=== PATIENT | male | born 1995 | race Caucasian/White ===

== ENCOUNTER 2021-07-16 12:28 | Emergency (ER) | payer MEDICARE, BC, SELFPAY ==
[2021-07-16] VITALS (24 sets, daily range): BP systolic 151–173; BP diastolic 96–113; PULSE 90–101; RESP 8–27; TEMP 36.6; O2SAT 93–100
--- NOTE | ~2021-07-16 | XR_ITS ---
XR chest 1V portable DATE: 07/16/2021 17:21 INDICATION: Shortness of breath and fatigue since yesterday. History of dialysis. Hypertension. TECHNIQUE: Portable upright AP chest on July 16, 2021 at 1717 hours COMPARISON: None FINDINGS: Heart size is normal. There is mild pulmonary vascular congestion and redistribution sugges ting pulmonary venous hypertension. There are mild infiltrates and/atelectasis in the mid to lower augusto ng zones. Differential diagnoses include pulmonary edema, pneumonia, less likely aspiration. Minimal pleural effusions. No pneumothorax. IMPRESSION: Pulmonary vascular congestion and redistribution, small pleural effusions, suggesting con gestive changes There are mild central and lower lung zone infiltrates, more prominent centrally, which may be due to pulmonary edema. Differential diagnosis includes pneumonia, less likely aspiration Reviewed, dictated and finalized at location B. P [employer]URANCE SPECIAL AGENT IMPRESSION: Pulmonary vascular congestion and redistribution, small pleural eff usions, suggesting congestive changes There are mild central and lower lung zone infiltrates, more prominent centrall y, which may be due to pulmonary edema. Differential diagnosis includes pneumon ia, less likely aspiration
--- NOTE | 2021-07-16 16:06 | PC.NURSE ---
Pt has hx of kidney transplant s/p rejection and currently on dialysis, left forearm fistula, on M/W/F dialysis. No missed sessions. Pt reports one week of increased fatigue/lethargy. Pt states he has called off work all week due to symptoms, this normally happens when his hgb is low. States his hgb was 8 when drawn yesterday, states that he becomes symptomatic when it is less than 9.5. VS as documented. Pt A&Ox4 and appears generally weak/tired. Waiting provider assessment/POC. Mom at bedside.
[2021-07-16 17:03] LABS: Basophils Percent Auto 0.3 % (0.2-1.2); Eosinophils Absolute Auto 0.1 K/mm3 (0-0.3); Eosinophils Percent Auto 1.8 % (0-4.4); Hematocrit 25.4 % (42.0-52.0); Hemoglobin 8.4 g/dL (14.0-18.0); Immature Granulocyte Absolute 0.01 K/mm3 (0.00-0.031); Immature Granulocyte Percent A 0.3 % (0-0.5); Lymphocytes Absolute Auto 0.31 K/mm3 (0.9-3.2); Lymphocytes Percent Auto 9.1 % (18.3-44.2); Mean Corpuscular HGB Conc 33.1 g/dl (32-36); Mean Corpuscular Hemoglobin 32.2 pg (26-34); Mean Corpuscular Volume 97.3 fl (80-100); Monocytes Absolute Auto 0.3 K/mm3 (0.1-0.6); Monocytes Percent Auto 9.4 % (2.6-8.5); Neutrophils Absolute Auto 2.7 K/mm3 (1.3-6.7); Neutrophils Percent Auto 79.1 % (45.5-73.1); Platelet Count Result 166 k/mm3 (150-375); Red Blood Count 2.61 M/mm3 (4.6-6.20); Red Cell Distribution Width 14.5 % (11.5-14.5); White Blood Count 3.4 K/mm3 (4.5-10.0)
[2021-07-16 17:13] LABS: Alanine Aminotransferase 15 U/L (4-50); Albumin Level 3.9 g/dL (3.5-5.1); Alkaline Phosphatase 79 U/L (38-126); Anion Gap 8 mmol/L (8-16); Aspartate Amino Transferase 21 U/L (17-59); Bilirubin,Total 1.1 mg/dL (0.2-1.3); Blood Urea Nitrogen 31 mg/dL (9-20); Calcium 9.6 mg/dL (8.4-10.2); Carbon Dioxide 35 mmol/L (22-30); Chloride 96 mmol/L (98-107); Estimated CRCL calculation 13 ml/min; Estimated Glomerular Filt Rate 8; Glucose 124 mg/dL (65-110); Potassium 4.5 mmol/L (3.4-5.0); Sodium 139 mmol/L (137-145)
[2021-07-16 19:01] LABS: SARS-CoV-2 RNA PCR Negative
--- NOTE | 2021-07-16 19:15 | ED.SOB ---
HPI - SOB/Dyspnea General Chief Complaint: Shortness of Breath/Dyspnea Stated Complaint: SOB, Fatigue Time Seen by Provider: 07/16/21 15:58 Source: patient and RN notes reviewed Mode of arrival: ambulatory Limitations: no limitations History of Present Illness HPI Narrative: Patient is a 26-year-old male who presents with mother for concern of fatigue and shortness of breath for the last 2 days he is a dialysis patient followed by Cannot go he had had some slight congestion a couple of days ago that resolved on arrival he denies any chest pain fever chills nausea vomiting or other complaints he was able to complete his dialysis yesterday Related Data Home Medications Medication Instructions Recorded Confirmed acyclovir 200 mg capsule 200 mg PO BID cap 07/19/20 12/04/20 amlodipine 10 mg tablet 10 mg PO DAILY 07/19/20 12/04/20 aspirin 81 mg tablet,delayed 81 mg PO DAILY 07/19/20 12/04/20 release famotidine 20 mg tablet 20 mg PO DAILY 07/19/20 12/04/20 tacrolimus 1 mg capsule, 2 mg PO .COMPLEX cap 07/19/20 12/04/20 immediate-release labetalol 200 mg tablet 200 mg PO Q12H 12/04/20 12/04/20 lisinopril 40 mg tablet 40 mg PO DAILY 12/04/20 12/04/20 Allergies Allergy/AdvReac Type Severity Reaction Status Date / Time Sulfa (Sulfonamide AdvReac itchy-rash Verified 12/04/20 15:40 Antibiotics) Review of Systems Review of Systems: All systems reviewed & are unremarkable except as noted in HPI and below PMFSH Past Medical History Medical History Hearing loss Hypertension Kidney disease Status post peritoneal dialysis (~03/2019) Surgical History Surgical History Kidney transplant recipient (~12/2018) Status post insertion of hemodialysis catheter (~06/2020) Social History Social History Smoking status: Former smoker (vapes) Tobacco type: e-cigarettes/vaping Alcohol intake: never Exam Narrative: GENERAL: Well-appearing, well-nourished, and in no acute distress. HEAD: Normocephalic, atraumatic. EYES: PERRLA and EOMI. ENT: Nares clear, no rhinorrhea or epistaxis. Mucous membranes moist. NECK: Supple. No adenopathy or masses. No carotid bruits or JVD CHEST: Clear to auscultation. No respiratory distress. No wheezes rales or rhonchi HEART: Regular rate and rhythm. No murmur heard. Normal peripheral pulses. EXTREMITIES: Normal range of motion. 1+ edema bilateral ankles SKIN: Warm, dry, no rash. NEURO: No focal deficits. Alert and oriented x3. PSYCH: Normal mood and affect. Course Course Emergency Course: Patient presented with fatigue and shortness of breath for the last 2 days he was evaluated for this negative Covid testing no pneumonia suspected given the lack of URI symptoms could be slightly volume overloaded discussion was made with his barrel header to well reevaluate him tomorrow at dialysis and feels that the patient can be discharged home as long as his Covid is negative given the case findings and presentation ABCs and vital signs intact and stable patient and his mother are aware of case findings in agreement with the treatment plan Consultations Consultation #1: Discussed case with Dr. amezcua the patient's barrel header who recommends Covid testing is aware of the remainder of findings and notes that the patient can be discharged home if Covid negative for dialysis tomorrow Date: 07/16/21 Vital Signs Vital signs: Vital Signs Temperature 98 F 07/16/21 13:02 Pulse Rate 90 07/16/21 13:02 Respiratory Rate 18 07/16/21 13:02 Blood Pressure 153/96 H 07/16/21 13:02 Pulse Oximetry 100 07/16/21 13:02 Temperature 98 F 07/16/21 13:02 Pulse Rate 94 07/16/21 16:08 Respiratory Rate 18 07/16/21 16:08 Blood Pressure 154/103 H 07/16/21 16:08 Pulse Oximetry 99 07/16/21 16:08 MDM - SOB/Dyspnea
== END 2021-07-16 19:37 | disposition home or self-care (01) ==
PROVIDERS: Emergency Medicine Emergency Medical Services; Emergency Provider Emergency Medicine; PCP Family Medicine
DX: R06.00 Dyspnea, unspecified (principal); I10 Essential (primary) hypertension; Z20.822 Contact with and (suspected) exposure to COVID-19
CPT/HCPCS: 36415; 71045; 80053; 85025; 86850; 86900; 86901; 99283; C9803; U0003; U0005

== ENCOUNTER 2021-09-04 07:14 | Outpatient (RCR) | payer MEDICARE, BC, SELFPAY ==
[2021-09-03 09:29] LABS: Hematocrit 19.9 % (42.0-52.0); Hemoglobin 6.6 g/dL (14.0-18.0)
[2021-09-04] VITALS (10 sets, daily range): BP systolic 132–171; BP diastolic 81–115; PULSE 81–96; RESP 14–16; TEMP 36.4–37.3; O2SAT 88–98
[2021-09-04] MEDS: SODIUM CHLORIDE 0.9% IV 250 ML 30 ML IV CONT (07:50)
--- NOTE | 2021-09-04 10:00 | PC.NURSE ---
Pt sleeping in recliner, respirations even and unlabored. Pt awakens to name, pt denies pain, no sign of transfusion reaction. Mother in room with pt, reports this is the best he has slept all week . Blood infusing without difficutly.
[2021-09-04] MEDS: FUROSEMIDE INJ 40 MG/4 ML VIAL IV PUSH ×2 (10:53→14:20)
--- NOTE | 2021-09-04 11:20 | PC.NURSE ---
Pt placed on 2LNC due of O2 sat dropping to 88% on RA while sleeping. Pt awakens easily and O2 sat rebounds to high 90's. IV lasix given, 2nd unit of PRBC's infusing without difficulty. Pt reports understanding and answers appropriately then returns to sleep. Mother reports he has not slept well recently and states he has been very tired. This RN at bedside for initiation of 2nd unit of PRBC'S to monitor pt for signs of a transfusion reaction. Pt and mother reminded of signs of a reaction and instructed to call or help/ use call light if any symptom developed. Both report understand, call light within reach. Pt resting comfortably at this time.
--- NOTE | 2021-09-04 12:37 | PC.NURSE ---
Pt sleeping, awakens to name, pt alert and oriented, denies pain, itching, shortness of breath or other complaints. PRBC infusing without difficulty, continue to monitor.
--- NOTE | 2021-09-04 14:23 | PC.NURSE ---
2nd unit of PRBC infused, pt tolerated well, O2 sat 98% on RA.
== END 2021-12-02 23:59 | disposition home or self-care (01) ==
LOC: ANHCPCTRAN 07:14
PROVIDERS: PCP Family Medicine; Visit Provider Internal Medicine Nephrology
DX: D64.9 Anemia, unspecified (principal)
CPT/HCPCS: 36415; 36430; 85014; 85018; 86850; 86900; 86901; 86920; 96374; J1940; J7050; P9016

== ENCOUNTER 2021-10-13 11:29 | Inpatient (IN) | payer MEDICARE, BC, SELFPAY ==
[2021-10-13] VITALS (35 sets, daily range): BP systolic 126–192; BP diastolic 69–120; PULSE 88–111; RESP 9–38; TEMP 37–37.6; O2SAT 86–100; BMI 23.3
--- NOTE | ~2021-10-13 | XR_ITS ---
EXAMINATION: XR chest 2V DATE: 10/15/2021 10:43 INDICATION: Hypoxia. TECHNIQUE: Frontal and lateral views of the chest were obtained. COMPARISON: Chest 2 views 10/13/2021, chest CT 10/14/2021 FINDINGS: Eddi B lines are noted. There are mild airspace opacities in the lower lung zones. These findings are consistent with mild pulmonary edema. No pleural effusion or pneumothorax. The heart siz e is normal. IMPRESSION: 1. Mild pulmonary edema with interval improvement. Reviewed, dictated and finalized at location B.
--- NOTE | ~2021-10-13 | CT_ITS ---
EXAMINATION: CT abdomen pelvis wo con DATE: 10/13/2021 13:40 INDICATION: Abdominal pain, umbilical pain. Nausea and vomiting. Renal transplant 2019 TECHNIQUE: Computed tomography (CT) of the abdomen and pelvis was performed without intravenous contr ast. Automated exposure control and iterative reconstruction technique were employed. Exam dose: 397 .13 mGy-cm total exam DLP. COMPARISON: None. FINDINGS: There is extensive patchy consolidating infiltration of the middle lobe and both lower lobe s. Mild bilateral pleural effusions. Cardiomegaly. There is small pericardial effusion. There is mild ascites. There is subcutaneous edema of the abdominal and pelvic marion consistent with anasarca. No hepatic, splenic, pancreatic, adrenal or renal space occupying mass lesion is detected. There is m ild splenomegaly. Bilateral prominent renal atrophy. The gallbladder is present. No bile duct or pancreatic duct dilatation. Right renal transplant. No hydronephrosis. No abdominal aortic aneurysm. No intraperitoneal or retroperitoneal or pelvic mass lesion or lymphad enopathy. No bowel obstruction or free air. Included skeletal structures are unremarkable. IMPRESSION: Severe bilateral tejon kidney atrophy Right renal transplant Extensive patchy consolidating infiltrates of the middle and both lower lobes suggesting pneumonia or pulmonary edema Small pericardial effusion Mild bilateral pleural effusions Mild ascites Anasarca Splenomegaly Reviewed, dictated and finalized at Location [facility]. Reviewed, dictated and finalized at location A. IMPRESSION: Severe bilateral tejon kidney atrophy Right renal transplant Extensive patchy consolidating infiltrates of the middle and both lower lobes s uggesting pneumonia or pulmonary edema Small pericardial effusion Mild bilateral pleural effusions Mild ascites Anasarca Splenomegaly
--- NOTE | ~2021-10-13 | CT_ITS ---
EXAMINATION: CTA chest PE protocol DATE: 10/14/2021 08:23 INDICATION: Shortness of breath and chest pain TECHNIQUE: Computed tomography angiography (CTA) of the chest was performed with 100 mL Omnipaque-350 intravenous contrast timed to evaluate the pulmonary arteries. Coronal maximum intensity projection 3D-reconstructions were created by the technologist. The dose-length product (DLP) was 287.55 mGy-cm. Automated exposure control and iterative reconstruction technique were employed. COMPARISON: None. FINDINGS: The pulmonary arteries are well-opacified. No pulmonary embolism is identified. There are p atchy airspace opacities with a mid and lower lung zone predominance. There are small pleural effusio ns. No pneumothorax is identified. The heart size is normal. There appears to be mild interlobular s eptal thickening. There is mild mediastinal and bilateral hilar lymphadenopathy. Mild gynecomastia is noted. There is diffuse anasarca. IMPRESSION: 1. No pulmonary embolism. 2. Findings consistent with multifocal pneumonia. 3. Small pleural effusions with possible mild pulmonary edema. 4. mediastinal and bilateral hilar lymphadenopathy, likely reactive. Reviewed, dictated and finalized at location A.
--- NOTE | ~2021-10-13 | XR_ITS ---
XR chest 2V DATE: 10/13/2021 12:01 INDICATION: Medial chest pain for one month. Shortness of breath. Dialysis patient. TECHNIQUE: AP and lateral views COMPARISON: July 16, 2021 portable AP chest FINDINGS: There is borderline heart size.. There is pulmonary vascular congestion. There is prominenc e of the fissures. There are bilateral pulmonary infiltrates involving primarily the mid and lower augusto ng zones. These may be due to pulmonary edema and/or pneumonia or aspiration. No pneumothorax. Very small bilateral pleural effusion is evident. IMPRESSION: Pulmonary vascular congestion, pulmonary interstitial and pulmonary edema, very small ple ural effusions. Cannot exclude pneumonia or aspiration. Reviewed, dictated and finalized at location A. IMPRESSION: Pulmonary vascular congestion, pulmonary interstitial and pulmonary edema, very small pleural effusions. Cannot exclude pneumonia or aspiration.
--- NOTE | ~2021-10-13 | NM_ITS ---
EXAMINATION: NM makayla stress w perfusion DATE: 10/14/2021 13:29 INDICATION: Chest pain. TECHNIQUE: Rest images were obtained following intravenous administration of 9.7 mCi Tc99m tetrofosmi n (Myoview). The patient was infused intravenously with Lexiscan (regadenoson). Then, 29.3 mCi Tc99m tetrofosmin (Myoview) was administered intravenously, and supine and prone stress images were obtaine d. Data was reconstructed into short axis and horizontal and vertical long axis SPECT images. Gated S PECT images were also obtained. COMPARISON: Chest CT 10/14/2021 FINDINGS: There is a small, mild, fixed perfusion defect involving mid anterolateral segment of left ventricle, consistent with infarct. No reversible component to suggest ischemia. There is no segment al wall motion abnormality. Left ventricular ejection fraction measures 68%. IMPRESSION: 1. Small area of mild infarct involving mid anterolateral segment of left ventricle. 2. Normal left ventricular ejection fraction measuring 68%. Reviewed, dictated and finalized at location B. IMPRESSION: 1. Small area of mild infarct involving mid anterolateral segment of left ventr icle. 2. Normal left ventricular ejection fraction measuring 68%.
--- NOTE | ~2021-10-13 | US_ITS ---
US venous doppler [facility] DATE: 10/13/2021 14:31 INDICATION: Swelling of the lower extremities. Elevated d-dimer. TECHNIQUE: Real-time and color flow imaging and Doppler analysis of the lower extremity veins COMPARISON: None FINDINGS: The greater saphenous veins are patent. There is spontaneous and phasic flow and normal aug mentation and color flow signal and normal compression of the deep veins of both lower extremities. IMPRESSION: No evidence of deep venous thrombosis of the lower extremities Reviewed, dictated and finalized at Location [facility]. Reviewed, dictated and finalized at location A.
--- NOTE | 2021-10-13 11:36 | ECG_ITS ---
Measurements Intervals [place] Rate: 106 P: 23 ME: 127 QRS: 7 QRSD: 86 T: 96 QT: 319 QTc: 425 Interpretive Statements SINUS TACHYCARDIA POSSIBLE LEFT ATRIAL ENLARGEMENT DELAYED PRECORDIAL R/S TRANSITION BORDERLINE ST-T WAVE ABNORMALITY- HIGH LATERAL LEADS BORDERLINE ECG Electronically Signed On 10-13-2021 16:29:38 CDT by Demetri Mcqueen D.O.
[2021-10-13 11:53] LABS: Basophils Percent Auto 0.2 % (0.2-1.2); Eosinophils Absolute Auto 0.1 K/mm3 (0-0.3); Eosinophils Percent Auto 1.6 % (0-4.4); Hematocrit 24.3 % (42.0-52.0); Hemoglobin 8.1 g/dL (14.0-18.0); Immature Granulocyte Absolute 0.02 K/mm3 (0.00-0.031); Immature Granulocyte Percent A 0.2 % (0-0.5); Lymphocytes Absolute Auto 0.28 K/mm3 (0.9-3.2); Lymphocytes Percent Auto 3.4 % (18.3-44.2); Mean Corpuscular HGB Conc 33.3 g/dl (32-36); Mean Corpuscular Hemoglobin 32.9 pg (26-34); Mean Corpuscular Volume 98.8 fl (80-100); Mean Platelet Volume 9.1 fl (7.4-10.4); Monocytes Absolute Auto 0.3 K/mm3 (0.1-0.6); Monocytes Percent Auto 3.2 % (2.6-8.5); Neutrophils Absolute Auto 7.5 K/mm3 (1.3-6.7); Neutrophils Percent Auto 91.4 % (45.5-73.1); Platelet Count Result 152 k/mm3 (150-375); Red Blood Count 2.46 M/mm3 (4.6-6.20); Red Cell Distribution Width 14.8 % (11.5-14.5); White Blood Count 8.2 K/mm3 (4.5-10.0)
[2021-10-13 12:02] LABS: INR 1.2; Prothrombin Time 14.8 Seconds (11.1-14.7)
[2021-10-13 12:04] LABS: Alanine Aminotransferase 12 U/L (4-50); Albumin Level 3.9 g/dL (3.5-5.1); Alkaline Phosphatase 84 U/L (38-126); Anion Gap 9 mmol/L (8-16); Aspartate Amino Transferase 23 U/L (17-59); Bilirubin,Total 1.8 mg/dL (0.2-1.3); Blood Urea Nitrogen 33 mg/dL (9-20); Calcium 9.7 mg/dL (8.4-10.2); Carbon Dioxide 30 mmol/L (22-30); Chloride 96 mmol/L (98-107); Estimated CRCL calculation 14 ml/min; Estimated Glomerular Filt Rate 8; Glucose 85 mg/dL (65-110); Lipase 42 U/L (23-300); Potassium 4.4 mmol/L (3.4-5.0); Sodium 135 mmol/L (137-145)
[2021-10-13 12:24] LABS: Platelet Estimate Adequate (Adequate); Stomatocytes 1+ (NORMAL)
[2021-10-13 12:32] LABS: Troponin I 0.018 ng/mL (0.000-0.034)
--- NOTE | 2021-10-13 13:12 | ED.CHESTPAIN ---
HPI - Chest Pain General Chief Complaint: Chest Pain <DEVON Thompson Last Filed: 10/13/21 16:45> Stated Complaint: Chest Pain, Renal Failure <DEVON Thompson Last Filed: 10/13/21 16:45> Time Seen by Provider: 10/13/21 12:54 <DEVON Thompson Last Filed: 10/13/21 16:45> Source: patient and family <DEVON Thompson Last Filed: 10/13/21 16:45> Mode of arrival: wheelchair <DEVON Thompson Last Filed: 10/13/21 16:45> Limitations: no limitations <DEVON Thompson Last Filed: 10/13/21 16:45> History of Present Illness HPI narrative: This is a 26-year-old male that presents to the emergency department with multiple complaints. Ongoing for several months. Reports intermittent chest pains, shortness of breath, and fatigue. Also reports some intermittent abdominal discomfort. 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 Denies fever, or vomiting. <DEVON Thompson Last Filed: 10/13/21 16:45> Related Data Home Medications: Home Medications Medication Instructions Recorded Confirmed acyclovir 200 mg capsule 200 mg PO BID cap 07/19/20 10/13/21 aspirin 81 mg tablet,delayed 81 mg PO DAILY 07/19/20 10/13/21 release famotidine 20 mg tablet 20 mg PO DAILY 07/19/20 10/13/21 tacrolimus 1 mg capsule, 2 mg PO .COMPLEX cap 07/19/20 10/13/21 immediate-release labetalol 200 mg tablet 200 mg PO Q12H 12/04/20 10/13/21 losartan [Cozaar] 100 mg PO HS 09/04/21 10/13/21 clonidine HCl 0.1 mg PO BID PRN 10/13/21 10/13/21 nifedipine 60 mg PO BID 10/13/21 10/13/21 ondansetron 4 mg PO Q4-6H PRN 10/13/21 10/13/21 <DEVON Thompson Last Filed: 10/13/21 16:45> Allergies/Adverse Reactions: Allergies Allergy/AdvReac Type Severity Reaction Status Date / Time amoxicillin [From Augmentin] AdvReac Severe Nausea and Verified 10/13/21 18:08 Vomiting clavulanic acid AdvReac Severe Nausea and Verified 10/13/21 18:08 [From Augmentin] Vomiting Sulfa (Sulfonamide AdvReac itchy-rash Verified 10/13/21 18:08 Antibiotics) <Margot Aguirre PA-C - Last Filed: 10/13/21 16:45> Review of Systems Review of Systems: CONSTITUTIONAL: Denies fever CARDIOVASCULAR: Reports chest pain, and edema. RESPIRATORY: Reports dyspnea. Denies cough GASTROINTESTINAL: Reports abdominal pain, nausea. Denies vomiting NEUROLOGIC: Reports generalized weakness. <DEVON Thompson Last Filed: 10/13/21 16:45> All systems reviewed & are unremarkable except as noted in HPI and below <Margot Aguirre PA-C - Last Filed: 10/13/21 16:45> [facility] Past Medical History Medical History: Medical History Alport syndrome Anemia of chronic disease Anxiety End stage renal disease On PD prior to renal transplant. Back on hemodialysis due to failing transplant. Gastroesophageal reflux disease Hypertension Status post peritoneal dialysis (~03/2019) <DEVON Thompson Last Filed: 10/13/21 16:45> Surgical History Surgical History: Surgical History Kidney transplant recipient (12/2018) Status post creation of arteriovenous fistula Left wrist. Status post insertion of hemodialysis catheter (06/2020) <DEVON Thompson Last Filed: 10/13/21 16:45> Family History Family History: Family History Grandparent Alport syndrome Heart disease Father Type 2 diabetes mellitus <DEVON Thompson Last Filed: 10/13/21 16:45> Social History Social History: Social History Social History: Surrogate decision maker: Tierra and Dario Sheth, parents. Code status: Full code. Smoking status: Former smoker Tobacco type: cigarettes and e-cigare
[2021-10-13 13:33] LABS: NT Pro B Type Natriuretic Pept > 35000 pg/mL (5-100)
[2021-10-13 13:54] LABS: D Dimer 0.76 ug/mL (<0.48)
[2021-10-13] MEDS: FUROSEMIDE INJ 40 MG/4 ML VIAL IV PUSH (15:04)
[2021-10-13 15:24] LABS: Troponin I 0.019 ng/mL (0.000-0.034)
[2021-10-13] MEDS: ENOXAPARIN 80 MG/0.8 ML SYRINGE SUB-Q (15:32)
--- NOTE | 2021-10-13 15:45 | PM.IMHP ---
H&P: HPI History of Present Illness Date/Time: 10/13/21 15:45 Chief Complaint: Multiple complaints. Narrative: This is a 26-year-old male with Alport syndrome who presented to the emergency department via private vehicle from home with multiple complaints. He is status post renal transplant in 2019 however that has essentially failed and he is back on hemodialysis on Thursday, Thursday, and Thursday. He reports getting down to his dry weight with a majority of his dialysis sessions however he goes on to say that over the last several months he has noticed more swelling in his legs and his abdomen. He also reports increasing fatigue to the point that he had to take a leave of absence from work. He has orthopnea quite frequently though it does improve somewhat after dialysis sessions. He does not sleep well most nights and endorses paroxysmal nocturnal dyspnea and loud snoring that occasionally wakes him from sleep. His appetite has not been great and he has frequent nausea and occasional emesis which seems to happen more so in the morning. He has also become progressively more anemic and required blood transfusion a couple of months ago for the 1st time. At times he feels lightheaded and dizzy upon standing though he denies syncope and falls. Additionally he endorses intermittent episodes of racing heart and palpitations which are occasionally associated with chest tightness, nausea, and mild shortness of breath. He has an upcoming appointment with his primary care provider to discuss these complaints though he seems to be getting worse and he felt it was best to come in for evaluation. He was afebrile on arrival to the emergency department. Blood pressures were running quite high however he had not yet taken his home medications in after those were given they have improved. Hemoglobin and hematocrit are right around where they were several months ago however he does not know his typical baseline and he does not think that he receives epoetin with dialysis. He had no significant electrolyte abnormalities. D-dimer was mildly elevated and a chest CTA has been ordered for tomorrow morning to rule out pulmonary embolism prior to dialysis though this seems less likely. Chest x-ray showed evidence of volume overload. A CT of the abdomen and pelvis showed extensive patchy consolidating infiltrates in the middle and both lower lobe suggesting pneumonia or pulmonary edema, small pericardial effusion, mild bilateral pleural effusions, mild ascites, anasarca, and splenomegaly. He is now being admitted for further evaluation. He currently has no complaints and denies fever, cold and flu symptoms, current chest pain, cough, dysuria (he still urinates a small amount 1 to 2 times per day), and change in bowel patterns (reports passing 1 to 2 loose stools each day). Review of Systems Review of Systems: Twelve systems were reviewed. Occasional night sweats. No fever. Reports a slight headache at this time, worse when his blood pressures are running high. No congestion, sore throat, or cough. He denies pleuritic pain. Occasional GERD symptoms. No history of peptic ulcers. No hematemesis, melena, or hematochezia. Except as documented, all other systems were reviewed and are negative. [facility] Past Medical History Medical History (Updated 10/13/21 @ 23:14 by Samina Gant PA-C) Alport syndrome Anemia of chronic disease Anxiety End stage renal disease On PD prior to renal transplant. Back on hemodialysis due to failing transplant. Gastroesophageal reflux disease Hypertension Status post peritoneal dialysis (~03/2019) Surgical History Surgical History (Updated 10/13/21 @ 23:14 by Samina Gant PA-C) Kidney transplant recipient (12/2018) Status post creation of arteriovenous fistula Left wrist. Status post insertion of hemodialysis catheter (06/2020) Family History Family History Grandparent Alport syndrome
[2021-10-14] VITALS (31 sets, daily range): BP systolic 111–157; BP diastolic 71–97; PULSE 85–99; RESP 16–19; TEMP 36.8–37.4; O2SAT 92–97
--- NOTE | 2021-10-14 | ECHO_ITS ---
Patient Info Name: Dav Sheth Age: 26 years : 1995 Gender: Male Ht: 72 in Wt: 172 lbs BSA: 1.99 m2 HR: 87 bpm BP: 131 / 80 mmHg Technical Quality: Good Exam Date: 10/14/2021 2:39 PM Exam Location: [facility] Patient Status: Inpatient Admit Date: 10/13/2021 Staff Ordering Physician: Samina Gant PA-C [employer] Applications Analyst: Noelle Gomez RDCS Attending Provider: Jag Dee MD Referring Physician: Stalin ESTRELLA; Exam Type: CA echo doppler color flow Study Info Indications - EDEMA I10 - Essential (primary) hypertension R00.2 - Palpitations R53.83 - Other fatigue Complete two-dimensional, color flow and Doppler transthoracic echocardiogram is performed. Summary 1. Complete two-dimensional, color flow and Doppler transthoracic echocardiogram is performed. 2. Mild LV enlargement, severe LVH, normal LV systolic function, ejection fraction 65-70%; diastolic dysfunction is present. [id number] left atrial enlargement. Normal mitral valve structure, no significant MR. Normal aortic valve structure, no stenosis or regurgitation. Trivial TR, moderate pulmonary hypertension, RVSP 53 mmHg. Mild pulmonic regurgitation. Small pericardial effusion, no echo evidence of tamponade. Left pleural effusion. Sinus rhythm. Left Ventricle Left ventricular chamber dimension is mildly enlarged. Left ventricular systolic function is normal, estimated at 65-70%. There is severely increased left ventricular wall thickness. Left ventricular septal wall motion is normal. The left ventricular diastolic function is abnormal. Right Ventricle Right ventricular chamber dimension is normal. Right ventricular systolic function is normal. Left Atria Left atrial chamber dimension is mildly enlarged. Right Atria Right atrial chamber dimension is normal. Aortic Valve The aortic valve is normal. There is no aortic valve stenosis. There is no aortic valve regurgitation. Pulmonic Valve The pulmonic valve is normal. There is mild pulmonic regurgitation. Mitral Valve The mitral valve has normal leaflets. There is no mitral valve stenosis. There is trace mitral valve regurgitation. Tricuspid Valve The tricuspid valve leaflets are normal. There is no tricuspid valve regurgitation. Moderate pulmonary hypertension, estimated pulmonary arterial systolic pressure is 53 mmHg. Pericardium/Pleural The pericardium appears normal. There is small pericardial effusion. Inferior Vena Cava Normal inferior vena cava with >50% collapse upon inspiration consistent with normal right atrial pressure, 10 mmHg. Aorta The aortic root size at the sinus of Valsalva is normal. The prox ascending aorta size is normal. Left Ventricular Outflow Tract Name Value Normal LVOT 2D LVOT Diameter 2.0 cm LVOT Doppler LVOT Peak Gradient 8 mmHg LVOT Mean Gradient 5 mmHg LVOT VTI 26 cm LVOT VTI/AV VTI Ratio 1.0 LVOT Stroke Volume 83 ml LVOT CO
[2021-10-14] MEDS: ACYCLOVIR 200 MG CAPSULE PO ×2 (00:47→20:15)
[2021-10-14] MEDS: NIFEdipine 30 MG TAB.ER.24 60 MG PO ×2 (00:47→20:16)
[2021-10-14] MEDS: LABETALOL HCL 100 MG TABLET 200 MG PO ×2 (00:47→20:15)
[2021-10-14] MEDS: LOSARTAN POTASSIUM 100 MG TABLET PO ×2 (00:47→20:15)
[2021-10-14 06:20] LABS: Basophils Percent Auto 0.2 % (0.2-1.2); Eosinophils Absolute Auto 0.1 K/mm3 (0-0.3); Eosinophils Percent Auto 3.2 % (0-4.4); Hematocrit 22.2 % (42.0-52.0); Hemoglobin 7.2 g/dL (14.0-18.0); Immature Granulocyte Absolute 0.02 K/mm3 (0.00-0.031); Immature Granulocyte Percent A 0.5 % (0-0.5); Lymphocytes Absolute Auto 0.52 K/mm3 (0.9-3.2); Lymphocytes Percent Auto 12.7 % (18.3-44.2); Mean Corpuscular HGB Conc 32.4 g/dl (32-36); Mean Corpuscular Hemoglobin 32.3 pg (26-34); Mean Corpuscular Volume 99.6 fl (80-100); Mean Platelet Volume 9.9 fl (7.4-10.4); Monocytes Absolute Auto 0.2 K/mm3 (0.1-0.6); Monocytes Percent Auto 3.6 % (2.6-8.5); Neutrophils Absolute Auto 3.3 K/mm3 (1.3-6.7); Neutrophils Percent Auto 79.8 % (45.5-73.1); Platelet Count Result 136 k/mm3 (150-375); Red Blood Count 2.23 M/mm3 (4.6-6.20); Red Cell Distribution Width 14.6 % (11.5-14.5); White Blood Count 4.1 K/mm3 (4.5-10.0)
[2021-10-14 06:29] LABS: Anion Gap 9 mmol/L (8-16); Blood Urea Nitrogen 45 mg/dL (9-20); Calcium 9.4 mg/dL (8.4-10.2); Carbon Dioxide 30 mmol/L (22-30); Chloride 96 mmol/L (98-107); Estimated CRCL calculation 11 ml/min; Estimated Glomerular Filt Rate 6; Glucose 84 mg/dL (65-110); Magnesium 2.3 mg/dL (1.6-2.3); Phosphorus 5.4 mg/dL (2.5-4.5); Potassium 4.9 mmol/L (3.4-5.0); Sodium 135 mmol/L (137-145)
[2021-10-14 06:51] LABS: Iron 18 ug/dL (49-181)
[2021-10-14 07:00] LABS: Percent Iron Saturation 8 % (20-50)
--- NOTE | 2021-10-14 08:08 | PM.CNNEP ---
Assessment and Plan Additional Plan 1. 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 He is due for dialysis today. He does seem to have some fluid on. They usually get about 2L off but that does not seem to be enough. I will go for 3 or 4L today. I talked to the patient about taking extra fluid off and he is in agreement with that. His potassium is okay so will use a 3K bath. 2. The patient has chest pain. He does not remember being evaluated for his heart in the past. Has he has end-stage kidney disease we probably should do a stress test and an echo. The patient also had a positive D-dimer. We plan to do a V/Q scan after the fluid is off. 3. The patient has anemia. Hemoglobin is only 7. This could also contribute to his symptoms. He will get EPO today. I will check iron levels. 4. Patient has renal osteodystrophy. We will check a phosphorus level in the morning. 5. The patient has hypertension. He is on nifedipine losartan labetalol and clonidine. His fluid status may be contributing to the blood pressure. Hopefully we can wean the clonidine as we go. 6. He has a kidney transplant. This still has some function so he is still on tacro and prednisone. History of Present Illness Reason for Consult Consult date: 10/14/21 Chief Complaint Chief complaint: Anasara/Acute respriatory failure w hypoxia History of Present Illness Narrative: Dav is a very pleasant 26-year-old gentleman who has multiple medical problems including end-stage renal disease on dialysis Wednesdays and Fridays under Dr. Schroeder. 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 The patient also has anemia of chronic kidney disease, renal osteodystrophy, hypertension, GERD. The patient found out about his kidney disease back in June 2018. He ended up on peritoneal dialysis. Then he got a kidney transplant later that year. The transplant lasted until about a year ago and he went back on hemodialysis. He chose hemo over PD because it worked better with his work schedule. He says that he has been tolerating dialysis pretty well. His blood pressure does okay. He has noted this been more swollen in the last couple of months. This was noted at the dialysis unit and in fact they have been taking him below his dry weight but did not adjust his dry weight yet. He says that over the past few weeks he has had intermittent chest pain. This is pressure in the chest. He does not really know if it correlates with his fluid. He has some shortness of breath with exertion but not especially chest pain. The pain does not radiate down the arm does not go up into the jaw. It just stays in the center of the chest. Nothing makes it better but just rest. His pains were little worse over the weekend and he because he wish also somewhat short of breath he decided to come into the emergency room. He was evaluated and found to have crackles in his lungs and chest x-ray showed fluid. He was placed on some oxygen and his O2 sats were fine on only 2L and in fact now he has no oxygen on at all. He was given some diuretics to see if he would make more urine. He is due for dialysis today. Review of Systems Constitutional: Constitutional: Reports no additional constitutional complaints Eyes: Eyes: Reports no additional eye complaints ENT: Reports system reviewed and no additional complaints, except as documented Cardiovascular: Cardiovascular: Reports no additional cardiovascular complaints Respiratory: Respiratory: Reports no additional respiratory complaints Gastrointestinal: Gastrointestinal: Reports no additional gastrointestinal complaints Genitourinary: Genitourinary: Reports no additional male genitourinary complaints Musculoskeletal: Musculoskeletal: Reports no additional musculoskeletal complaints Integumentary/Breasts: Skin/Breast: Reports system reviewed and no additional complaints, except as docu Neurolo
--- NOTE | 2021-10-14 08:15 | EST_ITS ---
Patient Info Name: Dav Sheth Age: 26 years : 1995 Gender: Male Ht: 72 in Wt: 172 lbs BSA: 1.99 m2 Exam Date: 10/14/2021 11:51 AM Exam Location: [facility] Patient Status: Inpatient Admit Date: 10/13/2021 Staff Ordering Physician: Malik Helms MD Attending Provider: Jag Dee MD Exercise Technologist: Noelle Gomez RDCS Exam Type: CA stress makayla w NM Study Info Indications R07.9 - Chest pain, unspecified A regadenoson stress test was performed. Summary 1. Normal sinus rhythm. 2. Nonspecific T-wave abnormality. 3. No changes in comparison with the baseline ECG. 4. Clinically and electrocardiographically unremarkable Lexiscan stress test. 5. Myocardial perfusion imaging exam to be reported by Radiology. Protocol: Lexiscan Stress ECG Details Stage: REST Duration (min): 14 min : 24 sec HR (bpm): 86 SBP (mmHg): 151 DBP (mmHg): 92 Stage: REST Duration (min): 18 min : 31 sec HR (bpm): 85 SBP (mmHg): 151 DBP (mmHg): 92 Stage: STAGE 1 Duration (min): 0 min : 59 sec HR (bpm): 98 SBP (mmHg): 151 DBP (mmHg): 92 Stage: RECOVERY Duration (min): 1 min : 0 sec HR (bpm): 88 SBP (mmHg): 159 DBP (mmHg): 70 Stage: RECOVERY Duration (min): 2 min : 0 sec HR (bpm): 99 SBP (mmHg): 159 DBP (mmHg): 70 Stage: RECOVERY Duration (min): 3 min : 0 sec HR (bpm): 98 SBP (mmHg): 148 DBP (mmHg): 71 Stage: RECOVERY Duration (min): 3 min : 41 sec HR (bpm): 97 SBP (mmHg): 148 DBP (mmHg): 71 Rest HR: 85 bpm Peak HR: 100 bpm Rest Sys BP: 151 mmHg Peak Sys BP: 159 mmHg Max Pred HR: 194 bpm % Max Pred HR: 52 % Target HR: 165 bpm Max RPP: 15,900 bpm*mmHg Total Time: 1 min : 0 sec Rest Sparks BP: 92 mmHg Peak Sparks BP: 70 mmHg Total Dose: 0.4 mg Resting ECG Normal sinus rhythm. Nonspecific T-wave abnormality. Stress ECG No changes in comparison with the baseline ECG. Report Signatures
[2021-10-14 09:06] LABS: Iron 20 ug/dL (49-181)
[2021-10-14 09:16] LABS: Percent Iron Saturation 9 % (20-50)
--- NOTE | 2021-10-14 13:40 | PM.IMPN ---
Progress Note: A&P Assessment and Plan (1) Volume overload: Code(s): E87.70 - Fluid overload, unspecified Status: Acute Assessment and Plan: Patient presents with chest pain and SOB and noted to be hypoxic. CT Abd/Pelvis showing asasarca, ascites and pulmonary consolidations. CXR more consistent with pulmonary vascular congestion and pulmonary edema. Likely hypoxia secondary to volume overload. Pneumonia seems unlikely given no cough, fever or elevated WBC. Chest CTA showing patchy airspace opacities with mid and lower lung predominance. He was not started on IV abx but did receive one dose on Lasix IV. Not had HD yet. He has been weaned to room air. Will follow for now and repeat CXR in the morning to assess for improvement. Would consider atypical infections since he is immunosuppresed. Check BCx and Sputum Cx. (2) Chest pain: Code(s): R07.9 - Chest pain, unspecified Status: Acute Assessment and Plan: Patient presents with chest pain and this also occurred during the stress test. Trop negative x 3. He underwent Lexiscan stress test and the EKG portion showing nonspecific T wave changes and no EKG changes when compared to baseline EKGs. No mention of chest pain during the stress test. The Lexiscan shows a small, mild, fixed perfusion defect involving mid anterolateral segment of left ventricle, consistent with infarct. No reversible component. BP did not drop with stress test. Continue ASA. Will add Lipitor. Check Echo. (3) Hypoxia: Code(s): R09.02 - Hypoxemia Status: Acute Assessment and Plan: Patient presents with chest pain and SOB and noted to be hypoxic. As above. Weaned to room air. Follow. (4) End stage renal disease: Code(s): N18.6 - End stage renal disease Status: Acute Assessment and Plan: Patient with ESRD on HD related to Alport Syndrome. He has had a kidney transplant but back on HD due to rejection. Still makes urine and the Lasix may have helped his fluid status. Nephrology has been consulted and appreciate their input. Continue aggressive fluid management. (5) Kidney transplant recipient: [facility] Date: 12/2018 Code(s): Z94.0 - Kidney transplant status Status: Inactive Assessment and Plan: Patient s/p kidney transplant. Continue prednisone and tacrolimus. Continue acyclivir. Check tacrolimus level. (6) Anemia of chronic disease: Code(s): D63.8 - Anemia in other chronic diseases classified elsewhere Status: Acute Assessment and Plan: Patient was transfused a couple of months ago for dropping hemoglobin. He does not get epoetin injections to his knowledge. Hgb 8.2 but dropped to 7.2 today. Contineu Epo. Contineu Pepcid. Iron studies noted and may be iron deficient. Stool for occult blood ordered. Add B12. Follow HH. Try to minimize transfusion. Patient also with mildly decreased white count and platelet count but probably related to the tacrolimus. Will continue to follow. (7) Suspected sleep apnea: Code(s): R29.818 - Other symptoms and signs involving the nervous system Status: Acute Assessment and Plan: Patient with daytime somnolence. Apnea link ordered. Follow-up on results (8) Hypertension: Qualifiers: Hypertension type: unspecified Qualified Code(s): I10 - Essential (primary) hypertension Code(s): I10 - Essential (primary) hypertension Status: Acute Assessment and Plan: Patient's blood pressure was reviewed on 10/14 Blood pressure much better controlled. Will continue current medications with nifedipine, Cozaar, and labetalol. (9) Fatigue: Code(s): R53.83 - Other fatigue Status: Acute Assessment and Plan: Progressively worse over the last several months to the point where he had to take a leave of absence from work. May be related to anemia vs uncontrolled fluid status vs sleep apnea. TSH norm
[2021-10-14 14:00] LABS: Hepatitis B Surface Antigen Negative (Negative)
[2021-10-14 14:21] LABS: Hepatitis B Surface Anti Res Positive
[2021-10-14 15:02] LABS: Alveolar/Arterial O2 Gradient 37.7 mmHg; Base Excess ABG 6.9 mEq/l (+/-2.0); Fractional Inspired Oxygen 21 %; HCO3 ABG 30.5 mEq/l (22.0-26.0); Oxygen Content ABG 11.9 %vol (16.0-22.0); Oxygen Saturation ABG 94.4 % (95.0-100.0); Oxyhemoglobin 90.8 % THb (90.0-100.0); PCO2 ABG 39.5 mmHg (35.0-45.0); PO2 ABG 64.7 mmHg (80.0-100.0); PO2 FiO2 Ratio Arterial Blood 3.08 %; Total Hemoglobin 9.3 g/dL (12.0-18.0)
[2021-10-14 15:08] LABS: Device ROOM AIR; Modified Allen's Test Pass; Site Drawn RIGHT RADIAL; pH ABG 7.506 (7.350-7.450)
[2021-10-14 18:32] LABS: Vitamin B12 > 1000.0 pg/mL (239-931)
[2021-10-14 18:36] LABS: Folic Acid 10.9 ng/mL (2.76->20)
--- NOTE | 2021-10-14 22:43 | PCRCNOTE ---
RT talked to the patient about an overnight apnea sleep study test and explained the reasoning behind the test and possible benefit outcomes. The patient stated they were uninterested and did not want to participate in the over night sleep study [place].
[2021-10-15] VITALS (19 sets, daily range): BP systolic 152–250; BP diastolic 95–138; PULSE 70–100; RESP 16–19; TEMP 36.4–36.9; O2SAT 92–97
[2021-10-15] MEDS: cloNIDine HCL 0.1 MG TABLET PO ×3 (06:06→20:47)
[2021-10-15 06:35] LABS: Basophils Percent Auto 0.4 % (0.2-1.2); Eosinophils Absolute Auto 0.1 K/mm3 (0-0.3); Eosinophils Percent Auto 4.1 % (0-4.4); Hematocrit 21.3 % (42.0-52.0); Immature Granulocyte Absolute 0.01 K/mm3 (0.00-0.031); Immature Granulocyte Percent A 0.4 % (0-0.5); Lymphocytes Absolute Auto 0.42 K/mm3 (0.9-3.2); Lymphocytes Percent Auto 15.6 % (18.3-44.2); Mean Corpuscular HGB Conc 32.4 g/dl (32-36); Mean Corpuscular Hemoglobin 32.2 pg (26-34); Mean Corpuscular Volume 99.5 fl (80-100); Mean Platelet Volume 9.4 fl (7.4-10.4); Monocytes Absolute Auto 0.2 K/mm3 (0.1-0.6); Monocytes Percent Auto 8.6 % (2.6-8.5); Neutrophils Absolute Auto 1.9 K/mm3 (1.3-6.7); Neutrophils Percent Auto 70.9 % (45.5-73.1); Platelet Count Result 133 k/mm3 (150-375); Red Blood Count 2.14 M/mm3 (4.6-6.20); Red Cell Distribution Width 14.6 % (11.5-14.5); White Blood Count 2.7 K/mm3 (4.5-10.0)
[2021-10-15 06:40] LABS: Hemoglobin 6.9 g/dL (14.0-18.0)
[2021-10-15 06:41] LABS: Alanine Aminotransferase 8 U/L (4-50); Albumin Level 3.3 g/dL (3.5-5.1); Alkaline Phosphatase 76 U/L (38-126); Anion Gap 6 mmol/L (8-16); Aspartate Amino Transferase 16 U/L (17-59); Bilirubin Indirect 0.6 mg/dL (0-1.1); Bilirubin,Total 1.1 mg/dL (0.2-1.3); Blood Urea Nitrogen 23 mg/dL (9-20); Calcium 8.8 mg/dL (8.4-10.2); Carbon Dioxide 35 mmol/L (22-30); Chloride 97 mmol/L (98-107); Estimated CRCL calculation 17 ml/min; Estimated Glomerular Filt Rate 10; Glucose 79 mg/dL (65-110); Magnesium 2.2 mg/dL (1.6-2.3); Phosphorus 4.4 mg/dL (2.5-4.5); Potassium 4.1 mmol/L (3.4-5.0); Sodium 138 mmol/L (137-145)
--- NOTE | 2021-10-15 08:10 | PM.PNNEP ---
Progress Note: A&P Additional Plan 1. 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 He is due for dialysis tomorrow. Fluid status looks better. His potassium is okay so will use a 3K bath. 2. The patient has chest pain. He does not remember being evaluated for his heart in the past. Stress test shows small 9 reversible attenuation consistent with an old NE. LVEF was good. Reversible changes. Chest CTA was done. This was negative. We do not need a VQ anymore now. Echocardiogram is pending 3. The patient has anemia. Hemoglobin 6.9 today. Iron levels are low. Start Venofer. He is already on EPO. Try not to transfuse. He is waiting for a kidney transplant. 4. Patient has renal osteodystrophy. We will check a phosphorus level in the morning. 5. The patient has hypertension. He is on nifedipine losartan labetalol and clonidine. His fluid status may be contributing to the blood pressure. hold clonidine and take off more fluid tomorrow. 6. He has a kidney transplant. This still has some function so he is still on tacro and prednisone. Subjective Date/time seen: 10/15/21 08:10 Interval history: Patient had dialysis yesterday. 4L were removed. He feels a lot better today. Swelling is gone and he is breathing fine. Review of Systems Cardiovascular: Cardiovascular: Reports no additional cardiovascular complaints Respiratory: Respiratory: Reports no additional respiratory complaints Gastrointestinal: Gastrointestinal: Reports no additional gastrointestinal complaints Genitourinary: Genitourinary: Reports no additional male genitourinary complaints Exam Narrative: WDWN in NAD skin no rash head ncat lungs clear cor reg no rub abd BS+ nontender and soft ext no edema. Objective Data Vital Signs Vital Signs: Vital Signs - 24 hr 10/14/21 08:18 10/14/21 12:00 10/14/21 14:00 Temperature 37.1 C Pulse Rate 85 88 86 Respiratory Rate 16 Blood Pressure 111/71 Pulse Oximetry 97 10/14/21 15:10 10/14/21 15:45 10/14/21 15:54 Temperature 36.8 C Pulse Rate 90 90 Respiratory Rate 16 Blood Pressure 134/84 132/75 Pulse Oximetry 94 10/14/21 16:00 10/14/21 16:15 10/14/21 16:30 Temperature Pulse Rate 88 85 93 Respiratory Rate Blood Pressure 140/83 153/79 H 154/97 H Pulse Oximetry 10/14/21 16:45 10/14/21 17:00 10/14/21 17:15 Temperature Pulse Rate 87 90 91 Respiratory Rate Blood Pressure 150/81 H 152/88 H 155/92 H Pulse Oximetry 10/14/21 17:30 10/14/21 17:45 10/14/21 18:00 Temperature Pulse Rate 93 95 94 Respiratory Rate Blood Pressure 157/90 H 141/89 H 156/89 H Pulse Oximetry 10/14/21 18:15 10/14/21 18:30 10/14/21 18:45 Temperature Pulse Rate 99 95 95 Respiratory Rate Blood Pressure 154/88 H 154/92 H 153/94 H Pulse Oximetry 10/14/21 19:00 10/14/21 19:15 10/14/21 19:27 Temperature Pulse Rate 94 98 97 Respiratory Rate Blood Pressure 156/89 H 154/85 H 152/90 H Pulse Oximetry 10/14/21 19:45 10/14/21 20:00 10/14/21 20:15 Temperature 37.1 C Pulse Rate 97 99 93 Respiratory Rate 16 Blood Pressure 152/90 H Pulse Oximetry 10/14/21 21:13 10/14/21 21:49 10/15/21 00:00 Temperature 37.1 C Pulse Rate 98 100 Respiratory Rate 19 Blood Pressure 156/93 H Pulse Oximetry 97 92 10/15/21 04:00 10/15/21 06:00 10/15/21 06:52 Temperature 36.9 C Pulse Rate 98 95 93 Respiratory Rate 19 Blood Pressure 168/100 H 152/95 H Pulse Oximetry 92 10/15/21 07:29 Temperature Pulse Rate 93 Respiratory Rate 19 Blood Pressure Pulse Oximetry 92 Intake/Output Intake/Output: Intake & Output 10/12/21 10/13/21 10/14/21 10/15/21 23:59 23:59 23:59 23:59 Intake Total 750 Output Total 4000 Balance -3250 Meds/Results Medications: Active Medications Generic Name Dose Route Start Last Admin Trade Name Freq PRN Reason St
[2021-10-15] MEDS: NIFEdipine 30 MG TAB.ER.24 60 MG PO ×2 (08:13→19:33)
[2021-10-15] MEDS: ASPIRIN 81 MG ENTERIC TABLET PO (08:13)
[2021-10-15] MEDS: ACYCLOVIR 200 MG CAPSULE PO ×2 (08:13→19:33)
[2021-10-15] MEDS: LABETALOL HCL 100 MG TABLET 200 MG PO ×2 (08:13→19:33)
[2021-10-15] MEDS: ATORVASTATIN 20 MG TABLET PO (08:13)
[2021-10-15] MEDS: predniSONE 5 MG TABLET PO (08:14)
[2021-10-15] MEDS: FAMOTIDINE 20 MG TABLET PO (08:14)
--- NOTE | 2021-10-15 08:49 | PC.NURSE ---
confirmed with MD Moreno no transfusion needed this morning, h&H 6.9/21.3, pt will have dialysis and received Iron sucrose this shift.
--- NOTE | 2021-10-15 08:59 | PC.NURSE ---
confirmed with Md Clemente no dialysis today, will get dialysis tomorrow, daily iron sucrose infusions.
[2021-10-15] MEDS: IRON SUCROSE COMPLEX 200 MG in SODIUM CHLORIDE 0.9% IV 50 ML 120 MG IVPB (09:01)
--- NOTE | 2021-10-15 12:08 | PC.NURSE ---
stool sample send to lab for analysis.
[2021-10-15 12:32] LABS: IFOB Positive Control Positive; Immunochemical Fecal Occult Bl Negative (N)
--- NOTE | 2021-10-15 14:40 | PC.NURSE ---
occult stool negative
--- NOTE | 2021-10-15 15:33 | PM.IMPN ---
Progress Note: A&P Assessment and Plan (1) Volume overload: Code(s): E87.70 - Fluid overload, unspecified Status: Acute Assessment and Plan: Patient presents with chest pain and SOB and noted to be hypoxic. CT Abd/Pelvis showing anasarca, ascites and pulmonary consolidations. CXR more consistent with pulmonary vascular congestion and pulmonary edema. Likely hypoxia secondary to volume overload. Pneumonia seems unlikely given no cough, fever or elevated WBC. Chest CTA showing patchy airspace opacities with mid and lower lung predominance. He was not started on IV abx but did receive one dose on Lasix IV. He had HD which he toelrated this well. He is well above his dry weight per nephrology. After HD, CXR today showing improving findings to suggest this is all related to fluid overload. He has been weaned to room air. Will follow for now. HD to control fluid status. BCx NGTD. (2) Chest pain: Code(s): R07.9 - Chest pain, unspecified Status: Acute Assessment and Plan: Patient presents with chest pain and this also occurred during the stress test. Trop negative x 3. He underwent Lexiscan stress test and the EKG portion showing nonspecific T wave changes and no EKG changes when compared to baseline EKGs. No mention of chest pain during the stress test. The Lexiscan shows a small, mild, fixed perfusion defect involving mid anterolateral segment of left ventricle, consistent with infarct. No reversible component. BP did not drop with stress test. Echo showing EF 65-70%, severe LVH, diastolic dysfunction, moderate pulmonary HTN and trivial valve disease. Continue ASA, Labetolol and Lipitor. Cardiology consult (3) Hypoxia: Code(s): R09.02 - Hypoxemia Status: Acute Assessment and Plan: Patient presents with chest pain and SOB and noted to be hypoxic. As above. Weaned to room air. Follow. (4) End stage renal disease: Code(s): N18.6 - End stage renal disease Status: Acute Assessment and Plan: Patient with ESRD on HD related to Alport Syndrome. He has had a kidney transplant but back on HD due to rejection. Still makes urine and the Lasix may have helped his fluid status. Nephrology was consulted and appreciate their input. Continue aggressive HD to control fluid management. (5) Kidney transplant recipient: [facility] Date: 12/2018 Code(s): Z94.0 - Kidney transplant status Status: Inactive Assessment and Plan: Patient s/p kidney transplant. Mild pancytopenia possibly relate to his mediations. Continue prednisone and tacrolimus. Continue acyclovir. Tacrolimus level pending. Follow CBC (6) Anemia of chronic disease: Code(s): D63.8 - Anemia in other chronic diseases classified elsewhere Status: Acute Assessment and Plan: Patient was transfused a couple of months ago for dropping hemoglobin. He does not get epoetin injections to his knowledge. Hgb 8.2 but dropped to 6.9 today. Continue Epo. Continue Pepcid. Iron studies noted and started on IV iron. Stool for occult blood negative. B12/Folate levels normal. Follow HH. Try to minimize transfusion. Patient also with mildly decreased white count and platelet count but probably related to the tacrolimus/acyclovir. Will continue to follow. (7) Suspected sleep apnea: Code(s): R29.818 - Other symptoms and signs involving the nervous system Status: Acute Assessment and Plan: Patient with daytime somnolence. Apnea link ordered but patient refused. (8) Hypertension: Qualifiers: Hypertension type: unspecified Qualified Code(s): I10 - Essential (primary) hypertension Code(s): I10 - Essential (primary) hypertension Status: Acute Assessment and Plan: Patient's blood pressure was reviewed on 5/ Blood pressure has been elevated but reasonably well controlled except this afternoon blood pressure is much higher. Possibly related t
--- NOTE | 2021-10-15 15:43 | PC.NURSE ---
discontinued telemetry per Md Moreno
--- NOTE | 2021-10-15 15:50 | PC.NURSE ---
pt to start hydralazine 25 mg tid this shift
--- NOTE | 2021-10-15 16:23 | PM.CNCAR ---
Assessment and Plan Assessment and plan (1) Chest pain: Code(s): R07.9 - Chest pain, unspecified Status: Acute Assessment and Plan: Chest pain is described as pleuritic. Worsened by breathing. It is not anginal. I think that two obvious and significant issues with Mr. Sheth is volume overload likely from inadequate volume removal at dialysis as well as severe anemia. This is resulting in volume overload, anasarca, possible high-output heart failure and resultant extreme fatigue and tiredness. From a cardiac perspective, no further workup is needed. Continue current BP regimen. 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 This is likely secondary to a combination of hypertension and renal disease (6) Abnormal stress test: Code(s): R94.39 - Abnormal result of other cardiovascular function study Status: Acute Assessment and Plan: No ischemia. Likely artifactual (7) Severe anemia: Code(s): D64.9 - Anemia, unspecified Status: Acute History of Present Illness History of Present Illness Consult date/time: 10/15/21 16:23 Requesting physician: Shant Moreno MD Consult reason: chest pain Reason For Visit: Anasara/Acute respriatory failure w hypoxia Narrative: Date of service 10/15/2021: Reason consultation: Chest pain Requesting provider: Dr. Moreno History patient is a 26-year-old male who saw Dr. Stoddard on 1 occasion because of high blood pressure. Was started on nifedipine which seemed to help his blood pressure. The patient came to hospital because of extreme weakness, fatigue, of shortness of breath and chest pain. He has Alport syndrome and has had a kidney transplant which has failed and he is now on dialysis. He has severe anemia as well as volume overload. He feels better now he was dialyzed. They removed 4 L yesterday. He is less short of breath but upon admission he was short of breath with any activity and even at rest. He was also describing chest tightness with the fatigue and with shortness of breath. Upon further questioning he states that his chest pain be worsened with breathing. No syncope, presyncope, paroxysmal nocturnal dyspnea, orthopnea. Review of Systems Review of Systems: All systems reviewed & are unremarkable except as noted in HPI and below Constitutional: Constitutional: Reports fatigue and Reports weakness Eyes: Eyes: Denies blurry vision ENT: Denies Normal hearing present Cardiovascular: Cardiovascular: Reports chest pain Respiratory: Respiratory: Reports dyspnea Gastrointestinal: Gastrointestinal: Denies abdominal pain Genitourinary: Genitourinary: Denies dysuria Musculoskeletal: Musculoskeletal: Denies neck pain Integumentary/Breasts: Skin/Breast: Reports dry skin Neurologic: Denies headache(s) Psychiatric: Psychiatric: Denies anxiety Endocrine: Endocrine: Denies excessive sweating Hematologic/Lymphatic: Hematologic/Lymphatic: Denies easy bleeding Allergic/Immunologic: Allergic/Immunologic: Denies GI upset with certain foods PMFSH Past Medical History Medical History Alport syndrome Anemia of chronic disease Anxiety End stage renal disease On PD prior to renal transplant. Back on hemodialysis due to failing transplant. Gastroesophageal reflux disease Hypertension Status post p
--- NOTE | 2021-10-15 16:42 | PC.NURSE ---
bp 210/138 state state he is mad and upset and that is why bp high, mother states high bp related to anxiety from being at this hospital. Called MD Moreno for further orders.
--- NOTE | 2021-10-15 16:48 | PC.NURSE ---
ativan 0.5 mg po prn q6hrs for anxiety ordered per MD Moreno
[2021-10-15] MEDS: LORazepam (*CRX) 0.5 MG TABLET PO (16:57)
[2021-10-15] MEDS: hydrALAZINE HCL 25 MG TABLET PO (16:57)
--- NOTE | 2021-10-15 18:54 | PC.NURSE ---
ativan 0.5 mg po prn q6h and hydralazine 25 mg po given for elevated bp, pt states too upset to take bp at this time, bp is high because he is frustrated.
[2021-10-15] MEDS: LOSARTAN POTASSIUM 100 MG TABLET PO (19:33)
[2021-10-15] MEDS: ONDANSETRON INJ 4 MG/2 ML VIAL IV PUSH (20:47)
--- NOTE | 2021-10-15 22:21 | PC.NURSE ---
This patient, Dav Sheth, was received from [facility] on 10/15/21 at 2215. Patient/family oriented to unit policies and routines
[2021-10-15] MEDS: dilTIAZem 100 MG/100 ML 100 MG/100 ML BAG IV CONT (22:24)
--- NOTE | 2021-10-15 22:28 | PC.NURSE ---
2147 report called to IMU, RN. 2206 pt transferred to IMU with belongings. Mother notified at request of pt.
[2021-10-16] VITALS (27 sets, daily range): BP systolic 131–177; BP diastolic 60–103; PULSE 74–107; RESP 14–18; TEMP 36–37; O2SAT 91–98
[2021-10-16 05:20] LABS: Basophils Percent Auto 0.6 % (0.2-1.2); Eosinophils Absolute Auto 0.2 K/mm3 (0-0.3); Eosinophils Percent Auto 5.3 % (0-4.4); Hematocrit 22.9 % (42.0-52.0); Hemoglobin 7.3 g/dL (14.0-18.0); Immature Granulocyte Absolute 0.01 K/mm3 (0.00-0.031); Immature Granulocyte Percent A 0.3 % (0-0.5); Lymphocytes Absolute Auto 0.39 K/mm3 (0.9-3.2); Lymphocytes Percent Auto 12.1 % (18.3-44.2); Mean Corpuscular HGB Conc 31.9 g/dl (32-36); Mean Corpuscular Volume 100.4 fl (80-100); Mean Platelet Volume 9.4 fl (7.4-10.4); Monocytes Absolute Auto 0.2 K/mm3 (0.1-0.6); Monocytes Percent Auto 6.8 % (2.6-8.5); Neutrophils Absolute Auto 2.4 K/mm3 (1.3-6.7); Neutrophils Percent Auto 74.9 % (45.5-73.1); Platelet Count Result 125 k/mm3 (150-375); Red Blood Count 2.28 M/mm3 (4.6-6.20); Red Cell Distribution Width 14.5 % (11.5-14.5); White Blood Count 3.2 K/mm3 (4.5-10.0)
[2021-10-16 05:34] LABS: Albumin Level 3.6 g/dL (3.5-5.1); Anion Gap 5 mmol/L (8-16); Blood Urea Nitrogen 29 mg/dL (9-20); Calcium 9.5 mg/dL (8.4-10.2); Carbon Dioxide 35 mmol/L (22-30); Chloride 96 mmol/L (98-107); Estimated CRCL calculation 13 ml/min; Estimated Glomerular Filt Rate 7; Glucose 86 mg/dL (65-110); Phosphorus 4.6 mg/dL (2.5-4.5); Potassium 4.4 mmol/L (3.4-5.0); Sodium 136 mmol/L (137-145)
[2021-10-16] MEDS: ASPIRIN 81 MG ENTERIC TABLET PO (08:14)
[2021-10-16] MEDS: hydrALAZINE HCL 50 MG TABLET PO ×3 (08:14→18:47)
[2021-10-16] MEDS: LABETALOL HCL 100 MG TABLET 200 MG PO ×2 (08:15→20:13)
[2021-10-16] MEDS: FAMOTIDINE 20 MG TABLET PO (08:15)
[2021-10-16] MEDS: ATORVASTATIN 20 MG TABLET PO (08:15)
[2021-10-16] MEDS: predniSONE 5 MG TABLET PO (08:16)
[2021-10-16] MEDS: NIFEdipine 30 MG TAB.ER.24 60 MG PO ×2 (08:17→20:13)
[2021-10-16] MEDS: IRON SUCROSE COMPLEX 200 MG in SODIUM CHLORIDE 0.9% IV 50 ML 120 MG IVPB (08:17)
[2021-10-16] MEDS: ACYCLOVIR 200 MG CAPSULE PO ×2 (08:25→20:14)
--- NOTE | 2021-10-16 12:56 | PM.IMPN ---
Progress Note: A&P Assessment and Plan (1) Volume overload: Code(s): E87.70 - Fluid overload, unspecified Status: Acute Assessment and Plan: Patient presents with chest pain and SOB and noted to be hypoxic. CT Abd/Pelvis showing anasarca, ascites and pulmonary consolidations. CXR more consistent with pulmonary vascular congestion and pulmonary edema. Likely hypoxia secondary to volume overload. Chest CTA showing patchy airspace opacities with mid and lower lung predominance. Pneumonia seems unlikely given no cough, fever or elevated WBC. He was not started on IV abx but did receive one dose on Lasix IV. BCx NGTD. He had HD 10/14 which he tolerated this well. He is well above his dry weight per nephrology. After HD, CXR did show improvement. He has been weaned to room air. Will follow for now. HD to control fluid status. (2) Hypertension: Qualifiers: Hypertension type: unspecified Qualified Code(s): I10 - Essential (primary) hypertension Code(s): I10 - Essential (primary) hypertension Status: Acute Assessment and Plan: Patient's blood pressure was reviewed on 10/16 Blood pressure became markedly elevated yesterday to the point he needed Diltiazem drip. He was started onhydralazine and dose advanced today. Was able to come off of the Diltiazem. Appears he still has intermittent elevated blood pressure at home. Will continue the other medications with nifedipine, Cozaar, and labetalol. Continue current treatment plan. Will see how he does with HD. (3) Chest pain: Code(s): R07.9 - Chest pain, unspecified Status: Acute Assessment and Plan: Patient presents with chest pain and this also occurred during the stress test. Trop negative x 3. He underwent Lexiscan stress test and the EKG portion showing nonspecific T wave changes and no EKG changes when compared to baseline EKGs. No mention of chest pain during the stress test. The Lexiscan shows a small, mild, fixed perfusion defect involving mid anterolateral segment of left ventricle, consistent with infarct. No reversible component. BP did not drop with stress test. Echo showing EF 65-70%, severe LVH, diastolic dysfunction, moderate pulmonary HTN and trivial valve disease. Cardiology consulted and discussed; they did not feel that the fixed perfusion defect was real or felt related to severe HTN. Continue ASA and Labetolol but will stop the Lipitor. Appreciate Cardiology input (4) Hypoxia: Code(s): R09.02 - Hypoxemia Status: Acute Assessment and Plan: Patient presents with chest pain and SOB and noted to be hypoxic. As above. Weaned to room air. Follow. (5) End stage renal disease: Code(s): N18.6 - End stage renal disease Status: Acute Assessment and Plan: Patient with ESRD on HD related to Alport Syndrome. He has had a kidney transplant but back on HD due to rejection. Still makes urine and the Lasix may have helped his fluid status. Nephrology was consulted and appreciate their input. Continue aggressive HD to control fluid management. (6) Kidney transplant recipient: [facility] Date: 12/2018 Code(s): Z94.0 - Kidney transplant status Status: Inactive Assessment and Plan: Patient s/p kidney transplant. Mild pancytopenia possibly relate to his mediations. Continue prednisone and tacrolimus. Continue acyclovir. Tacrolimus level pending. Follow CBC (7) Anemia of chronic disease: Code(s): D63.8 - Anemia in other chronic diseases classified elsewhere Status: Acute Assessment and Plan: Patient was transfused a couple of months ago for dropping hemoglobin. He does not get epoetin injections to his knowledge. Hgb 8.2 but dropped to 6.9 yesterday. Currently on Epo and IV iron. Also on Pepcid for gastric prophylaxis. Stool for occult blood negative. B12/Folate levels normal. Hgb better at 7.3. Follow HH. Try to minimize transfusion. Patient
[2021-10-16 14:27] LABS: Tacrolimus Prograf 2.3 mcg/L
[2021-10-16] MEDS: SODIUM CHLORIDE 0.9% IV 2,000 ML 999 ML (17:07)
[2021-10-16] MEDS: EPOETIN ALFA-EPBX 10,000 UNITS/ML VIAL 10000 UNITS IV PUSH (17:07)
--- NOTE | 2021-10-16 18:44 | PCHDNOTE ---
Patient tolerated treatment without any acute changes. Net UF: 4 Liters Blood processed: 66.7
[2021-10-16] MEDS: ACETAMINOPHEN 325 MG TABLET 650 MG PO (19:10)
[2021-10-16] MEDS: LOSARTAN POTASSIUM 100 MG TABLET PO (20:13)
[2021-10-17] VITALS: BP 154/90; PULSE 99; RESP 18; TEMP 36.7; O2SAT 97
[2021-10-17 02:00] VITALS: PULSE 94
[2021-10-17 04:00] VITALS: BP 154/92; PULSE 93; PULSE 97; RESP 98; TEMP 36.5; O2SAT 20
[2021-10-17 05:37] LABS: Hematocrit 23.6 % (42.0-52.0); Hemoglobin 7.7 g/dL (14.0-18.0); Mean Corpuscular HGB Conc 32.6 g/dl (32-36); Mean Corpuscular Volume 97.9 fl (80-100); Mean Platelet Volume 9.3 fl (7.4-10.4); Platelet Count Result 153 k/mm3 (150-375); Red Blood Count 2.41 M/mm3 (4.6-6.20); White Blood Count 2.8 K/mm3 (4.5-10.0)
[2021-10-17 05:55] LABS: Albumin Level 3.7 g/dL (3.5-5.1); Anion Gap 9 mmol/L (8-16); Blood Urea Nitrogen 18 mg/dL (9-20); Calcium 9.3 mg/dL (8.4-10.2); Carbon Dioxide 35 mmol/L (22-30); Chloride 96 mmol/L (98-107); Estimated CRCL calculation 17 ml/min; Estimated Glomerular Filt Rate 11; Glucose 78 mg/dL (65-110); Phosphorus 4.4 mg/dL (2.5-4.5); Sodium 140 mmol/L (137-145)
[2021-10-17 06:00] VITALS: PULSE 101
[2021-10-17 08:00] VITALS: BP 143/84; PULSE 95; PULSE 96; RESP 16; TEMP 36.7; O2SAT 99
[2021-10-17] MEDS: IRON SUCROSE COMPLEX 200 MG in SODIUM CHLORIDE 0.9% IV 50 ML 120 MG IVPB (09:57)
[2021-10-17] MEDS: ACYCLOVIR 200 MG CAPSULE PO (09:58)
[2021-10-17] MEDS: NIFEdipine 30 MG TAB.ER.24 60 MG PO (09:58)
[2021-10-17] MEDS: FAMOTIDINE 20 MG TABLET PO (09:58)
[2021-10-17] MEDS: hydrALAZINE HCL 50 MG TABLET PO (09:58)
[2021-10-17] MEDS: LABETALOL HCL 100 MG TABLET 200 MG PO (09:58)
[2021-10-17] MEDS: predniSONE 5 MG TABLET PO (09:58)
[2021-10-17] MEDS: ASPIRIN 81 MG ENTERIC TABLET PO (09:58)
[2021-10-17 10:00] VITALS: PULSE 95
--- NOTE | 2021-10-17 10:19 | PM.DS ---
DS: Admitting Diagnosis Discharge Date 10/17/21 Admitting Diagnosis Chest pain DS: Discharge Diagnosis Discharge Diagnosis (1) Volume overload: Code(s): E87.70 - Fluid overload, unspecified Status: Acute Assessment and Plan: Patient presents with chest pain and SOB and noted to be hypoxic. CT Abd/Pelvis showing anasarca, ascites and pulmonary consolidations. CXR more consistent with pulmonary vascular congestion and pulmonary edema. Likely hypoxia secondary to volume overload. Chest CTA showing patchy airspace opacities with mid and lower lung predominance. Pneumonia seems unlikely given no cough, fever or elevated WBC. He was not started on IV abx but did receive one dose on Lasix IV. BCx NGTD. He had HD here which he tolerated well. He was well above his dry weight per nephrology. After HD, CXR did show improvement. He was weaned to room air. (2) Hypertension: Qualifiers: Hypertension type: unspecified Qualified Code(s): I10 - Essential (primary) hypertension Code(s): I10 - Essential (primary) hypertension Status: Acute Assessment and Plan: Patient's blood pressure became markedly elevated to the point he needed Diltiazem drip. He was started on hydralazine. Was able to come off of the Diltiazem. He has intermittent elevated blood pressure at home. We continued his other medications with nifedipine, Cozaar, and labetalol. BP became better controlled. (3) Chest pain: Code(s): R07.9 - Chest pain, unspecified Status: Acute Assessment and Plan: Patient presented with chest pain and this also occurred during the stress test. Trop eas negative x 3. He underwent Lexiscan stress test and the EKG portion showing nonspecific T wave changes and no EKG changes when compared to baseline EKGs. No mention of chest pain during the stress test. The Lexiscan showed a small, mild, fixed perfusion defect involving mid anterolateral segment of left ventricle, consistent with infarct. No reversible component. BP did not drop with stress test. Echo showing EF 65-70%, severe LVH, diastolic dysfunction, moderate pulmonary HTN and trivial valve disease. Cardiology consulted and discussed; they did not feel that the fixed perfusion defect was real or felt related to severe HTN. We continued ASA and Labetolol but Lipitor was stopped. Appreciated Cardiology input (4) Hypoxia: Code(s): R09.02 - Hypoxemia Status: Acute Assessment and Plan: Patient presents with chest pain and SOB and noted to be hypoxic. [place] related to fluid overload. Weaned to room air. (5) End stage renal disease: Code(s): N18.6 - End stage renal disease Status: Acute Assessment and Plan: Patient with ESRD on HD M-- related to Alport Syndrome. He has had a kidney transplant but back on HD due to rejection. Still makes urine and the Lasix may have helped his fluid status. Nephrology was consulted and appreciate their input. He did well with HD. He did feel whoozy with dialysis last night but better after eating. His blood pressure remained controlled with the addition of hydralazine and no hypotension. (6) Kidney transplant recipient: [facility] Date: 12/2018 Code(s): Z94.0 - Kidney transplant status Status: Inactive Assessment and Plan: Patient s/p kidney transplant. Mild pancytopenia possibly relate to his mediations. Plt count normalized. Continue prednisone and tacrolimus. Continue acyclovir. Tacrolimus level 2.3. (7) Anemia of chronic disease: Code(s): D63.8 - Anemia in other chronic diseases classified elsewhere Status: Acute Assessment and Plan: Patient was transfused a couple of months ago for dropping hemoglobin. He does not get epoetin injections to his knowledge. Hgb 8.2 but dropped to 6.9 treated with Epo and IV iron. Also on Pepcid for gastric prophylaxis. Stool for occult blood negative. B12/Folate levels normal
--- NOTE | 2021-10-22 10:39 | PC.NURSE ---
Blood cx are negative. Dr. Tiffanie galeano.
== END 2021-10-17 11:20 | disposition home or self-care (01) | DRG 640 ==
LOC: ANHED 15:34 → ANHIMU 15:54 → ANH3MEDSUR 17:29 → ANHIMU 10-15 22:32 → ANH3MEDSUR 10-18 11:47 → ANHIMU 10-18 11:47
PROVIDERS: Internal Medicine Nephrology; Physician Assistant; Admitting Provider Family Medicine; Emergency Provider Emergency Medicine; PCP Family Medicine; Visit Provider Internal Medicine
DX: E87.70 Fluid overload, unspecified (principal); N18.6 End stage renal disease; Z94.0 Kidney transplant status; Q87.81 Alport syndrome; I13.11 Hypertensive heart and chronic kidney disease without heart failure, with stage 5 chronic kidney disease, or end stage renal disease; D61.818 Other pancytopenia; Z99.2 Dependence on renal dialysis; R09.02 Hypoxemia; D63.1 Anemia in chronic kidney disease; F17.290 Nicotine dependence, other tobacco product, uncomplicated; F41.9 Anxiety disorder, unspecified; H91.90 Unspecified hearing loss, unspecified ear; K21.9 Gastro-esophageal reflux disease without esophagitis; R53.83 Other fatigue; R94.39 Abnormal result of other cardiovascular function study; R00.2 Palpitations; R07.89 Other chest pain; R29.818 Other symptoms and signs involving the nervous system; N25.0 Renal osteodystrophy; Z79.82 Long term (current) use of aspirin; Z88.1 Allergy status to other antibiotic agents; Z88.2 Allergy status to sulfonamides
CPT/HCPCS: 36415; 36600; 71046; 71275; 74176; 78452; 80048; 80053; 80069; 80076; 80197; 82274; 82607; 82728; 82746; 82805; 83540; 83550; 83690; 83735; 83880; 84100; 84443; 84484; 85025; 85027; 85380; 85610; 85730; 86706; 87040; 87340; 93005; 93017; 93306; 93970; 96372; 96374; 99285; A9270; A9502; G0257; G0378; J1100; J1650; J1756; J1940; J2405; J2704; J2785; J7030; J7512; Q5105; Q9967

== ENCOUNTER 2024-07-25 14:14 | Outpatient (CLI) | payer MEDICARE, OTHER, SELFPAY ==
--- OUTSIDE RECORDS SUMMARY | 2024-07-25 14:29 | XMS_ITS | Referral Summary ---
Author Organization [facility] Address [address] [place] [address] Care Team Providers Care Central Supply Aide Name Role Phone Roel Pantoja MD Primary Care Provider [phone] Source Comments [facility],non-owned Affiliates and Associated Physician Practices is amultiple site organization consisting of ambulatory clinics and hospital sitesin [place], [place], [place] and [place]. This disclosure is being madepursuant to the Care Everywhere program and may not contain all information available regarding this patient. Last updated 18.[facility] Allergies No known active allergies Medications * Be aware that medications may not be up to date on this document. Alwaysverify current medications with the patient. Medication Sig Dispensed Refills Start Date End Date Status ibuprofen (MOTRIN) 800 MG tablet Take 1 Tab by mouth every 8 hours as needed for Pain 20 Tab 0 12/01/2015 Active cyclobenzaprine (FLEXERIL) 10 MG tablet Take 1 Tab by mouth 3 times daily as needed for Muscle Spasms 20 Tab 0 12/01/2015 Active Social History Tobacco Use Types Packs/Day Years Used Date Smoking Tobacco: Never Smokeless Tobacco: Never Alcohol Use Standard Drinks/Week Comments No 0 (1 standard drink = 0.6 oz pur e alcohol) Sex and Gender Information Value Date Recorded Sex Assigned at Not on file Gender Identity Not on file Sexual Orientation Not on file Last Filed Vital Signs Vital Sign Reading Time Taken Comments Blood Pressure 165/88 12/01/2015 4:14 PM CDT Pulse 93 12/01/2015 4:14 PM CDT Temperature 37 C (98.6 F) 12/01/2015 4:14 PM CDT Respiratory Rate 14 12/01/2015 4:14 PM CDT Oxygen Saturation 100% 12/01/2015 4:14 PM CDT Inhaled Oxygen Concentration - - Weight 90.7 kg (200 lb) 12/01/2015 4:14 PM CDT Height 182.9 cm (6' 0.01 ) 12/01/2015 4:14 PM CD T Body Mass Index 27.12 12/01/2015 4:14 PM CDT Plan of Treatment Not on file Care Teams Central Supply Aide Relationship Specialty Start Date End Date Roel Pantoja MD [address] [place] [address] PCP - General Family Medicine 12/01/15
--- OUTSIDE RECORDS SUMMARY | 2024-07-25 14:29 | XMS_ITS | Continuity of Care Document ---
Author Organization [facility] Address [address] [place] [address] Phone Care Team Providers Care Air Motor Repairer Name Role Phone Chavo Ortiz MD Unavailable Unavailable Allergies, Adverse Reactions, Alerts Substance Reaction Status Criticality Sulfa (Sulfonamide Antibiotics) Active No Information Medications Medication Instructions Dosage Effective Dates (start - stop) Status Comments tacrolimus 1 mg capsule take (0.1MG/KG) by oral route every 12 hours 0.1 MG/KG - Active 2 pill in AM and 2 pill at night aspirin 81 mg chewable tablet chew 1 tablet by oral route every day 81 MG - Active acyclovir 200 mg capsule take 1 capsule by oral route BID - Active prednisone 5 mg tablet take 1 tablet by oral route every day 5 MG - Active mycophenolate sodium 360 mg tablet,delayed release take 1 tablet by oral route 2 times every day on an empty stomach 360 MG - Active Pepcid 20 mg tablet take 1 tablet by oral route 2 times every day 20 MG - Active Procedures Procedure Date PREV VISIT, NEW, AGE 18-39 Advance Directives Directive Yes / No Effective Date File Name No Information Encounters Encounter Description Practice Location Reason(s) For Visit Diagnoses Date Provider Providers Copied on Encounter PREV VISIT, NEW, AGE 18-39 [facility] [place], [address] [place], [place], [id number], [place] tel:[phone] [facility] [place] Physical (chief complaint) Encntr for general adult medical exam w/o abnormal findings Angel Tony. [address] [place], [place], [id number], [place]. tel:[phone] Family History Family Member Type Diagnosis Age At Onset Mother Problem Alive and well Father Problem Diabetes mellitus Sister Problem Alive and well Payers Payer name Insurance type Covered alliance party ID Butch florence(s) No Information Social History Type Description Quantity Date Captured Comments Alcohol Use Details Caffeine Use Details Unknown Tobacco Use Status Current non-smoker 20 Smoking Status Never smoker Non-Smoking Tobacco Use Details : No Details Available : No Details Available Sex Male Vital Signs Date / Time: Height Weight BMI Pulse Rate Blood Pressure Temperature Respiratory Rate Body Surface Area Head Circumference BMI percentile Pulse Ox Inhaled Ox 12:02 PM 72.00 in 170.00 lbs 23.0 6 kg/m eter (2) 130/85 mm[Hg] Chief Complaint And Reason For Visit From encounter dated '12/27/2019 11:51'. Physical (chief complaint). Description: Pt needs annual physical Pt has alport syndrome with renalfailure s/p renal transplant last year. Pt is on multiple medication prescribed by nephrology at [facility]. Pt is on pepcid daily for stomach protection from all his medication. Pt recovers very well post transplant. Pt denies any fever, chill, infection Pt has normal UO. Pt denies any weight gain despite on prednisone. Pt has lab work done every other week by nephrology. Pt overall doing well. Pt denies any other complaints Plan Of Treatment Date Type Action Status Referral Ordered: Nephrology (related to Encntr for general adult medical exam w/o abnormal findings) ordered Referral Ordered: Referrals: Nephrology. Evaluate and treat ordered History Of Present Illness Encounter Date Complaint History Of Prese nt Illness Physical Pt needs annual physical Pt has alport syndrome with renal failure s/p renal transplant last year. Pt is on multiple medication prescribed by nephrology at [facility]. Pt is on pepcid daily for stomach protection from all his medication. Pt recovers very well post transplant. Pt denies any fever, chill, infection Pt has normal UO. Pt denies any weight gain despite on prednisone. Pt has lab work done every other week by nephrology. Pt overall doing well. Pt denies any other complaints Instructions Date Instruction Additional Infor mation No Information Assessments Type Assessment Date assessment Encntr for general adult medical exam w/o abnormal findings Mental Status Date Cognitive Assessment Orientation - [place] ed to time, place, person, situation.
--- OUTSIDE RECORDS SUMMARY | 2024-07-25 14:30 | XMS_ITS | Clinical Summary ---
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 Family History Medical History Relation Name Comments Diabetes Father Healthy Mother Healthy Paternal Grandmother Healthy Sister Relation Name Status Comments Father Alive Maternal Grandfather Maternal Grandmother Mother Alive Paternal Grandfather Paternal Grandmother Alive Sister Alive Social History Tobacco Use Types Packs/Day Years Used Date Smoking Tobacco: Never Smokeless Tobacco: Never Alcohol Use Standard Drinks/Week Comments Yes 0 (1 standard drink = 0.6 oz pur e alcohol) socially Sex and Gender Information Value Date Recorded Sex Assigned at Not on file Legal Sex Male 1:05 PM CDT Gender Identity Not on file Sexual Orientation Not on file Last Filed Vital Signs Vital Sign Reading Time Taken Comments Blood Pressure 111/75 04/20/2018 12:00 PM VETERINARY PHYSIOLOGIST Pulse 76 04/20/2018 7:02 AM VETERINARY PHYSIOLOGIST Temperature 36.6 C (97.8 F) 04/20/2018 11:15 AM VETERINARY PHYSIOLOGIST Respiratory Rate 14 04/20/2018 12:00 PM VETERINARY PHYSIOLOGIST Oxygen Saturation 100% 04/20/2018 12:00 PM VETERINARY PHYSIOLOGIST Inhaled Oxygen Concentration - - Weight 74.8 kg (165 lb) 04/20/2018 7:02 AM VETERINARY PHYSIOLOGIST Height 182.9 cm (6') 04/20/2018 7:02 AM VETERINARY PHYSIOLOGIST Body Mass Index 22.38 04/20/2018 7:02 AM VETERINARY PHYSIOLOGIST Plan of Treatment Health Maintenance Due Date Last Done Comments DTAP/TDAP/TD VACCINES (1 - Tdap) 2014 HEPATITIS B VACCINES (1 of 3 - 19+ 3-dose series) 2014 INFLUENZA VACCINE (#1) 2024 , 04/08/2019 HPV VACCINES Aged Out No longer eligi ble based on patient's age to complete this topic Medical Devices Implanted Type Area Club Director Device Identifier Shelf Expiration Date Model / Serial / Lot Cath Pd Wayne Jorgensenl 2cuff [id number] - [id number] Implanted:Qty : 1 on 04/20/2018 by Kate Aj MD at [facility] Catheter N/A: Abdomen [employer] - COVIDIEN Peritoneal Dialysis Catheter 09/24/2021 [id number] / / [id number] Insurance MEDICARE PART A AND B [facility] BLUE ACCESS/TRUE BLUE PPO Advance Directives For more information, please contact: [phone] * Full Code (Latest Code Status on File) Date Activated Date Inactivated Comments 04/20/2018 10:20 AM 04/20/2018 3:04 PM * Full Code Date Activated Date Inactivated Comments 04/20/2018 6:19 AM 04/20/2018 10:20 AM Care Teams Chemical Reclamation Equipment Operator Relationship Specialty Start Date End Date Roel Pantoja MD [address] [place] [id number] PCP - General Family Practice 03/18/18
--- OUTSIDE RECORDS SUMMARY | 2024-07-25 14:30 | XMS_ITS | Patient Health Summary ---
Author Organization [facility] Address [address] [place] [address] Care Team Providers Care Tool Crib Manager Name Role Phone Roel Pantoja MD Primary Care Provider Note from [facility],non-owned Affiliates and Associated Physician Practices is amultiple site organization consisting of ambulatory clinics and hospital sitesin [place], [place], [place] and [place]. This disclosure is being madepursuant to the Care Everywhere program and may not contain all information available regarding this patient. Last updated 18.[facility] [employer] Allergies No known active allergies Medications * Be aware that medications may not be up to date on this document. Alwaysverify current medications with the patient. * ibuprofen (MOTRIN) 800 MG tablet(Started 12/01/2015) Take 1 Tab by mouth every 8 hours as needed for Pain * cyclobenzaprine (FLEXERIL) 10 MG tablet(Started 12/01/2015) Take 1 Tab by mouth 3 times daily as needed for Muscle Spasms Social History Tobacco Use Types Packs/Day Years [...] Mass Index 27.12 12/01/2015 4:14 PM CDT Procedures * DIFFERENTIAL MANUAL(Performed 01/20/2019) Performed for S/P kidney transplant (FORMERLY [facility]) * TACROLIMUS LEVEL(Performed 01/20/2019) Performed for S/P kidney transplant ([facility]ER[facility]) * MAGNESIUM BLOOD(Performed 01/20/2019) Performed for S/P kidney transplant ([facility]) * RENAL FUNCTION PANEL(Performed 01/20/2019) Performed for S/P kidney transplant ([facility]) * CBC W AUTO DIFFERENTIAL(Performed 01/20/2019) Performed for S/P kidney transplant ([facility]) * URINE MICROSCOPIC ONLY REFLEX TO CULTURE(Performed 01/17/2019) Performed for Urinary pain, Kidney replaced by transplant ([facility]LY [facility]) * TACROLIMUS LEVEL(Performed 01/17/2019) Performed for Kidney replaced by transplant ([facility]) * MAGNESIUM BLOOD(Performed 01/17/2019) Performed for Kidney replaced by transplant ([facility]) * RENAL FUNCTION PANEL(Performed 01/17/2019) Performed for Kidney replaced by transplant ([facility]) * CBC W/O DIFFERENTIAL(Performed 01/17/2019) Performed for Kidney replaced by transplant ([facility]) * URINALYSIS REFLEX MICROSCOPIC REFLEX CULTURE(Performed 01/17/2019) Performed for Urinary pain, Kidney replaced by transplant ([facility]) * CULTURE URINE(Performed 01/17/2019) Performed for Urinary pain, Kidney replaced by transplant ([facility]) * TACROLIMUS LEVEL(Performed 01/13/2019) Performed for S/P kidney transplant ([facility]) * MAGNESIUM BLOOD(Performed 01/13/2019) Performed for S/P kidney transplant ([facility]) * RENAL FUNCTION PANEL(Performed 01/13/2019) Performed for S/P kidney transplant ([facility]) * CBC W/O DIFFERENTIAL(Performed 01/13/2019) Performed for S/P kidney transplant ([facility]) * TACROLIMUS LEVEL(Performed 01/10/2019) Performed for Kidney transplanted ([facility]) * MAGNESIUM BLOOD(Performed 01/10/2019) Performed for Kidney transplanted ([facility]) * RENAL FUNCTION PANEL(Performed 01/10/2019) Performed for Kidney transplanted ([facility]) * CBC W/O DIFFERENTIAL(Performed 01/10/2019) Performed for Kidney transplanted ([facility]) * XR CERVICAL SPINE 2 OR 3VW(Performed 12/01/2015) Performed for Neck pain * XR SHOULDER LEFT 2VW OR MORE(Performed 12/01/2015) Performed for Acute pain of left shoulder Results * TACROLIMUS LEVEL (01/20/2019 8:45 AM CDT) Only the most recent of4 resultswithin the time period is included. Tacrolimus 12.9 ng/mL 01/22/2019 8:48 AM CDT [facility] ([facility]) Comment: Therapeutic Range: Kidney transplant: 0-3 months post-transplant: 7.0-20.0 ng/mL 3 months and older: 5.0-15.0 ng/mL Liver transplant: 1-12 months post-transplant: 5-20 ng/mL Heart transplant: 0-3 months post-transplant: 10.0-20.0 ng/mL 3 months and older: 5.0-15.0 ng/mL Toxic value: Greater than 25 ng/mL Therapeutic range is based on a whole blood specimen drawn 12 hours post-dose or prior to next dose (the trough). The optimal therapeutic range for a given patient may differ from this suggested range based on the indication for therapy, treatment phase (initiation or maintenance), use in combination with other drugs, time of specimen collection relative to prior dose, type of transplanted organ, and/or the therapeutic approach of the transplant center. Test developed and characteristics determined by [facility]. See Compliance Statement B: [employer] Performed by [facility], [address] [place] [address] [email or web address], Jose Antoine MD, Lab. Director Blood BLOOD SPECIMEN / Unknown 01/20/2019 8:45 AM CDT 01/20/2019 10:14 AM CDT Prieto Aguirre MD LAB - THERAPEUTIC DR LANG MONITORING ORDERABLES [employer] [facility] ([facility]) [address] * (ABNORMAL) DIFFERENTIAL MANUAL (01/20/2019 8:45 AM CDT) WBC Auto 6.2 4.0 - 10.0 x10E9/L 01/20/2019 10:50 AM CDT [facility] Neutrophils % Manual 85(H) 40 - 75 % 01/20/2019 10:50 AM CDT [facility] Lymphocytes % Manual 6(L) 19 - 53 % 01/20/2019 10:50 AM CDT [facility] Monocytes % Manual 5 5 - 13 % 01/20/2019 10:50 AM CDT [facility] Eosinophils % Manual 2 1 - 7 % 01/20/2019 10:50 AM CDT [facility] [place] Manual 2(H) <=0 % 01/20/2019 10:50 AM CDT [facility] Neutrophils Absolute Manual 5.3 1.6 - 6.1 x10E3/uL 01/20/2019 10:50 AM CDT [facility] Lymphocytes Absolute Manual 0.4(L) 1.2 - 3.7 x10E3/uL 01/20/2019 10:50 AM CDT [facility] Monocytes Absolute Manual 0.3 0.2 - 0.9 x10E3/uL 01/20/2019 10:50 AM CDT [facility] Eosinophils Absolute Manual 0.1 0.0 - 0.5 x10E3/uL 01/20/2019 10:50 AM CDT [facility] Cells Counted 100 # cells 01/20/2019 10:50 AM CDT [facility] Platelet Estimation Normal Normal, Adequate platelets 01/20/2019 10:50 AM CDT [facility] Anisocytosis 1+(A) None 01/20/2019 10:50 AM CDT [facility] Immature Grans Occasional (A) None 01/20/2019 10:50 AM CDT [facility] Blood BLOOD SPECIMEN / Unknown 01/20/2019 8:45 AM CDT 01/20/2019 10:14 AM CDT Prieto Aguirre MD LAB - HEMATOLOGY ORD ERABLES [facility] [address] [place], [place] [address] * (ABNORMAL) CBC WITH DIFFERENTIAL (01/20/2019 8:45 AM CDT) WBC 6.2 4.0 - 10.0 x10E9/L 01/20/2019 10:21 AM CDT [facility] RBC 3.41(L) 4.40 - 6.10 x10E12/L 01/20/2019 10:21 AM CDT [facility] Hemoglobin 10.5(L) 13.7 - 17.5 gm/dL 01/20/2019 10:21 AM CDT [facility] Hematocrit 31.6(L) 40.1 - 51.0 % 01/20/2019 10:21 AM CDT [facility] MCV 92.7 78.0 - 100.0 fl 01/20/2019 10:21 AM CDT [facility] MCH 30.8 25.6 - 34.0 pg 01/20/2019 10:21 AM CDT [facility] MCHC 33.2 32.3 - 36.5 gm/dL 01/20/2019 10:21 AM CDT [facility] RDW 14.6(H) 11.6 - 14.4 % 01/20/2019 10:21 AM CDT [facility] MPV 9.3(L) 9.4 - 12.4 fl 01/20/2019 10:21 AM CDT [facility] Platelet Count 200 163 - 369 x10E9/L 01/20/2019 10:21 AM CDT [facility] Blood BLOOD SPECIMEN / Unknown 01/20/2019 8:45 AM CDT 01/20/2019 10:14 AM CDT Prieto Aguirre MD LAB - HEMATOLOGY ORD ERABLES Performing Organization Address City/State/[facility] Co de Phone Number [facility] [address] * (ABNORMAL) RENAL FUNCTION PANEL (01/20/2019 8:45 AM CDT) Only the most recent of4 resultswithin the time period is included. Glucose 86 70 - 125 mg/dL 01/20/2019 10:51 AM CDT [facility] Sodium 139 136 - 145 mmol/L 01/20/2019 10:51 AM CDT [facility] Potassium 4.8(H) 3.4 - 4.5 mmol/L 01/20/2019 10:51 AM CDT [facility] Chloride 109(H) 98 - 107 mmol/L 01/20/2019 10:51 AM CDT [facility] CO2 24 22 - 29 mmol/L 01/20/2019 10:51 AM CDT [facility] Calcium 9.87 8.4 - 10.2 mg/dL 01/20/2019 10:51 AM CDT [facility] Anion Gap 11 10 - 20 mmol/L 01/20/2019 10:51 AM CDT [facility] BUN 22.7 8.4 - 25.7 mg/dL 01/20/2019 10:51 AM CDT [facility] Creatinine 2.17(H) 0.72 - 1.25 mg/dL 01/20/2019 10:51 AM CDT [facility] Albumin 4.0 3.5 - 5.0 gm/dL 01/20/2019 10:51 AM CDT [facility] Phosphorus 2.27(L) 2.3 - 4.7 mg/dL 01/20/2019 10:51 AM CDT [facility] eGFR by MDRD 38(L) >60 mL/min/1.7 3m2 01/20/2019 10:51 AM CDT [facility] eGFR by MDRD 46(L) >60 mL/min/1.7 3m2 01/20/2019 10:51 AM CDT [facility] Blood BLOOD SPECIMEN / Unknown 01/20/2019 8:45 AM CDT 01/20/2019 10:14 AM CDT Prieto Aguirre MD LAB - CHEMISTRY YAYA HAYES Performing Organization Address [facility]/ZIP Co de Phone Number [facility] [address] * (ABNORMAL) MAGNESIUM BLOOD (01/20/2019 8:45 AM CDT) Only the most recent of4 resultswithin the time period is included. Magnesium 1.5(L) 1.6 - 2.6 mg/dL 01/20/2019 10:51 AM CDT [facility] Blood BLOOD SPECIMEN / Unknown 01/20/2019 8:45 AM CDT 01/20/2019 10:14 AM CDT Prieto Aguirre MD LAB - CHEMISTRY YAYA HAYES [facility] [address] * (ABNORMAL) URINE MICROSCOPIC ONLY REFLEX TO CULTURE (01/17/2019 9:00 AM CDT) Reflex Status Culture to follow 01/17/2019 12:30 PM CDT [facility] RBC UA 21-50(A) None Seen, 0-2, 3-5 # /hpf 01/17/2019 12:30 PM CDT [facility] WBC UA 6-10(A) None Seen, 0-5 # /hpf 01/17/2019 12:30 PM CDT [facility] Bacteria UA 2+(A) None Seen 01/17/2019 12:30 PM CDT [facility] Squamous Epithelial Cells None Seen None Seen, 0-2, 3-5 /hpf 01/17/2019 12:30 PM CDT [facility] Mucus UA 1+ /LPF 01/17/2019 12:30 PM T [facility] Hyaline Casts 0-2 None Seen, 0-2 # /lpf 01/17/2019 12:30 PM T [facility] Urine URINE SPECIMEN OBTAINED BY CLEAN CATCH PROCEDURE / Unknown Collection / Unknown 01/17/2019 9:00 AM CDT 01/17/2019 10:14 AM CDT Prieto Aguirre MD LAB - URINALYSIS ORD ERABLES Performing Organization Address [facility]/State/[facility] Co de Phone Number [facility] [address] * (ABNORMAL) URINALYSIS REFLEX MICROSCOPIC REFLEX CULTURE (01/17/2019 9:00 AM CDT) Color UA Isa(A) Straw, Yellow 01/17/2019 10:39 AM CDT [facility] Comment:Reagent strip result s may be invalid due to urine color interference. Clarity UA Cloudy(A) Clear 01/17/2019 10:39 AM CDT [facility] Glucose UA Negative Negative 01/17/2019 10:39 AM CDT [facility] Bilirubin UA Negative Negative 01/17/2019 10:39 AM CDT [facility] Ketone UA Negative Negative 01/17/2019 10:39 AM CDT [facility] Specific [place] UA 1.019 1.005 - 1.030 01/17/2019 10:39 AM CDT [facility] Blood UA 3+(A) Negative 01/17/2019 10:39 AM CDT [facility] pH UA 5.0 5.0 - 8.0 pH 01/17/2019 10:39 AM CDT [facility] Protein UA 2+(A) Negative 01/17/2019 10:39 AM CDT [facility] Urobilinogen UA 4.0(A) Negative mg/dL 01/17/2019 10:39 AM CDT [facility] Nitrite UA Positive(A) Negative 01/17/2019 10:39 AM CDT [facility] Leukocyte UA Trace(A) Negative 01/17/2019 10:39 AM CDT [facility] Urine Microscopy Urine microscopy to follow 01/17/2019 10:39 AM CDT [facility] Reflex Status Culture to follow 01/17/2019 10:39 AM CDT [facility] Urine URINE SPECIMEN OBTAINED BY CLEAN CATCH PROCEDURE / Unknown Collection / Unknown 01/17/2019 9:00 AM CDT 01/17/2019 10:14 AM CDT Narrative [facility] - 01/17/2019 10:39 AM CDT Prieto Aguirre MD LAB - URINALYSIS ORD ERABLES Performing Organization Address City/State/[facility] Co de Phone Number [facility] [address] * (ABNORMAL) CULTURE URINE (01/17/2019 9:00 AM CDT) Pathologist [facility] Culture Urine >100,000 CFU/mL Staphylococcus epidermidis(A) ANAM 01/19/2019 7:23 AM CDT [facility] Urine URINE SPECIMEN OBTAINED BY CLEAN CATCH PROCEDURE / Unknown Collection / Unknown 01/17/2019 9:00 AM CDT 01/17/2019 10:14 AM CDT Narrative Organism Antibiotic Method Susceptibility Staphylococcus epidermidis Cefoxitin Screen ANAM POS ug/mL: + Staphylococcus epidermidis Erythromycin ANAM >=8 ug/mL: Resistant Staphylococcus epidermidis Gentamicin ANAM <=0.5 ug/mL: Susceptible Staphylococcus epidermidis Inducible Cli ndamycin Resistance ANAM NEG ug/mL: - Staphylococcus epidermidis Nitrofurantoin ANAM <=16 ug/mL: Susceptible Staphylococcus epidermidis Oxacillin AANM >=4 ug/mL: Resistant Staphylococcus epidermidis Rifampin ANAM <=0.5 ug/mL: Susceptible Staphylococcus epidermidis Vancomycin ANAM 2 ug/mL: Susceptible Prieto Aguirre MD LAB - MICROBIOLOGY O RDERABLES Performing Organization Address [facility]/ZIP Co de Phone Number [facility] [address] * (ABNORMAL) CBC W/O DIFFERENTIAL (01/17/2019 9:00 AM CDT) Only the most recent of3 resultswithin the time period is included. [facility] Signature WBC 10.6(H) 4.0 - 10.0 x10E9/L 01/17/2019 10:12 AM CDT [facility] RBC 4.02(L) 4.40 - 6.10 x10E12/L 01/17/2019 10:12 AM CDT [facility] Hemoglobin 12.3(L) 13.7 - 17.5 gm/dL 01/17/2019 10:12 AM T [facility] Hematocrit 37.0(L) 40.1 - 51.0 % 01/17/2019 10:12 AM CDT [facility] MCV 92.0 78.0 - 100.0 fl 01/17/2019 10:12 AM CDT [facility] MCH 30.6 25.6 - 34.0 pg 01/17/2019 10:12 AM CDT [facility] MCHC 33.2 32.3 - 36.5 gm/dL 01/17/2019 10:12 AM CDT [facility] RDW 15.4(H) 11.6 - 14.4 % 01/17/2019 10:12 AM CDT [facility] MPV 9.0(L) 9.4 - 12.4 fl 01/17/2019 10:12 AM CDT [facility] Platelet Count 248 163 - 369 x10E9/L 01/17/2019 10:12 AM CDT [facility] Blood BLOOD SPECIMEN / Unknown Venipuncture / Unknown 01/17/2019 9:00 AM CDT 01/17/2019 10:05 AM CDT Prieto Aguirre MD LAB - HEMATOLOGY ORD ERABLES Performing Organization Address [facility] Co de Phone Number [facility] [address] * XR CERVICAL SPINE 2 OR 3 [id number] [id number] (12/01/2015 5:29 PM CDT) Anatomical Region Laterality Modality Spine Radiographic Symone ging 12/01/2015 5:36 PM CDT Impressions 12/01/2015 8:27 PM CDT Normal cervical alignment, vertebral body heights, and prevertebral soft tissues. Odontoid process appears intact. Mild cervical curvature convex to the right which may be positional or represent torticollis. Narrative 12/01/2015 8:27 PM CDT CERVICAL SPINE, (THREE VIEWS): 12/01/2015 INDICATION: Table fell on patient. Procedure Note Collin Serrano MD - 12/01/2015 CERVICAL SPINE, (THREE VIEWS): 12/01/2015 INDICATION: Table fell on patient. IMPRESSION Normal cervical alignment, vertebral body heights, and prevertebral soft tissues. Odontoid process appears intact. Mild cervical curvature convex to the right which may be positional or represent torticollis. Shawna Mercedes APRN-[facility] ORDERABLES * XR SHOULDER 2+ VW LEFT [id number] (12/01/2015 5:29 PM CDT) Anatomical Region Laterality Modality Upper Extremity Radiographic Symone ging 12/01/2015 5:36 PM CDT Impressions 12/01/2015 8:27 PM CDT Acromioclavicular and glenohumeral joints are intact. No acute fracture, dislocation, or abnormal soft tissue calcification. Narrative 12/01/2015 8:27 PM CDT LEFT SHOULDER, (THREE VIEWS): 12/01/2015 INDICATION: Table fell on patient. Procedure Note Collin Serrano MD - 12/01/2015 LEFT SHOULDER, (THREE VIEWS): 12/01/2015 INDICATION: Table fell on patient. IMPRESSION Acromioclavicular and glenohumeral joints are intact. No acute fracture, dislocation, or abnormal soft tissue calcification. Shawna Mercedes ASSET MANAGEMENT LEAD-[facility] ORDERABLES Care Teams Tool Crib Manager Relationship Specialty Start Date End Date Roel Pantoja MD [address] [place] [phone] PCP - General Family Medicine 12/01/15
--- OUTSIDE RECORDS SUMMARY | 2024-07-25 14:30 | XMS_ITS | Clinical Summary ---
Author Organization [facility] Address [address] [facility] [facility] [address] Care Team Providers Care Slip Operator Name Role Phone Roel Pantoja MD Primary Care Provider Source Comments [facility],non-owned Affiliates and Associated Physician Practices is amultiple site organization consisting of ambulatory clinics and hospital sitesin [place], [place], [place] and [place]. This disclosure is being madepursuant to the Care Everywhere program and may not contain all information available regarding this patient. Last updated 18.[facility] Allergies No known active allergies Medications * [...] 12/01/2015 4:14 PM CDT Plan of Treatment Health Maintenance Due Date Last Done Comments HIV SCREENING 2010 HEPATITIS C SCREENING 01/04/2013 DTAP/TDAP/TD VACCINES (1 - Tdap) 2014 PNEUMOCOCCAL VACCINE (1 of 2 - PCV) 2014 HEPATITIS B VACCINE (1 of 3 - Risk Dialysis 4-dose series) 2015 COVID-19 VACCINE (1 - 2023-2 5 season) 2024 INFLUENZA VACCINE (#1) 2024 , 04/08/2019 DEPRESSION SCREENING 06/15/2024 ZOSTER VACCINE (1 of 2) 2045 HIB VACCINE Aged Out No longer eligi ble based on patient's age to complete this topic HPV VACCINE Aged Out No longer eligi ble based on patient's age to complete this topic MENINGOCOCCAL (Group B) VACCINE Aged Out No longer eligible b ased on patient's age to complete this topic MENINGOCOCCAL VACCINE Aged Out No [place] eligible based on patient's age to complete this topic Care Teams Slip Operator Relationship Specialty Start Date End Date Roel Pantoja MD [address] [place] [phone] PCP - General Family Medicine 12/01/15
[2024-07-25 15:41] LABS: Influenza A QL RT-PCR Negative (Negative); Influenza B QL RT-PCR Negative (Negative); RSV RNA, RT-PCR Negative (Negative); SARS-CoV-2 RNA PCR Negative (Negative)
== END 2024-07-25 14:15 | disposition home or self-care (01) ==
LOC: ANHLAB 14:15
PROVIDERS: PCP Family Medicine; Visit Provider Family Medicine
DX: R50.9 Fever, unspecified (principal)
CPT/HCPCS: 87637

== ENCOUNTER 2024-12-21 19:12 | Emergency (ER) | payer MEDICARE, OTHER, SELFPAY ==
--- NOTE | ~2024-12-21 | XR_ITS ---
XR chest 2V Ordering provider: Cookie Borja PA-C History: 29 years Male with . mold exposure . Comparison: October 15, 2021 FINDINGS: MEDIASTINUM: The cardiac silhouette is not enlarged. LUNGS: No infiltrates, effusions or pneumothorax. OTHER: No free air under the diaphragm. IMPRESSION: No acute cardiopulmonary pathology. Reviewed, dictated and finalized at location A.
--- OUTSIDE RECORDS SUMMARY | 2024-12-21 19:14 | XMS_ITS | Patient Health Record ---
Author Organization [facility] [employer] Address [address] [facility] [address] [place] [address] Care Team Providers Care Traffic Engineer Name Role Phone JessiestevensonVanita gunderson DO Primary Care Provider Unavailab Sondra Salazar Unavailable [phone] Jan Max Unavailable [phone] Allergies Allergen (clinical drug ingredient) Drug/Non Drug Allergy documented on EMR Reaction Allergy Type Onset Date Status valproate Depakote rash Drug Allergy Active atovaquone Atovaquone Unknown Drug Allergy Activ e nifedipine Nifedipine nausea and vomiting Drug Allergy Active Substance with sulfonamide structure and antibacterial mechanism of action (substance) Sulfa Antibiotics rash Drug Allergy Active Reason For Referral No Information Medications Medication SIG (Take, Route, Frequency, Duration) Notes Start Date End Date Status Mycophenolate Sodium 360 MG Oral; Duration: 30 Days Active Famotidine 20 MG Oral; Duration: 90 Days Active hydrOXYzine Pamoate 25 MG 1 capsule Orally three times a day; Duration: 30 days As needed 11/03/2024 Active Aspirin Low Dose 81 MG Oral; Duration: 90 Days Active Amoxicillin 500 MG Oral; Duration: 10 Days Active Carvedilol 12.5 MG 1 tablet with food O ral Twice a day; Duration: 30 days Active predniSONE 5 MG Oral; Duration: 30 Days Active Envarsus XR 1 MG Oral; Duration: 30 Days Active ARIPiprazole 10 MG 1 tablet Orally tushar y; Duration: 30 days 09/09/2024 Active Losartan Potassium 50 MG Oral; Duration: 30 Days Active Social History Tobacco Use: Social History Observation Description Date Details (start date - stop date) Former Smoker NA - NA Sex Assigned At : Social History Observation Description Sex Assigned At Male Tobacco Control (Standard) Question Answer Notes Tobacco use: Former smoker Problems Problem Type SNOMED Code ICD Code Onset Dates Problem Status W/U Status Risk Notes Problem Depression Screening (145759610) Encounter for screening for depression (Z13.31) Active confirmed Problem Bipolar 1 disorder (372007258) Bipolar 1 disorder (F31.9) Active confirmed Problem Essential hypertensi on (06222687) Benign essential HTN (I10) Active confirmed Problem History of migraine (491608552) History of migraine headaches (Z86.69) 02/08/20 21 Active confirmed Problem Hyperparathyroidism due to renal insufficiency (00448145) Hyperparathyr oidism, 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) 12/24/19 19 Active confirmed Problem History of renal transplant (277423787) Kidney replaced by transplant (Z94.0) 09/10/19 23 Active confirmed Vital Signs Heart Rate 90 /min 09/23/2024 Blood pressure diastolic 90 mm Hg 09/23/2024 Weight-kg 79.92 kg 09/23/2024 Blood pressure systolic 148 mm Hg 09/23/2024 Weight 176.2 lbs 09/23/2024 Encounters Encounter Location Date Provider Diagnosis [employer] [address] [place] [address] 09/09/2024 Jan Clubb Bipolar 1 disorder F31.9 ; Hyperparathyroidism, secondary renal N25.81 ; Kidney replaced by transplant Z94.0 ; Hypertension, essential I10 ; History of migraine headaches Z86.69 and Benign essential HTN I10 [employer] [address] [place] [address] 09/23/2024 Jan Clubb Encounter for screening for depression Z13.31 ; Bipolar 1 disorder F31.9 and Benign essential HTN I10 [facility] [employer] [facility] [address] 11/25/2024 Sondra Mendosa [facility] [employer] [facility] [address] [place] [address] 09/09/2024 Jan Clubb Bipolar 1 disorder F31.9 [facility] [employer] [address] [place] [address] 09/12/2024 Jan Clubb [facility] [employer] [facility] [place] [address] 11/03/2024 Jan Clubb [facility] [employer] [address] [place] [address] 11/03/2024 Jan Winter [facility] [employer] [address] [place] [address] 11/03/2024 Jan Saunderssujata [facility] [employer] [address] [place] [address] 12/01/2024 Sondra Deondre [facility] [employer] [address] [place] [address] 12/02/2024 Sondra Deondre [facility] [employer] [address] [place] [address] 12/02/2024 Sondra Deondre Assessments Encounter Date Diagnosis (ICD Code) Assessment Notes Treatment Notes Treatment Clinical Notes Section Notes 09/09/2024 Bipolar 1 disorder (ICD-10 - F31.9) Antipsychotic medications, while effective for treating mental health conditions, can cause a range of side effects, from common to serious, requiring careful monitoring and discussion with a healthcare provider. Common Side Effects: Metabolic: Weight gain, increased cholesterol and blood sugar levels, and changes in appetite. Movement Disorders: Drowsiness, sedation, and in some cases, movement disorders like tremors, stiffness, or restlessness. Other: Dry mouth, constipation, blurred vision, and sexual dysfunction. Serious Side Effects: Extrapyramidal Symptoms (EPS): These include acute dystonia (muscle spasms), Parkinsonism (tremors, rigidity), and tardive dyskinesia (involuntary movements). Neuroleptic Malignant Syndrome (NMS): A rare but potentially fatal condition characterized by high fever, muscle rigidity, and altered mental state. Cardiovascular Issues: Prolongation of the QT interval (a heart rhythm problem), and in rare cases, sudden cardiac . Other Serious Side Effects: Increased risk of stroke, blood clots, and diabetes. Important Considerations: Medication-Specif ic Side Effects: Different antipsychotics have different side effect profiles, so it's crucial to discuss the specific medication with your doctor. Monitoring: Regular monitoring for side effects is essential, especially during the initial stages of treatment. Communication: Open communication with your doctor or psychiatrist is vital to address any concerns or side effects promptly. Older Adults: Antipsychotic medications should be used with caution in older adults due to an increased risk of certain side effects, including stroke and . Dementia: Antipsychotics should be used with extreme caution in people with dementia, as they can increase the risk of due to pneumoni 09/09/2024 Hypertension, essential (ICD-10 - I10) 09/09/2024 History of migraine headaches (ICD-10 - Z86.69) 09/09/2024 Hyperparathyr oidism, secondary renal (ICD-10 - N25.81) 09/09/2024 Kidney replaced by transplant (ICD-10 - Z94.0) 09/09/2024 Bipolar 1 disorder (ICD-10 - F31.9) 09/23/2024 Encounter for screening for depression (ICD-10 - Z13.31) 09/23/2024 Bipolar 1 disorder (ICD-10 - F31.9) Antipsychotic medications, while effective for treating mental health conditions, can cause a range of side effects, from common to serious, requiring careful monitoring and discussion with a healthcare provider. Common Side Effects: Metabolic: Weight gain, increased cholesterol and blood sugar levels, and changes in appetite. Movement Disorders: Drowsiness, sedation, and in some cases, movement disorders like tremors, stiffness, or restlessness. Other: Dry mouth, constipation, blurred vision, and sexual dysfunction. Serious Side Effects: Extrapyramidal Symptoms (EPS): These include acute dystonia (muscle spasms), Parkinsonism (tremors, rigidity), and tardive dyskinesia (involuntary movements). Neuroleptic Malignant Syndrome (NMS): A rare but potentially fatal condition characterized by high fever, muscle rigidity, and altered mental state. Cardiovascular Issues: Prolongation of the QT interval (a heart rhythm problem), and in rare cases, sudden cardiac . Other Serious Side Effects: Increased risk of stroke, blood clots, and diabetes. Important Considerations: Medication-Specif ic Side Effects: Different antipsychotics have different side effect profiles, so it's crucial to discuss the specific medication with your doctor. Monitoring: Regular monitoring for side effects is essential, especially during the initial stages of treatment. Communication: Open communication with your doctor or psychiatrist is vital to address any concerns or side effects promptly. Older Adults: Antipsychotic medications should be used with caution in older adults due to an increased risk of certain side effects, including stroke and . Dementia: Antipsychotics should be used with extreme caution in people with dementia, as they can increase the risk of due to pneumoni 09/23/2024 Benign essential HTN (ICD-10 - I10) 09/09/2024 Benign essential HTN (ICD-10 - I10) 09/09/2024 Other Learning About Depression Screening material was printed history of bipolar disorder and two kidney transplants, presenting with concerns about a rash potentially related to recently prescribed valproic acid. Bipolar Disorder Assessment: Patient has a diagnosis of bipolar disorder, with a recent depressive episode lasting 2 weeks prior to starting valproic acid on August 16. He reports mood stabilization and improved functioning after starting the medication. Patient has a family history of bipolar disorder (sister). Previous treatments include BuSpar and lorazepam, which have been discontinued. No prior trials of other mood stabilizers or antipsychotics. Recent depressive symptoms included social isolation and difficulty leaving his room for 2 weeks. Plan: - Discontinue valproic acid due to potential adverse reaction (rash) - Start Abilify 5 mg PO qhs for 1 week, then increase to 10 mg PO qhs - Increase to 15 mg PO qhs if irritability or manic symptoms occur - Monitor for side effects: - Advised patient to report any side effects for dose adjustment - Informed consent: Discussed potential side effects including weight gain, metabolic changes (increased cholesterol, insulin resistance), and akathisia - Patient agreed to try antipsychotic medication Cutaneous Reaction Assessment: Patient reports development of a rash on his chest since starting valproic acid on August 16. The rash was initially bright red but has faded over time. Differential diagnosis includes drug reaction to valproic acid vs. infection-related rash (patient had a recent tooth infection and extraction). No signs of more severe reaction such as dark urine or abdominal pain. Patient has a history of sulfa drug allergy with similar but more severe and widespread rash presentation. Plan: - Discontinue valproic acid as a precautionary measure - Monitor rash for improvement after discontinuation of valproic acid - Advised patient to report any worsening of rash or new symptoms Chronic Kidney Disease, Post-transplant Assessment: Patient has a history of two kidney transplants, with the most recent in February 2022. Currently not on dialysis. Recent blood work shows baseline kidney function with slightly low tacrolimus levels, attributed to recent infection. Patient reports occasional dark urine when consuming beverages other than water. Plan: - Avoid medications metabolized by the kidneys - Continue current transplant-related medications, including tacrolimus (dose recently increased) - Encourage adequate hydration, especially given work environment ([employer]) - Obtain recent lab results for review, including kidney function and metabolic panel The note is transcribed using speech recognition software. It is a reflection of a visit with the patient. It might have some inaccuracy, including medication names and transcribing errors, though efforts have been made to correct them. 09/23/2024 Varun Irvin is a male patient with a history of organ transplant, presenting with bipolar disorder, anxiety, and recent medication adjustments, including the initiation of aripiprazole and discontinuation of valproic acid. Bipolar Disorder Assessment: Patient reports improvement in depressive symptoms, rating them as moderate to mild with more good days than bad. No current manic symptoms reported, but patient feels over-energized today. Sleep initiation difficulties persist, but sleep maintenance has improved. Appetite was low for the past couple of weeks but is improving. Irritability has decreased but still present at times. Patient experienced significant fatigue and blood pressure elevation after starting aripiprazole 10 mg daily, necessitating adjustment of antihypertensive medication. Fatigue has now resolved. No current suicidal or homicidal ideation reported. Plan: - Continue aripiprazole 10 mg PO daily - Monitor for signs of hypomania or wes given report of feeling over-energized - Encourage consistent sleep hygiene practices - Continue current therapy for coping mechanisms - Follow up on mood symptoms, particularly depressive symptoms and irritability Anxiety Disorder Assessment: Patient reports overall improvement in anxiety symptoms with more good days than bad. However, occasional overwhelming anxiety persists, with a recent panic attack a few days ago. Patient is utilizing coping mechanisms learned in therapy, which have been more effective since starting medication. Plan: - Continue current medication regimen - Reinforce use of learned coping mechanisms for anxiety management - Monitor frequency and severity of panic attacks - Encourage ongoing engagement in therapy Hypertension (Secondary to Medication) Assessment: Patient experienced significant blood pressure elevation after starting aripiprazole, with readings in the 170s-180s last week. Carvedilol dose was doubled to 12.5 mg twice daily. Current blood pressure readings are in the 150s-160s range. Plan: - Continue current antihypertensive regimen (carvedilol 12.5 mg PO BID) - Advise patient to monitor blood pressure regularly and report any further elevations - Coordinate care with transplant team regarding blood pressure management The note is transcribed using speech recognition software. It is a reflection of a visit with the patient. It might have some inaccuracy, including medication names and transcribing errors, though efforts have been made to correct them. Plan Of Treatment Pending Test Test Name Order Date UDT 09/09/2024 Next Appt Details Provider Name:Sondra Carter Rc jones, 01/06/2025 09:00:00 AM, [address], [address], [place], [address], Insurance Providers Payer Name Payer Address Payer Phone Subscriber Number Group Number Insured Name Patient Relationship to Insured Coverage Start Date Coverage End Date [address]a [address] [place] [address] [id number] Dav Sheth Self - patient is the insured Medical (General) History Medical History History ICD Code kidney transplant x 2 Surgical History Surgery Date(Month/Year) kidney transplant Hospitalization History Reason Date(Month/Year) surgery
--- OUTSIDE RECORDS SUMMARY | 2024-12-21 19:14 | XMS_ITS | Clinical Summary ---
Author Organization [facility] Address [address] [place] [address] Care Team Providers Care Due Diligence Coordinator Name Role Phone Roel Pantoja MD Primary Care Provider [phone] Source Comments [facility],non-owned Affiliates and Associated Physician Practices is amultiple site organization consisting of ambulatory clinics and hospital sitesin [place], [place], [place] and [place]. This disclosure is being madepursuant to the Care Everywhere program and may not contain all information available regarding this patient. Last updated 18.[facility] Allergies No known active allergies Medications * Be aware that medications may not be up to date on this document. Alwaysverify current medications with the patient. ibuprofen (MOTRIN) 800 MG tablet Take 1 [...] at Not on file Legal Sex Male 5:16 PM [employer]ANDY [employer] Gender Identity Not on file Sexual Orientation [...] 4:14 PM CDT Height 182.9 cm (6' 0.01) 12/01/2015 4:14 PM CD T Body Mass Index 27.12 12/01/2015 4:14 PM CDT Plan of Treatment Health Maintenance Due Date Last Done Comments HIV SCREENING 2010 DTAP/TDAP/TD VACCINES (1 - Tdap) 2014 PNEUMOCOCCAL VACCINE (1 of 2 - PCV) 2014 HEPATITIS B VACCINE (1 of 3 - Risk Dialysis 4-dose series) 2015 COVID-19 VACCINE (1 - season) 2024 DEPRESSION SCREENING 06/15/2024 INFLUENZA VACCINE (Season Ended) 2025 06/26/2020, 04/08/2019 ZOSTER VACCINE (1 of 2) 2045 HEPATITIS C SCREENING Completed 02/20/2022 , 02/20/2022, 02/20/2022, Additional history exists HIB VACCINE Aged Out No longer eligi ble based on patient's age to complete this topic HPV VACCINE Aged Out No longer eligi ble based on patient's age to complete this topic MENINGOCOCCAL (Group B) VACCINE SHARED DECISION-MAKING Aged Out No longer eligible based on patient's age to complete this topic MENINGOCOCCAL GROUPS A/C/Y/W VACCINE Aged Out No longer eligible based on patient's age to complete this topic [place] [address] [facility] GENERIC * Guarantor: E-SCREEN,SOIL Account Type Relation to Patient Date of Phone Billing Address Company Employer [employer] [address] [facility] Care Teams Due Diligence Coordinator Relationship Specialty Start Date End Date Roel Pantoja MD [address] [place] [address] PCP - General Family Medicine 12/01/15
--- OUTSIDE RECORDS SUMMARY | 2024-12-21 19:14 | XMS_ITS | Encounter Summary ---
Author Organization [facility] Address [address] [place] [address] Care Team Providers Care Commercial Real Estate Appraiser Name Role Phone Dixie Schroeder MD Unavailable [phone] Vanita Amaro DO Primary Care Provider [phone] Tg Ervin RN Unavailable Unava ilable Encounter Details Date Type Department Care Team (Late st Contact Info) Description 12/20/2024 Telephone [facility] Transplant Kidney [address] [address] [phone] [place] [address] Komal Almeida Social History Tobacco Use Types Packs/Day Years Used Date Smoking Tobacco: Former Cigarettes Smokeless Tobacco: Never Alcohol Use Standard Drinks/Week Comments Not Currently 0 (1 standard drink = 0.6 oz pur e alcohol) AUDIT-C Answer Date Recorded Q1: How often do you have a drink containing alcohol? Never 02/06/2022 Q2: How many drinks containi ng alcohol do you have on a typical day when you are drinking? Patient does not drink Q3: How often do you have si x or more drinks on one occasion? Never 02/06/2022 Overall Financial Resource Strain (CARDIA) Answe r Date Recorded How hard is it for you to pa y for the very basics like food, housing, medical care, and heating? Not very hard 02/21/2022 Hunger Vital Sign Answer Date Recorded Within the past 12 months, y ou worried that your food would run out before you got the money to buy more. Never true 02/22/20 22 Within the past 12 months, t he food you bought just didn't last and you didn't have money to get more. Never true 02/21/2022 PRAPARE - Transportation Answer Date Re corded In the past 12 months, has l ack of transportation kept you from medical appointments or from getting medications? No 02/2022 In the past 12 months, has l ack of transportation kept you from meetings, work, or from getting things needed for daily living? No 02/21/2022 Personal Safety Answer Date Recorded Have you ever been in or are you currently in a harmful physical or emotional relationship or is someone making you feel afraid or unsafe? 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 12/20/24, 2:54 PM, Shannan Calderón, carrier blowerData Center Engineer: Call placed and discussed with pt, see note on previous encounter. documented in this encounter Plan of Treatment Scheduled Procedures Name Priority Associated Diagnoses Date/Ti me TRANSPLANT KIDNEY ESRD (end stage renal disease) (HCC) documented as of this encounter Visit Diagnoses Not on filedocumented in this encounter Care Teams Commercial Real Estate Appraiser Relationship Specialty Start Date End Date Vanita Amaro DO [address] [facility] [address] [place] [address] PCP - General 10/02/20 Dixie Schroeder MD [address] [facility] [address] [place] [address] Referring Physician Nephrology 08/03/20 Tg Ervin, carrier blowerData Center Engineer 02/20/22 documented as of this encounter
--- OUTSIDE RECORDS SUMMARY | 2024-12-21 19:14 | XMS_ITS | Encounter Summary ---
Author Organization [facility] Healthcare Address [address] [place] [address] Care Team Providers Care Rabbler Name Role Phone Dixie Schroeder MD Unavailable [phone] Vanita Amaro DO Primary Care Provider [phone] Tg Dominguez RN Unavailable Unava ilable Reason for Referral * Diagnostic Lab (Routine) - Pending Review Specialty Diagnoses / Procedures Referred By Contac t Referred To Contact Lab Diagnoses Kidney replaced by transplant Procedures beta-D glucan - Miscellaneous Test Earnest Crandall MD [address] [place] [address] Phone: tel: fax: Referral ID Status Reason Start Date Expiration Date V isits Requested Visits Authorized [id number] Pending Review 12/20/2024 01/19/2026 1 1 Encounter Details Date Type Department Care Team (Late st Contact Info) Description 12/20/2024 Telephone [facility] Transplant Kidney [address] [facility] [id number] [place] [address] Betty Rhodes Social History Tobacco Use Types Packs/Day Years [...] you are drinking? 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 Morin on [employer] medication? Patient needs a return call from the nurse coordinator. 12/20/24, 9:41 AM, Shannan Calderón water[employer] employee[employer]hetician And Manager [employer]: Message sent to the transplant pharmacy to verify, will follow up with the patient's mother once response is received. Reviewed with PharmD; Would avoid paraguard as wormwood can cause kidney issues and increases seizure risk. Would avoid zeolite as it can stimulate the immune system and interact with immunosuppression. Lemon balm okay totake but might make him drowsy. Call placed to pt, reviewed the above recommendations, pt verbalized understanding. Discussed his c/o fatigue, occasional sob for the last 2 weeks after mold was discovered in his home.Pt states the house has been treated for mold, but he is concerned about his symptoms Will discuss with the team for recommendations. 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 Rupal (cousin) ABOi 02/20/22, Dr. Howell<Dr. Resendiz> 2/06/16 Mm, PRA 84%. CMV-/-, EBV+. TMG 6mg/kg. IMS: EnXR, MPA, Pred taper. Dc on POD 4, SCr 1.1 Patient is c/o feeling extremely fatigue and occasionally short of breath for the last 2 weeks. Denies fever or chills.He recently discovered mold in his bathroom that has since been treated. Pt will be getting labs drawn Thursday. Question: Pt wants to know if he she have any additional testing done due to recent mold exposure.Please advise. D/W Dr. Isbell and received orders to check beta-D glucan, galactomannan, and LDH. LDH can be elevated in PJP Additional orders placed, message sent to patient. documented in this encounter Plan of Treatment Scheduled Orders Name Type Priority Associated Diagnoses Orde r Schedule beta-D glucan - Miscellaneous Test Lab Routine Kidney replaced by transplant Expected: 12/23/2024, Expires: 12/20/2025 Aspergillus galactomannan antigen Blood Microbiology Routine Kidney replaced by transplant Expected: 12/23/2024, Expires: 12/20/2025 Lactate dehydrogenase (LD) Lab Routine Kidney replaced by transplant Expected: 12/23/2024, Expires: 12/20/2025 Scheduled Procedures Name Priority Associated Diagnoses Date/Ti me TRANSPLANT KIDNEY ESRD (end stage renal disease) (HCC) documented as of this encounter Visit Diagnoses Diagnosis Kidney replaced by transplant- Primary documented in this encounter Care Teams Rabbler Relationship Specialty Start Date End Date Vanita Amaro DO [address] [employer] [facility] [address] [place] [address] PCP - General 10/02/20 Dixie Schroeder MD [address] [employer] [facility] [place] [address] Referring Physician Nephrology 08/03/20 Tg Dominguez, waterworks employee[employer]hetician And Manager [employer] 02/20/22 documented as of this encounter
--- OUTSIDE RECORDS SUMMARY | 2024-12-21 19:15 | XMS_ITS | Clinical Summary ---
Author Organization [facility] Address [address] [place] [address] Care Team Providers Care Glue Sprayer Name Role Phone Dixie Schroeder MD Unavailable [phone] Vanita Amaro DO Primary Care Provider [phone] Tg Ervin RN Unavailable Unava ilable Allergies Active Allergy Reactions Criticality Noted Date Comments Atovaquone Itching Low 04/08/2019 Delayed reaction. Negative skin testing. Sulfamethoxazole-Trime thoprim Itching Low 04/08/2019 Delayed reaction. Negative skin testing. Nifedipine Other (See comments),Nausea only Low 03/05/2022 Abdominal pain Sulfa (Sulfonamide Antibiotics) Rash Medium 12/27/2019 Medications ondansetron ODT (ZOFRAN-ODT) 4 mg disintegrating tablet Take 1 tablet (4 mg total) by mouth every 8 (eight) hours as needed for nausea 1 Active acetaminophen 500 mg capsule Take 2 capsules (1,000 mg total) by mouth every 8 (eight) hours 30 tablet 2 Active polyethylene glycol (MIRALAX) 17 gram/dose powderIndications:c onstipation Take 17 g by mouth daily as needed 2 Active aspirin 81 mg enteric coated tablet Take 1 tablet (81 mg total) by mouth daily 30 tablet 11 4 Active predniSONE (DELTASONE) 5 mg tablet Take 1 tablet (5 mg) by mouth daily 30 tablet 4 Active losartan (COZAAR) 50 mg tablet TAKE 1 TABLET(50 MG) BY MOUTH DAILY 30 tablet 5 Active valproate (DEPAKENE) 250 mg capsule Take 1 capsule (250 mg total) by mouth 3 (three) times a day 5 Active carvediloL (COREG) 12.5 mg tablet Take 1 tablet (12.5 mg total) by mouth 2 (two) times a day with meals 180 tablet 3 5 09/29/19 26 Active tacrolimus XR (ENVARSUS XR) 0.75 mg tablet extended release 24 hrIndications:Preve ntion of Kidney Transplant Rejection Take 2 tablets (1.5 mg total) by mouth daily 60 tablet 5 10/06/19 26 Active tacrolimus XR (Envarsus XR) 1 mg tablet extended release 24 hr Take 1 tablet (1 mg total) by mouth daily 30 tablet 5 10/06/[address] (MYFORTIC) 360 mg EC tablet Take 1 tablet (360 mg total) by mouth daily 30 tablet 5 10/11/19 26 Active famotidine (PEPCID) 20 mg tablet TAKE ONE TABLET BY MOUTH TWICE A DAY 60 tablet 5 Active cholecalciferol (VITAMIN D-3) 2000 unit tablet TAKE ONE TABLET BY MOUTH EVERY DAY 30 tablet 5 Active Active Problems Patient Care Coordination No te Formatting of this note migh t be different from the original. Verbal consent - Dario (father), Tierra (mother), Devon (sister), and Pj (other). Pharmacy: [facility] Specialty: [facility] Specialty Program [facility] OUTPATIENT CTR LAB-[facility] [place] P: [phone] F: [phone] Q-MONTHLY, FK, BK; Q-3 ROUTINE B-ISOTITERS (WALTER ) Exp 03/21/2025 HH: [facility] Home Care Problem Noted Date Diagnosed Date ESRD (end stage renal disease) 12/12/2022 Acute kidney failure 09/09/2022 Status post biopsy of kidney 09/09/2022 Assessment & Plan (09/10/2022 2:06 PM CDT): Admitted for observation following kidney biopsy, which was done in response to allosure being 0.94%, per nephro this confers high immunologic risk of rejection - cont to hold home aspirin, resume tomorrow at home. Hgb has remained stable - discussed with transplant nephro, no evidence rejection on biopsy Erythrocytosis 08/12/2022 Hypertension 06/17/2022 Assessment & Plan (09/09/2022 2:55 PM CDT): Cont home coreg, losartan Encounter for long-term (cur rent) use of high-risk medication 06/17/2022 REUBEN (renal osteodystrophy) 06/17/2022 Change or removal of drains 03/18/2022 Hypertension, goal to be determined 03/04/2022 Abdominal pain 03/04/2022 Acute respiratory failure with hypoxia Assessment & Plan (01/11/2022 11:05 AM CDT): DDx: pulmonary edema, COVID 19, vs bacterial pneumonia. Sx has resolved s/p abx and dialysis -pending walking O2 assessment -Doxycycline for bacterial pneumonia. Plan for 6 day course. Acute heart failure 01/11/2022 Assessment & Plan (01/11/2022 11:05 AM CDT): Pulmonary edema and leg swelling I/s/o ESRD and COVID infection +/- bacterial infection. Improved with diuresis. COVID-19 01/10/2022 Assessment & Plan (01/11/2022 11:03 AM CDT): Was initially on oxygen on presentation but may be secondary to pulmonary edema. Received one dose of remdesivir. -Will require 10 days of isolation Assessment & Plan (01/10/2022 9:27 PM CDT): - Pt presented with SOB since 9 am this morning as he was feeling extremely winded - Pt's O2 sat was less than 94% in the ED for which he was started on O2 via NC for relief of Hypoxemia - Pt also c/o productive cough associated with hemoptysis which was note noted post admission during initial assessment. - CXR was suggestive of new b/l air space opacities concerning for Covid-10 since the pt tested positive for rapid testing in the ED - Currently on Prednisone & Tacrolimus given the hx of renal transplant in 2019 which renders the pt immunocompromised - s/p Vancomycin and Cefepime x 1 in the ED - s/p Decadron 6 mg in the ED - c/w Decadron 6 mg x 3 more days given risk for decompensation, can switch back to prednisone upon DC - Plan to give 1 dose of Remdesivir 100 mg post HD tonight given the immunocompromised status and hypoxemia, can consider repeat dosing based on clinical status in am , may benefit from 3 day regimen for Covid - 19 - Monitor respiratory status closely an follow ESR, CRP and Ferritin ( Covid labs ) in am MOSELEY (dyspnea on exertion) 01/10/2022 Assessment & Plan (01/10/2022 8:18 PM CDT): # 2/2 Covid-19 vs PCP Pneumonia vs Legionella - Pt c/o feeling fatigued and winded since morning - Was mildly hypoxemic since admission but was not in distress on PE - Pt states that he has not missed any HD sessions and PE was unremarkable for signs of volume overload - No new EKG changes noted from 01/09/22, TTE done in 09/2020 was also unremarkable for LV dysfunction or wasll motion abnormalities, plan to monitor at least 1 set of trops and BNP overnight , very low threshold for Cardiogenic etiology - c/w O2 supplementation via NC - Pt received Pentamidine (inhaled) on 01/09) , pt is allergic to Atovaquone and Sulfa, f/u LDH and O2 sats and send PCP serology (not ordered), consider Dapsone + Clinda if clinical suspicion is high - f/u Legionella urinary antigen and Start Doxy 100 BID for now - On Dacadron and Remdesivir for Covid-19, inflammatory markers pending. Hypercalcemia 01/10/2022 Assessment & Plan (01/10/2022 8:33 PM CDT): - Corrected Ca was 10.4, likely due to secondary hyperparathyroidism , intact PTH was 221 in 11/03 - f/u repeat PTH and Ca level in am Transplant 12/26/2021 Medication side effects 02/07/2021 Chronic fatigue 02/07/2021 History of migraine headaches 02/07/2021 Encounter for surgical after care following surgery of circulatory system 09/18/2020 ESRD on hemodialysis ([facility]) 08/08/2020 Overview (08/08/2020): Added automatically from request for surgery [id number] Hypertension, essential 06/19/2020 Assessment & Plan (01/11/2022 11:03 AM CDT): Continue with labetalol and nifedipine. Holding home clonidine and hydralazine Assessment & Plan (01/10/2022 8:31 PM CDT): - Was on Labetolol and Nifedipine as home meds - Clonidine and Hydralazine held for now - can be restarted in case the BP remains uncontrolled . Assessment & Plan (06/19/2020 9:38 AM DROPHAMMER OPERATOR): Pt's SBP consistently between 150s-170s since admission. Likely due to medication effect and from his ARF. -Started amlodipine 10mg daily -Will consider spot labetalol IV 10mg if SBP persistently > 180 Acute renal failure 06/18/2020 Assessment & Plan (06/25/2020 12:22 PM DROPHAMMER OPERATOR): Hx of Alport syndrome with ESRD, s/p bilateral renal transplant in 12/2019. Cr 17.69 at admission (1.7 in 11/2019). TODAY: 5.44 (s/p HD 06/20, 06/21, 06/23) - Renal transplant consulted in ED for c.s for transplant rejection. - Renal US doppler: No Doppler evidence of transplant renal artery stenosis. Normal transplant kidney morphology without hydronephrosis. - Continue tacrolimus 4 mg p.o. b.i.d., prednisone 5 mg p.o. q.day (stopped Myfortic) - Daily tacro trough - BK virus negative, CMV blood PCR negative - Donor specific ab, spot urine protein creatinine ratio (UA was suggestive 3+ proteinuria on dipstick) 970 - Hold acyclovir - s/p tunneled line 06/20, starting dialysis. Renal transplant case management working on arranging outpatient HD. - S/p vein mapping for AV fistula creation (06/21) - working on getting outpatient dialysis arranged Anemia 06/18/2020 Assessment & Plan (06/23/2020 9:54 AM DROPHAMMER OPERATOR): Hgb 6.8 at admission, 16.5 in 11/2019. Likely due to ARF. - Iron (168), ferritin (588), folate (7.5), B12 (1,143), haptoglobin (61.0), LDH (221). - consent for blood in paper chart, transfuse hb >7 (2 units this admission) - s/p retacrit 96309 units (06/21, 06/23) Increased anion gap metabolic acidosis Assessment & Plan (06/25/2020 12:22 PM DROPHAMMER OPERATOR): AG 19 at admission. Likely due to uremia (BUN 96). - LR at 50/Hr for 12 hours. - Lactate 0.5 - resolved Increased infection risk sta tus post immunosuppressive therapy 04/08/2019 Kidney replaced by transplant 04/05/2019 Assessment & Plan (09/09/2022 2:55 PM CDT): Pt with ESRD 2/2 Alport syndrome, s/p DDKT in 03/06. Here for bipsy as above - Cr is roughly stable, 1.4 yesterday and commonly 1.4-1.6 following transplant - will continue current regimen with MMF 720 BID, pred 5 daily, tacro 3 daily Immunosuppression ([facility]) 12/23/2018 Hyperparathyroidism, secondary renal 12/23/2018 Iron deficiency anemia 12/23/2018 Assessment & Plan (01/10/2022 8:28 PM CDT): - H/H stable, continue to monitor CBC - f/u Ferritin and iron profile in am - not currently on supplementation End stage renal disease (CMS/HCC) 11/18/2018 Overview (11/18/2018): Added automatically from request for surgery [id number] Assessment & Plan (01/11/2022 11:07 AM CDT): S/p transplant. Holding home MMF, tacro, and pred given COVID infection -Renal Consulted. Appreciate recommendations on (1) how long to hold immunosuppresive medications and (2) will surgery be affected due to COVID19 Assessment & Plan (01/10/2022 9:21 PM CDT): - s/p failed renal transplant in 2019, live donor - Plan for 2nd transplant in 01/2022 - Pt is a known pt at [facility] HD center in [place], [place] - As per the pt he has not missed any HD sessions lately and reiterates that he received full 3 hour HD session on 01/08/22 - Currently undergoing HD in acute HD unit - f/u PO4 , Mg and CMP in am - was taking Prograf and Prednisone as home meds prior to admission along with Mycophenolate post transplant. - Nephrology following closely - f/u Tacrolimus level in am Alport's syndrome 05/25/2018 Assessment & Plan (01/11/2022 11:02 AM CDT): On hemodilaysis. Renal transplant scheduled for 01/2022 Assessment & Plan (01/10/2022 8:23 PM CDT): - Pt was diagnosed with Alport's Sx in 2017 - s/p failed renal transplant in 2019 - currently on HD (MWF) - Plan for 2nd renal transplant in 01/2022 Resolved Problems Problem Noted Date Diagnosed Date Resolved Date ESRD (end stage renal disease) 02/20/2022 02/24/2022 Encounters Date Type Department Care Team Description 12/20/2024 Telephone [facility] Transplant Kidney [address] [facility] 7838 Mailstop [id number] [place] [address] Komal Almeida 12/20/2024 Telephone [facility] Transplant Kidney [address] [facility] [address] 57[address]77[address] [place] [address] Jacky Rhodesia 11/18/2024 8:15 AM CDT Lab [facility] Outpatient Lab at [address] [phone] 11/18/2024 8:13 AM CDT - 11/18/2024 11:59 PM CDT Hospital Encounter [address] [address] Transplanted kidney; Encounter for long-term (current) use of high-risk medication Discharge Disposition: Discharge to home or self care 10/17/2024 Telephone [facility] Transplant Kidney [address] [place] [address] [place] [address] Komal Almeida 10/14/2024 Telephone [facility] Transplant Kidney [address] [place] [place] [address] Dario Phelps, ASHLEY 10/11/2024 Telephone [facility] Transplant Kidney [address] [place] [place] [address] Komal Almeida 10/10/2024 Results Follow-Up [facility] Transplant Kidney [address] [place] [place] [address] Dario Phelps, RN HLA Donor Specific Antibody Report 10/10/2024 Telephone [facility] Transplant Kidney [address] [facility] [address] [place] [address] Dario Phelps, RN 10/10/2024 Orders Only [facility] Transplant Kidney [address] [place] [address] [place] [address] Joanna Santana Kidney replaced by transplant (Primary Dx) 10/07/2024 8:15 AM CDT Lab [facility] [address] [place] [address] Kidney replaced by transplant 10/07/2024 6:51 AM CDT - 10/07/2024 11:59 PM CDT Hospital Encounter [facility] [place] [facility] ([facility]) [address] [place] [address] Kidney replaced by transplant; Hypertension, unspecified type Discharge Disposition: Discharge to home or self care 10/07/2024 Results Follow-Up [facility] Transplant Kidney [address] [facility] 3401 Mailstop [phone] [place] [address] Dario Phelps, RN Renal Transplant W Dopplers 10/05/2024 Telephone [facility] Transplant Kidney [address] [facility] 3401 Mailstop 10-03-925 [place] [address] Dario Phelps, RN 10/05/2024 Telephone [facility] Transplant Kidney [address] [facility] 3401 Mailstop [phone] [place] [address] Dario Phelps, RN 10/03/2024 8:30 AM CDT - 10/03/2024 11:59 PM CDT Hospital Encounter [address] [address] Kidney replaced by transplant Discharge Disposition: Discharge to home or self care 10/03/2024 8:15 AM CDT Lab [facility] Outpatient Lab at [address] [address] End stage renal disease (HCC) (Primary Dx) 10/02/2024 Telephone [facility] Transplant Kidney [address] [facility] [address] Mailstop [phone] [place] [address] Sarah Draper, RN After Hours 09/28/2024 Telephone [facility] Transplant Kidney [address] [facility] 34[address] Mailstop [id number] [place] [address] Dario Phelps, RN 09/27/2024 Telephone [facility] Transplant Kidney [address] [facility] [address] Mailstop [phone] [place] [address] Dario Phelps, RN 09/26/2024 7:20 PM CDT Lab [facility] ([facility]) [address] [place] [phone] Kidney replaced by transplant 09/26/2024 Telephone [facility] Transplant Kidney [address] [facility] [address] Mailstop 81-84-386 [place] [address] Amie Merrill RN 09/22/2024 Telephone [facility] Transplant Kidney [address] [facility] 3409 Mailstop 07-29-214 [place] [address] Komal Almeida from Last 3 Months Immunizations Immunization Administration Dates Next Due Influenza, Quadrivalent, Mariama l Culture-based MDCK, Preservative Free, Antibiotic Free, Intramuscular 04/08/2019 Influenza, Quadrivalent, Spl it, Preservative Free, Intramuscular 06/26/2020 Surgical History Surgery Date Site/Laterality Comments PERITONEAL CATHETER INSERTION TUNNELED KIDNEY TRANSPLANT 06/15/2018 - 06/14/2019 TUNNELED LINE PLACEMENT > 5 YEARS 06/20/2020 N/A REMOVE TUNNELED LINE 11/27/2020 Left US GUIDED BIOPSY RENAL 09/09/2022 N/A Medical History Medical History Date Comments Alport syndrome HTN (hypertension) Hemodialysis patient M-W-F Renal failure Dizziness Family History Medical History Relation Name Comments Diabetes Father Heart disease Maternal Grandfather Kidney disease Maternal Grandmother alports Kidney disease Mother alports Heart disease Paternal Grandfather Anesthesia problems Neg Hx Relation Name Status Comments Father Alive Maternal Grandfather Maternal Grandmother alports also no allan to multiple cousin (male and female) as well as aunts on his mothers side Mother alports Alive Paternal Grandfather Social History Tobacco Use Types Packs/Day Years Used Date Smoking Tobacco: Former Cigarettes Smokeless Tobacco: Never Tobacco Cessation:Counseling Given: Not Answered Alcohol Use Standard Drinks/Week Comments Not Currently [...] on file Legal Sex Male 2:12 AM DROPHAMMER OPERATOR Gender Identity Not on file Sexual Orientation Not on file Obstetrics History Last Filed Vital Signs Vital Sign Reading Time Taken Comments Blood Pressure 136/74 12/20/2023 9:45 AM CDT Pulse 73 12/20/2023 9:45 AM CDT Temperature 36.7 C (98.1 F) 12/20/2023 7:57 AM CDT Respiratory Rate 16 12/20/2023 9:45 AM CDT Oxygen Saturation 100% 12/20/2023 9:45 AM CDT Inhaled Oxygen Concentration - - Weight 83.9 kg (185 lb) 12/20/2023 7:57 AM CDT Height 182.9 cm (6') 12/20/2023 7:57 AM CDT Body Mass Index 25.09 12/20/2023 7:57 AM CDT Plan of Treatment Scheduled Procedures Name Priority Associated Diagnoses Date/Ti me TRANSPLANT KIDNEY ESRD (end stage renal disease) (HCC) Health Maintenance Due Date Last Done Comments Depression Screening 1995 Varicella Vaccines (1 of 2 - 13+ 2-dose series) 01/10/2008 Regular Well Visit/Exam 18-64 2013 Pneumococcal vaccine <65 (1 of 2 - PCV) 2014 Zoster Vaccine (1 of 2) 2014 DTaP/Tdap/Td Vaccine (7 - Td or Tdap) 09/22/2019 09/21/2009, 11/20/2000, 04/18/1996, Additional history exists Covid-19 Vaccine (2 - Ivana risk series) 10/03/2020 09/05/2020 Influenza Vaccine (#1) 2025 06/26/2020, 2018 Hepatitis B Screening Completed 02/20/2022 , 1995, 1995, Additional history exists Hepatitis C Screening Completed 03/27/2022 , 02/20/2022, 02/20/2022, Additional history exists HPV Vaccines Aged Out No longer eligi ble based on patient's age to complete this topic Medical Devices Explanted Type Area Power Sewing Machine Operator Device Identifier Shelf Expiration Date Model / Serial / Lot Circon-Surgi leti [id number] Double-J 6fr 20cm 100cm 1 Step Insert Push Catheter [place] Suture - [id number] Implanted:Qt y: 1 on 01/04/2019 by Yue Howell MD PhD at [facility] Explanted:Qt y: 1 on 01/25/2019 by Inés Comer, TONIA Stent Right: Ureter Circon-Surgitek 01/01/2023 [id number] / / [id number] Description:Transplanted ure ter [employer] Double-J 6fr 20cm 100cm 1 Step Insert Push Catheter [place] Suture [id number] - [id number] Implanted:Qt y: 1 on 02/20/2022 by Yue Howell MD PhD at [facility] Explanted:Qt y: 1 on 03/25/2022 by Philip Coleman NP Stent Left: Transplanted Ureter [employer] [id number] 02/27/2026 [id number] / / [id number] Procedures Procedure Name Priority Date/Time Associated Diagnosis Comments EGFR Routine 11/18/2024 8:13 AM CDT Transplanted kidney DIFFERENTIAL AUTO Routine 11/18/2024 8:1 3 AM CDT Transplanted kidney TACROLIMUS LEVEL, TROUGH Routine 11/18/2024 8:13 AM CDT Transplanted kidney Encounter for long-term (current) use of high-risk medication CBC WITH AUTO DIFFERENTIAL Routine 11/18/2024 8:13 AM CDT Transplanted kidney RENAL FUNCTION PANEL Routine 11/18/2024 8:13 AM CDT Transplanted kidney RENAL TRANSPLANT W DOPPLERS Schedule Routine, Read Routine (OP Routine) 10/07/2024 8:25 AM CDT Kidney replaced by transplant Hypertension, unspecified type HLA DONOR SPECIFIC ANTIBODY REPORT 10/07/2024 7:10 AM CDT HLA ANTIBODY SCREEN - DSA (CLASS I AND CLASS II) Routine 10/07/2024 7:10 AM CDT Kidney replaced by transplant COLLECTION TASK FOR HLA PLATELET ANTIBODY SCREEN Routine 10/07/2024 7:10 AM CDT Kidney replaced by transplant TACROLIMUS LEVEL, TROUGH Routine 10/07/2024 7:10 AM CDT Kidney replaced by transplant BK VIRUS PCR QUANTITATIVE Routine 10/07/2024 7:10 AM CDT Kidney replaced by transplant EGFR Routine 10/03/2024 8:30 AM CDT Kidney replaced by transplant DIFFERENTIAL AUTO Routine 10/03/2024 8:3 0 AM CDT Kidney replaced by transplant RENAL FUNCTION PANEL Routine 10/03/2024 8:30 AM CDT Kidney replaced by transplant CBC WITH AUTO DIFFERENTIAL Routine 10/03/2024 8:30 AM CDT Kidney replaced by transplant TACROLIMUS LEVEL, TROUGH Routine 10/03/2024 8:30 AM CDT Kidney replaced by transplant PROTEIN / CREATININE RATIO, URINE, RANDOM Routine 10/03/2024 8:30 AM CDT Kidney replaced by transplant URINALYSIS AND REFLEX TO MICROSCOPIC AND CULTURE Routine 10/03/2024 8:30 AM CDT Kidney replaced by transplant BK VIRUS PCR QUANTITATIVE Routine 10/03/2024 8:30 AM CDT Kidney replaced by transplant ALLOSURE KIDNEY DONOR-DERIVED CELL-FREE DNA (CFDNA) Routine 09/26/2024 9:30 PM CDT Kidney replaced by transplant BK VIRUS PCR QUANTITATIVE Routine 09/26/2024 3:32 PM CDT Kidney replaced by transplant CYTOMEGALOVIRUS (CMV) DNA, QUANT GEN LAB Routine 09/26/2024 3:32 PM CDT Kidney replaced by transplant EGFR Routine 09/26/2024 3:23 PM CDT Kidney replaced by transplant DIFFERENTIAL AUTO Routine 09/26/2024 3:2 3 PM CDT Kidney replaced by transplant FOLATE Routine 09/26/2024 3:23 PM CDT Kidney replaced by transplant VITAMIN B12 Routine 09/26/2024 3:23 PM CDT Kidney replaced by transplant FERRITIN Routine 09/26/2024 3:23 PM CDT Kidney replaced by transplant IRON PROFILE W/ IBC Routine 09/26/2024 3 :23 PM CDT Kidney replaced by transplant RENAL FUNCTION PANEL Routine 09/26/2024 3:23 PM CDT Kidney replaced by transplant CBC WITH AUTO DIFFERENTIAL Routine 09/26/2024 3:23 PM CDT Kidney replaced by transplant HEPATITIS C RNA, QUANTITATIVE, PCR Routine 03/27/2022 8:30 AM CDT from Last 3 Months or Most Recently Relevant to Health Maintenance Results * eGFR (11/18/2024 8:13 AM CDT) eGFR 60 >=60 mL/min/1. 73 m2 Comment: Interpretive Data Reference Interval Normal >/= 90 mL/min/1.73m2 Mildly decreased* 60 - 89 mL/min/1.73m2 Mildly to moderately decreased 45 - 59 mL/min/1.73m2 Moderately to severely decreased 30 - 44 mL/min/1.73m2 Severely decreased 15 - 29 mL/min/1.73m2 Kidney Failure < 15 mL/min/1.73m2 *Relative to young adult level Estimated glomerular filtration rate is determined by the 2020 CKD-EPI equation recommended by the National Kidney Foundation (A Unifying Approach to GFR Estimation: Recommendations of the NKF-ASK Task Force on Reassessing the Inclusion of Race in Diagnosing Kidney Disease, JASN 2020). The CKD-EPI equation should not be used for patients with unstable renal function and has not been validated in children and those over 70. Current interpretive data was last reviewed 2021. Blood 11/18/2024 8:13 AM CDT 11/18/2024 3:18 PM CDT us Earnest Crandall MD LAB BLOOD ORDERABLES Final R esult [facility] [address] [address] [place] [address] * (ABNORMAL) Differential, auto (11/18/2024 8:13 AM CDT) Neutrophil abs 3.73 1.50 - 6.50 K/cumm Imm gran abs 0.01 0.00 - 0.10 K/cumm [facility] Lymphocyte abs 0.79(L) 0.80 - 3.30 K/cumm [facility] Monocyte abs 0.47 0.20 - 0.80 K/cumm [facility] Eosinophil abs 0.16 0.00 - 0.50 K/cumm [facility] Basophil abs 0.04 0.00 - 0.10 K/cumm [facility] Neutrophil pct 71.7 % [facility] Comment: Interpretive Data Percent cell count reference ranges are not reported, since discordance with absolute values may lead to misinterpretation of CBC data. Current Interpretive Data was last revised on 2017. Imm gran pct 0.2 % [facility] Comment: Interpretive Data Percent cell count reference ranges are not reported, since discordance with absolute values may lead to misinterpretation of CBC data. Current Interpretive Data was last revised on 2017. Lymphocyte pct 15.2 % [facility] Comment: Interpretive Data Percent cell count reference ranges are not reported, since discordance with absolute values may lead to misinterpretation of CBC data. Current Interpretive Data was last revised on 2017. Monocyte pct 9.0 % [facility] Comment: Interpretive Data Percent cell count reference ranges are not reported, since discordance with absolute values may lead to misinterpretation of CBC data. Current Interpretive Data was last revised on 2017. Eosinophil pct 3.1 % [facility] Comment: Interpretive Data Percent cell count reference ranges are not reported, since discordance with absolute values may lead to misinterpretation of CBC data. Current Interpretive Data was last revised on 2017. Basophil pct 0.8 % [facility] Comment: Interpretive Data Percent cell count reference ranges are not reported, since discordance with absolute values may lead to misinterpretation of CBC data. Current Interpretive Data was last revised on 2017. Blood 11/18/2024 8:13 AM CDT 11/18/2024 3:16 PM CDT us Earnest Crandall MD LAB BLOOD ORDERABLES Final R esult [facility] [address] Department [place] [place] [address] * Tacrolimus level trough (11/18/2024 8:13 AM CDT) Pathologist [facility] Tacrolimus trough 8.5 ng/mL Comment: Interpretive Data Testing performed by liquid chromatography-tandem mass spectrometry. Therapeutic concentrations vary depending on type of transplanted organ and time elapsed since transplant. Typical trough concentrations range from 5-15 ng/mL. This test was developed and its performance characteristics determined by the [facility] consistent with CLIA requirements. This test has not been cleared or approved by the US Food and Drug administration. Current interpretive data last reviewed 2019. Testing performed by: [facility], [address] [place] [address] Blood 11/18/2024 8:13 AM CDT 11/18/2024 10:03 PM CDT [facility] - 11/19/2024 2:14 AM CDT MONTHLY (EVERY 4 WEEKS) Earnest Crandall MD LAB BLOOD ORDERABLES Final R esult [facility] [address] Department [place] [address] * (ABNORMAL) CBC with auto differential (11/18/2024 8:13 AM CDT) Pathologist [facility] WBC 5.20 3.80 - 9.90 K/cumm Hgb 14.5 13.0 - 17.5 g/dL [facility] Hct 45.9 38.9 - 50.3 % [facility] Plt 205 150 - 400 K/cumm [facility] MPV 9.7 9.1 - 12.3 fL [facility] RBC 5.01 4.30 - 5.80 M/cumm [facility] MCV 91.6 81.3 - 96.4 fL [facility] CH MCH 28.9 27.1 - 33.3 pg [facility] MCHC 31.6(L) 32.3 - 35.7 g/dL [facility] CH RDW CV 13.3 11.1 - 14.9 % [facility] CH RDW SD 44.6 35.7 - 48.1 fL [facility] NRBC abs 0.00 0.00 - 0.01 K/cumm [facility] Blood 11/18/2024 8:13 AM CDT 11/18/2024 3:16 PM CDT Narrative [facility] - 11/18/2024 3:25 PM CDT MONTHLY (EVERY 4 WEEKS) us Earnest Crandall MD LAB BLOOD ORDERABLES Final R esult [facility] [address] Department [place] [address] * (ABNORMAL) Renal function panel (11/18/2024 8:13 AM CDT) Sodium 143 135 - 145 mmol/L Potassium, pl 4.9 3.3 - 4.9 mmol/L [facility] Chloride 108 97 - 110 mmol/L [facility] CO2 23 22 - 32 mmol/L [facility] Anion gap 12 2 - 15 mmol/L [facility] BUN 22 6 - 25 mg/dL [facility] Creatinine 1.59(H) 0.80 - 1.30 mg/dL [facility] Glucose 110 70 - 199 mg/dL [facility] Comment: Interpretive Data Fasting glucose >/= 126 mg/dl is diagnostic for diabetes. Fasting is defined as no caloric intake for at least 8 hours. Fasting glucose between 100 mg/dl to 125 mg/dl is diagnostic of prediabetes. In a patient with classic symptoms of hyperglycemia or hyperglycemic crisis, a random glucose >/= 200 mg/dl is diagnostic for diabetes. In the absence of unequivocal hyperglycemia, results should be confirmed by repeat testing. The classification and Diagnosis of Diabetes Diabetes Care 202; 46: S19-S40. Current interpretive data was last revised 2022. Calcium 9.8 8.5 - 10.3 mg/dL [facility] Phosphorus, pl 3.0 2.3 - 4.5 mg/dL [facility] Albumin 4.5 3.5 - 5.0 g/dL [facility] Blood 11/18/2024 8:13 AM CDT 11/18/2024 3:16 PM CDT Narrative [facility] - 11/18/2024 3:42 PM CDT MONTHLY (EVERY 4 WEEKS) us Earnest Crandall MD LAB BLOOD ORDERABLES Final R esult [facility] [address] Department [place] [address] * US Renal Transplant W Dopplers (10/07/2024 8:25 AM CDT) Anatomical Region Laterality Modality Kidney N/A Ultrasound 10/07/2024 8:35 AM CDT Impressions 10/07/2024 8:39 AM CDT 1. No Doppler evidence of transplant renal artery stenosis. 2. Normal transplant kidney morphology without hydronephrosis. Dictated by: Savita Javier MD The radiology attending physician has personally reviewed this study, and had reviewed and/or edited this written report and agrees with it. Electronically signed by: Callum Fung MD, PHD Narrative 10/07/2024 8:39 AM CDT EXAMINATION: RENAL TRANSPLANT ULTRASOUND WITH DOPPLER HISTORY: 29-year-old male with renal transplant x2 with history of transplant failure, with acute onset hypertension COMPARISON: CT abdomen pelvis 03/04/2022 FINDINGS: The left iliac fossa transplant kidney measures 13.1 cm in length. Echogenicity is normal. There is no hydronephrosis. There are no renal calculi visualized. No perinephric fluid collection is seen. Several simple renal cysts with largest measuring 1.9 cm in longest axis. Bladder: The urinary bladder is normal Color Doppler and spectral analysis were used to evaluate the renal vasculature. Resistive indices in the transplant segmental arteries range from 0.66 to 0.77, and are normal. No focal flow abnormalities were seen in the transplant renal artery on color Doppler. The peak systolic velocities at the origin, mid aspect, and hilum of the transplant renal artery are 77 cm/sec, 141 cm/sec, and 131 cm/sec, respectively. The proximal external iliac artery peak systolic velocity is 125 cm/sec. The visualized portions of the transplant renal vein are patent. There is no thrombosis. Procedure Note Callum Fung MD PhD - 10/07/2024 EXAMINATION: RENAL TRANSPLANT ULTRASOUND WITH DOPPLER HISTORY: 29-year-old male with renal transplant x2 with history of transplant failure, with acute onset hypertension COMPARISON: CT abdomen pelvis 03/04/2022 FINDINGS: The left iliac fossa transplant kidney measures 13.1 cm in length. Echogenicity is normal. There is no hydronephrosis. There are no renal calculi visualized. No perinephric fluid collection is seen. Several simple renal cysts with largest measuring 1.9 cm in longest axis. Bladder: The urinary bladder is normal Color Doppler and spectral analysis were used to evaluate the renal vasculature. Resistive indices in the transplant segmental arteries range from 0.66 to 0.77, and are normal. No focal flow abnormalities were seen in the transplant renal artery on color Doppler. The peak systolic velocities at the origin, mid aspect, and hilum of the transplant renal artery are 77 cm/sec, 141 cm/sec, and 131 cm/sec, respectively. The proximal external iliac artery peak systolic velocity is 125 cm/sec. The visualized portions of the transplant renal vein are patent. There is no thrombosis. IMPRESSION: 1. No Doppler evidence of transplant renal artery stenosis. 2. Normal transplant kidney morphology without hydronephrosis. Dictated by: Savita Javier MD The radiology attending physician has personally reviewed this study, and had reviewed and/or edited this written report and agrees with it. Electronically signed by: Callum Fung MD, PHD Emily Foreman MD [facility] [place] Final Result * (ABNORMAL) BK virus PCR quantitative Blood (10/07/2024 7:10 AM CDT) [facility] BKV DNA result, pl Detected( A) [facility] Comment: The quantifiable range of this assay is 21.5 IU/mL to 100,000,000 IU/mL (1.33 log IU/mL to 8.00 log IU/mL). Testing was performed by the NIKI 6800 BKV Quantatitive Test version 2.0 ([employer] Testing performed at [facility] Current Interpretive Data was last revised on 2021. BKV DNA IU/mL, pl 3,130.0 IUnits/mL [facility] BKV DNA Log IU/mL, pl 3.50 log IUnits/mL [facility] Blood 10/07/2024 7:10 AM CDT 10/07/2024 7:57 AM CDT Earnest Crandall MD LAB MICROBIOLOGY - GENERAL O RDERABLES Final Result Performing Organization Address [facility] Co de Phone Number [facility] [place] [address] BJ * Collection Task for HLA Platelet Antibody Screen (10/07/2024 7:10 AM CDT) Pathologist [facility] HLA PLATELET SC Received Blood 10/07/2024 7:10 AM CDT 10/07/2024 8:21 AM CDT Earnest Crandall MD LAB BLOOD ORDERABLES Final R esult Performing Organization Address [facility] de Phone Number [facility] [place] [address] * HLA Donor Specific Antibody Report (10/07/2024 7:10 AM CDT) Earnest Crandall MD LAB BLOOD ORDERABLES Final R esult * HLA Antibody Screen - DSA (Class I and Class II) (10/07/2024 7:10 AM CDT) Blood 10/07/2024 7:10 AM CDT 10/10/2024 6:31 AM CDT Narrative [facility] - 10/10/2024 6:31 AM CDT Earnest Crandall MD LAB BLOOD ORDERABLES Final R esult Performing Organization Address [facility] Co de Phone Number [facility] * Tacrolimus level trough (10/07/2024 7:10 AM CDT) Tacrolimus trough 8.0 ng/mL Comment: Interpretive Data Testing performed by liquid chromatography-tandem mass spectrometry. Therapeutic concentrations vary depending on type of transplanted organ and time elapsed since transplant. Typical trough concentrations range from 5-15 ng/mL. This test was developed and its performance characteristics determined by the [facility] consistent with CLIA requirements. This test has not been cleared or approved by the US Food and Drug administration. Current interpretive data last reviewed 2019. Blood 10/07/2024 7:10 AM CDT 10/07/2024 7:34 AM CDT us Earnest Crandall MD LAB BLOOD ORDERABLES Final R esult [facility] [place] [address] * (ABNORMAL) BK virus PCR quantitative Urine (10/03/2024 8:30 AM CDT) [facility] BKV DNA result, ur Detected( A) [facility] Comment: The quantifiable range of this assay is 200 IU/mL to 100,000,000 IU/mL (2.30 log IU/mL to 8.00 log IU/mL). Testing was performed by the NIKI 6800 BKV Quantatitive Test version 2.0 ([email or web address] Testing performed at [facility] Current Interpretive Data was last revised on 2021. Testing performed by: [facility], [address] [place]., [address] BKV DNA IU/mL, ur 89,900,00 0(C) IUnits/mL [facility] Comment:Testing performed by : [facility], [address] [place]., [address] BKV DNA Log IU/mL, ur 7.95 log IUnits/mL [facility] Comment:Testing performed by : [facility], [address] [place] [address] Urine 10/03/2024 8:30 AM CDT 10/04/2024 10:30 AM CDT Mikki Resendiz MD LAB MICROBIOLOGY - GENERAL ORDERABLES Final Result Performing Organization Address City/[facility] Co de Phone Number [facility] [address] Department [place] [address] [facility] * eGFR (10/03/2024 8:30 AM CDT) eGFR 64 >=60 mL/min/1. 73 m2 Comment: Interpretive Data Reference Interval Normal >/= 90 mL/min/1.73m2 Mildly decreased* 60 - 89 mL/min/1.73m2 Mildly to moderately decreased 45 - 59 mL/min/1.73m2 Moderately to severely decreased 30 - 44 mL/min/1.73m2 Severely decreased 15 - 29 mL/min/1.73m2 Kidney Failure < 15 mL/min/1.73m2 *Relative to young adult level Estimated glomerular filtration rate is determined by the 2020 CKD-EPI equation recommended by the National Kidney Foundation (A Unifying Approach to GFR Estimation: Recommendations of the NKF-ASK Task Force on Reassessing the Inclusion of Race in Diagnosing Kidney Disease, JASN 2020). The CKD-EPI equation should not be used for patients with unstable renal function and has not been validated in children and those over 70. Current interpretive data was last reviewed 2021. Blood 10/03/2024 8:30 AM CDT 10/03/2024 10:16 PM CDT Mikki Resendiz MD LAB BLOOD ORDERABL ES Final Result Performing Organization Address City/[facility]/ZIP Co de Phone Number [facility] [address] Department of Laboratories [place], [place] [id number] * (ABNORMAL) Differential, auto (10/03/2024 8:30 AM CDT) Neutrophil abs 3.76 1.50 - 6.50 K/cumm Imm gran abs 0.03 0.00 - 0.10 K/cumm [facility] Lymphocyte abs 0.61(L) 0.80 - 3.30 K/cumm [facility] Monocyte abs 0.50 0.20 - 0.80 K/cumm [facility] Eosinophil abs 0.15 0.00 - 0.50 K/cumm [facility] Basophil abs 0.03 0.00 - 0.10 K/cumm [facility] Neutrophil pct 74.0 % [facility] Comment: Interpretive Data Percent cell count reference ranges are not reported, since discordance with absolute values may lead to misinterpretation of CBC data. Current Interpretive Data was last revised on 2017. Imm gran pct 0.6 % [facility] Comment: Interpretive Data Percent cell count reference ranges are not reported, since discordance with absolute values may lead to misinterpretation of CBC data. Current Interpretive Data was last revised on 2017. Lymphocyte pct 12.0 % [facility] Comment: Interpretive Data Percent cell count reference ranges are not reported, since discordance with absolute values may lead to misinterpretation of CBC data. Current Interpretive Data was last revised on 2017. Monocyte pct 9.8 % [facility] Comment: Interpretive Data Percent cell count reference ranges are not reported, since discordance with absolute values may lead to misinterpretation of CBC data. Current Interpretive Data was last revised on 2017. Eosinophil pct 3.0 % [facility] Comment: Interpretive Data Percent cell count reference ranges are not reported, since discordance with absolute values may lead to misinterpretation of CBC data. Current Interpretive Data was last revised on 2017. Basophil pct 0.6 % [facility] Comment: Interpretive Data Percent cell count reference ranges are not reported, since discordance with absolute values may lead to misinterpretation of CBC data. Current Interpretive Data was last revised on 2017. Blood 10/03/2024 8:30 AM CDT 10/03/2024 10:10 PM CDT Mikki Resendiz MD LAB BLOOD ORDERABL ES Final Result [facility] [address] Department [place] [address] * Tacrolimus level trough (10/03/2024 8:30 AM CDT) Tacrolimus trough 4.6 ng/mL Comment: Interpretive Data Testing performed by liquid chromatography-tandem mass spectrometry. Therapeutic concentrations vary depending on type of transplanted organ and time elapsed since transplant. Typical trough concentrations range from 5-15 ng/mL. This test was developed and its performance characteristics determined by the [facility] consistent with CLIA requirements. This test has not been cleared or approved by the US Food and Drug administration. Current interpretive data last reviewed 2019. Testing performed by: [facility], [address] [place]., [address] Blood 10/03/2024 8:30 AM CDT 10/04/2024 3:58 AM CDT us Mikki Resendiz MD LAB BLOOD ORDERABL ES Final Result [facility] [address] Department [place] [address] * Urinalysis reflex to microscopic and culture Urine (10/03/2024 8:30 AM CDT) Color, ur Yellow Yellow Clarity, ur Clear Clear [facility] Specific gravity, ur 1.015 1.003 - 1.030 [facility] pH, urine 6.0 [facility] Comment: Interpretive Data U rine pH is affected by diet, medications, systemic acid-base disturbances, and renal tubular function. pH may affect urinary stone formation. For example, urine pH below 6.0 may help reduce the tendency for calcium phosphate stones and pH greater than 6.0 may reduce the tendency for uric acid stone formation. Source: [facility] [employer] Current Interpretive Data was last revised on 2017 Protein, ur ql Negative Negative [facility] Glucose, ur ql Negative Negative [facility] Ketones, ur Negative Negative [facility] Bilirubin, ur Negative Negative [facility] Blood, ur Negative Negative [facility] Urobilinogen, ur <2.0 <2.0 mg/dL [facility] Nitrite, ur Negative Negative [facility] Leukocyte esterase, ur Negative Negative [facility] UA reflex comment Reflex conditions for microscopic UA and culture not met. [facility] Urine 10/03/2024 8:30 AM CDT 10/03/2024 10:10 PM CDT Mikki Resendiz MD LAB MICROBIOLOGY - GENERAL ORDERABLES Final Result Performing Organization Address [facility] Co de Phone Number [facility] [address] Department [place] [employer] [place] [address] * (ABNORMAL) CBC with auto differential (10/03/2024 8:30 AM CDT) Pathologist [facility] WBC 5.08 3.80 - 9.90 K/cumm Hgb 13.9 13.0 - 17.5 g/dL [facility] Hct 46.0 38.9 - 50.3 % [facility] Plt 185 150 - 400 K/cumm [facility] MPV 9.7 9.1 - 12.3 fL [facility] RBC 4.93 4.30 - 5.80 M/cumm [facility] MCV 93.3 81.3 - 96.4 fL [facility] MCH 28.2 27.1 - 33.3 pg [facility] MCHC 30.2(L) 32.3 - 35.7 g/dL [facility] RDW CV 14.0 11.1 - 14.9 % [facility] RDW SD 47.8 35.7 - 48.1 fL [facility] NRBC abs 0.00 0.00 - 0.01 K/cumm [facility] Blood 10/03/2024 8:30 AM CDT 10/03/2024 10:10 PM CDT Mikki Resendiz MD LAB BLOOD ORDERABL ES Final Result Performing Organization Address City/[facility]/ZIP Co de Phone Number [facility] [address] Department [place] [employer] [place] [address] * Protein / creatinine ratio, urine, random (10/03/2024 8:30 AM CDT) Protein, ur, quant 7.6 mg/dL Comment: Interpretive Data No reference range established. Current interpretive data was last revised 2018. Creatinine Ur 126.2 mg/dL [facility] Comment: Interpretive Data No reference range established. Current interpretive data was last revised 2018. Protein/creatinin e ratio 60.2 0.0 - 180.0 mg/g CR [facility] Urine 10/03/2024 8:30 AM CDT 10/03/2024 10:10 PM CDT us Mikki Resendiz MD LAB URINE ORDERABL ES Final Result [facility] [address] Department [place] [address] * (ABNORMAL) Renal function panel (10/03/2024 8:30 AM CDT) Sodium 141 135 - 145 mmol/L Potassium, pl 4.5 3.3 - 4.9 mmol/L [facility] Chloride 106 97 - 110 mmol/L [facility] CO2 26 22 - 32 mmol/L [facility] Anion gap 9 2 - 15 mmol/L [facility] BUN 11 6 - 25 mg/dL [facility] Creatinine 1.50(H) 0.80 - 1.30 mg/dL [facility] Glucose 102 70 - 199 mg/dL [facility] Comment: Interpretive Data Fasting glucose >/= 126 mg/dl is diagnostic for diabetes. Fasting is defined as no caloric intake for at least 8 hours. Fasting glucose between 100 mg/dl to 125 mg/dl is diagnostic of prediabetes. In a patient with classic symptoms of hyperglycemia or hyperglycemic crisis, a random glucose >/= 200 mg/dl is diagnostic for diabetes. In the absence of unequivocal hyperglycemia, results should be confirmed by repeat testing. The classification and Diagnosis of Diabetes Diabetes Care 202; 46: S19-S40. Current interpretive data was last revised 2022. Calcium 9.9 8.5 - 10.3 mg/dL [facility] Phosphorus, pl 2.4 2.3 - 4.5 mg/dL [facility] Albumin 4.5 3.5 - 5.0 g/dL [facility] Blood 10/03/2024 8:30 AM CDT 10/03/2024 10:10 PM CDT us Mikki Resendiz MD LAB BLOOD ORDERABL ES Final Result [facility] [address] [place] [address] * Allosure kidney donor-derived cell-free DNA (cFDNA) (09/26/2024 9:30 PM CDT) Allosure CFDNA 0.12% [facility] Comment: INTERPRETATION OF ALLOSURE KIDNEY RESULTS AlloSure measures the percent of donor-derived cell-free DNA (dd-cfDNA) in the total cell-free DNA present in kidney transplant recipients.(1),(2) AlloSure Relative Change Value (RCV) represents the percentage change from previous AlloSure Result.(4),(5) When interpreting AlloSure Result: >=1.0% dd-cfDNA is associated with a higher probability of active rejection compared to scores less than 1.0%.(2),(3) 0.21% dd-cfDNA is the median observed in a reference population of stable recipients.(4) When interpreting AlloSure RCV:* >61% increase in AlloSure Result from prior result exceeds the biological variability observed in the reference population.(4) >=149% increase in AlloSure Result from prior result may indicate a high likelihood of allograft injury.(5) NR - No Result, US - Unacceptable Sample, N/A - RCV is not calculated due to AlloSure Result below 0.20%. *The RCV threshold for Simultaneous Pancreas-Kidney (SPK) has not been established. Clinical validity of the AlloSure test was established in kidney transplant recipients who were at least 14 days post-transplant. AlloSure should be interpreted in the context of clinical findings and relevant patient history. For more information about AlloSure, please visit [email or web address]. Specimens from kidney retransplant recipients in whom the prior kidney allograft(s) remain in situ and from SPK recipients(6),(7) are acceptable for testing. AlloSure is not intended for use in kidney transplant recipients who are , recipients of a transplant from a monozygotic twin, recipients of allogenic bone marrow transplant, or the recipients of multiple transplanted organs other than simultaneous pancreas-kidney transplant. Transfusion of blood components containing white blood cells in the 30 days prior to blood draw may lead to aberrant result. Renal biopsies performed in the 24 hours prior to AlloSure specimen collection may elevate dd-cfDNA. (1)Arnulfo et al., J Mol Diagn 2016; (2)Clint et al., J Am Soc Nephrol 2017; (3)John et al., Pediatric Transplantation 2019; (4)Tee et al., J Appl Lab Med 2017; (5)Walter et al., Kidney International 2020;(6) Daren et al.,Transplantation Direct 2021; (7)Lenard et al., Transplantation Direct 2022 The AlloSure donor-derived cell-free DNA test was developed and its performance characteristics were determined by the [facility] laboratory. The test has not been cleared or approved by the U.S. Food and Drug Administration, nor is it currently required to be. The laboratory is certified under the Clinical Laboratory Improvement Amendments of 1988 (CLIA '88) and accredited by the [employer] (CAP) as qualified to perform high complexity clinical laboratory testing. The contents of this report are confidential and intended solely for the use of authorized personnel. AlloSure testing performed at [employer]. [address] [place] [id number] (CLIA No: [id number], CAP No: [id number]) It Applications Analyst: Jon Brink M.D. Plasma 09/26/2024 9:30 PM CDT us Earnest Crandall MD LAB BLOOD ORDERABLES Final R esult [facility] * (ABNORMAL) BK virus PCR quantitative Blood (09/26/2024 3:32 PM CDT) Pathologist [facility] BKV DNA result, pl Detected( A) [facility] Comment: The quantifiable range of this assay is 21.5 IU/mL to 100,000,000 IU/mL (1.33 log IU/mL to 8.00 log IU/mL). Testing was performed by the NIKI DocsInk0 BKV Quantatitive Test version 2.0 ([employer] Testing performed at [facility] Current Interpretive Data was last revised on 2021. BKV DNA IU/mL, pl 2,800.0 IUnits/mL [facility] BKV DNA Log IU/mL, pl 3.45 log IUnits/mL [facility] Blood 09/26/2024 3:32 PM CDT 09/26/2024 4:18 PM CDT Mikki Resendiz MD LAB MICROBIOLOGY - GENERAL ORDERABLES Final Result Performing Organization Address [facility] Co de Phone Number [facility] [place] [employer] [place] [address] [facility] * Cytomegalovirus (CMV) DNA PCR, quantitative Blood (09/26/2024 3:32 PM CDT) [facility] CMV DNA Not Detected [facility] Comment: Interpretive Data: The quantifiable range of this assay is 34 IUnits/mL to 10,000,000 IUnits/mL (1.53 log IUnits/mL to 7.0 log IUnits/mL). Testing was performed by the NIKI 6800 CMV Test ([email or web address] Testing performed at [facility]. Current interpretive data was last revised on 2020. Blood 09/26/2024 3:32 PM CDT 09/26/2024 4:18 PM CDT Mikki Resendiz MD LAB MICROBIOLOGY - GENERAL ORDERABLES Final Result Performing Organization Address [facility]/ZIP Co de Phone Number [facility] [place] [employer] [place] [address] [facility] * (ABNORMAL) eGFR (09/26/2024 3:23 PM CDT) [facility] eGFR 52(L) >=60 mL/min/1. 73 m2 Comment: Interpretive Data Reference Interval Normal >/= 90 mL/min/1.73m2 Mildly decreased* 60 - 89 mL/min/1.73m2 Mildly to moderately decreased 45 - 59 mL/min/1.73m2 Moderately to severely decreased 30 - 44 mL/min/1.73m2 Severely decreased 15 - 29 mL/min/1.73m2 Kidney Failure < 15 mL/min/1.73m2 *Relative to young adult level Estimated glomerular filtration rate is determined by the 2020 CKD-EPI equation recommended by the National Kidney Foundation (A Unifying Approach to GFR Estimation: Recommendations of the NKF-ASK Task Force on Reassessing the Inclusion of Race in Diagnosing Kidney Disease, JASN 2020). The CKD-EPI equation should not be used for patients with unstable renal function and has not been validated in children and those over 70. Current interpretive data was last reviewed 2021. Blood 09/26/2024 3:23 PM CDT 09/26/2024 3:57 PM CDT Mikki Resendiz MD LAB BLOOD ORDERABL ES Final Result [facility] [place] [address] * (ABNORMAL) Differential, auto (09/26/2024 3:23 PM CDT) Neutrophil abs 5.05 1.50 - 6.50 K/cumm Imm gran abs 0.02 0.00 - 0.10 K/cumm [facility] Lymphocyte abs 0.56(L) 0.80 - 3.30 K/cumm [facility] Monocyte abs 0.47 0.20 - 0.80 K/cumm [facility] Eosinophil abs 0.09 0.00 - 0.50 K/cumm [facility] Basophil abs 0.05 0.00 - 0.10 K/cumm [facility] Neutrophil pct 81.0 % [facility] Comment: Interpretive Data Percent cell count reference ranges are not reported, since discordance with absolute values may lead to misinterpretation of CBC data. Current Interpretive Data was last revised on 2017. Imm gran pct 0.3 % [facility] Comment: Interpretive Data Percent cell count reference ranges are not reported, since discordance with absolute values may lead to misinterpretation of CBC data. Current Interpretive Data was last revised on 2017. Lymphocyte pct 9.0 % [facility] Comment: Interpretive Data Percent cell count reference ranges are not reported, since discordance with absolute values may lead to misinterpretation of CBC data. Current Interpretive Data was last revised on 2017. Monocyte pct 7.5 % [facility] Comment: Interpretive Data Percent cell count reference ranges are not reported, since discordance with absolute values may lead to misinterpretation of CBC data. Current Interpretive Data was last revised on 2017. Eosinophil pct 1.4 % [facility] Comment: Interpretive Data Percent cell count reference ranges are not reported, since discordance with absolute values may lead to misinterpretation of CBC data. Current Interpretive Data was last revised on 2017. Basophil pct 0.8 % [facility] Comment: Interpretive Data Percent cell count reference ranges are not reported, since discordance with absolute values may lead to misinterpretation of CBC data. Current Interpretive Data was last revised on 2017. Blood 09/26/2024 3:23 PM CDT 09/26/2024 3:49 PM CDT Mikki Resendiz MD LAB BLOOD ORDERABL ES Final Result Performing Organization Address City/[facility]/ZIP Co de Phone Number [facility] [place] [address] * Iron profile w/ IBC (09/26/2024 3:23 PM CDT) Iron 109 50 - 150 mcg/dL TIBC 269 250 - 400 mcg/dL [facility] Transferrin saturation 41 20 - 50 % [facility] Blood 09/26/2024 3:23 PM CDT 09/26/2024 3:49 PM CDT Mikki Resendiz MD LAB BLOOD ORDERABL ES Final Result [facility] [place] [address] * CBC with auto differential (09/26/2024 3:23 PM CDT) [facility] WBC 6.24 3.80 - 9.90 K/cumm Hgb 14.3 13.0 - 17.5 g/dL [facility] Hct 42.9 38.9 - 50.3 % [facility] Plt 184 150 - 400 K/cumm [facility] MPV 9.3 9.1 - 12.3 fL [facility] RBC 5.01 4.30 - 5.80 M/cumm [facility] MCV 85.6 81.3 - 96.4 fL [facility] MCH 28.5 27.1 - 33.3 pg [facility] MCHC 33.3 32.3 - 35.7 g/dL [facility] RDW CV 13.6 11.1 - 14.9 % [facility] RDW SD 42.3 35.7 - 48.1 fL [facility] NRBC abs 0.00 0.00 - 0.01 K/cumm [facility] Blood 09/26/2024 3:23 PM CDT 09/26/2024 3:49 PM CDT Mikki Resendiz MD LAB BLOOD ORDERABL ES Final Result Performing Organization Address City/[facility]/ZIP Co de Phone Number [facility] [place] [address] * Folate (09/26/2024 3:23 PM CDT) [facility] Folic acid 13.5 >=5.0 ng/mL Blood 09/26/2024 3:23 PM CDT 09/26/2024 3:49 PM CDT Mikki Resendiz MD LAB BLOOD ORDERABL ES Final Result [facility] [address] * (ABNORMAL) Ferritin (09/26/2024 3:23 PM CDT) [facility] Ferritin 670(H) 30 - 400 ng/mL Blood 09/26/2024 3:23 PM CDT 09/26/2024 3:49 PM CDT Mikki Resendiz MD LAB BLOOD ORDERABL ES Final Result Performing Organization Address [facility]/[place] [address] * Vitamin B12 (09/26/2024 3:23 PM CDT) [facility] Vitamin B12 431 230 - 1,250 pg/mL Blood 09/26/2024 3:23 PM CDT 09/26/2024 3:49 PM CDT Mikki Resendiz MD LAB BLOOD ORDERABL ES Final Result Performing Organization Address [facility] [place] [address] * (ABNORMAL) Renal function panel (09/26/2024 3:23 PM CDT) [facility] Sodium 140 135 - 145 mmol/L Potassium, pl 4.5 3.3 - 4.9 mmol/L [facility] Chloride 103 97 - 110 mmol/L [facility] CO2 26 22 - 32 mmol/L [facility] Anion gap 11 2 - 15 mmol/L [facility] BUN 19 6 - 25 mg/dL [facility] Creatinine 1.79(H) 0.80 - 1.30 mg/dL [facility] Glucose 112 70 - 199 mg/dL [facility] Comment: Interpretive Data Fasting glucose >/= 126 mg/dl is diagnostic for diabetes. Fasting is defined as no caloric intake for at least 8 hours. Fasting glucose between 100 mg/dl to 125 mg/dl is diagnostic of prediabetes. In a patient with classic symptoms of hyperglycemia or hyperglycemic crisis, a random glucose >/= 200 mg/dl is diagnostic for diabetes. In the absence of unequivocal hyperglycemia, results should be confirmed by repeat testing. The classification and Diagnosis of Diabetes Diabetes Care 2021; 46: S19-S40. Current interpretive data was last revised 2022. Calcium 10.3 8.5 - 10.3 mg/dL [facility] Phosphorus, pl 2.5 2.3 - 4.5 mg/dL [facility] Albumin 4.9 3.5 - 5.0 g/dL [facility] Blood 09/26/2024 3:23 PM CDT 09/26/2024 3:49 PM CDT us Mikki Resendiz MD LAB BLOOD ORDERABL ES Final Result Performing Organization Address [facility] Co de Phone Number [facility] Department [place] [employer] [place] [address] * Hepatitis C (HCV) RNA PCR, quantitative (03/27/2022 8:30 AM CDT) [facility] HCV RNA result Not Detected [facility] Comment: The quantifiable range of this assay is 15 IU/mL to 100,000,000 IU/mL (1.18 log IU/mL to 8.00 log IU/mL). Testing was performed by the NIKI 6800 HCV Test ([email or web address] Testing performed at [facility] Current Interpretive Data was last revised on 2021 Blood 03/27/2022 8:30 AM CDT 03/27/2022 1:53 PM CDT us Frandy Dewey MD LAB MICROBIOLOGY - GENERAL ORDERABLES Final Result [facility] [place] [employer] [place] [address] from Last 3 Months or Most Recently Relevant to Health Maintenance Insurance MEDICARE CIGNA MEDICARE CIGNA MEDICARE C[employer] MEDICARE MEDICARE Advance Directives For more information, please contact: [phone] Documents on File Type Date Recorded Patient Stacker And Sorter Operator Expl anation ADVANCE DIRECTIVE 01/16/2022 6:49 AM Power of Bariatric Nurse-Medical Power of Bariatric Nurse 02/21/2021 8:31 AM DPOA * Full Code (Latest Code Status on File) Date Activated Date Inactivated Comments 09/09/2022 11:57 AM 09/10/2022 6:38 PM * Full Code Date Activated Date Inactivated Comments 03/04/2022 6:52 PM 03/06/2022 4:54 PM * Full Code Date Activated Date Inactivated Comments 02/20/2022 4:54 PM 02/24/2022 11:31 PM * Full Code Date Activated Date Inactivated Comments 01/10/2022 6:54 PM 01/11/2022 11:21 PM * Full Code Date Activated Date Inactivated Comments 12/26/2021 8:51 AM 12/26/2021 8:41 PM Care Teams Glue Sprayer Relationship Specialty Start Date End Date Vanita Amaro DO [id number] [place] [address] PCP - General 10/02/20 Dixie Schroeder MD [address] [address] [place] [address] Referring Physician Nephrology 08/03/20 Tg Ervin, packing machine pilot can routerMetal Wire Coating Operator 02/20/22
--- OUTSIDE RECORDS SUMMARY | 2024-12-21 19:15 | XMS_ITS | Clinical Summary ---
Author Organization [facility] Address [address] [place] [address] Phone Care Team Providers Care Search Engine Marketing Strategist Name Role Phone Roel Pantoja MD Primary Care Provider [phone] Allergies No known active allergies Medications No [...] Comments Blood Pressure 111/75 04/20/2018 12:00 PM BARREL INSPECTOR TIGHT Pulse 76 04/20/2018 7:02 AM BARREL INSPECTOR TIGHT Temperature 36.6 C (97.8 F) 04/20/2018 11:15 AM BARREL INSPECTOR TIGHT Respiratory Rate 14 04/20/2018 12:00 PM BARREL INSPECTOR TIGHT Oxygen Saturation 100% 04/20/2018 12:00 PM BARREL INSPECTOR TIGHT Inhaled Oxygen Concentration - - Weight 74.8 kg (165 lb) 04/20/2018 7:02 AM BARREL INSPECTOR TIGHT Height 182.9 cm (6') 04/20/2018 7:02 AM BARREL INSPECTOR TIGHT Body Mass Index 22.38 04/20/2018 7:02 AM BARREL INSPECTOR TIGHT Plan of Treatment Health Maintenance Due Date Last Done Comments DTAP/TDAP/TD VACCINES (1 - Tdap) 2014 HEPATITIS B VACCINES (1 of 3 - 19+ 3-dose series) 2014 INFLUENZA VACCINE (#1) 2025 , 04/08/2019 HPV VACCINES Aged Out No longer eligi ble based on patient's age to complete this topic Medical Devices Implanted Type Area Bilingual Recruiter Device Identifier Shelf Expiration Date Model / Serial / Lot Cath Pd Wayne Jorgensenl 2cuff [id number] - [id number] Implanted:Qty : 1 on 04/20/2018 by Kate Aj MD at [facility] Catheter N/A: Abdomen [employer] - COVIDIEN Peritoneal Dialysis Catheter 09/24/2021 [id number] / / [id number] Insurance MEDICARE PART A AND B [facility] BLUE ACCESS/TRUE BLUE PPO Advance Directives For more information, please contact: [phone] * Full Code (Latest Code Status on File) Date Activated Date Inactivated Comments 04/20/2018 10:20 AM 04/20/2018 3:04 PM * Full Code Date Activated Date Inactivated Comments 04/20/2018 6:19 AM 04/20/2018 10:20 AM Care Teams Search Engine Marketing Strategist Relationship Specialty Start Date End Date Roel Pantoja MD [address] [place] [phone] PCP - General Family Practice 03/18/18
--- OUTSIDE RECORDS SUMMARY | 2024-12-21 19:15 | XMS_ITS ---
Author Organization [facility] Address [address] [place] [address] Care Team Providers Care Traffic Enumerator Name Role Phone Dixie Schroeder MD Unavailable [phone] Vanita Amaro DO Primary Care Provider [phone] Tg Ervin RN Unavailable Unava ilable Dialysis Access Sites Type Status Location Placement Date Removal Da te Hemodialysis AV Access 08/28/20 Forearm Active Left Forearm - Anterior 08/28/2020 Hemodialysis Cath Double Inactive Right Breast 1 11/27/2020 Peritoneal Dialysis Catheter Left lower abdomen Inactive Left Abdomen (side) - Lower 01/04/2019 01/04/2019 Procedures Procedure Name Priority Date/Time Associated Diagnosis [...] Routine 11/18/2024 8:13 AM CDT Transplanted kidney US RENAL TRANSPLANT W DOPPLERS Schedule Routine, Read [...] or Most Recently Relevant to Health Maintenance Allergies Active Allergy Reactions Criticality Noted Date [...] mg total) by mouth daily 30 tablet 4 Active predniSONE (DELTASONE) 5 mg tablet [...] (sister), and Pj (other). Pharmacy: [facility] Specialty: [facility] Special[facility] Program [facility], [place] P: [phone] F: [phone] Q-MONTHLY, FK, BK; Q-3 ROUTINE B-ISOTITERS (CERNER ) Exp 03/21/2025 HH: [facility] Home Care Problem Noted Date Diagnosed Date [...] of circulatory system 09/18/2020 ESRD on hemodialysis ([facility]) 08/08/2020 Overview (08/08/2020): Added automatically from request for surgery [id number] Hypertension, essential 06/19/2020 Assessment & Plan (01/11/2022 11:03 AM CDT): Continue with labetalol and nifedipine. Holding home clonidine and hydralazine Assessment & Plan (01/10/2022 8:31 PM CDT): - Was on Labetolol and Nifedipine as home meds - Clonidine and Hydralazine held for now - can be restarted in case the BP remains uncontrolled . Assessment & Plan (06/19/2020 9:38 AM RETORT FORKER): Pt's SBP consistently between 150s-170s since admission. Likely due to medication effect and from his ARF. -Started amlodipine 10mg daily -Will consider spot labetalol IV 10mg if SBP persistently > 180 Acute renal failure 06/18/2020 Assessment & Plan (06/25/2020 12:22 PM RETORT FORKER): Hx of Alport syndrome with ESRD, s/p [...] 06/18/2020 Assessment & Plan (06/23/2020 9:54 AM RETORT FORKER): Hgb 6.8 at admission, 16.5 in 11/2019. Likely due to ARF. - Iron (168), ferritin (588), folate (7.5), B12 (1,143), haptoglobin (61.0), LDH (221). - consent for blood in paper chart, transfuse hb >7 (2 units this admission) - s/p retacrit 33957 units (06/21, 06/23) Increased anion gap metabolic acidosis Assessment & Plan (06/25/2020 12:22 PM RETORT FORKER): AG 19 at admission. 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 Holding home MMF, tacro, and pred given COVID infection -Renal Consulted. Appreciate recommendations on (1) how long to hold immunosuppresive medications and (2) will surgery be affected due to COVID19 Assessment & Plan (01/10/2022 9:21 PM CDT): - s/p failed renal transplant in 2018, live donor - Plan for 2nd transplant in 01/2022 - Pt is a [facility] [place], [place] - As per the pt he [...] Pt was diagnosed with Alport's Sx in 2018 - s/p failed renal transplant in 2019 - currently on HD (MWF) - Plan for 2nd renal transplant in 01/2022 Immunizations Immunization Administration Dates Next Due Influenza, Quadrivalent, Mariama l Culture-based MDCK, Preservative Free, Antibiotic Free, Intramuscular 04/08/2019 Influenza, Quadrivalent, Spl it, Preservative Free, Intramuscular 06/26/2020 Social History Tobacco Use Types Packs/Day Years [...] on file Legal Sex Male 2:12 AM RETORT FORKER Gender Identity Not on file Sexual Orientation [...] Mass Index 25.09 12/20/2023 7:57 AM CDT Results * eGFR (11/18/2024 8:13 AM CDT) [...] LAB BLOOD ORDERABLES Final R esult [facility] [address] Department [place] [address] * (ABNORMAL) Differential, auto (11/18/2024 8:13 AM CDT) Neutrophil abs 3.73 1.50 - 6.50 K/cumm Imm gran abs 0.01 0.00 - 0.10 K/cumm [facility] Lymphocyte abs 0.79(L) 0.80 - 3.30 K/cumm [facility] CH Monocyte abs 0.47 0.20 - 0.80 K/cumm [facility] Eosinophil abs 0.16 0.00 - 0.50 K/cumm [facility] Basophil abs 0.04 0.00 - 0.10 K/cumm [facility] Neutrophil pct 71.7 % [facility] Comment: Interpretive Data Percent cell count reference ranges are not reported, since discordance with absolute values may lead to misinterpretation of CBC data. Current Interpretive Data was last revised on 2017. Imm gran pct 0.2 % [facility] Comment: Interpretive Data Percent cell count reference ranges are not reported, since discordance with absolute values may lead to misinterpretation of CBC data. Current Interpretive Data was last revised on 2017. Lymphocyte pct 15.2 % [facility] Comment: Interpretive Data Percent cell count reference ranges are not reported, since discordance with absolute values may lead to misinterpretation of CBC data. Current Interpretive Data was last revised on 2017. Monocyte pct 9.0 % [facility] Comment: Interpretive Data Percent cell count reference ranges are not reported, since discordance with absolute values may lead to misinterpretation of CBC data. Current Interpretive Data was last revised on 2017. Eosinophil pct 3.1 % [facility] Comment: Interpretive Data Percent cell count reference ranges are not reported, since discordance with absolute values may lead to misinterpretation of CBC data. Current Interpretive Data was last revised on 2017. Basophil pct 0.8 % [facility] Comment: Interpretive Data Percent cell count reference ranges are not reported, since discordance with absolute values may lead to misinterpretation of CBC data. Current Interpretive Data was last revised on 2017. Blood 11/18/2024 8:13 AM CDT 11/18/2024 3:16 PM CDT Earnest Crandall MD LAB BLOOD ORDERABLES Final R [facility] Performing Organization Address [facility] Co de Phone Number WALTER GUTIERREZ [address] [place] [address] * Tacrolimus level trough (11/18/2024 8:13 AM CDT) Tacrolimus trough 8.5 ng/mL Comment: Interpretive Data Testing performed by liquid chromatography-tandem mass spectrometry. Therapeutic concentrations vary depending on type of transplanted organ and time elapsed since transplant. Typical trough concentrations range from 5-15 ng/mL. This test was developed and its performance characteristics determined by the [facility] consistent with CLIA requirements. This test has not been cleared or approved by the US Food and Drug administration. Current interpretive data last reviewed 2019. Testing performed by: [facility], [address] [place]., [address] Blood 11/18/2024 8:13 AM CDT 11/18/2024 10:03 PM CDT Narrative WALTER - 11/19/2024 2:14 AM CDT MONTHLY (EVERY 4 WEEKS) Earnest Crandall MD LAB BLOOD ORDERABLES Final R darion Performing Organization Address [facility] Co de Phone Number WALTER GUTIERREZ [address] [place] [address] * (ABNORMAL) CBC with auto differential (11/18/2024 8:13 AM CDT) WBC 5.20 3.80 - 9.90 K/cumm Hgb 14.5 13.0 - 17.5 g/dL [facility] Hct 45.9 38.9 - 50.3 % [facility] Plt 205 150 - 400 K/cumm [facility] MPV 9.7 9.1 - 12.3 fL [facility] RBC 5.01 4.30 - 5.80 M/cumm [facility] MCV 91.6 81.3 - 96.4 fL [facility] MCH 28.9 27.1 - 33.3 pg [facility] CH MCHC 31.6(L) 32.3 - 35.7 g/dL [facility] CH RDW CV 13.3 11.1 - 14.9 % [facility] CH RDW SD 44.6 35.7 - 48.1 fL [facility] CH NRBC abs 0.00 0.00 - 0.01 K/cumm [facility] Blood 11/18/2024 8:13 AM CDT 11/18/2024 3:16 PM CDT Narrative [facility] CH - 11/18/2024 3:25 PM CDT MONTHLY (EVERY 4 WEEKS) Earnest Crandall MD LAB BLOOD ORDERABLES Final R esult [facility] [address] Department [place] [address] * (ABNORMAL) Renal function panel (11/18/2024 8:13 AM CDT) Pathologist [facility] Sodium 143 135 - 145 mmol/L Potassium, pl 4.9 3.3 - 4.9 mmol/L [facility] Chloride 108 97 - 110 mmol/L [facility] CO2 23 22 - 32 mmol/L [facility] Anion gap 12 2 - 15 mmol/[facility] BUN 22 6 - 25 mg/dL [facility] Creatinine 1.59(H) 0.80 - 1.30 mg/dL [facility] Glucose 110 70 - 199 mg/dL [facility] Comment: Interpretive Data Fasting glucose >/= 126 [...] 2022. Calcium 9.8 8.5 - 10.3 mg/dL [facility] Phosphorus, pl 3.0 2.3 - 4.5 mg/dL [facility] Albumin 4.5 3.5 - 5.0 g/dL [facility] Blood 11/18/2024 8:13 AM CDT 11/18/2024 3:16 PM CDT Narrative WALTER GUTIERREZ - 11/18/2024 3:42 PM CDT MONTHLY (EVERY 4 WEEKS) Earnest Crandall MD LAB BLOOD ORDERABLES Final R esult WALTER GUTIERREZ [address] Department [place] [address] * US Renal Transplant W Dopplers (10/07/2024 [...] Callum Fung MD, PHD Emily Foreman MD [facility] PROCEDURES Final Result * (ABNORMAL) BK virus PCR quantitative Blood (10/07/2024 7:10 AM CDT) Pathologist [facility] BKV DNA result, pl Detected( A) [facility] Comment: The quantifiable range of this assay is 21.5 IU/mL to 100,000,000 IU/mL (1.33 log IU/mL to 8.00 log IU/mL). Testing was performed by the [employer] BKV Quantatitive Test version 2.0 ([employer] Testing performed at [facility] Current Interpretive Data was last revised on 2021. BKV DNA IU/mL, pl 3,130.0 IUnits/mL [facility] BKV DNA Log IU/mL, pl 3.50 log IUnits/mL [facility] Blood 10/07/2024 7:10 AM CDT 10/07/2024 7:57 AM CDT Earnest Crandall MD LAB MICROBIOLOGY - GENERAL O RDERABLES Final Result Performing Organization Address City/[facility]/ZIP Co de Phone Number [facility] Department [place] [address] BJ * Collection Task for HLA Platelet Antibody Screen (10/07/2024 7:10 AM CDT) Pathologist [facility] HLA PLATELET SC Received Blood 10/07/2024 7:10 AM CDT 10/07/2024 8:21 AM CDT Earnest Crandall MD LAB BLOOD ORDERABLES Final R esult Performing Organization Address City/[facility] Co de Phone Number [facility] Department [place] [address] * HLA Donor Specific Antibody Report (10/07/2024 7:10 AM CDT) us Earnest Crandall MD LAB BLOOD ORDERABLES Final R esult * HLA Antibody Screen - DSA (Class I and Class II) (10/07/2024 7:10 AM CDT) Blood 10/07/2024 7:10 AM CDT 10/10/2024 6:31 AM CDT Narrative [facility] - 10/10/2024 6:31 AM CDT us Earnest Crandall MD LAB BLOOD ORDERABLES Final R esult Performing Organization Address City/[facility]/ZIP Co de Phone Number [facility] * Tacrolimus level trough (10/07/2024 7:10 AM CDT) Pathologist [facility] Tacrolimus trough 8.0 ng/mL Comment: Interpretive Data Testing performed by liquid chromatography-tandem mass spectrometry. Therapeutic concentrations vary depending on type of transplanted organ and time elapsed since transplant. Typical trough concentrations range from 5-15 ng/mL. This test was developed and its performance characteristics determined by the [facility] consistent with CLIA requirements. This test has not been cleared or approved by the US Food and Drug administration. Current interpretive data last reviewed 2019. Blood 10/07/2024 7:10 AM CDT 10/07/2024 7:34 AM CDT Earnest Crandall MD LAB BLOOD ORDERABLES Final R esult Performing Organization Address [facility] de Phone Number [facility] Department [place] [address] * (ABNORMAL) BK virus PCR quantitative Urine (10/03/2024 8:30 AM CDT) Pathologist [facility] BKV DNA result, ur Detected( A) [facility] Comment: The quantifiable range of this assay is 200 IU/mL to 100,000,000 IU/mL (2.30 log IU/mL to 8.00 log IU/mL). Testing was performed by the NIKI 6800 BKV Quantatitive Test version 2.0 ([employer] Testing performed at [facility] Current Interpretive Data was last revised on 2021. Testing performed by: [facility], [address] [place]., [address] BKV DNA IU/mL, ur 89,900,00 0(C) IUnits/mL [facility] Comment:Testing performed by : [facility], [address] [place]., [address] BKV DNA Log IU/mL, ur 7.95 log IUnits/mL WALTER GUTIERREZ Comment:Testing performed by : [facility], [address] [place] [address] Urine 10/03/2024 8:30 AM CDT 10/04/2024 10:30 AM CDT Mikki Resendiz MD LAB MICROBIOLOGY - GENERAL ORDERABLES Final Result [facility]TER GUTIERREZ [address] [employer] [place] [address] [facility] * eGFR (10/03/2024 8:30 AM CDT) [...] MD LAB BLOOD ORDERABL ES Final Result TAVARESCLAY GUTIERREZ [address] [place] [address] * (ABNORMAL) Differential, auto (10/03/2024 8:30 AM CDT) Neutrophil abs 3.76 1.50 - 6.50 K/cumm Imm gran abs 0.03 0.00 - 0.10 K/cumm [facility] Lymphocyte abs 0.61(L) 0.80 - 3.30 K/cumm [facility] Monocyte abs 0.50 0.20 - 0.80 K/cumm [facility] Eosinophil abs 0.15 0.00 - 0.50 K/cumm [facility] Basophil abs 0.03 0.00 - 0.10 K/cumm [facility] Neutrophil pct 74.0 % [facility] Comment: Interpretive Data Percent cell count reference ranges are not reported, since discordance with absolute values may lead to misinterpretation of CBC data. Current Interpretive Data was last revised on 2017. Imm gran pct 0.6 % [facility] Comment: Interpretive Data Percent cell count reference ranges are not reported, since discordance with absolute values may lead to misinterpretation of CBC data. Current Interpretive Data was last revised on 2017. Lymphocyte pct 12.0 % [facility] Comment: Interpretive Data Percent cell count reference ranges are not reported, since discordance with absolute values may lead to misinterpretation of CBC data. Current Interpretive Data was last revised on 2017. Monocyte pct 9.8 % [facility] Comment: Interpretive Data Percent cell count reference ranges are not reported, since discordance with absolute values may lead to misinterpretation of CBC data. Current Interpretive Data was last revised on 2017. Eosinophil pct 3.0 % [facility] Comment: Interpretive Data Percent cell count reference ranges are not reported, since discordance with absolute values may lead to misinterpretation of CBC data. Current Interpretive Data was last revised on 2017. Basophil pct 0.6 % [facility] Comment: Interpretive Data Percent cell count reference ranges are not reported, since discordance with absolute values may lead to misinterpretation of CBC data. Current Interpretive Data was last revised on 2017. Blood 10/03/2024 8:30 AM CDT 10/03/2024 10:10 PM CDT Mikki Resendiz MD LAB BLOOD ORDERABL ES Final Result Performing Organization Address [facility] [place] [address] [address] [facility] [place] [address] * Tacrolimus level trough (10/03/2024 8:30 AM CDT) Tacrolimus trough 4.6 ng/mL Comment: Interpretive Data Testing performed by liquid chromatography-tandem mass spectrometry. Therapeutic concentrations vary depending on type of transplanted organ and time elapsed since transplant. Typical trough concentrations range from 5-15 ng/mL. This test was developed and its performance characteristics determined by the [facility] consistent with CLIA requirements. This test has not been cleared or approved by the US Food and Drug administration. Current interpretive data last reviewed 2019. Testing performed by: [facility], [address] [place]., [address] Blood 10/03/2024 8:30 AM CDT 10/04/2024 3:58 AM CDT [facility] LAB BLOOD ORDERABL ES Final Result Performing Organization Address [facility] de Phone Number WALTER GUTIERREZ [address] [place] [address] * Urinalysis reflex to microscopic and culture [...] tendency for uric acid stone formation. Source: [facility] [address] Current Interpretive Data was last revised on [...] microscopic UA and culture not met. [facility] Urine 10/03/2024 8:30 AM CDT 10/03/2024 10:10 PM CDT Mikki Resendiz MD LAB MICROBIOLOGY - GENERAL ORDERABLES Final Result Performing Organization Address [facility]/ZIP Co de Phone Number WALTER GUTIERREZ [address] [place] [place] [address] * (ABNORMAL) CBC with auto differential (10/03/2024 8:30 AM CDT) Pathologist [facility] WBC 5.08 3.80 - 9.90 K/cumm Hgb 13.9 13.0 - 17.5 g/dL [facility] Hct 46.0 38.9 - 50.3 % [facility] Plt 185 150 - 400 K/cumm [facility] MPV 9.7 9.1 - 12.3 fL [facility] RBC 4.93 4.30 - 5.80 M/cumm [facility] CH MCV 93.3 81.3 - 96.4 fL [facility] MCH 28.2 27.1 - 33.3 pg [facility] MCHC 30.2(L) 32.3 - 35.7 g/dL [facility] CH RDW CV 14.0 11.1 - 14.9 % [facility] CH RDW SD 47.8 35.7 - 48.1 fL [facility] NRBC abs 0.00 0.00 - 0.01 K/cumm [facility] Blood 10/03/2024 8:30 AM CDT 10/03/2024 10:10 PM CDT Mikki Resendiz MD LAB BLOOD ORDERABL ES Final Result Performing Organization Address [facility]/ZIP Co de Phone Number WALTER GUTIERREZ [address] [employer] [address] [place] [address] * Protein / creatinine ratio, urine, random (10/03/2024 8:30 AM CDT) Protein, ur, quant 7.6 mg/dL Comment: Interpretive Data No reference range established. Current interpretive data was last revised 2018. Creatinine Ur 126.2 mg/dL [facility] Comment: Interpretive Data No reference range established. Current interpretive data was last revised 2018. Protein/creatinin e ratio 60.2 0.0 - 180.0 mg/g CR [facility] Urine 10/03/2024 8:30 AM CDT 10/03/2024 10:10 PM CDT [facility] LAB URINE ORDERABL ES Final Result [facility] [address] Department [place] [address] * (ABNORMAL) Renal function panel (10/03/2024 8:30 AM CDT) Pathologist [facility] Sodium 141 135 - 145 mmol/L Potassium, pl 4.5 3.3 - 4.9 mmol/L [facility] Chloride 106 97 - 110 mmol/L [facility] CO2 26 22 - 32 mmol/L [facility] Anion gap 9 2 - 15 mmol/L [facility] BUN 11 6 - 25 mg/dL [facility] Creatinine 1.50(H) 0.80 - 1.30 mg/dL [facility] Glucose 102 70 - 199 mg/dL [facility] Comment: Interpretive Data Fasting glucose >/= 126 [...] 2022. Calcium 9.9 8.5 - 10.3 mg/dL [facility] Phosphorus, pl 2.4 2.3 - 4.5 mg/dL [facility] Albumin 4.5 3.5 - 5.0 g/dL [facility] Blood 10/03/2024 8:30 AM CDT 10/03/2024 10:10 PM CDT us Mikki Resendiz MD LAB BLOOD ORDERABL ES Final Result [facility]TER [address] Department [place] [address] * Allosure kidney donor-derived cell-free DNA (cFDNA) [...] For more information about AlloSure, please visit [email or web address]com. Specimens from kidney retransplant recipients in whom [...] its performance characteristics were determined by the [facility] laboratory. The test has not been cleared or approved by the U.S. Food and Drug Administration, nor is it currently required to be. The laboratory is certified under the Clinical Laboratory Improvement Amendments of 1988 (CLIA '88) and accredited by the [employer] (CAP) as qualified to perform high complexity clinical laboratory testing. The contents of this report are confidential and intended solely for the use of authorized personnel. AlloSure testing performed at [facility]. [address] [place] [id number] (CLIA No: [id number], CAP No: [id number]) Geotechnical Intern: Jon Brink M.D. Plasma 09/26/2024 9:30 PM CDT us Earnest Crandall MD LAB BLOOD ORDERABLES Final R esult [facility] * (ABNORMAL) BK virus PCR quantitative Blood (09/26/2024 3:32 PM CDT) BKV DNA result, pl Detected( A) [facility] Comment: The quantifiable range of this assay is 21.5 IU/mL to 100,000,000 IU/mL (1.33 log IU/mL to 8.00 log IU/mL). Testing was performed by the [employer] 6800 BKV Quantatitive Test version 2.0 ([employer] Testing performed at [facility] Current Interpretive Data was last revised on 2021. BKV DNA IU/mL, pl 2,800.0 IUnits/mL [facility] BKV DNA Log IU/mL, pl 3.45 log IUnits/mL [facility] Blood 09/26/2024 3:32 PM CDT 09/26/2024 4:18 PM CDT Mikki Resendiz MD LAB MICROBIOLOGY - GENERAL ORDERABLES Final Result Performing Organization Address [facility] de Phone Number [facility] [place] [address] [facility] * Cytomegalovirus (CMV) DNA PCR, quantitative Blood (09/26/2024 3:32 PM CDT) [facility] CMV DNA Not Detected [facility] Comment: Interpretive Data: The quantifiable range of this assay is 34 IUnits/mL to 10,000,000 IUnits/mL (1.53 log IUnits/mL to 7.0 log IUnits/mL). Testing was performed by the [employer] 6800 CMV Test ([employer] Testing performed at [facility]. Current interpretive data was last revised on 2020. Blood 09/26/2024 3:32 PM CDT 09/26/2024 4:18 PM CDT Mikki Resendiz MD LAB MICROBIOLOGY - GENERAL ORDERABLES Final Result Performing Organization Address [facility] Co de Phone Number [facility] [place] [address] [facility] * (ABNORMAL) eGFR (09/26/2024 3:23 PM CDT) Pathologist [facility] eGFR 52(L) >=60 mL/min/1. 73 m2 Comment: [...] MD LAB BLOOD ORDERABL ES Final Result [facility] Department [place] [address] * (ABNORMAL) Differential, auto (09/26/2024 3:23 PM CDT) Pathologist [facility] Neutrophil abs 5.05 1.50 - 6.50 K/cumm Imm gran abs 0.02 0.00 - 0.10 K/cumm [facility] Lymphocyte abs 0.56(L) 0.80 - 3.30 K/cumm [facility] Monocyte abs 0.47 0.20 - 0.80 K/cumm [facility] Eosinophil abs 0.09 0.00 - 0.50 K/cumm [facility] Basophil abs 0.05 0.00 - 0.10 K/cumm [facility] Neutrophil pct 81.0 % [facility] Comment: Interpretive Data Percent cell count reference ranges are not reported, since discordance with absolute values may lead to misinterpretation of CBC data. Current Interpretive Data was last revised on 2017. Imm gran pct 0.3 % [facility] Comment: Interpretive Data Percent cell count reference ranges are not reported, since discordance with absolute values may lead to misinterpretation of CBC data. Current Interpretive Data was last revised on 2017. Lymphocyte pct 9.0 % [facility] Comment: Interpretive Data Percent cell count reference ranges are not reported, since discordance with absolute values may lead to misinterpretation of CBC data. Current Interpretive Data was last revised on 2017. Monocyte pct 7.5 % [facility] Comment: Interpretive Data Percent cell count reference ranges are not reported, since discordance with absolute values may lead to misinterpretation of CBC data. Current Interpretive Data was last revised on 2017. Eosinophil pct 1.4 % [facility] Comment: Interpretive Data Percent cell count reference ranges are not reported, since discordance with absolute values may lead to misinterpretation of CBC data. Current Interpretive Data was last revised on 2017. Basophil pct 0.8 % [facility] Comment: Interpretive Data Percent cell count reference ranges are not reported, since discordance with absolute values may lead to misinterpretation of CBC data. Current Interpretive Data was last revised on 2017. Blood 09/26/2024 3:23 PM CDT 09/26/2024 3:49 PM CDT Mikki Resendiz MD LAB BLOOD ORDERABL ES Final Result [facility] Department [place] [address] * Iron profile w/ IBC (09/26/2024 3:23 PM CDT) Iron 109 50 - 150 mcg/dL TIBC 269 250 - 400 mcg/dL [facility] Transferrin saturation 41 20 - 50 % [facility] Blood 09/26/2024 3:23 PM CDT 09/26/2024 3:49 PM CDT Mikki Resendiz MD LAB BLOOD ORDERABL ES Final Result Performing Organization Address [facility] Co de Phone Number [facility] Department [place] [address] * CBC with auto differential (09/26/2024 3:23 PM CDT) WBC 6.24 3.80 - 9.90 K/cumm Hgb 14.3 13.0 - 17.5 g/dL [facility] Hct 42.9 38.9 - 50.3 % [facility] Plt 184 150 - 400 K/cumm [facility] MPV 9.3 9.1 - 12.3 fL [facility] RBC 5.01 4.30 - 5.80 M/cumm [facility] MCV 85.6 81.3 - 96.4 fL [facility] MCH 28.5 27.1 - 33.3 pg [facility] MCHC 33.3 32.3 - 35.7 g/dL [facility] RDW CV 13.6 11.1 - 14.9 % [facility] RDW SD 42.3 35.7 - 48.1 fL [facility] NRBC abs 0.00 0.00 - 0.01 K/cumm [facility] Blood 09/26/2024 3:23 PM CDT 09/26/2024 3:49 PM CDT Mikki Resendiz MD LAB BLOOD ORDERABL ES Final Result Performing Organization Address City/[facility]/ZIP Co de Phone Number [facility] [place] [address] * Folate (09/26/2024 3:23 PM CDT) Folic acid 13.5 >=5.0 ng/mL Blood 09/26/2024 3:23 PM CDT 09/26/2024 3:49 PM CDT Mikki Resendiz MD LAB BLOOD ORDERABL ES Final Result Performing Organization Address [facility] Co de Phone Number [facility] [place] [address] * (ABNORMAL) Ferritin (09/26/2024 3:23 PM CDT) [facility] Ferritin 670(H) 30 - 400 ng/mL Blood 09/26/2024 3:23 PM CDT 09/26/2024 3:49 PM CDT Mikki Resendiz MD LAB BLOOD ORDERABL ES Final Result Performing Organization Address [facility] de Phone Number [facility] [place] [address] * Vitamin B12 (09/26/2024 3:23 PM CDT) [facility] Vitamin B12 431 230 - 1,250 pg/mL Blood 09/26/2024 3:23 PM CDT 09/26/2024 3:49 PM CDT Mikki Resendiz MD LAB BLOOD ORDERABL ES Final Result Performing Organization Address [facility] de Phone Number [facility] [place] [address] * (ABNORMAL) Renal function panel (09/26/2024 3:23 PM CDT) [facility] Sodium 140 135 - 145 mmol/L Potassium, pl 4.5 3.3 - 4.9 mmol/L [facility] Chloride 103 97 - 110 mmol/L [facility] CO2 26 22 - 32 mmol/L [facility] Anion gap 11 2 - 15 mmol/L [facility] BUN 19 6 - 25 mg/dL [facility] Creatinine 1.79(H) 0.80 - 1.30 mg/dL [facility] Glucose 112 70 - 199 mg/dL [facility] Comment: Interpretive Data Fasting glucose >/= [...] 2022. Calcium 10.3 8.5 - 10.3 mg/dL [facility] Phosphorus, pl 2.5 2.3 - 4.5 mg/dL [facility] Albumin 4.9 3.5 - 5.0 g/dL [facility] Blood 09/26/2024 3:23 PM CDT 09/26/2024 3:49 PM CDT us Mikki Resendiz MD LAB BLOOD ORDERABL ES Final Result [facility] Department [place] [address] * Hepatitis C (HCV) RNA PCR, quantitative (03/27/2022 8:30 AM CDT) [facility] HCV RNA result Not Detected [facility] Comment: The quantifiable range of this assay is 15 IU/mL to 100,000,000 IU/mL (1.18 log IU/mL to 8.00 log IU/mL). Testing was performed by the [employer]IK[employer] [id number] HCV Test ([employer] Testing performed at [facility] Current Interpretive Data was last revised on 2021 Blood 03/27/2022 8:30 AM CDT 03/27/2022 1:53 PM CDT us Frandy Dewey MD LAB MICROBIOLOGY - GENERAL ORDERABLES Final Result [facility] Department of Laboratories [place] [id number] from Last 3 Months or Most Recently Relevant to Health Maintenance
--- OUTSIDE RECORDS SUMMARY | 2024-12-21 19:15 | XMS_ITS | Referral Summary ---
Author Organization [facility] Address [address] [place] [address] Care Team Providers Care Reeler Operator Name Role Phone Dixie Schroeder MD Unavailable [phone] Vanita Amaro DO Primary Care Provider [phone] Tg Ervin RN Unavailable Unava ilable Encounters Date Type Department Care Team Description 12/20/2024 Telephone [facility] Transplant Kidney [address] [phone] [place] [address] Komal Almeida 12/20/2024 Telephone [facility] Transplant Kidney [address] [phone] [place] [address] Betty Rhodes 11/18/2024 8:13 AM CDT - 11/18/2024 11:59 PM CDT Hospital Encounter [place] [id number] [place] [address] Transplanted kidney; Encounter for long-term (current) use of high-risk medication Discharge Disposition: Discharge to home or self care 11/18/2024 8:15 AM CDT Lab [facility] Outpatient Lab at [address] [address] 10/17/2024 Telephone [facility] Transplant Kidney 4590 [facility] [address] Mail[address] [phone] [place] [address] Komal Almeida 10/14/2024 Telephone [facility] Transplant Kidney 4590 [facility] [address] Mailstop [phone] [place] [address] Dario Phelps, RN 10/11/2024 Telephone [facility] Transplant Kidney 4590 [facility] 340 Mailstop [phone] [place] [address] Komal Almeida 10/10/2024 Results Follow-Up [facility] Transplant Kidney 4590 [facility] 340 Mailop [phone] [place] [address] Dario Phelps, ASHLEY HLA Donor Specific Antibody Report 10/10/2024 Telephone [facility] Transplant Kidney 4590 [facility] 340 Mailop 79-67-5 [place] [address] Dario Phelps, ASHLEY 10/10/2024 Orders Only [facility] Transplant Kidney 45[address] [facility] [address] [phone] [place] [address] Joanna Santana Kidney replaced by transplant (Primary Dx) 10/07/2024 Results Follow-Up [facility] Transplant Kidney 4590 [facility] [address] [place], [place] [address]op [address] [place] [address] Dario Phelps, RN US Renal Transplant W Dopplers 10/07/2024 8:15 AM CDT Lab [facility] [address] [place] [phone] Kidney replaced by transplant 10/07/2024 6:51 AM CDT - 10/07/2024 11:59 PM CDT [facility] [address] [place] [address] Kidney replaced by transplant; Hypertension, unspecified type Discharge Disposition: Discharge to home or self care 10/05/2024 Telephone [facility] Transplant Kidney 4590 [facility] [address] Mailstop [phone] [place] [address] Dario Phelps, RN 10/05/2024 Telephone [facility] Transplant Kidney 4590 [facility] 3401 Mailstop [phone] [place] [address] Dario Phelps, RN 10/03/2024 8:30 AM CDT - 10/03/2024 11:59 PM CDT Hospital [facility] [address] [place] [address] Kidney replaced by transplant Discharge Disposition: Discharge to home or self care 10/03/2024 8:15 AM CDT Lab [facility] Outpatient Lab at [address] [address] End stage renal disease (HCC) (Primary Dx) 10/02/2024 Telephone [facility] Transplant Kidney 4590 [facility] [address] [facility] 82-79-690 [place] [address] Sarah Draper, RN After Hours 09/28/2024 Telephone [facility] Transplant Kidney 45[address] [facility] [address] Mailstop [phone] [place] [address] Dario Phelps, RN 09/27/2024 Telephone [facility] Transplant Kidney 4590 [facility] [address] Mailstop [phone] [place] [address] Dario Phelps, RN 09/26/2024 7:20 PM CDT Lab [facility] ([facility]) [address] [place] [phone] Kidney replaced by transplant 09/26/2024 Telephone [facility] Transplant Kidney 45[address] [facility] [address] Mailstop 80-17-165 [place] [address] Amie Merrill RN 09/22/2024 Telephone [facility] Transplant Kidney 4589 [facility] [address] Mailstop 07-75-498 [place] [address] Komal Almeida from Last 3 Months Allergies Active Allergy Reactions Criticality Noted Date [...] (5 mg) by mouth daily 30 tablet 11 4 Active losartan (COZAAR) 50 mg tablet TAKE 1 TABLET(50 MG) BY MOUTH DAILY 30 tablet 5 Active valproate (DEPAKENE) 250 mg capsule Take 1 capsule (250 mg total) by mouth 3 (three) times a day 5 Active carvediloL (COREG) 12.5 mg tablet Take 1 tablet (12.5 mg total) by mouth 2 (two) times a day with meals 180 tablet 3 5 09/29/19 Active tacrolimus XR (ENVARSUS XR) 0.75 mg tablet extended release 24 hrIndications:Preve ntion of Kidney Transplant Rejection Take 2 tablets (1.5 mg total) by mouth daily 60 tablet 11 5 10/06/19 26 Active tacrolimus XR (Envarsus [...] BY MOUTH TWICE A DAY 60 tablet Active cholecalciferol (VITAMIN D-3) 2000 unit tablet TAKE ONE TABLET BY MOUTH EVERY DAY 30 tablet 5 Active Active Problems Patient Care Coordination No te Formatting of this note migh t be different from the original. Verbal consent - Dario (father), Tierra (mother), Devon (sister), and Pj (other). Pharmacy: [facility] Specialty: [facility] Specialty Program [facility], [place] P: [phone] F: [phone] Q-MONTHLY, FK, BK; Q-3 ROUTINE B-ISOTITERS ([facility] ) Exp 03/21/2025 HH: [facility] Home Care Problem Noted Date Diagnosed [...] of circulatory system 09/18/2020 ESRD on hemodialysis ([facility]) 08/08/2020 Overview (08/08/2020): Added automatically from request for surgery [id number] Hypertension, essential 06/19/2020 Assessment & Plan (01/11/2022 11:03 AM CDT): Continue with labetalol and nifedipine. Holding home clonidine and hydralazine Assessment & Plan (01/10/2022 8:31 PM CDT): - Was on Labetolol and Nifedipine as home meds - Clonidine and Hydralazine held for now - can be restarted in case the BP remains uncontrolled . Assessment & Plan (06/19/2020 9:38 AM MEMBER OF THE [employer]GISL[employer]): Pt's SBP consistently between 150s-170s since admission. Likely due to medication effect and from his ARF. -Started amlodipine 10mg daily -Will consider spot labetalol IV 10mg if SBP persistently > 180 Acute renal failure 06/18/2020 Assessment & Plan (06/25/2020 12:22 PM MEMBER OF THE [employer]): Hx of Alport syndrome with ESRD, s/p [...] 06/18/2020 Assessment & Plan (06/23/2020 9:54 AM MEMBER [employer] THE [employer]GIS[employer]): Hgb 6.8 at admission, 16.5 in 11/2019. Likely due to ARF. - Iron (168), ferritin (588), folate (7.5), B12 (1,143), haptoglobin (61.0), LDH (221). - consent for blood in paper chart, transfuse hb >7 (2 units this admission) - s/p retacrit 00930 units (06/21, 06/23) Increased anion gap metabolic acidosis 1 Assessment & Plan (06/25/2020 12:22 PM MEMBER OF THE [employer]): AG 19 at admission. Likely due to [...] pred 5 daily, tacro 3 daily Immunosuppression ([facility]) 12/23/2018 Hyperparathyroidism, secondary renal 12/23/2018 Iron deficiency anemia 12/23/2018 Assessment & Plan (01/10/2022 8:28 PM CDT): - H/H stable, continue to monitor CBC - f/u Ferritin and iron profile in am - not currently on supplementation End stage renal disease ([facility]) 11/18/2018 Overview (11/18/2018): Added automatically from request for surgery [id number] Assessment & Plan (01/11/2022 11:07 AM CDT): [...] - Pt is a known pt at [facility] in [place], [place] - As per the pt he [...] 2017 - s/p failed renal transplant in 2018 - currently on HD (MW) - Plan for 2nd renal transplant in 01/2022 Resolved Problems Problem Noted Date Diagnosed Date Resolved Date ESRD (end stage renal disease) 02/20/2022 02/24/2022 Immunizations Immunization Administration Dates Next Due Influenza, [...] on file Legal Sex Male 2:12 AM [employer] Gender Identity Not on file Sexual Orientation [...] Scheduled Procedures Name Priority Associated Diagnoses Date/Ti in TRANSPLANT KIDNEY ESRD (end stage renal disease) (HCC) Medical Devices Explanted Type Area Solar Sales Rep Device Identifier Shelf Expiration Date Model / Serial / Lot Circon-Surgi leti [id number] Double-J 6fr 20cm 100cm 1 Step Insert Push Catheter [place] Suture - [id number] Implanted:Qt y: 1 on 01/04/2019 by Yue Howell MD PhD at [facility] Explanted:Qt y: 1 on 01/25/2019 by Inés Comer NP Stent Right: Ureter Circon-Surgitek 01/01/2023 [id number] / / [id number] Description:Transplanted ure ter Patronpath Double-J 6fr 20cm 100cm 1 Step Insert Push Catheter [place] Suture [id number] - [id number] Implanted:Qt y: 1 on 02/20/2022 by Yue Howell MD PhD at [facility] Explanted:Qt y: 1 on 03/25/2022 by Philip Coleman NP Stent Left: Transplanted Ureter Patronpath [id number] 02/27/2026 [id number] / / [id number] Procedures Procedure Name Priority Date/Time Associated Diagnosis [...] of Race in Diagnosing Kidney Disease, JASN 202). The CKD-EPI equation should not be used for patients with unstable renal function and has not been validated in children and those over 70. Current interpretive data was last reviewed 2021. Blood 11/18/2024 8:13 AM CDT 11/18/2024 3:18 PM CDT Earnest Crandall MD LAB BLOOD ORDERABLES Final R esult [facility] [address] [place] [address] * (ABNORMAL) Differential, auto (11/18/2024 8:13 AM CDT) Neutrophil abs 3.73 1.50 - 6.50 K/cumm Imm gran abs 0.01 0.00 - 0.10 K/cumm [facility] Lymphocyte abs 0.79(L) 0.80 - 3.30 K/cumm [facility] Monocyte abs 0.47 0.20 - 0.80 K/cumm [facility] Eosinophil abs 0.16 0.00 - 0.50 K/cumm [facility] Basophil abs 0.04 0.00 - 0.10 K/cumm [facility] Neutrophil pct 71.7 % [facility] Comment: Interpretive Data Percent cell count reference ranges are not reported, since discordance with absolute values may lead to misinterpretation of CBC data. Current Interpretive Data was last revised on 2017. Imm gran pct 0.2 % [facility] Comment: Interpretive Data Percent cell count reference ranges are not reported, since discordance with absolute values may lead to misinterpretation of CBC data. Current Interpretive Data was last revised on 2017. Lymphocyte pct 15.2 % [facility] Comment: Interpretive Data Percent cell count reference ranges are not reported, since discordance with absolute values may lead to misinterpretation of CBC data. Current Interpretive Data was last revised on 2017. Monocyte pct 9.0 % [facility] Comment: Interpretive Data Percent cell count reference ranges are not reported, since discordance with absolute values may lead to misinterpretation of CBC data. Current Interpretive Data was last revised on 2017. Eosinophil pct 3.1 % [facility] Comment: Interpretive Data Percent cell count reference ranges are not reported, since discordance with absolute values may lead to misinterpretation of CBC data. Current Interpretive Data was last revised on 2017. Basophil pct 0.8 % [facility] Comment: Interpretive Data Percent cell count reference ranges are not reported, since discordance with absolute values may lead to misinterpretation of CBC data. Current Interpretive Data was last revised on 2017. Blood 11/18/2024 8:13 AM CDT 11/18/2024 3:16 PM CDT Earnest Crandall MD LAB BLOOD ORDERABLES Final R [facility] Performing Organization Address [facility] Co de Phone Number [facility]TER GUTIERREZ [address] [place] [address] * Tacrolimus level trough (11/18/2024 8:13 AM CDT) Pathologist [facility] Tacrolimus trough 8.5 ng/mL Comment: Interpretive Data Testing performed by liquid chromatography-tandem mass spectrometry. Therapeutic concentrations vary depending on type of transplanted organ and time elapsed since transplant. Typical trough concentrations range from 5-15 ng/mL. This test was developed and its performance characteristics determined by the [facility] consistent with CLIA requirements. This test has not been cleared or approved by the [place] Food and Drug administration. Current interpretive data last reviewed 2019. Testing performed by: [facility], [address] [place]., [address] Blood 11/18/2024 8:13 AM CDT 11/18/2024 10:03 PM CDT Narrative [facility] - 11/19/2024 2:14 AM CDT MONTHLY (EVERY 4 WEEKS) Earnest Crandall MD LAB BLOOD ORDERABLES Final R [facility] Performing Organization Address [facility] Co de Phone Number [facility]TER GUTIERREZ [address] [place] [address] * (ABNORMAL) CBC with auto differential (11/18/2024 8:13 AM CDT) WBC 5.20 3.80 - 9.90 K/cumm Hgb 14.5 13.0 - 17.5 g/dL [facility] Hct 45.9 38.9 - 50.3 % [facility] Plt 205 150 - 400 K/cumm [facility] MPV 9.7 9.1 - 12.3 fL [facility] RBC 5.01 4.30 - 5.80 M/cumm [facility] MCV 91.6 81.3 - 96.4 fL [facility] MCH 28.9 27.1 - 33.3 pg [facility] MCHC 31.6(L) 32.3 - 35.7 g/dL [facility] RDW CV 13.3 11.1 - 14.9 % [facility] RDW SD 44.6 35.7 - 48.1 fL [facility] NRBC abs 0.00 0.00 - 0.01 K/cumm [facility] Blood 11/18/2024 8:13 AM CDT 11/18/2024 3:16 PM CDT Narrative [facility] - 11/18/2024 3:25 PM CDT MONTHLY (EVERY 4 WEEKS) Earnest Crandall MD LAB BLOOD ORDERABLES Final R esult [facility] [address] Department [place] [address] * (ABNORMAL) Renal function panel (11/18/2024 8:13 AM CDT) Sodium 143 135 - 145 mmol/L Potassium, pl 4.9 3.3 - 4.9 mmol/L [facility] Chloride 108 97 - 110 mmol/L [facility] CO2 23 22 - 32 mmol/L [facility] Anion gap 12 2 - 15 mmol/L [facility] BUN 22 6 - 25 mg/dL [facility] Creatinine 1.59(H) 0.80 - 1.30 mg/dL [facility] Glucose 110 70 - 199 mg/dL [facility] Comment: Interpretive Data Fasting glucose >/= [...] PM CDT Narrative [facility] - 11/18/2024 3:42 PM CDT MONTHLY (EVERY 4 WEEKS) Earnest Crandall MD LAB BLOOD ORDERABLES Final R esult [facility] [address] [place] [address] * US Renal Transplant W Dopplers (10/07/2024 [...] Callum Fung MD, PHD Emily Foreman MD [facility] US PROCEDURES Final Result * (ABNORMAL) BK virus PCR quantitative Blood (10/07/2024 7:10 AM CDT) Pathologist [facility] BKV DNA result, pl Detected( A) [facility] Comment: The quantifiable range of this assay is 21.5 IU/mL to 100,000,000 IU/mL (1.33 log IU/mL to 8.00 log IU/mL). Testing was performed by the NIKI 6800 BKV Quantatitive Test version 2.0 ([employer] Testing performed at [facility] Current Interpretive Data was last revised on 2021. BKV DNA IU/mL, pl 3,130.0 IUnits/mL [facility] BKV DNA Log IU/mL, pl 3.50 log IUnits/mL [facility] Blood 10/07/2024 7:10 AM CDT 10/07/2024 7:57 AM CDT Earnest Crandall MD LAB MICROBIOLOGY - GENERAL O RDERABLES Final Result Performing Organization Address City/[facility] Co de Phone Number [facility] [place] [address] [facility] * Collection Task for HLA Platelet Antibody Screen (10/07/2024 7:10 AM CDT) Pathologist [facility] HLA PLATELET SC Received Blood 10/07/2024 7:10 AM CDT 10/07/2024 8:21 AM CDT Earnest Crandall MD LAB BLOOD ORDERABLES Final R esult Performing Organization Address City/[facility] Co de Phone Number [facility] Department [place] [address] * HLA Donor Specific Antibody Report (10/07/2024 7:10 AM CDT) us Earnest Crandall MD LAB BLOOD ORDERABLES Final R esult * HLA Antibody Screen - DSA (Class I and Class II) (10/07/2024 7:10 AM CDT) Blood 10/07/2024 7:10 AM CDT 10/10/2024 6:31 AM CDT Narrative [facility] - 10/10/2024 6:31 AM CDT Earnest Crandall MD LAB BLOOD ORDERABLES Final R esult [facility] * Tacrolimus level trough (10/07/2024 7:10 AM CDT) Pathologist [facility] Tacrolimus trough 8.0 ng/mL Comment: Interpretive Data Testing performed by liquid chromatography-tandem mass spectrometry. Therapeutic concentrations vary depending on type of transplanted organ and time elapsed since transplant. Typical trough concentrations range from 5-15 ng/mL. This test was developed and its performance characteristics determined by the [facility] consistent with CLIA requirements. This test has not been cleared or approved by the [place] Food and Drug administration. Current interpretive data last reviewed 2019. Blood 10/07/2024 7:10 AM CDT 10/07/2024 7:34 AM CDT Earnest Crandall MD LAB BLOOD ORDERABLES Final R esult Performing Organization Address City/[facility] Co de Phone Number [facility] [facility] [place] [address] * (ABNORMAL) BK virus PCR quantitative Urine (10/03/2024 8:30 AM CDT) Pathologist [facility] BKV DNA result, ur Detected( A) [facility] Comment: The quantifiable range of this assay is 200 IU/mL to 100,000,000 IU/mL (2.30 log IU/mL to 8.00 log IU/mL). Testing was performed by the NIKI 6800 BKV Quantatitive Test version 2.0 ([employer] Testing performed at [facility] Current Interpretive Data was last revised on 2021. Testing performed by: [facility], [address] [place] [address] BKV DNA IU/mL, ur 89,900,00 0(C) IUnits/mL [facility] Comment:Testing performed by : [facility], [address] [place]., [address] BKV DNA Log IU/mL, ur 7.95 log IUnits/mL [facility] GUTIERREZ Comment:Testing performed by : [facility], [address] [place]., [address] Urine 10/03/2024 8:30 AM CDT 10/04/2024 10:30 AM CDT Mikki Resendiz MD LAB MICROBIOLOGY - GENERAL ORDERABLES Final Result [facility] [address] [place] [address] [facility] * eGFR (10/03/2024 8:30 AM CDT) eGFR [...] ORDERABL ES Final Result Performing Organization Address City/[facility]/ZIP Co de Phone Number [place] [address] [place] [address] * (ABNORMAL) Differential, auto (10/03/2024 8:30 AM CDT) Neutrophil abs 3.76 1.50 - 6.50 K/cumm Imm gran abs 0.03 0.00 - 0.10 K/cumm [facility] Lymphocyte abs 0.61(L) 0.80 - 3.30 K[facility]cumm [facility] Monocyte abs 0.50 0.20 - 0.80 K/cumm [facility] Eosinophil abs 0.15 0.00 - 0.50 K/cumm [facility] Basophil abs 0.03 0.00 - 0.10 K/cumm [facility] Neutrophil pct 74.0 % [facility] Comment: Interpretive Data Percent cell count reference ranges are not reported, since discordance with absolute values may lead to misinterpretation of CBC data. Current Interpretive Data was last revised on 2017. Imm gran pct 0.6 % [facility] Comment: Interpretive Data Percent cell count reference ranges are not reported, since discordance with absolute values may lead to misinterpretation of CBC data. Current Interpretive Data was last revised on 2017. Lymphocyte pct 12.0 % [facility] Comment: Interpretive Data Percent cell count reference ranges are not reported, since discordance with absolute values may lead to misinterpretation of CBC data. Current Interpretive Data was last revised on 2017. Monocyte pct 9.8 % [facility] Comment: Interpretive Data Percent cell count reference ranges are not reported, since discordance with absolute values may lead to misinterpretation of CBC data. Current Interpretive Data was last revised on 2017. Eosinophil pct 3.0 % [facility] Comment: Interpretive Data Percent cell count reference ranges are not reported, since discordance with absolute values may lead to misinterpretation of CBC data. Current Interpretive Data was last revised on 2017. Basophil pct 0.6 % [facility] Comment: Interpretive Data Percent cell count reference ranges are not reported, since discordance with absolute values may lead to misinterpretation of CBC data. Current Interpretive Data was last revised on 2017. Blood 10/03/2024 8:30 AM CDT 10/03/2024 10:10 PM CDT Mikki Resendiz MD LAB BLOOD ORDERABL ES Final Result Performing Organization Address [facility] Co de Phone Number WALTER GUTIERREZ [address] [facility] [place] [address] * Tacrolimus level trough (10/03/2024 8:30 AM CDT) Tacrolimus trough 4.6 ng/mL Comment: Interpretive Data Testing performed by liquid chromatography-tandem mass spectrometry. Therapeutic concentrations vary depending on type of transplanted organ and time elapsed since transplant. Typical trough concentrations range from 5-15 ng/mL. This test was developed and its performance characteristics determined by the [facility] consistent with CLIA requirements. This test has not been cleared or approved by the [place] Food and Drug administration. Current interpretive data last reviewed 2019. Testing performed by: [facility], [address] [place]., [address] Blood 10/03/2024 8:30 AM CDT 10/04/2024 3:58 AM CDT Mikki Resendiz MD LAB BLOOD ORDERABL ES Final Result Performing Organization Address [facility] de Phone Number WALTER GUTIERREZ [address] [employer] [place] [address] * Urinalysis reflex to microscopic and culture Urine (10/03/2024 8:30 AM CDT) Color, ur Yellow Yellow Clarity, ur Clear Clear [facility] Specific gravity, ur 1.015 1.003 - 1.030 [facility] pH, urine 6.0 [facility] Comment: Interpretive Data U rine pH is affected by diet, medications, systemic acid-base disturbances, and renal tubular function. pH may affect urinary stone formation. For example, urine pH below 6.0 may help reduce the tendency for calcium phosphate stones and pH greater than 6.0 may reduce the tendency for uric acid stone formation. Source: [facility] Current Interpretive Data was last revised on [...] - GENERAL ORDERABLES Final Result [facility] GUTIERREZ [address] [employer] [place] [address] * (ABNORMAL) CBC with auto differential (10/03/2024 8:30 AM CDT) WBC 5.08 3.80 - 9.90 K/cumm Hgb 13.9 13.0 - 17.5 g/dL [facility] Hct 46.0 38.9 - 50.3 % [facility] Plt 185 150 - 400 K/cumm [facility] MPV 9.7 9.1 - 12.3 fL [facility] RBC 4.93 4.30 - 5.80 M/cumm [facility] MCV 93.3 81.3 - 96.4 fL [facility] MCH 28.2 27.1 - 33.3 pg [facility] MCHC 30.2(L) 32.3 - 35.7 g/dL [facility] RDW CV 14.0 11.1 - 14.9 % [facility] RDW SD 47.8 35.7 - 48.1 fL [facility] NRBC abs 0.00 0.00 - 0.01 K/cumm [facility] Blood 10/03/2024 8:30 AM CDT 10/03/2024 10:10 PM CDT Mikki Resendiz MD LAB BLOOD ORDERABL ES Final Result Performing Organization Address City/[facility]/ZIP Co de Phone Number [facility] GUTIERREZ [address] Department [place] [address] * Protein / creatinine ratio, urine, random (10/03/2024 8:30 AM CDT) Protein, ur, quant 7.6 mg/dL Comment: Interpretive Data No reference range established. Current interpretive data was last revised 2018. Creatinine Ur 126.2 mg/dL [facility] Comment: Interpretive Data No reference range established. Current interpretive data was last revised 2018. Protein/creatinin e ratio 60.2 0.0 - 180.0 mg/g CR [facility] Urine 10/03/2024 8:30 AM CDT 10/03/2024 10:10 PM CDT us Mikki Resendiz MD LAB URINE ORDERABL ES Final Result [facility] [address] Department [place] [address] * (ABNORMAL) Renal function panel (10/03/2024 8:30 AM CDT) Pathologist [facility] Sodium 141 135 - 145 mmol/L Potassium, pl 4.5 3.3 - 4.9 mmol/L [facility] Chloride 106 97 - 110 mmol/L [facility] CO2 26 22 - 32 mmol/L [facility] Anion gap 9 2 - 15 mmol/L [facility] BUN 11 6 - 25 mg/dL [facility] Creatinine 1.50(H) 0.80 - 1.30 mg/dL [facility] Glucose 102 70 - 199 mg/dL [facility] Comment: Interpretive Data Fasting glucose >/= [...] classification and Diagnosis of Diabetes Diabetes Care 2022; 46: S19-S40. Current interpretive data was last revised 2022. Calcium 9.9 8.5 - 10.3 mg/dL [facility] Phosphorus, pl 2.4 2.3 - 4.5 mg/dL [facility] Albumin 4.5 3.5 - 5.0 g/dL [facility] Blood 10/03/2024 8:30 AM CDT 10/03/2024 10:10 PM CDT Mikki Resendiz MD LAB BLOOD ORDERABL ES Final Result [facility] [address] [address] Department [place] [address] * Allosure kidney donor-derived cell-free DNA (cFDNA) [...] For more information about AlloSure, please visit [email or web address]. Specimens from kidney retransplant recipients in whom [...] et al., J Appl Lab Med 2017; (5)Bu et al., Kidney International 2020;(6) Daren et al.,Transplantation Direct 2021; (7)Lenard et al., Transplantation Direct 2022 The AlloSure donor-derived cell-free DNA test was developed and its performance characteristics were determined by the [facility] laboratory. The test has not been cleared or approved by the U.S. Food and Drug Administration, nor is it currently required to be. The laboratory is certified under the Clinical Laboratory Improvement Amendments of 1988 (CLIA '88) and accredited by the College of [place] [employer] (CAP) as qualified to perform high complexity clinical laboratory testing. The contents of this report are confidential and intended solely for the use of authorized personnel. AlloSure testing performed at [facility], [facility]. [address] [place] [address] (CLIA No: [id number], CAP No: [id number]) [facility] Machine Feeder: Jon Brink M.D. Plasma 09/26/2024 9:30 PM CDT us Earnest Crandall MD LAB BLOOD ORDERABLES Final R esult [facility] * (ABNORMAL) BK virus PCR quantitative Blood (09/26/2024 3:32 PM CDT) [facility] BKV DNA result, pl Detected( A) [facility] Comment: The quantifiable range of this assay is 21.5 IU/mL to 100,000,000 IU/mL (1.33 log IU/mL to 8.00 log IU/mL). Testing was performed by the NIKI 6800 BKV Quantatitive Test version 2.0 ([employer] Testing performed at [facility] Current Interpretive Data was last revised on 2021. BKV DNA IU/mL, pl 2,800.0 IUnits/mL [facility] BKV DNA Log IU/mL, pl 3.45 log IUnits/mL [facility] Blood 09/26/2024 3:32 PM CDT 09/26/2024 4:18 PM CDT Mikki Resendiz MD LAB MICROBIOLOGY - GENERAL ORDERABLES Final Result Performing Organization Address [facility] de Phone Number [facility] Department [place] [address] [facility] * Cytomegalovirus (CMV) DNA PCR, quantitative Blood (09/26/2024 3:32 PM CDT) [facility] CMV DNA Not Detected [facility] Comment: Interpretive Data: The quantifiable range of this assay is 34 IUnits/mL to 10,000,000 IUnits/mL (1.53 log IUnits/mL to 7.0 log IUnits/mL). Testing was performed by the NIKI 6800 CMV Test ([employer] Testing performed at [facility]. Current interpretive data was last revised on 2020. Blood 09/26/2024 3:32 PM CDT 09/26/2024 4:18 PM CDT Mikki Resendiz MD LAB MICROBIOLOGY - GENERAL ORDERABLES Final Result Performing Organization Address [facility] Co de Phone Number [facility] Department [place] [address] [facility] * (ABNORMAL) eGFR (09/26/2024 3:23 PM CDT) Pathologist [facility] eGFR 52(L) >=60 mL/min/1. 73 m2 Comment: [...] 3:23 PM CDT 09/26/2024 3:57 PM CDT us Mikki Resendiz MD LAB BLOOD ORDERABL ES Final Result [facility] Department [place] [address] * (ABNORMAL) Differential, auto (09/26/2024 3:23 PM CDT) Pathologist [facility] Neutrophil abs 5.05 1.50 - 6.50 K/cumm Imm gran abs 0.02 0.00 - 0.10 K/cumm [facility] Lymphocyte abs 0.56(L) 0.80 - 3.30 K/cumm [facility] Monocyte abs 0.47 0.20 - 0.80 K/cumm [facility] Eosinophil abs 0.09 0.00 - 0.50 K/cumm [facility] Basophil abs 0.05 0.00 - 0.10 K/cumm [facility] Neutrophil pct 81.0 % [facility] Comment: Interpretive Data Percent cell count reference ranges are not reported, since discordance with absolute values may lead to misinterpretation of CBC data. Current Interpretive Data was last revised on 2017. Imm gran pct 0.3 % [facility] Comment: Interpretive Data Percent cell count reference ranges are not reported, since discordance with absolute values may lead to misinterpretation of CBC data. Current Interpretive Data was last revised on 2017. Lymphocyte pct 9.0 % [facility] Comment: Interpretive Data Percent cell count reference ranges are not reported, since discordance with absolute values may lead to misinterpretation of CBC data. Current Interpretive Data was last revised on 2017. Monocyte pct 7.5 % [facility] Comment: Interpretive Data Percent cell count reference ranges are not reported, since discordance with absolute values may lead to misinterpretation of CBC data. Current Interpretive Data was last revised on 2017. Eosinophil pct 1.4 % [facility] Comment: Interpretive Data Percent cell count reference ranges are not reported, since discordance with absolute values may lead to misinterpretation of CBC data. Current Interpretive Data was last revised on 2017. Basophil pct 0.8 % [facility] Comment: Interpretive Data Percent cell count reference ranges are not reported, since discordance with absolute values may lead to misinterpretation of CBC data. Current Interpretive Data was last revised on 2017. Blood 09/26/2024 3:23 PM CDT 09/26/2024 3:49 PM CDT us Mikki Resendiz MD LAB BLOOD ORDERABL ES Final Result [facility] Department [place] [address] * Iron profile w/ IBC (09/26/2024 3:23 PM CDT) Iron 109 50 - 150 mcg/dL TIBC 269 250 - 400 mcg/dL [facility] Transferrin saturation 41 20 - 50 % [facility] Blood 09/26/2024 3:23 PM CDT 09/26/2024 3:49 PM CDT Mikki Resendiz MD LAB BLOOD ORDERABL ES Final Result Performing Organization Address [facility] Co de Phone Number [facility] [place] [address] * CBC with auto differential (09/26/2024 3:23 PM CDT) WBC 6.24 3.80 - 9.90 K/cumm Hgb 14.3 13.0 - 17.5 g/dL [facility] Hct 42.9 38.9 - 50.3 % [facility] Plt 184 150 - 400 K/cumm [facility] MPV 9.3 9.1 - 12.3 fL [facility] RBC 5.01 4.30 - 5.80 M/cumm [facility] MCV 85.6 81.3 - 96.4 fL [facility] MCH 28.5 27.1 - 33.3 pg [facility] MCHC 33.3 32.3 - 35.7 g/dL [facility] RDW CV 13.6 11.1 - 14.9 % [facility] RDW SD 42.3 35.7 - 48.1 fL [facility] NRBC abs 0.00 0.00 - 0.01 K/cumm [facility] Blood 09/26/2024 3:2 3 PM CDT 09/26/2024 3:49 PM CDT Mikki Resendiz MD LAB BLOOD ORDERABL ES Final Result Performing Organization Address City/[facility]/ZIP Co de Phone Number [facility] [place] [address] * Folate (09/26/2024 3:23 PM CDT) Folic acid 13.5 >=5.0 ng/mL Blood 09/26/2024 3:23 PM CDT 09/26/2024 3:49 PM CDT Mikki Resendiz MD LAB BLOOD ORDERABL ES Final Result Performing Organization Address [facility] Co de Phone Number [facility] [place] [address] * (ABNORMAL) Ferritin (09/26/2024 3:23 PM CDT) [facility] Ferritin 670(H) 30 - 400 ng/mL Blood 09/26/2024 3:23 PM CDT 09/26/2024 3:49 PM CDT Mikki Resendiz MD LAB BLOOD ORDERABL ES Final Result Performing Organization Address [facility] de Phone Number [facility] Department [place] [address] * Vitamin B12 (09/26/2024 3:23 PM CDT) [facility] Vitamin B12 431 230 - 1,250 pg/mL Blood 09/26/2024 3:23 PM CDT 09/26/2024 3:49 PM CDT Mikki Resendiz MD LAB BLOOD ORDERABL ES Final Result Performing Organization Address [facility] [place] [address] * (ABNORMAL) Renal function panel (09/26/2024 3:23 PM CDT) [facility] Sodium 140 135 - 145 mmol/L Potassium, pl 4.5 3.3 - 4.9 mmol/L [facility] Chloride 103 97 - 110 mmol/L [facility] CO2 26 22 - 32 mmol/L [facility] Anion gap 11 2 - 15 mmol/L [facility] BUN 19 6 - 25 mg/dL [facility] Creatinine 1.79(H) 0.80 - 1.30 mg/dL [facility] Glucose 112 70 - 199 mg/dL [facility] Comment: Interpretive Data Fasting glucose >/= [...] 2022. Calcium 10.3 8.5 - 10.3 mg/dL [facility] Phosphorus, pl 2.5 2.3 - 4.5 mg/dL [facility] Albumin 4.9 3.5 - 5.0 g/dL [facility] Blood 09/26/2024 3:23 PM CDT 09/26/2024 3:49 PM CDT us Mikki Resendiz MD LAB BLOOD ORDERABL ES Final Result [facility] [place] [address] * Hepatitis C (HCV) RNA PCR, quantitative (03/27/2022 8:30 AM CDT) [facility] HCV RNA result Not Detected [facility] Comment: The quantifiable range of this assay is 15 IU/mL to 100,000,000 IU/mL (1.18 log IU/mL to 8.00 log IU/mL). Testing was performed by the NIKI 6800 HCV Test ([employer] Testing performed at [facility] Current Interpretive Data was last revised on 2021 Blood 03/27/2022 8:30 AM CDT 03/27/2022 1:53 PM CDT us Frandy Dewey MD LAB MICROBIOLOGY - GENERAL ORDERABLES Final Result [facility] [place] [address] from Last 3 Months or Most Recently Relevant to Health Maintenance Insurance MEDICARE [facility] MEDICARE CIGNA MEDICARE [employer] [place] ACCESS [employer]OS MEDICARE MEDICARE Advance Directives For more information, please contact: [phone] Documents on File Type Date Recorded Patient Decorator Inspector Expl anation ADVANCE DIRECTIVE 01/16/2022 6:49 AM Power of Glaciologist-Medical Power of Glaciologist 02/21/2021 8:31 AM DPOA * Full Code [...] 8:51 AM 12/26/2021 8:41 PM Care Teams Reeler Operator Relationship Specialty Start Date End Date JessiestevensonneptaliVanita DO [address] [facility] [address] [place] [address] PCP - General 10/02/20 Dixie Schroeder MD [address] [facility] [address] [place] [address] Referring Physician Nephrology 08/03/20 Tg Ervin, lead solutions architectChange Booth Attendant 02/20/22
--- OUTSIDE RECORDS SUMMARY | 2024-12-21 19:15 | XMS_ITS ---
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 Follow-up on 02/20/2022 Reason: Transplanted at [facility] Kidney CoordinatorTg Ervin RN Phone: N/A Fax: N/A Email: N/A [place] Organ Diagnosis Organ Primary Contributory Kidney Alport's Syndrome Donor Information Organ ABO Source Meets Risk Criteria HLA Match Mismatches Cross Match Left Kidney Transplanted A Positive Live A: B: DR: Left Kidney Donor Serology Results Anti-CMV CMV IgG: Negative EBV IgG EBV VCA IgG: Positive Anti-HBcAb HBC Total: NON-REACTIVE HBsAg HBsAg: Nonreactive HBV DNA HBV DNA: Not Detected Anti-HCV HCV Ab: Nonreactive HCV RNA: Not Detected Anti-HIV I/II HIV Ag/Ab Combo Assay: Nonreactive Anti-HTLV I/II No results on file RPR/VDRL No results on file EBV IgM EBV VCA IgM: <36.00 HBsAb HBsAb: Reactive EBNA No results on file SARS CoV-2 No results on file Care Team Name Role Phone Fax Email Tg Ervin, RN Kidney Coordinator N/A N /A N/A Azul Portillo RN Secondary Coordinator Secondary Post Kidney Coordinator [phone] N/A N/A Tg Ervin, vacuum repairerScrap Worker N/A N/A N/A Dixie Schroeder MD Referring Physician [phone] N/A Ellen Sushil Solar Pv Installer [phone] N/A N/A Events Post-Transplant Pre-Transplant Admitted: 02/20/2022 Referred: 07/03/2020 Transplanted: 02/20/2022 Evaluation began: 1 Discharged: 02/24/2022 Committee: 11/05/2020 UNOS qualified: 06/27/2020 Center waitlisted: 1 Dialysis History Dialysis History Start End Type Comments Center 06/27/2020 02/20/2022 In-center Hemodialysis MWF PM [facility] 04/22/2018 01/04/2019 Peritoneal PD [facility] Dialysis Center Information Center Phone Fax Address [facility] [phone] [place] [address] [facility] [phone] [facility] [place] [address]
--- OUTSIDE RECORDS SUMMARY | 2024-12-21 19:15 | XMS_ITS | Encounter Summary ---
Author Organization [facility] Address [address] [place] [address] Phone Care Team Providers Care Rat Farmer Name Role Phone Margaux Chavez RN Unavailable [phone] Jordan Lundberg RN Unavailable [phone] Dixie Schroeder MD Unavailable [phone] Vanita Amaro DO Primary Care Provider [phone] Tg Ervin RN Unavailable Unava ilable Encounter Details Date Type Department Care Team (Late st Contact Info) Description 12/13/2020 Telephone [facility] Endocrinology Metabolism and Lipid [address] [facility] Advanced Medicine 5th [place] [address] [place] [address] Raúl Paz Social History Tobacco Use Types Packs/Day Years Used Date Smoking Tobacco: Never Smokeless Tobacco: Never Alcohol Use Standard Drinks/Week Comments Not Currently 0 (1 standard drink = 0.6 oz pur e alcohol) Sex and Gender Information Value Date Recorded Sex Assigned at Not on file 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 01/21/2022 01/22/2022 05/21/2022 3:[address] documented as of this encounter Care Teams Rat Farmer Relationship Specialty Start Date End Date Vanita Amaro DO [address] [place] [address] PCP - General 10/02/20 Margaux Chavez, RN Imager 01/05/19 Jordan Pinto, ASHLEY [address] [facility] [address] [place] [address] Registered Nurse Imager 08/03/2002/23 Dixie Schroeder MD [address] [place] [address] Referring Physician Nephrology 08/03/20 Tg Ervin, ground handImager 02/20/22 documented as of this encounter
[2024-12-21 19:24] VITALS: BP 156/97; PULSE 78; RESP 14; TEMP 36.4; O2SAT 100
--- NOTE | 2024-12-21 19:34 | PC.NURSE ---
Medication list updated and verified by this RN per list of medications from patient. Copy made and placed on chart w patient.
[2024-12-21 20:20] VITALS: BP 133/93; PULSE 89; RESP 20; O2SAT 100
[2024-12-21 20:31] LABS: Hematocrit 41.3 % (42.0-52.0); Hemoglobin 13.8 g/dL (14.0-18.0); Immature Granulocyte Percent A 0.3 % (0-0.5); Lymphocytes Absolute Auto 0.77 K/mm3 (0.9-3.2); Mean Corpuscular HGB Conc 33.4 g/dl (32-36); Mean Corpuscular Hemoglobin 29.4 pg (26-34); Mean Corpuscular Volume 87.9 fl (80-100); Nucleated Red Blood Cells Absolute Auto 0.000 K/mm3 (0.0-0.012); Nucleated Red Blood Cells Perc 0.0 % (0.0-0.2); Platelet Count Result 180 k/mm3 (150-375); Red Blood Count 4.70 M/mm3 (4.6-6.20); White Blood Count 7.1 K/mm3 (4.5-10.0)
--- OUTSIDE RECORDS SUMMARY | 2024-12-21 20:33 | XMS_ITS | Clinical Summary ---
Author Organization [facility] Address [address] [place] [address] Care Team Providers Care Customer Experience Specialist Name Role Phone Roel Pantoja MD Primary Care Provider Source Comments [facility],non-owned Affiliates and Associated Physician Practices is amultiple site organization consisting of ambulatory clinics and hospital sitesin [place], [place], [place] and [place]. This disclosure is being madepursuant to the Care Everywhere program and may not contain all information available regarding this patient. 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
--- OUTSIDE RECORDS SUMMARY | 2024-12-21 20:34 | XMS_ITS | Clinical Summary ---
Author Organization [facility] Address [address] [place] [address] Phone Care Team Providers Care Brick Paving Checker Name Role Phone Roel Pantoja MD Primary Care Provider [phone] Allergies No known active allergies Medications No [...] Comments Blood Pressure 111/75 04/20/2018 12:00 PM SMALL PACKAGE AND BUNDLE SORTER CLERK Pulse 76 04/20/2018 7:02 AM SMALL PACKAGE AND BUNDLE SORTER CLERK Temperature 36.6 C (97.8 F) 04/20/2018 11:15 AM SMALL PACKAGE AND BUNDLE SORTER CLERK Respiratory Rate 14 04/20/2018 12:00 PM SMALL PACKAGE AND BUNDLE SORTER CLERK Oxygen Saturation 100% 04/20/2018 12:00 PM SMALL PACKAGE AND BUNDLE SORTER CLERK Inhaled Oxygen Concentration - - Weight 74.8 kg (165 lb) 04/20/2018 7:02 AM SMALL PACKAGE AND BUNDLE SORTER CLERK Height 182.9 cm (6') 04/20/2018 7:02 AM SMALL PACKAGE AND BUNDLE SORTER CLERK Body Mass Index 22.38 04/20/2018 7:02 AM SMALL PACKAGE AND BUNDLE SORTER CLERK Plan of Treatment Health Maintenance Due Date Last Done Comments DTAP/TDAP/TD VACCINES (1 - Tdap) 2014 HEPATITIS B VACCINES (1 of 3 - 19+ 3-dose series) 2014 INFLUENZA VACCINE (#1) 2025 , 04/08/2019 HPV VACCINES Aged Out No longer eligi ble based on patient's age to complete this topic Medical Devices Implanted Type Area Physician Office Nurse Device Identifier Shelf Expiration Date Model / Serial / Lot Cath Pd Wayne Jorgensenl 2cuff [id number] - [id number] Implanted:Qty : 1 on 04/20/2018 by Kate Aj MD at [facility] Catheter N/A: Abdomen [employer] - COVIDIEN Peritoneal Dialysis Catheter 09/24/2021 [id number] / / [id number] Insurance MEDICARE PART A AND B [facility] BLUE ACCESS/TRUE BLUE PPO Advance Directives For more information, please contact: [phone] * Full Code (Latest Code Status on File) Date Activated Date Inactivated Comments 04/20/2018 10:20 AM 04/20/2018 3:04 PM * Full Code Date Activated Date Inactivated Comments 04/20/2018 6:19 AM 04/20/2018 10:20 AM Care Teams Brick Paving Checker Relationship Specialty Start Date End Date Roel Pantoja MD [address] [place] [phone] PCP - General Family Practice 03/18/18
--- OUTSIDE RECORDS SUMMARY | 2024-12-21 20:34 | XMS_ITS | Clinical Summary ---
Author Organization [facility] Address [address] [place] [address] Care Team Providers Care Airport Location Manager Name Role Phone Dixie Schroeder MD Unavailable [phone] Vanita Amaro DO Primary Care Provider [phone] Tg Ervin RN Unavailable Unava ilable Allergies [...] (sister), and Pj (other). Pharmacy: [facility] Specialty: [facility] Specialty Program [facility] OUTPATIENT CTR LAB-[place] P: [phone] F: [phone] Q-MONTHLY, FK, BK; Q-3 ROUTINE B-ISOTITERS (WALTER ) Exp 03/21/2025 HH: [facility] Home Care Problem Noted Date Diagnosed [...] of circulatory system 09/18/2020 ESRD on hemodialysis ([facility]) 08/08/2020 Overview (08/08/2020): Added automatically from request for surgery [id number] Hypertension, essential 06/19/2020 Assessment & Plan (01/11/2022 11:03 AM CDT): Continue with labetalol and nifedipine. Holding home clonidine and hydralazine Assessment & Plan (01/10/2022 8:31 PM CDT): - Was on Labetolol and Nifedipine as home meds - Clonidine and Hydralazine held for now - can be restarted in case the BP remains uncontrolled . Assessment & Plan (06/19/2020 9:38 AM HARP ACTION ASSEMBLER): Pt's SBP consistently between 150s-170s since admission. Likely due to medication effect and from his ARF. -Started amlodipine 10mg daily -Will consider spot labetalol IV 10mg if SBP persistently > 180 Acute renal failure 06/18/2020 Assessment & Plan (06/25/2020 12:22 PM HARP ACTION ASSEMBLER): Hx of Alport syndrome with ESRD, s/p [...] 06/18/2020 Assessment & Plan (06/23/2020 9:54 AM HARP ACTION ASSEMBLER): Hgb 6.8 at admission, 16.5 in 11/2019. Likely due to ARF. - Iron (168), ferritin (588), folate (7.5), B12 (1,143), haptoglobin (61.0), LDH (221). - consent for blood in paper chart, transfuse hb >7 (2 units this admission) - s/p retacrit [id number] units (06/21, 06/23) Increased anion gap metabolic acidosis Assessment & Plan (06/25/2020 12:22 PM HARP ACTION ASSEMBLER): AG 19 at admission. Likely due to [...] pred 5 daily, tacro 3 daily Immunosuppression ([facility]) 12/23/2018 Hyperparathyroidism, secondary renal 12/23/2018 Iron deficiency anemia 12/23/2018 Assessment & Plan (01/10/2022 8:28 PM CDT): - H/H stable, continue to monitor CBC - f/u Ferritin and iron profile in am - not currently on supplementation End stage renal disease (CMS/HCC) 11/18/2018 Overview (11/18/2018): Added automatically from request for surgery [id number] Assessment & Plan (01/11/2022 11:07 AM CDT): [...] - Pt is a known pt at [facility] HD center in [place], [place] - As per the pt he [...] Type Department Care Team Description 12/20/2024 Telephone [facility] Transplant Kidney [address] [facility] 9698 Mailstop [phone] [place] [address] Komal Almeida 12/20/2024 Telephone [facility] Transplant Kidney [address] [facility] 340 Mailstop 95-05-[address] [place] [address] Jacky Rhodesia 11/18/2024 8:[address] [facility] Outpatient Lab at [address] [phone] 11/18/2024 8:13 AM CDT - 11/18/2024 11:59 PM CDT Hospital Encounter [address] [address] Transplanted kidney; Encounter for long-term (current) use of high-risk medication Discharge Disposition: Discharge to home or self care 10/17/2024 Telephone [facility] Transplant Kidney [address] [place] [address] Komal Almeida 10/14/2024 Telephone [facility] Transplant Kidney [address] [place] [address] Dario Phelps, ASHLEY 10/11/2024 Telephone [facility] Transplant Kidney [address] [place] [address] Komal Almeida 10/10/2024 Results Follow-Up [facility] Transplant Kidney [address] [place] [address] Dario Phelps, RN HLA Donor Specific Antibody Report 10/10/2024 Telephone [facility] Transplant Kidney [address] [facility] [address] [place] [address] Dario Phelps, RN 10/10/2024 Orders Only [facility] Transplant Kidney [address] [place] [address] Joanna Santana Kidney replaced by transplant (Primary Dx) 10/07/2024 8:15 AM CDT Lab [facility] [address] [place] [address] Kidney replaced by transplant 10/07/2024 6:51 AM CDT - 10/07/2024 11:59 PM CDT Hospital Encounter [facility] Rad[facility] ([facility]) [address] [place] [address] Kidney replaced by transplant; Hypertension, unspecified type Discharge Disposition: Discharge to home or self care 10/07/2024 Results Follow-Up [facility] Transplant Kidney [address] [facility] 3401 Mailstop [phone] [place] [address] Dario Phelps, RN Renal Transplant W Dopplers 10/05/2024 Telephone [facility] Transplant Kidney [address] [facility] 3401 Mailstop [phone] [place] [address] Dario Phelps, RN 10/05/2024 Telephone [facility] Transplant Kidney [address] [facility] 3401 Mailstop [phone] [place] [address] Dario Phelps, RN 10/03/2024 8:30 AM CDT - 10/03/2024 11:59 PM CDT Hospital Encounter [address] [address] Kidney replaced by transplant Discharge Disposition: Discharge to home or self care 10/03/2024 8:[address] [facility] Outpatient Lab at [address] [address] End stage renal disease (HCC) (Primary Dx) 10/02/2024 Telephone [facility] Transplant Kidney [address] [facility] [address] Mailstop [phone] [place] [address] Sarah Draper, RN After Hours 09/28/2024 Telephone [facility] Transplant Kidney [address] [facility] 3401 Mailstop [phone] [place] [address] Dario Phelps, RN 09/27/2024 Telephone [facility] Transplant Kidney [address] [facility] [address] Mailstop [phone] [place] [address] Dario Phelps, RN 09/26/2024 7:20 PM CDT Lab [facility] ([facility]) [address] [place] [phone] Kidney replaced by transplant 09/26/2024 Telephone [facility] Transplant Kidney [address] [facility] [address] Mailstop [phone] [place] [address] Amie Merrill RN 09/22/2024 Telephone [facility] Transplant Kidney [address] [facility] 3405 Mailstop [phone] [place] [address] Komal Almeida from Last 3 Months Immunizations [...] on file Legal Sex Male 2:12 AM HARP ACTION ASSEMBLER Gender Identity Not on file Sexual Orientation [...] this topic Medical Devices Explanted Type Area Professor Of Languages Device Identifier Shelf Expiration Date Model / Serial / Lot Circon-Surgi leti [id number] Double-J 6fr 20cm 100cm 1 Step Insert Push Catheter Sumrall Suture - [id number] Implanted:Qt y: 1 on 01/04/2019 by Yue Howell MD PhD at [facility] Explanted:Qt y: 1 on 01/25/2019 by Inés Comer, TONIA Stent Right: Ureter Circon-Surgitek 01/01/2023 [id number] / / [id number] Description:Transplanted ure ter [employer] Double-J 6fr 20cm 100cm 1 Step Insert Push Catheter Sumrall Suture [id number] - [id number] Implanted:Qt y: 1 on 02/20/2022 by Yue Howell MD PhD at [facility] Explanted:Qt y: 1 on 03/25/2022 by Philip Coleman NP Stent Left: Transplanted Ureter [employer] [id number] 02/27/2026 [id number] / / [id number] Procedures Procedure Name Priority Date/Time Associated Diagnosis [...] BLOOD ORDERABLES Final R esult [facility] [address] Department [place] [address] * (ABNORMAL) Differential, auto (11/18/2024 8:13 AM CDT) Neutrophil abs 3.73 1.50 - 6.50 K/cumm Imm gran abs 0.01 0.00 - 0.10 K/cumm [facility] Lymphocyte abs 0.79(L) 0.80 - 3.30 K/cumm [facility] Monocyte abs 0.47 0.20 - 0.80 K/cumm [facility] Eosinophil abs 0.16 0.00 - 0.50 K/cumm [facility] Basophil abs 0.04 0.00 - 0.10 K/cumm [facility] Neutrophil pct 71.7 % [facility] Comment: Interpretive Data Percent cell count reference ranges are not reported, since discordance with absolute values may lead to misinterpretation of CBC data. Current Interpretive Data was last revised on 2017. Imm gran pct 0.2 % [facility] Comment: Interpretive Data Percent cell count reference ranges are not reported, since discordance with absolute values may lead to misinterpretation of CBC data. Current Interpretive Data was last revised on 2017. Lymphocyte pct 15.2 % [facility] Comment: Interpretive Data Percent cell count reference ranges are not reported, since discordance with absolute values may lead to misinterpretation of CBC data. Current Interpretive Data was last revised on 2017. Monocyte pct 9.0 % [facility] Comment: Interpretive Data Percent cell count reference ranges are not reported, since discordance with absolute values may lead to misinterpretation of CBC data. Current Interpretive Data was last revised on 2017. Eosinophil pct 3.1 % [facility] Comment: Interpretive Data Percent cell count reference ranges are not reported, since discordance with absolute values may lead to misinterpretation of CBC data. Current Interpretive Data was last revised on 2017. Basophil pct 0.8 % [facility] Comment: Interpretive Data Percent cell count reference ranges are not reported, since discordance with absolute values may lead to misinterpretation of CBC data. Current Interpretive Data was last revised on 2017. Blood 11/18/2024 8:13 AM CDT 11/18/2024 3:16 PM CDT us Earnest Crandall MD LAB BLOOD ORDERABLES Final R esult [place] [address] [place] [address] * Tacrolimus level trough (11/18/2024 8:13 AM CDT) Pathologist [facility] Tacrolimus trough 8.5 ng/mL Comment: Interpretive Data Testing performed by liquid chromatography-tandem mass spectrometry. Therapeutic concentrations vary depending on type of transplanted organ and time elapsed since transplant. Typical trough concentrations range from 5-15 ng/mL. This test was developed and its performance characteristics determined by the [facility] consistent with CLIA requirements. This test has not been cleared or approved by the US Food and Drug administration. Current interpretive data last reviewed 2019. Testing performed by: [facility], [address] [place]., [address] Blood 11/18/2024 8:13 AM CDT 11/18/2024 10:[address] [facility] - 11/19/2024 2:14 AM CDT MONTHLY (EVERY 4 WEEKS) Earnest Crandall MD LAB BLOOD ORDERABLES Final R esult [facility] [address] Department [place] [address] * (ABNORMAL) CBC with auto differential (11/18/2024 8:13 AM CDT) Pathologist [facility] WBC 5.20 3.80 - 9.90 K/cumm Hgb 14.5 13.0 - 17.5 g/dL [facility] Hct 45.9 38.9 - 50.3 % [facility] Plt 205 150 - 400 K/cumm [facility] MPV 9.7 9.1 - 12.3 fL [facility] RBC 5.01 4.30 - 5.80 M/cumm [facility] [...] MD LAB BLOOD ORDERABLES Final R esult [facility] [address] Department [place] [address] * (ABNORMAL) Renal function panel (11/18/2024 8:13 AM CDT) Sodium 143 135 - 145 mmol/L Potassium, pl 4.9 3.3 - 4.9 mmol/L [facility] Chloride 108 97 - 110 mmol/L [facility] CH CO2 23 22 - 32 mmol/L [facility] CH Anion gap 12 2 - 15 mmol/L [facility] BUN 22 6 - 25 mg/dL [facility] Creatinine 1.59(H) 0.80 - 1.30 mg/dL [facility] Glucose 110 70 - 199 mg/dL [facility] Comment: Interpretive Data Fasting glucose >/= 126 [...] BLOOD ORDERABLES Final R esult [facility] GUTIERREZ [address] Department [place] [address] * US Renal Transplant W Dopplers (10/07/2024 [...] Callum Fung MD, PHD Emily Foreman MD [facility] US PROCEDURES Final Result * (ABNORMAL) BK virus PCR quantitative Blood (10/07/2024 7:10 AM CDT) [facility] BKV DNA result, pl Detected( A) [facility] Comment: The quantifiable range of this assay is 21.5 IU/mL to 100,000,000 IU/mL (1.33 log IU/mL to 8.00 log IU/mL). Testing was performed by the NIKI 6800 BKV Quantatitive Test version 2.0 ([employer] Testing performed at [facility] Current Interpretive Data was last revised on 2021. BKV DNA IU/mL, pl 3,130.0 IUnits/mL [facility] BKV DNA Log IU/mL, pl 3.50 log IUnits/mL [facility] Blood 10/07/2024 7:10 AM CDT 10/07/2024 7:57 AM CDT Earnest Crandall MD LAB MICROBIOLOGY - GENERAL O RDERABLES Final Result Performing Organization Address [facility] Co de Phone Number [facility] Department [place] [address] BJ * Collection Task for HLA Platelet Antibody Screen (10/07/2024 7:10 AM CDT) Pathologist [facility] HLA PLATELET SC Received Blood 10/07/2024 7:10 AM CDT 10/07/2024 8:21 AM CDT Earnest Crandall MD LAB BLOOD ORDERABLES Final R esult Performing Organization Address [facility] de Phone Number [facility] Department [place] [address] * HLA Donor Specific Antibody Report (10/07/2024 7:10 AM CDT) Earnest Crandall MD LAB BLOOD ORDERABLES Final R esult * HLA Antibody Screen - DSA (Class I and Class II) (10/07/2024 7:10 AM CDT) Blood 10/07/2024 7:10 AM CDT 10/10/2024 6:31 AM CDT Narrative [facility] - 10/10/2024 6:31 AM CDT Earnest Crandall MD LAB BLOOD ORDERABLES Final R esult Performing Organization Address [facility] Co de Phone Number [facility] * Tacrolimus level trough (10/07/2024 7:10 AM CDT) Tacrolimus trough 8.0 ng/mL Comment: Interpretive Data Testing performed by liquid chromatography-tandem mass spectrometry. Therapeutic concentrations vary depending on type of transplanted organ and time elapsed since transplant. Typical trough concentrations range from 5-15 ng/mL. This test was developed and its performance characteristics determined by the [facility] consistent with CLIA requirements. This test has not been cleared or approved by the US Food and Drug administration. Current interpretive data last reviewed 2019. Blood 10/07/2024 7:10 AM CDT 10/07/2024 7:34 AM CDT us Earnest Crandall MD LAB BLOOD ORDERABLES Final R esult [facility] Department [place] [address] * (ABNORMAL) BK virus PCR quantitative Urine (10/03/2024 8:30 AM CDT) [facility] BKV DNA result, ur Detected( A) [facility] Comment: The quantifiable range of this assay is 200 IU/mL to 100,000,000 IU/mL (2.30 log IU/mL to 8.00 log IU/mL). Testing was performed by the NIKI 6800 BKV Quantatitive Test version 2.0 ([employer] Testing performed at [facility] Current Interpretive Data was last revised on 2021. Testing performed by: [facility], [address] [place]., [address] BKV DNA IU/mL, ur 89,900,00 0(C) IUnits/mL [facility] Comment:Testing performed by : [facility], [address] [place] [address] BKV DNA Log IU/mL, ur 7.95 log IUnits/mL [facility] Comment:Testing performed by : [facility], [address] [place] [address] Urine 10/03/2024 8:30 AM CDT 10/04/2024 10:30 AM CDT Mikki Resendiz MD LAB MICROBIOLOGY - GENERAL ORDERABLES Final Result Performing Organization Address City/[facility] Co de Phone Number [facility] GUT[facility] [address] Department [place] [address] [facility] * eGFR (10/03/2024 8:30 AM CDT) [...] ORDERABL ES Final Result Performing Organization Address City/[facility]/ZIP Co de Phone Number WALTER GUTIERREZ [address] Department of Laboratories [place], [place] [id number] * (ABNORMAL) Differential, auto (10/03/2024 8:30 AM CDT) Neutrophil abs 3.76 1.50 - 6.50 K/cumm Imm gran abs 0.03 0.00 - 0.10 K/cumm [facility] Lymphocyte abs 0.61(L) 0.80 - 3.30 K/cumm [facility] Monocyte abs 0.50 0.20 - 0.80 K/cumm [facility] Eosinophil abs 0.15 0.00 - 0.50 K/cumm [facility] Basophil abs 0.03 0.00 - 0.10 K/cumm [facility] Neutrophil pct 74.0 % [facility] Comment: Interpretive Data Percent cell count reference ranges are not reported, since discordance with absolute values may lead to misinterpretation of CBC data. Current Interpretive Data was last revised on 2017. Imm gran pct 0.6 % [facility] Comment: Interpretive Data Percent cell count reference ranges are not reported, since discordance with absolute values may lead to misinterpretation of CBC data. Current Interpretive Data was last revised on 2017. Lymphocyte pct 12.0 % [facility] Comment: Interpretive Data Percent cell count reference ranges are not reported, since discordance with absolute values may lead to misinterpretation of CBC data. Current Interpretive Data was last revised on 2017. Monocyte pct 9.8 % [facility] Comment: Interpretive Data Percent cell count reference ranges are not reported, since discordance with absolute values may lead to misinterpretation of CBC data. Current Interpretive Data was last revised on 2017. Eosinophil pct 3.0 % [facility] Comment: Interpretive Data Percent cell count reference ranges are not reported, since discordance with absolute values may lead to misinterpretation of CBC data. Current Interpretive Data was last revised on 2017. Basophil pct 0.6 % [facility] Comment: Interpretive Data Percent cell count reference ranges are not reported, since discordance with absolute values may lead to misinterpretation of CBC data. Current Interpretive Data was last revised on 2017. Blood 10/03/2024 8:30 AM CDT 10/03/2024 10:10 PM CDT Mikki Resnediz MD LAB BLOOD ORDERABL ES Final Result [facility] [address] Department [place] [address] * Tacrolimus level trough (10/03/2024 8:30 AM CDT) Tacrolimus trough 4.6 ng/mL Comment: Interpretive Data Testing performed by liquid chromatography-tandem mass spectrometry. Therapeutic concentrations vary depending on type of transplanted organ and time elapsed since transplant. Typical trough concentrations range from 5-15 ng/mL. This test was developed and its performance characteristics determined by the [facility] consistent with CLIA requirements. This test has not been cleared or approved by the US Food and Drug administration. Current interpretive data last reviewed 2019. Testing performed by: [facility], [address] [place]., [address] Blood 10/03/2024 8:30 AM CDT 10/04/2024 3:58 AM CDT us Mikki Resendiz MD LAB BLOOD ORDERABL ES Final Result [facility] [address] Department [place] [address] * Urinalysis reflex to microscopic and culture [...] tendency for uric acid stone formation. Source: [facility] [employer] Current Interpretive Data was last revised on [...] GENERAL ORDERABLES Final Result Performing Organization Address [facility] Co de Phone Number WALTER GUTIERREZ [address] Department [place] [address] * (ABNORMAL) CBC with auto differential (10/03/2024 8:30 AM CDT) Pathologist [facility] WBC 5.08 3.80 - 9.90 K/cumm Hgb 13.9 13.0 - 17.5 g/dL [facility] Hct 46.0 38.9 - 50.3 % [facility] Plt 185 150 - 400 K/cumm [facility] MPV 9.7 9.1 - 12.3 fL [facility] RBC 4.93 4.30 - 5.80 M/cumm [facility] MCV 93.3 81.3 - 96.4 fL [facility] MCH 28.2 27.1 - 33.3 pg [facility] MCHC 30.2(L) 32.3 - 35.7 g/dL [facility] RDW CV 14.0 11.1 - 14.9 % [facility] RDW SD 47.8 35.7 - 48.1 fL [facility] NRBC abs 0.00 0.00 - 0.01 K/cumm [facility] Blood 10/03/2024 8:30 AM CDT 10/03/2024 10:10 PM CDT Mikki Resendiz MD LAB BLOOD ORDERABL ES Final Result Performing Organization Address City/[facility]/ZIP Co de Phone Number WALTER GUTIERREZ [address] [place] [address] * Protein / creatinine ratio, urine, random (10/03/2024 8:30 AM CDT) Protein, ur, quant 7.6 mg/dL Comment: Interpretive Data No reference range established. Current interpretive data was last revised 2018. Creatinine Ur 126.2 mg/dL [facility] Comment: Interpretive Data No reference range established. Current interpretive data was last revised 2018. Protein/creatinin e ratio 60.2 0.0 - 180.0 mg/g CR [facility] Urine 10/03/2024 8:30 AM CDT 10/03/2024 10:10 PM CDT us Mikki Resendiz MD LAB URINE ORDERABL ES Final Result [facility] [address] Department [place] [address] * (ABNORMAL) Renal function panel (10/03/2024 8:30 AM CDT) Sodium 141 135 - 145 mmol/L Potassium, pl 4.5 3.3 - 4.9 mmol/L [facility] Chloride 106 97 - 110 mmol/L [facility] CO2 26 22 - 32 mmol/L [facility] Anion gap 9 2 - 15 mmol/L [facility] BUN 11 6 - 25 mg/dL [facility] Creatinine 1.50(H) 0.80 - 1.30 mg/dL [facility] Glucose 102 70 - 199 mg/dL [facility] Comment: Interpretive Data Fasting glucose >/= [...] 2022. Calcium 9.9 8.5 - 10.3 mg/dL [facility] Phosphorus, pl 2.4 2.3 - 4.5 mg/dL [facility] Albumin 4.5 3.5 - 5.0 g/dL [facility] Blood 10/03/2024 8:30 AM CDT 10/03/2024 10:10 PM CDT us Mikki Resendiz MD LAB BLOOD ORDERABL ES Final Result [facility] [address] Department [place] [address] * Allosure kidney donor-derived cell-free DNA (cFDNA) [...] For more information about [employer], please visit [email or web address]. Specimens from kidney retransplant recipients in whom [...] its performance characteristics were determined by the [facility] laboratory. The test has not been cleared or approved by the U.S. Food and Drug Administration, nor is it currently required to be. The laboratory is certified under the Clinical Laboratory Improvement Amendments of 1988 (CLIA '88) and accredited by the [employer] (CAP) as qualified to perform high complexity clinical laboratory testing. The contents of this report are confidential and intended solely for the use of authorized personnel. AlloSure testing performed at [facility]. [address] [place] [id number] (CLIA No: [id number], CAP No: [id number]) Manager House: Jon Brink M.D. Plasma 09/26/2024 9:30 PM CDT us Earnest Crandall MD LAB BLOOD ORDERABLES Final R esult [facility] * (ABNORMAL) BK virus PCR quantitative Blood (09/26/2024 3:32 PM CDT) Pathologist [facility] BKV DNA result, pl Detected( A) [facility] Comment: The quantifiable range of this assay is 21.5 IU/mL to 100,000,000 IU/mL (1.33 log IU/mL to 8.00 log IU/mL). Testing was performed by the NIKI GOPOP.TV0 BKV Quantatitive Test version 2.0 ([employer] Testing performed at [facility] Current Interpretive Data was last revised on 2021. BKV DNA IU/mL, pl 2,800.0 IUnits/mL [facility] BKV DNA Log IU/mL, pl 3.45 log IUnits/mL [facility] Blood 09/26/2024 3:32 PM CDT 09/26/2024 4:18 PM CDT Mikki Resendiz MD LAB MICROBIOLOGY - GENERAL ORDERABLES Final Result Performing Organization Address [facility] Co de Phone Number [facility] [place] [address] [facility] * Cytomegalovirus (CMV) DNA PCR, quantitative Blood (09/26/2024 3:32 PM CDT) [facility] CMV DNA Not Detected [facility] Comment: Interpretive Data: The quantifiable range of this assay is 34 IUnits/mL to 10,000,000 IUnits/mL (1.53 log IUnits/mL to 7.0 log IUnits/mL). Testing was performed by the NIKI 6800 CMV Test ([employer] Testing performed at [facility]. Current interpretive data was last revised on 2020. Blood 09/26/2024 3:32 PM CDT 09/26/2024 4:18 PM CDT Mikki Resendiz MD LAB MICROBIOLOGY - GENERAL ORDERABLES Final Result Performing Organization Address [facility]/ZIP Co de Phone Number [facility] [place] [address] [facility] * (ABNORMAL) eGFR (09/26/2024 3:23 PM CDT) [facility] eGFR 52(L) >=60 mL/min/1. 73 m2 Comment: [...] MD LAB BLOOD ORDERABL ES Final Result [facility] Department [place] [address] * (ABNORMAL) Differential, auto (09/26/2024 3:23 PM CDT) Neutrophil abs 5.05 1.50 - 6.50 K/cumm Imm gran abs 0.02 0.00 - 0.10 K/cumm [facility] Lymphocyte abs 0.56(L) 0.80 - 3.30 K/cumm [facility] Monocyte abs 0.47 0.20 - 0.80 K/cumm [facility] Eosinophil abs 0.09 0.00 - 0.50 K/cumm [facility] Basophil abs 0.05 0.00 - 0.10 K/cumm [facility] Neutrophil pct 81.0 % [facility] Comment: Interpretive Data Percent cell count reference ranges are not reported, since discordance with absolute values may lead to misinterpretation of CBC data. Current Interpretive Data was last revised on 2017. Imm gran pct 0.3 % [facility] Comment: Interpretive Data Percent cell count reference ranges are not reported, since discordance with absolute values may lead to misinterpretation of CBC data. Current Interpretive Data was last revised on 2017. Lymphocyte pct 9.0 % [facility] Comment: Interpretive Data Percent cell count reference ranges are not reported, since discordance with absolute values may lead to misinterpretation of CBC data. Current Interpretive Data was last revised on 2017. Monocyte pct 7.5 % [facility] Comment: Interpretive Data Percent cell count reference ranges are not reported, since discordance with absolute values may lead to misinterpretation of CBC data. Current Interpretive Data was last revised on 2017. Eosinophil pct 1.4 % [facility] Comment: Interpretive Data Percent cell count reference ranges are not reported, since discordance with absolute values may lead to misinterpretation of CBC data. Current Interpretive Data was last revised on 2017. Basophil pct 0.8 % [facility] Comment: Interpretive Data Percent cell count reference ranges are not reported, since discordance with absolute values may lead to misinterpretation of CBC data. Current Interpretive Data was last revised on 2017. Blood 09/26/2024 3:23 PM CDT 09/26/2024 3:49 PM CDT Mkiki Resendiz MD LAB BLOOD ORDERABL ES Final Result Performing Organization Address City/[facility]/ZIP Co de Phone Number [facility] Department [place] [address] * Iron profile w/ IBC (09/26/2024 3:23 PM CDT) Iron 109 50 - 150 mcg/dL TIBC 269 250 - 400 mcg/dL [facility] Transferrin saturation 41 20 - 50 % [facility] Blood 09/26/2024 3:23 PM CDT 09/26/2024 3:49 PM CDT Mikki Resendiz MD LAB BLOOD ORDERABL ES Final Result [facility] Department [place] [address] * CBC with auto differential (09/26/2024 3:23 PM CDT) [facility] WBC 6.24 3.80 - 9.90 K/cumm Hgb 14.3 13.0 - 17.5 g/dL [facility] Hct 42.9 38.9 - 50.3 % [facility] Plt 184 150 - 400 K/cumm [facility] MPV 9.3 9.1 - 12.3 fL [facility] RBC 5.01 4.30 - 5.80 M/cumm [facility] MCV 85.6 81.3 - 96.4 fL [facility] MCH 28.5 27.1 - 33.3 pg [facility] MCHC 33.3 32.3 - 35.7 g/dL [facility] RDW CV 13.6 11.1 - 14.9 % [facility] RDW SD 42.3 35.7 - 48.1 fL [facility] NRBC abs 0.00 0.00 - 0.01 K/cumm [facility] Blood 09/26/2024 3:23 PM CDT 09/26/2024 3:49 PM CDT Mikki Resendiz MD LAB BLOOD ORDERABL ES Final Result Performing Organization Address City/[facility]/ZIP Co de Phone Number [facility] Department [place] [address] * Folate (09/26/2024 3:23 PM CDT) [facility] Folic acid 13.5 >=5.0 ng/mL Blood 09/26/2024 3:23 PM CDT 09/26/2024 3:49 PM CDT Mikki Resendiz MD LAB BLOOD ORDERABL ES Final Result [facility] [place] [address] * (ABNORMAL) Ferritin (09/26/2024 3:23 PM CDT) [facility] Ferritin 670(H) 30 - 400 ng/mL Blood 09/26/2024 3:23 PM CDT 09/26/2024 3:49 PM CDT Mikki Resendiz MD LAB BLOOD ORDERABL ES Final Result Performing Organization Address [facility]/[place] [address] * Vitamin B12 (09/26/2024 3:23 PM CDT) [facility] Vitamin B12 431 230 - 1,250 pg/mL Blood 09/26/2024 3:23 PM CDT 09/26/2024 3:49 PM CDT Mikki Resendiz MD LAB BLOOD ORDERABL ES Final Result Performing Organization Address [facility] [place] [address] * (ABNORMAL) Renal function panel (09/26/2024 3:23 PM CDT) [facility] Sodium 140 135 - 145 mmol/L Potassium, pl 4.5 3.3 - 4.9 mmol/L [facility] Chloride 103 97 - 110 mmol/L [facility] CO2 26 22 - 32 mmol/L [facility] Anion gap 11 2 - 15 mmol/L [facility] BUN 19 6 - 25 mg/dL [facility] Creatinine 1.79(H) 0.80 - 1.30 mg/dL [facility] Glucose 112 70 - 199 mg/dL [facility] Comment: Interpretive Data Fasting glucose >/= 126 [...] 2022. Calcium 10.3 8.5 - 10.3 mg/dL [facility] Phosphorus, pl 2.5 2.3 - 4.5 mg/dL [facility] Albumin 4.9 3.5 - 5.0 g/dL [facility] Blood 09/26/2024 3:23 PM CDT 09/26/2024 3:49 PM CDT us Mikki Resendiz MD LAB BLOOD ORDERABL ES Final Result Performing Organization Address [facility] Co de Phone Number [facility] [place] [address] * Hepatitis C (HCV) RNA PCR, quantitative (03/27/2022 8:30 AM CDT) [facility] HCV RNA result Not Detected [facility] Comment: The quantifiable range of this assay is 15 IU/mL to 100,000,000 IU/mL (1.18 log IU/mL to 8.00 log IU/mL). Testing was performed by the NIKI 6800 HCV Test ([employer] Testing performed at [facility] Current Interpretive Data was last revised on 2021 Blood 03/27/2022 8:30 AM CDT 03/27/2022 1:53 PM CDT us Frandy Dewey MD LAB MICROBIOLOGY - GENERAL ORDERABLES Final Result [facility] [place] [address] from Last 3 Months or Most Recently Relevant to Health Maintenance Insurance MEDICARE [employer] MEDICARE [employer] MEDICARE [employer] O MEDICARE MEDICARE Advance Directives For more information, please contact: [phone] Documents on File Type Date Recorded Patient Manager Media Relations Expl anation ADVANCE DIRECTIVE 01/16/2022 6:49 AM Power of Battalion Fire Chief-Medical Power of Battalion Fire Chief 02/21/2021 8:31 AM DPOA * Full Code [...] 8:51 AM 12/26/2021 8:41 PM Care Teams Airport Location Manager Relationship Specialty Start Date End Date Vanita Amaro DO [id number] [place] [address] PCP - General 10/02/20 Dixie Schroeder MD [address] [facility] [address] [place] [address] Referring Physician Nephrology 08/03/20 Tg Ervin, ad operations coordinatorAssistant Professor Of Drama 02/20/22
--- OUTSIDE RECORDS SUMMARY | 2024-12-21 20:34 | XMS_ITS ---
Author Organization [facility] Address [address] [place] [address] Care Team Providers Care Supervisor [employer] Name Role Phone Dixie Schroeder MD Unavailable [phone] Vanita Amaro DO Primary Care Provider [phone] Tg Ervin RN Unavailable Unava ilable Dialysis [...] (sister), and Pj (other). Pharmacy: [facility] Specialty: [facility] Specialty Program [facility] OUT[facility]IENT [facility], [place] P: [phone] F: [phone] Q-MONTHLY, FK, BK; Q-3 ROUTINE B-ISOTITERS (CERNER ) Exp 03/21/2025 HH: [facility] Home Care Problem Noted Date Diagnosed Date [...] of circulatory system 09/18/2020 ESRD on hemodialysis ([facility]) 08/08/2020 Overview (08/08/2020): Added automatically from request for surgery [id number] Hypertension, essential 06/19/2020 Assessment & Plan (01/11/2022 11:03 AM CDT): Continue with labetalol and nifedipine. Holding home clonidine and hydralazine Assessment & Plan (01/10/2022 8:31 PM CDT): - Was on Labetolol and Nifedipine as home meds - Clonidine and Hydralazine held for now - can be restarted in case the BP remains uncontrolled . Assessment & Plan (06/19/2020 9:38 AM SALES AND DISTRIBUTION CLERK): Pt's SBP consistently between 150s-170s since admission. Likely due to medication effect and from his ARF. -Started amlodipine 10mg daily -Will consider spot labetalol IV 10mg if SBP persistently > 180 Acute renal failure 06/18/2020 Assessment & Plan (06/25/2020 12:22 PM SALES AND DISTRIBUTION CLERK): Hx of Alport syndrome with ESRD, s/p [...] 06/18/2020 Assessment & Plan (06/23/2020 9:54 AM SALES AND DISTRIBUTION CLERK): Hgb 6.8 at admission, 16.5 in 11/2019. Likely due to ARF. - Iron (168), ferritin (588), folate (7.5), B12 (1,143), haptoglobin (61.0), LDH (221). - consent for blood in paper chart, transfuse hb >7 (2 units this admission) - s/p retacrit [id number] units (06/21, 06/23) Increased anion gap metabolic acidosis Assessment & Plan (06/25/2020 12:22 PM SALES AND DISTRIBUTION CLERK): AG 19 at admission. Likely due to [...] pred 5 daily, tacro 3 daily Immunosuppression ([facility]) 12/23/2018 Hyperparathyroidism, secondary renal 12/23/2018 Iron deficiency anemia 12/23/2018 Assessment & Plan (01/10/2022 8:28 PM CDT): - H/H stable, continue to monitor CBC - f/u Ferritin and iron profile in am - not currently on supplementation End stage renal disease ([facility]) 11/18/2018 Overview (11/18/2018): Added automatically from request for surgery [id number] Assessment & Plan (01/11/2022 11:07 AM CDT): [...] - Pt is a known pt at [facility] center in [place], [place] - As per the pt he [...] on file Legal Sex Male 2:12 AM SALES AND DISTRIBUTION CLERK Gender Identity Not on file Sexual Orientation [...] LAB BLOOD ORDERABLES Final R esult WALTER [address] Department [place] [address] * (ABNORMAL) Differential, auto (11/18/2024 8:13 AM [...] Crandall MD LAB BLOOD ORDERABLES Final R [facility] Performing Organization Address [facility] Co de Phone Number WALTER GUTIERREZ [address] [address] [place] [address] * Tacrolimus level trough (11/18/2024 8:13 AM CDT) Tacrolimus trough 8.5 ng/mL Comment: Interpretive Data Testing performed by liquid chromatography-tandem mass spectrometry. Therapeutic concentrations vary depending on type of transplanted organ and time elapsed since transplant. Typical trough concentrations range from 5-15 ng/mL. This test was developed and its performance characteristics determined by the [facility] consistent with CLIA requirements. This test has not been cleared or approved by the US Food and Drug administration. Current interpretive data last reviewed 2019. Testing performed by: [facility], [address] [place]., [address] Blood 11/18/2024 8:13 AM CDT 11/18/2024 10:03 PM CDT Narrative WALTER - 11/19/2024 2:14 AM CDT MONTHLY (EVERY 4 WEEKS) Earnest Crandall MD LAB BLOOD ORDERABLES Final R darion Performing Organization Address [facility] Co de Phone Number WALTER GUTIERREZ [address] [address] [place] [address] * (ABNORMAL) CBC with auto differential (11/18/2024 8:13 AM CDT) WBC 5.20 3.80 - 9.90 K/cumm Hgb 14.5 13.0 - 17.5 g/dL [facility] Hct 45.9 38.9 - 50.3 % [facility] Plt 205 150 - 400 K/cumm [facility] MPV 9.7 9.1 - 12.3 fL [facility] RBC 5.01 4.30 - 5.80 M/cumm [facility] MCV 91.6 81.3 - 96.4 fL CERNER [...] LAB BLOOD ORDERABLES Final R esult WALTER [address] Department [place] [address] * (ABNORMAL) Renal function panel (11/18/2024 8:13 AM CDT) Pathologist [facility] Sodium 143 135 - 145 mmol/L Potassium, pl 4.9 3.3 - 4.9 mmol/L C[facility] Chloride 108 97 - 110 mmol/L [facility] CO2 23 22 - 32 mmol/L [facility] Anion gap 12 2 - 15 mmol/L [facility] BUN 22 6 - 25 mg/dL [facility] Creatinine 1.59(H) 0.80 - 1.30 mg/dL [facility] Glucose 110 70 - 199 mg/dL [facility] Comment: Interpretive Data Fasting glucose >/= [...] 2022. Calcium 9.8 8.5 - 10.3 mg/dL [facility] Phosphorus, pl 3.0 2.3 - 4.5 mg/dL [facility] Albumin 4.5 3.5 - 5.0 g/dL [facility] Blood 11/18/2024 8:13 AM CDT 11/18/2024 3:16 PM CDT Narrative WALTER GUTIERREZ - 11/18/2024 3:42 PM CDT MONTHLY (EVERY 4 WEEKS) Earnest Crandall MD LAB BLOOD ORDERABLES Final R esult WALTER GUTIERREZ [address] [place] [address] * US Renal Transplant W Dopplers (10/07/2024 [...] Callum Fung MD, PHD Emily Foreman MD [facility] PROCEDURES Final Result * (ABNORMAL) BK virus PCR quantitative Blood (10/07/2024 7:10 AM CDT) Pathologist [facility] BKV DNA result, pl Detected( A) [facility] Comment: The quantifiable range of this assay is 21.5 IU/mL to 100,000,000 IU/mL (1.33 log IU/mL to 8.00 log IU/mL). Testing was performed by the NIKI KeyMe0 BKV Quantatitive Test version 2.0 ([email or web address] Testing performed at [facility] Current Interpretive Data was last revised on 2021. BKV DNA IU/mL, pl 3,130.0 IUnits/mL [facility] BKV DNA Log IU/mL, pl 3.50 log IUnits/mL [facility] Blood 10/07/2024 7:10 AM CDT 10/07/2024 7:57 AM CDT Earnest Crandall MD LAB MICROBIOLOGY - GENERAL O RDERABLES Final Result Performing Organization Address City/[facility]/ZIP Co de Phone Number [facility] [place] [address] BJ * Collection Task for HLA Platelet Antibody Screen (10/07/2024 7:10 AM CDT) Pathologist [facility] HLA PLATELET SC Received Blood 10/07/2024 7:10 AM CDT 10/07/2024 8:21 AM CDT Earnest Crandall MD LAB BLOOD ORDERABLES Final R esult Performing Organization Address City/[facility] Co de Phone Number [facility] [place] [address] * HLA Donor Specific Antibody Report (10/07/2024 [...] ORDERABLES Final R esult Performing Organization Address City/[facility]/ZIP Co de Phone Number [facility] * Tacrolimus level trough (10/07/2024 7:10 AM CDT) Pathologist [facility] Tacrolimus trough 8.0 ng/mL Comment: Interpretive Data Testing performed by liquid chromatography-tandem mass spectrometry. Therapeutic concentrations vary depending on type of transplanted organ and time elapsed since transplant. Typical trough concentrations range from 5-15 ng/mL. This test was developed and its performance characteristics determined by the [facility] consistent with CLIA requirements. This test has not been cleared or approved by the US Food and Drug administration. Current interpretive data last reviewed 2019. Blood 10/07/2024 7:10 AM CDT 10/07/2024 7:34 AM CDT Earnest Crandall MD LAB BLOOD ORDERABLES Final R esult Performing Organization Address [facility] de Phone Number [facility] [place] [address] * (ABNORMAL) BK virus PCR quantitative Urine (10/03/2024 8:30 AM CDT) Pathologist [facility] BKV DNA result, ur Detected( A) [facility] Comment: The quantifiable range of this assay is 200 IU/mL to 100,000,000 IU/mL (2.30 log IU/mL to 8.00 log IU/mL). Testing was performed by the NIKI 6800 BKV Quantatitive Test version 2.0 ([email or web address] Testing performed at [facility] Current Interpretive Data was last revised on 2021. Testing performed by: [facility], [address] [place]., [address] BKV DNA IU/mL, ur 89,900,00 0(C) IUnits/mL WALTER Comment:Testing performed by : [facility], [address] [place]., [address] BKV DNA Log IU/mL, ur 7.95 log IUnits/mL WALTER GUTIERREZ Comment:Testing performed by : [facility], [address] [facility] [place] [address] Urine 10/03/2024 8:30 AM CDT 10/04/2024 10:30 AM CDT Mikki Resendiz MD LAB MICROBIOLOGY - GENERAL ORDERABLES Final Result WALTER GUTIERREZ [address] [place] [address] [facility] * eGFR (10/03/2024 8:30 AM CDT) [...] BLOOD ORDERABL ES Final Result [place] GUTIERREZ [address] Department [place] [employer] [place] [address] * (ABNORMAL) Differential, auto (10/03/2024 8:30 AM CDT) Neutrophil abs 3.76 1.50 - 6.50 K/cumm Imm gran abs 0.03 0.00 - 0.10 K/cumm [facility] Lymphocyte abs 0.61(L) 0.80 - 3.30 K/cumm [facility] Monocyte abs 0.50 0.20 - 0.80 K/cumm [facility] Eosinophil abs 0.15 0.00 - 0.50 K/cumm [facility] Basophil abs 0.03 0.00 - 0.10 K/cumm [facility] Neutrophil pct 74.0 % [facility] Comment: Interpretive Data Percent cell count reference ranges are not reported, since discordance with absolute values may lead to misinterpretation of CBC data. Current Interpretive Data was last revised on 2017. Imm gran pct 0.6 % [facility] Comment: Interpretive Data Percent cell count reference ranges are not reported, since discordance with absolute values may lead to misinterpretation of CBC data. Current Interpretive Data was last revised on 2017. Lymphocyte pct 12.0 % [facility] Comment: Interpretive Data Percent cell count reference ranges are not reported, since discordance with absolute values may lead to misinterpretation of CBC data. Current Interpretive Data was last revised on 2017. Monocyte pct 9.8 % [facility] Comment: Interpretive Data Percent cell count reference ranges are not reported, since discordance with absolute values may lead to misinterpretation of CBC data. Current Interpretive Data was last revised on 2017. Eosinophil pct 3.0 % [facility] Comment: Interpretive Data Percent cell count reference ranges are not reported, since discordance with absolute values may lead to misinterpretation of CBC data. Current Interpretive Data was last revised on 2017. Basophil pct 0.6 % [facility] Comment: Interpretive Data Percent cell count reference ranges are not reported, since discordance with absolute values may lead to misinterpretation of CBC data. Current Interpretive Data was last revised on 2017. Blood 10/03/2024 8:30 AM CDT 10/03/2024 10:10 PM CDT Mikki Resendiz MD LAB BLOOD ORDERABL ES Final Result Performing Organization Address [facility] [place] [address] [address] [facility] [place] [address] * Tacrolimus level trough (10/03/2024 8:30 AM CDT) Tacrolimus trough 4.6 ng/mL Comment: Interpretive Data Testing performed by liquid chromatography-tandem mass spectrometry. Therapeutic concentrations vary depending on type of transplanted organ and time elapsed since transplant. Typical trough concentrations range from 5-15 ng/mL. This test was developed and its performance characteristics determined by the [facility] consistent with CLIA requirements. This test has not been cleared or approved by the [place] Food and Drug administration. Current interpretive data last reviewed 2019. Testing performed by: [facility], [address] [place]., [address] Blood 10/03/2024 8:30 AM CDT 10/04/2024 3:58 AM CDT [facility] LAB BLOOD ORDERABL ES Final Result Performing Organization Address [facility] de Phone Number WALTER GUTIERREZ [address] [place] [address] * Urinalysis reflex to microscopic and culture [...] for uric acid stone formation. Source: [facility] [employer] Current Interpretive Data was last revised on [...] GENERAL ORDERABLES Final Result Performing Organization Address [facility]/ZIP Co de Phone Number WALTER GUTIERREZ [address] [place] [address] * (ABNORMAL) CBC with auto [...] NRBC abs 0.00 0.00 - 0.01 K/cumm [facility] Blood 10/03/2024 8:30 AM CDT 10/03/2024 10:10 PM CDT Mikki Resendiz MD LAB BLOOD ORDERABL ES Final Result Performing Organization Address [facility]/ZIP Co de Phone Number WALTER GUTIERREZ [address] [address] [place] [place] [address] * Protein / creatinine ratio, urine, random (10/03/2024 8:30 AM CDT) Protein, ur, quant 7.6 mg/dL Comment: Interpretive Data No reference range established. Current interpretive data was last revised 2018. Creatinine Ur 126.2 mg/dL [facility] Comment: Interpretive Data No reference range established. Current interpretive data was last revised 2018. Protein/creatinin e ratio 60.2 0.0 - 180.0 mg/g CR [facility] Urine 10/03/2024 8:30 AM CDT 10/03/2024 10:10 PM CDT [facility] LAB URINE ORDERABL ES Final Result [facility] [address] Department [place] [address] * (ABNORMAL) Renal function panel (10/03/2024 8:30 AM CDT) Pathologist [facility] Sodium 141 135 - 145 mmol/L Potassium, pl 4.5 3.3 - 4.9 mmol/L [facility] Chloride 106 97 - 110 mmol/L [facility] CO2 26 22 - 32 mmol/L [facility] Anion gap 9 2 - 15 mmol/L [facility] BUN 11 6 - 25 mg/dL [facility] Creatinine 1.50(H) 0.80 - 1.30 mg/dL [facility] Glucose 102 70 - 199 mg/dL [facility] Comment: Interpretive Data Fasting glucose >/= [...] 2022. Calcium 9.9 8.5 - 10.3 mg/dL [facility] Phosphorus, pl 2.4 2.3 - 4.5 mg/dL [facility] Albumin 4.5 3.5 - 5.0 g/dL [facility] Blood 10/03/2024 8:30 AM CDT 10/03/2024 10:10 PM CDT us Mikki Resendiz MD LAB BLOOD ORDERABL ES Final Result WALTER [address] [place] [address] * Allosure kidney donor-derived cell-free DNA (cFDNA) [...] For more information about AlloSure, please visit [email or web address]. Specimens from kidney retransplant recipients in whom [...] its performance characteristics were determined by the [facility] laboratory. The test has not been cleared or approved by the U.S. Food and Drug Administration, nor is it currently required to be. The laboratory is certified under the Clinical Laboratory Improvement Amendments of 1988 (CLIA '88) and accredited by the [employer] (CAP) as qualified to perform high complexity clinical laboratory testing. The contents of this report are confidential and intended solely for the use of authorized personnel. AlloSure testing performed at [facility]. [address] [place] [address] (CLIA No: [id number], CAP No: [id number]) Label Stamper: Jon Brink M.D. Plasma 09/26/2024 9:30 PM [...] 6800 BKV Quantatitive Test version 2.0 ([email or web address] Testing performed at [facility] Current Interpretive Data was last revised on 2021. BKV DNA IU/mL, pl 2,800.0 IUnits/mL [facility] BKV DNA Log IU/mL, pl 3.45 log IUnits/mL [facility] Blood 09/26/2024 3:32 PM CDT 09/26/2024 4:18 PM CDT Mikki Resendiz MD LAB MICROBIOLOGY - GENERAL ORDERABLES Final Result Performing Organization Address [facility] de Phone Number [facility] [place] [employer] [place] [address] [facility] * Cytomegalovirus (CMV) DNA PCR, quantitative Blood (09/26/2024 3:32 PM CDT) [facility] CMV DNA Not Detected [facility] Comment: Interpretive Data: The quantifiable range of this assay is 34 IUnits/mL to 10,000,000 IUnits/mL (1.53 log IUnits/mL to 7.0 log IUnits/mL). Testing was performed by the [employer]IKI 6800 CMV Test ([employer] Testing performed at [facility]. Current interpretive data was last revised on 2020. Blood 09/26/2024 3:32 PM CDT 09/26/2024 4:18 PM CDT Mikki Resendiz MD LAB MICROBIOLOGY - GENERAL ORDERABLES Final Result Performing Organization Address [facility] Co de Phone Number [facility] [place] [address] [facility] * (ABNORMAL) eGFR (09/26/2024 3:23 PM CDT) Pathologist [facility] eGFR 52(L) >=60 mL/min/1. 73 m2 Comment: [...] MD LAB BLOOD ORDERABL ES Final Result [facility] [place] [address] * (ABNORMAL) Differential, auto (09/26/2024 3:23 PM CDT) Pathologist [facility] Neutrophil abs 5.05 1.50 - 6.50 K/cumm Imm gran abs 0.02 0.00 - 0.10 K/cumm [facility] Lymphocyte abs 0.56(L) 0.80 - 3.30 K/cumm [facility] Monocyte abs 0.47 0.20 - 0.80 K/cumm [facility] Eosinophil abs 0.09 0.00 - 0.50 K/cumm [facility] Basophil abs 0.05 0.00 - 0.10 K/cumm [facility] Neutrophil pct 81.0 % [facility] Comment: Interpretive Data Percent cell count reference ranges are not reported, since discordance with absolute values may lead to misinterpretation of CBC data. Current Interpretive Data was last revised on 2017. Imm gran pct 0.3 % [facility] Comment: Interpretive Data Percent cell count reference ranges are not reported, since discordance with absolute values may lead to misinterpretation of CBC data. Current Interpretive Data was last revised on 2017. Lymphocyte pct 9.0 % [facility] Comment: Interpretive Data Percent cell count reference ranges are not reported, since discordance with absolute values may lead to misinterpretation of CBC data. Current Interpretive Data was last revised on 2017. Monocyte pct 7.5 % [facility] Comment: Interpretive Data Percent cell count reference ranges are not reported, since discordance with absolute values may lead to misinterpretation of CBC data. Current Interpretive Data was last revised on 2017. Eosinophil pct 1.4 % [facility] Comment: Interpretive Data Percent cell count reference ranges are not reported, since discordance with absolute values may lead to misinterpretation of CBC data. Current Interpretive Data was last revised on 2017. Basophil pct 0.8 % [facility] Comment: Interpretive Data Percent cell count reference ranges are not reported, since discordance with absolute values may lead to misinterpretation of CBC data. Current Interpretive Data was last revised on 2017. Blood 09/26/2024 3:23 PM CDT 09/26/2024 3:49 PM CDT Mikki Resendiz MD LAB BLOOD ORDERABL ES Final Result [facility] [place] [address] * Iron profile w/ IBC (09/26/2024 3:23 PM CDT) Iron 109 50 - 150 mcg/dL TIBC 269 250 - 400 mcg/dL [facility] Transferrin saturation 41 20 - 50 % [facility] Blood 09/26/2024 3:23 PM CDT 09/26/2024 3:49 PM CDT Mikki Resendiz MD LAB BLOOD ORDERABL ES Final Result Performing Organization Address [facility] Co de Phone Number [facility] Department [place] [address] * CBC with auto differential (09/26/2024 3:23 PM CDT) WBC 6.24 3.80 - 9.90 K/cumm Hgb 14.3 13.0 - 17.5 g/dL [facility] Hct 42.9 38.9 - 50.3 % [facility] Plt 184 150 - 400 K/cumm [facility] MPV 9.3 9.1 - 12.3 fL [facility] RBC 5.01 4.30 - 5.80 M/cumm [facility] MCV 85.6 81.3 - 96.4 fL [facility] MCH 28.5 27.1 - 33.3 pg [facility] MCHC 33.3 32.3 - 35.7 g/dL [facility] RDW CV 13.6 11.1 - 14.9 % [facility] RDW SD 42.3 35.7 - 48.1 fL [facility] NRBC abs 0.00 0.00 - 0.01 K/cumm [facility] Blood 09/26/2024 3:23 PM CDT 09/26/2024 3:49 PM CDT Mikki Resendiz MD LAB BLOOD ORDERABL ES Final Result Performing Organization Address City/[facility]/ZIP Co de Phone Number [facility] [place] [employer] [place] [address] * Folate (09/26/2024 3:23 PM CDT) Folic acid 13.5 >=5.0 ng/mL Blood 09/26/2024 3:23 PM CDT 09/26/2024 3:49 PM CDT Mikki Resendiz MD LAB BLOOD ORDERABL ES Final Result Performing Organization Address [facility] Co de Phone Number [facility] [place] [address] * (ABNORMAL) Ferritin (09/26/2024 3:23 PM CDT) [facility] Ferritin 670(H) 30 - 400 ng/mL Blood 09/26/2024 3:23 PM CDT 09/26/2024 3:49 PM CDT Mikki Resendiz MD LAB BLOOD ORDERABL ES Final Result Performing Organization Address [facility] de Phone Number [facility] [place] [address] * Vitamin B12 (09/26/2024 3:23 PM CDT) [facility] Vitamin B12 431 230 - 1,250 pg/mL Blood 09/26/2024 3:23 PM CDT 09/26/2024 3:49 PM CDT Mikki Resendiz MD LAB BLOOD ORDERABL ES Final Result Performing Organization Address [facility] de Phone Number [facility] [place] [address] * (ABNORMAL) Renal function panel (09/26/2024 3:23 PM CDT) [facility] Sodium 140 135 - 145 mmol/L Potassium, pl 4.5 3.3 - 4.9 mmol/L [facility] Chloride 103 97 - 110 mmol/L [facility] CO2 26 22 - 32 mmol/L [facility] Anion gap 11 2 - 15 mmol/L [facility] BUN 19 6 - 25 mg/dL [facility] Creatinine 1.79(H) 0.80 - 1.30 mg/dL [facility] Glucose 112 70 - 199 mg/dL [facility] Comment: Interpretive Data Fasting glucose >/= 126 [...] 2022. Calcium 10.3 8.5 - 10.3 mg/dL [facility] Phosphorus, pl 2.5 2.3 - 4.5 mg/dL [facility] Albumin 4.9 3.5 - 5.0 g/dL [facility] Blood 09/26/2024 3:23 PM CDT 09/26/2024 3:49 PM CDT us Mikki Resendiz MD LAB BLOOD ORDERABL ES Final Result [facility] [place] [address] * Hepatitis C (HCV) RNA PCR, quantitative (03/27/2022 8:30 AM CDT) [facility] HCV RNA result Not Detected [facility] Comment: The quantifiable range of this assay is 15 IU/mL to 100,000,000 IU/mL (1.18 log IU/mL to 8.00 log IU/mL). Testing was performed by the [employer]IKI 6800 HCV Test ([email or web address] Testing performed at [facility] Current Interpretive Data was last revised on 2021 Blood 03/27/2022 8:30 AM CDT 03/27/2022 1:53 PM CDT us Frandy Dewey MD LAB MICROBIOLOGY - GENERAL ORDERABLES Final Result [facility] Department of Laboratories [place], [place] [id number] from Last 3 Months or Most Recently Relevant to Health Maintenance
--- OUTSIDE RECORDS SUMMARY | 2024-12-21 20:34 | XMS_ITS | Encounter Summary ---
Author Organization [facility] Healthcare Address [address] [place] [address] Care Team Providers Care Precision Machining Instructor Name Role Phone Dixie Schroeder MD Unavailable [phone] Vanita Amaro DO Primary Care Provider [phone] Tg Dominguez RN Unavailable Unava ilable Reason for Referral * Diagnostic Lab (Routine) - Pending Review Specialty Diagnoses / Procedures Referred By Contac t Referred To Contact Lab Diagnoses Kidney replaced by transplant Procedures beta-D glucan - Miscellaneous Test Earnest Crandall MD [address] [place] [address] Phone: tel: fax: Referral ID Status Reason Start Date Expiration Date V isits Requested Visits Authorized [id number] Pending Review 12/20/2024 01/19/2026 1 1 Encounter Details Date Type Department Care Team (Late st Contact Info) Description 12/20/2024 Telephone [facility] Transplant Kidney [phone] [place] [address] Betty Rhodes Social History Tobacco [...] on file Legal Sex Male 2:12 AM GEOPHYSICAL SUPPORT SPECIALIST Gender Identity Not on file Sexual Orientation [...] Can patient take Paraguard, Zeolite detox, [place] these are all by Dr. Morin on [employer] medication? Patient needs a return call from the nurse coordinator. 12/20/24, 9:41 AM, Shannan Calderón commodity industry analystProfessor Criminal Justice: Message sent to the transplant pharmacy to [...] Primary documented in this encounter Care Teams Precision Machining Instructor Relationship Specialty Start Date End Date Vanita Amaro DO [address] [facility] [address] [place] [address] PCP - General 10/02/20 Dixie Schroeder MD [address] [facility] [facility] [place] [address] Referring Physician Nephrology 08/03/20 Tg Dominguez, commodity industry analystProfessor Criminal Justice 02/20/22 documented as of this encounter
--- OUTSIDE RECORDS SUMMARY | 2024-12-21 20:34 | XMS_ITS | Referral Summary ---
Author Organization [facility] Address [address] [place] [address] Care Team Providers Care Demonstrator Sales Name Role Phone Dixie Schroeder MD Unavailable [phone] Vanita Amaro DO Primary Care Provider [phone] Tg Ervin RN Unavailable Unava ilable Encounters Date Type Department Care Team Description 12/20/2024 Telephone [facility] Transplant Kidney [address] [phone] [place] [address] Komal Almeida 12/20/2024 Telephone [facility] Transplant Kidney [address] [phone] [place] [address] Betty Rhodes 11/18/2024 8:13 AM CDT - 11/18/2024 11:59 PM CDT Hospital Encounter [place] [id number] [place] [address] Transplanted kidney; Encounter for long-term (current) use of high-risk medication Discharge Disposition: Discharge to home or self care 11/18/2024 8:15 AM CDT Lab [facility] Outpatient Lab at [address] [address] 10/17/2024 Telephone [facility] Transplant Kidney [address] [facility] [address] [phone] [place] [address] Komal Almeida 10/14/2024 Telephone [facility] Transplant Kidney [address] [facility] [address] [phone] [place] [address] Dario Phelps, RN 10/11/2024 Telephone [facility] Transplant Kidney [address] [facility] 340 [address] [phone] [place] [address] Komal Almeida 10/10/2024 Results Follow-Up [facility] Transplant Kidney [address] [facility] [address] [phone] [place] [address] Dario Phelps, ASHLEY HLA Donor Specific Antibody Report 10/10/2024 Telephone [facility] Transplant Kidney [address] [facility] [address] 88-48-2 [place] [address] Dario Phelps, ASHLEY 10/10/2024 Orders Only [facility] Transplant Kidney [address] [facility] [address] [phone] [place] [address] Joanna Santana Kidney replaced by transplant (Primary Dx) 10/07/2024 Results Follow-Up [facility] Transplant Kidney [address] [facility] [address] [place], [place] [address]op -[address] [place] [address] Dario Phelps, RN US Renal Transplant W Dopplers 10/07/2024 8:[address] [facility] [address] [place] [phone] Kidney replaced by transplant 10/07/2024 6:51 AM CDT - 10/07/2024 11:59 PM CDT Hospital [facility] [address] [place] [address] Kidney replaced by transplant; Hypertension, unspecified type Discharge Disposition: Discharge to home or self care 10/05/2024 Telephone [facility] Transplant Kidney [address] [facility] [address] Mail[address] [phone] [place] [address] Dario Phelps, RN 10/05/2024 Telephone [facility] Transplant Kidney [address] [facility] [address] Mailstop [phone] [place] [address] Dario Phelps, RN 10/03/2024 8:30 AM CDT - 10/03/2024 11:59 PM CDT Hospital [facility] [address] [place] [address] Kidney replaced by transplant Discharge Disposition: Discharge to home or self care 10/03/2024 8:15 AM CDT Lab [facility] Outpatient Lab at [address] [address] End stage renal disease (HCC) (Primary Dx) 10/02/2024 Telephone [facility] Transplant Kidney 45[address] [facility] [address] [facility] [phone] [place] [address] Sarah Draper, RN After Hours 09/28/2024 Telephone [facility] Transplant Kidney [address] [facility] [address] Mail[address] [phone] [place] [address] Dario Phelps, RN 09/27/2024 Telephone [facility] Transplant Kidney [address] [facility] [address] Mail[address] [phone] [place] [address] Dario Phelps, RN 09/26/2024 7:20 PM CDT Lab [facility] ([facility]) [address] [place] [phone] Kidney replaced by transplant 09/26/2024 Telephone [facility] Transplant Kidney [address] [facility] [address] Mail[address] [phone] [place] [address] Amie Merrill RN 09/22/2024 Telephone [facility] Transplant Kidney [address] [facility] [address] Mail[address] [phone] [place] [address] Komal Almeida from Last 3 Months Allergies [...] (sister), and Pj (other). Pharmacy: [facility] Specialty: [facility] Specialty Program [facility], [place] P: [phone] F: [phone] Q-MONTHLY, FK, BK; Q-3 ROUTINE B-ISOTITERS (CERNER ) Exp 03/21/2025 HH: [facility] Home Care Problem Noted Date Diagnosed [...] of circulatory system 09/18/2020 ESRD on hemodialysis ([facility]) 08/08/2020 Overview (08/08/2020): Added automatically from request for surgery [id number] Hypertension, essential 06/19/2020 Assessment & Plan (01/11/2022 11:03 AM CDT): Continue with labetalol and nifedipine. Holding home clonidine and hydralazine Assessment & Plan (01/10/2022 8:31 PM CDT): - Was on Labetolol and Nifedipine as home meds - Clonidine and Hydralazine held for now - can be restarted in case the BP remains uncontrolled . Assessment & Plan (06/19/2020 9:38 AM STAFF DEVELOPMENT COORDINATOR RN): Pt's SBP consistently between 150s-170s since admission. Likely due to medication effect and from his ARF. -Started amlodipine 10mg daily -Will consider spot labetalol IV 10mg if SBP persistently > 180 Acute renal failure 06/18/2020 Assessment & Plan (06/25/2020 12:22 PM STAFF DEVELOPMENT COORDINATOR RN): Hx of Alport syndrome with ESRD, s/p [...] 06/18/2020 Assessment & Plan (06/23/2020 9:54 AM STAFF DEVELOPMENT COORDINATOR RN): Hgb 6.8 at admission, 16.5 in 11/2019. Likely due to ARF. - Iron (168), ferritin (588), folate (7.5), B12 (1,143), haptoglobin (61.0), LDH (221). - consent for blood in paper chart, transfuse hb >7 (2 units this admission) - s/p retacrit 24048 units (06/21, 06/23) Increased anion gap metabolic acidosis 1 Assessment & Plan (06/25/2020 12:22 PM STAFF DEVELOPMENT COORDINATOR RN): AG 19 at admission. 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/2018 Iron deficiency anemia 12/23/2018 Assessment & Plan (01/10/2022 8:28 PM CDT): - H/H stable, continue to monitor CBC - f/u Ferritin and iron profile in am - not currently on supplementation End stage renal disease ([facility]) 11/18/2018 Overview (11/18/2018): Added automatically from request for surgery [id number] Assessment & Plan (01/11/2022 11:07 AM CDT): [...] - Pt is a known pt at [facility] in [place], [place] - As per the pt he [...] on file Legal Sex Male 2:12 AM STAFF DEVELOPMENT COORDINATOR RN Gender Identity Not on file Sexual Orientation [...] Scheduled Procedures Name Priority Associated Diagnoses Date/Ti pa TRANSPLANT KIDNEY ESRD (end stage renal disease) (HCC) Medical Devices Explanted Type Area Compliance Quality Performance Analyst Device Identifier Shelf Expiration Date Model / Serial / Lot Circon-Surgi leti [id number] Double-J 6fr 20cm 100cm 1 Step Insert Push Catheter [place] Suture - [id number] Implanted:Qt y: 1 on 01/04/2019 by Yue Howell MD PhD at [facility] Explanted:Qt y: 1 on 01/25/2019 by Inés Comer NP Stent Right: Ureter [employer]con-Surgitek 01/01/2023 [id number] / / [id number] Description:Transplanted ure ter [email or web address] Double-J 6fr 20cm 100cm 1 Step Insert Push Catheter [place] Suture [id number] - [id number] Implanted:Qt y: 1 on 02/20/2022 by Yue Howell MD PhD at [facility] Explanted:Qt y: 1 on 03/25/2022 by Philip Coleman NP Stent Left: Transplanted Ureter [email or web address] [id number] 02/27/2026 [id number] / / [id number] Procedures Procedure Name Priority Date/Time Associated Diagnosis [...] MD LAB BLOOD ORDERABLES Final R esult [facility] [address] Department [place] [address] * (ABNORMAL) Differential, auto (11/18/2024 8:13 AM CDT) Neutrophil abs 3.73 1.50 - 6.50 K/cumm Imm gran abs 0.01 0.00 - 0.10 K/cumm [facility] Lymphocyte abs 0.79(L) 0.80 - 3.30 K/cumm [facility] Monocyte abs 0.47 0.20 - 0.80 K/cumm [facility] Eosinophil abs 0.16 0.00 - 0.50 K/cumm [facility] Basophil abs 0.04 0.00 - 0.10 K/cumm [facility] Neutrophil pct 71.7 % [facility] Comment: Interpretive Data Percent cell count reference ranges are not reported, since discordance with absolute values may lead to misinterpretation of CBC data. Current Interpretive Data was last revised on 2017. Imm gran pct 0.2 % [facility] Comment: Interpretive Data Percent cell count reference ranges are not reported, since discordance with absolute values may lead to misinterpretation of CBC data. Current Interpretive Data was last revised on 2017. Lymphocyte pct 15.2 % [facility] Comment: Interpretive Data Percent cell count reference ranges are not reported, since discordance with absolute values may lead to misinterpretation of CBC data. Current Interpretive Data was last revised on 2017. Monocyte pct 9.0 % [facility] Comment: Interpretive Data Percent cell count reference ranges are not reported, since discordance with absolute values may lead to misinterpretation of CBC data. Current Interpretive Data was last revised on 2017. Eosinophil pct 3.1 % [facility] Comment: Interpretive Data Percent cell count reference ranges are not reported, since discordance with absolute values may lead to misinterpretation of CBC data. Current Interpretive Data was last revised on 2017. Basophil pct 0.8 % [facility] Comment: Interpretive Data Percent cell count reference ranges are not reported, since discordance with absolute values may lead to misinterpretation of CBC data. Current Interpretive Data was last revised on 2017. Blood 11/18/2024 8:13 AM CDT 11/18/2024 3:16 PM CDT Earnest Crandall MD LAB BLOOD ORDERABLES Final R [facility] Performing Organization Address [facility] Co de Phone Number [facility] GUTIERRE[facility] [phone] [employer] [place] [address] * Tacrolimus level trough (11/18/2024 8:13 AM CDT) Pathologist [facility] Tacrolimus trough 8.5 ng/mL Comment: Interpretive Data Testing performed by liquid chromatography-tandem mass spectrometry. Therapeutic concentrations vary depending on type of transplanted organ and time elapsed since transplant. Typical trough concentrations range from 5-15 ng/mL. This test was developed and its performance characteristics determined by the [facility] consistent with CLIA requirements. This test has not been cleared or approved by the US Food and Drug administration. Current interpretive data last reviewed 2019. Testing performed by: [facility], [address] [place]., [address] Blood 11/18/2024 8:13 AM CDT 11/18/2024 10:03 PM CDT Narrative [facility] - 11/19/2024 2:14 AM CDT MONTHLY (EVERY 4 WEEKS) Earnest Crandall MD LAB BLOOD ORDERABLES Final R [facility] Performing Organization Address [facility] Co de Phone Number [facility]UTIER[facility] [address] [place] [address] * (ABNORMAL) CBC with auto differential (11/18/2024 8:13 AM CDT) WBC 5.20 3.80 - 9.90 K/cumm Hgb 14.5 13.0 - 17.5 g/dL [facility] Hct 45.9 38.9 - 50.3 % [facility] Plt 205 150 - 400 K/cumm [facility] MPV 9.7 9.1 - 12.3 fL [facility] RBC 5.01 4.30 - 5.80 M/cumm [facility] MCV 91.6 81.3 - 96.4 fL [facility] MCH 28.9 27.1 - 33.3 pg [facility] MCHC 31.6(L) 32.3 - 35.7 g/dL [facility] RDW CV 13.3 11.1 - 14.9 % [facility] RDW SD 44.6 35.7 - 48.1 fL [facility] NRBC abs 0.00 0.00 - 0.01 K/cumm [facility] Blood 11/18/2024 8:13 AM CDT 11/18/2024 3:16 PM CDT Narrative [facility] - 11/18/2024 3:25 PM CDT MONTHLY (EVERY 4 WEEKS) Earnest Crandall MD LAB BLOOD ORDERABLES Final R esult [facility] [address] Department [place] [address] * (ABNORMAL) Renal function panel (11/18/2024 8:13 AM CDT) Sodium 143 135 - 145 mmol/L Potassium, pl 4.9 3.3 - 4.9 mmol/L [facility] Chloride 108 97 - 110 mmol/L [facility] CO2 23 22 - 32 mmol/L [facility] Anion gap 12 2 - 15 mmol/L [facility] BUN 22 6 - 25 mg/dL [facility] Creatinine 1.59(H) 0.80 - 1.30 mg/dL [facility] Glucose 110 70 - 199 mg/dL [facility] Comment: Interpretive Data Fasting glucose >/= [...] LAB BLOOD ORDERABLES Final R esult [facility] [address] Department [place] [address] * US Renal Transplant W Dopplers (10/07/2024 [...] MD, PHD Emily Foreman MD [facility] US PROCEDURES Final Result * (ABNORMAL) BK virus PCR quantitative Blood (10/07/2024 7:10 AM CDT) Pathologist [facility] BKV DNA result, pl Detected( A) [facility] Comment: The quantifiable range of this assay is 21.5 IU/mL to 100,000,000 IU/mL (1.33 log IU/mL to 8.00 log IU/mL). Testing was performed by the NIKI 6800 BKV Quantatitive Test version 2.0 ([employer] Testing performed at [facility] Current Interpretive Data was last revised on 2021. BKV DNA IU/mL, pl 3,130.0 IUnits/mL [facility] BKV DNA Log IU/mL, pl 3.50 log IUnits/mL [facility] Blood 10/07/2024 7:10 AM CDT 10/07/2024 7:57 AM CDT Earnest Crandall MD LAB MICROBIOLOGY - GENERAL O RDERABLES Final Result Performing Organization Address City/[facility] Co de Phone Number [facility] Department [place] [address] [facility] * Collection Task for HLA Platelet Antibody Screen (10/07/2024 7:10 AM CDT) Pathologist [facility] HLA PLATELET SC Received Blood 10/07/2024 7:10 AM CDT 10/07/2024 8:21 AM CDT Earnest Crandall MD LAB BLOOD ORDERABLES Final R esult Performing Organization Address City/[facility] Co de Phone Number [facility] Department [place] [address] * HLA Donor Specific Antibody Report (10/07/2024 [...] level trough (10/07/2024 7:10 AM CDT) Pathologist [facility] Tacrolimus trough 8.0 ng/mL Comment: Interpretive Data Testing performed by liquid chromatography-tandem mass spectrometry. Therapeutic concentrations vary depending on type of transplanted organ and time elapsed since transplant. Typical trough concentrations range from 5-15 ng/mL. This test was developed and its performance characteristics determined by the [facility] consistent with CLIA requirements. This test has not been cleared or approved by the US Food and Drug administration. Current interpretive data last reviewed 2019. Blood 10/07/2024 7:10 AM CDT 10/07/2024 7:34 AM CDT Earnest Crandall MD LAB BLOOD ORDERABLES Final R esult Performing Organization Address City/[facility] Co de Phone Number [place] [facility] Department [place] [address] * (ABNORMAL) BK virus PCR quantitative Urine (10/03/2024 8:30 AM CDT) Pathologist [facility] BKV DNA result, ur Detected( A) [facility] Comment: The quantifiable range of this assay is 200 IU/mL to 100,000,000 IU/mL (2.30 log IU/mL to 8.00 log IU/mL). Testing was performed by the NIKI 6800 BKV Quantatitive Test version 2.0 ([employer] Testing performed at [facility] Current Interpretive Data was last revised on 2021. Testing performed by: [facility], [address] [place] [address] BKV DNA IU/mL, ur 89,900,00 0(C) IUnits/mL [facility] Comment:Testing performed by : [facility], [address] [place]., [address] BKV DNA Log IU/mL, ur 7.95 log IUnits/mL [facility]UTIERRE[facility] Comment:Testing performed by : [facility], [address] [place]., [address] Urine 10/03/2024 8:30 AM CDT 10/04/2024 10:30 AM CDT Mikki Resendiz MD LAB MICROBIOLOGY - GENERAL ORDERABLES Final Result [facility] [address] Department [place] [address] [facility] * eGFR (10/03/2024 8:30 AM CDT) [...] ORDERABL ES Final Result Performing Organization Address City/[facility]/ZIP Co de Phone Number [place] [address] Department [place] [address] * (ABNORMAL) Differential, auto (10/03/2024 8:30 AM CDT) Neutrophil abs 3.76 1.50 - 6.50 K/cumm Imm gran abs 0.03 0.00 - 0.10 K/cumm [facility] Lymphocyte abs 0.61(L) 0.80 - 3.30 K/cumm [facility] Monocyte abs 0.50 0.20 - 0.80 K/cumm [facility] Eosinophil abs 0.15 0.00 - 0.50 K/cumm [facility] Basophil abs 0.03 0.00 - 0.10 K/cumm [facility] Neutrophil pct 74.0 % [facility] Comment: Interpretive Data Percent cell count reference ranges are not reported, since discordance with absolute values may lead to misinterpretation of CBC data. Current Interpretive Data was last revised on 2017. Imm gran pct 0.6 % [facility] Comment: Interpretive Data Percent cell count reference ranges are not reported, since discordance with absolute values may lead to misinterpretation of CBC data. Current Interpretive Data was last revised on 2017. Lymphocyte pct 12.0 % [facility] Comment: Interpretive Data Percent cell count reference ranges are not reported, since discordance with absolute values may lead to misinterpretation of CBC data. Current Interpretive Data was last revised on 2017. Monocyte pct 9.8 % [facility] Comment: Interpretive Data Percent cell count reference ranges are not reported, since discordance with absolute values may lead to misinterpretation of CBC data. Current Interpretive Data was last revised on 2017. Eosinophil pct 3.0 % [facility] Comment: Interpretive Data Percent cell count reference ranges are not reported, since discordance with absolute values may lead to misinterpretation of CBC data. Current Interpretive Data was last revised on 2017. Basophil pct 0.6 % [facility] Comment: Interpretive Data Percent cell count reference ranges are not reported, since discordance with absolute values may lead to misinterpretation of CBC data. Current Interpretive Data was last revised on 2017. Blood 10/03/2024 8:30 AM CDT 10/03/2024 10:10 PM CDT Mikki Resendiz MD LAB BLOOD ORDERABL ES Final Result Performing Organization Address [facility] Co de Phone Number [facility] GUTIERREZ [address] [facility] [place] [address] * Tacrolimus level trough (10/03/2024 8:30 AM CDT) Tacrolimus trough 4.6 ng/mL Comment: Interpretive Data Testing performed by liquid chromatography-tandem mass spectrometry. Therapeutic concentrations vary depending on type of transplanted organ and time elapsed since transplant. Typical trough concentrations range from 5-15 ng/mL. This test was developed and its performance characteristics determined by the [facility] consistent with CLIA requirements. This test has not been cleared or approved by the US Food and Drug administration. Current interpretive data last reviewed 2019. Testing performed by: [facility], [address] [place]., [address] Blood 10/03/2024 8:30 AM CDT 10/04/2024 3:58 AM CDT Mikki Resendiz MD LAB BLOOD ORDERABL ES Final Result Performing Organization Address [facility] de Phone Number [facility] GUTIERREZ [address] [place] [address] * Urinalysis reflex to microscopic and culture [...] tendency for uric acid stone formation. Source: [facility] [employer] Current Interpretive Data was last revised on [...] - GENERAL ORDERABLES Final Result [facility] GUTIERRE[facility] [address] [place] [address] * (ABNORMAL) CBC with auto [...] ORDERABL ES Final Result Performing Organization Address City/[facility]/ZIP Co de Phone Number [facility] GUTIERREZ [address] Department [place] [address] * Protein / creatinine ratio, urine, random (10/03/2024 8:30 AM CDT) Protein, ur, quant 7.6 mg/dL Comment: Interpretive Data No reference range established. Current interpretive data was last revised 2018. Creatinine Ur 126.2 mg/dL [facility] Comment: Interpretive Data No reference range established. Current interpretive data was last revised 2018. Protein/creatinin e ratio 60.2 0.0 - 180.0 mg/g CR [facility] Urine 10/03/2024 8:30 AM CDT 10/03/2024 10:10 PM CDT us Mikki Resendiz MD LAB URINE ORDERABL ES Final Result [facility] [address] Department [place] [address] * (ABNORMAL) Renal function panel (10/03/2024 8:30 AM CDT) Pathologist [facility] Sodium 141 135 - 145 mmol/L Potassium, pl 4.5 3.3 - 4.9 mmol/L [facility] Chloride 106 97 - 110 mmol/L [facility] CO2 26 22 - 32 mmol/L [facility] Anion gap 9 2 - 15 mmol/L [facility] BUN 11 6 - 25 mg/dL [facility] Creatinine 1.50(H) 0.80 - 1.30 mg/dL [facility] Glucose 102 70 - 199 mg/dL [facility] Comment: Interpretive Data Fasting glucose >/= [...] 2022. Calcium 9.9 8.5 - 10.3 mg/dL [facility] Phosphorus, pl 2.4 2.3 - 4.5 mg/dL [facility] Albumin 4.5 3.5 - 5.0 g/dL [facility] Blood 10/03/2024 8:30 AM CDT 10/03/2024 10:10 PM CDT Mikki Resendiz MD LAB BLOOD ORDERABL ES Final Result [facility] [address] Department [place] [address] * Allosure kidney donor-derived cell-free DNA (cFDNA) [...] For more information about [employer], please visit [email or web address]. Specimens from kidney retransplant recipients in whom [...] its performance characteristics were determined by the [employer] laboratory. The test has not been cleared or approved by the U.S. Food and Drug Administration, nor is it currently required to be. The laboratory is certified under the Clinical Laboratory Improvement Amendments of 1988 (CLIA '88) and accredited by the [employer] (CAP) as qualified to perform high complexity clinical laboratory testing. The contents of this report are confidential and intended solely for the use of authorized personnel. AlloSure testing performed at [employer] [address] [place] [id number] (CLIA No: [id number], CAP No: [id number]) Hearing Consultant: Jon Brink M.D. Plasma 09/26/2024 9:30 PM CDT us Earnest Crandall MD LAB BLOOD ORDERABLES Final R esult CAREDX * (ABNORMAL) BK virus PCR quantitative Blood (09/26/2024 3:32 PM CDT) [facility] BKV DNA result, pl Detected( A) [facility] Comment: The quantifiable range of this assay is 21.5 IU/mL to 100,000,000 IU/mL (1.33 log IU/mL to 8.00 log IU/mL). Testing was performed by the NIKI 6800 BKV Quantatitive Test version 2.0 ([employer] Testing performed at [facility] Current Interpretive Data was last revised on 2021. BKV DNA IU/mL, pl 2,800.0 IUnits/mL [facility] BKV DNA Log IU/mL, pl 3.45 log IUnits/mL [facility] Blood 09/26/2024 3:32 PM CDT 09/26/2024 4:18 PM CDT Mikki Resendiz MD LAB MICROBIOLOGY - GENERAL ORDERABLES Final Result Performing Organization Address [facility] de Phone Number [facility] Department [place] [address] [facility] * Cytomegalovirus (CMV) DNA PCR, quantitative Blood (09/26/2024 3:32 PM CDT) [facility] CMV DNA Not Detected [facility] Comment: Interpretive Data: The quantifiable range of this assay is 34 IUnits/mL to 10,000,000 IUnits/mL (1.53 log IUnits/mL to 7.0 log IUnits/mL). Testing was performed by the NIKI 6800 CMV Test ([employer] Testing performed at [facility]. Current interpretive data was last revised on 2020. Blood 09/26/2024 3:32 PM CDT 09/26/2024 4:18 PM CDT Mikki Resendiz MD LAB MICROBIOLOGY - GENERAL ORDERABLES Final Result Performing Organization Address [facility] Co de Phone Number [facility] Department [place] [address] [facility] * (ABNORMAL) eGFR (09/26/2024 3:23 PM CDT) Pathologist [facility] eGFR 52(L) >=60 mL/min/1. 73 m2 [...] MD LAB BLOOD ORDERABL ES Final Result [facility] Department [place] [address] * (ABNORMAL) Differential, auto (09/26/2024 3:23 PM CDT) Pathologist [facility] Neutrophil abs 5.05 1.50 - 6.50 K/cumm Imm gran abs 0.02 0.00 - 0.10 K/cumm [facility] Lymphocyte abs 0.56(L) 0.80 - 3.30 K/cumm [facility] Monocyte abs 0.47 0.20 - 0.80 K/cumm [facility] Eosinophil abs 0.09 0.00 - 0.50 K/cumm [facility] Basophil abs 0.05 0.00 - 0.10 K/cumm [facility] Neutrophil pct 81.0 % [facility] Comment: Interpretive Data Percent cell count reference ranges are not reported, since discordance with absolute values may lead to misinterpretation of CBC data. Current Interpretive Data was last revised on 2017. Imm gran pct 0.3 % [facility] Comment: Interpretive Data Percent cell count reference ranges are not reported, since discordance with absolute values may lead to misinterpretation of CBC data. Current Interpretive Data was last revised on 2017. Lymphocyte pct 9.0 % [facility] Comment: Interpretive Data Percent cell count reference ranges are not reported, since discordance with absolute values may lead to misinterpretation of CBC data. Current Interpretive Data was last revised on 2017. Monocyte pct 7.5 % [facility] Comment: Interpretive Data Percent cell count reference ranges are not reported, since discordance with absolute values may lead to misinterpretation of CBC data. Current Interpretive Data was last revised on 2017. Eosinophil pct 1.4 % [facility] Comment: Interpretive Data Percent cell count reference ranges are not reported, since discordance with absolute values may lead to misinterpretation of CBC data. Current Interpretive Data was last revised on 2017. Basophil pct 0.8 % [facility] Comment: Interpretive Data Percent cell count reference ranges are not reported, since discordance with absolute values may lead to misinterpretation of CBC data. Current Interpretive Data was last revised on 2017. Blood 09/26/2024 3:23 PM CDT 09/26/2024 3:49 PM CDT us Mikki Resendiz MD LAB BLOOD ORDERABL ES Final Result [facility] Department [place] [address] * Iron profile w/ IBC (09/26/2024 3:23 PM CDT) Iron 109 50 - 150 mcg/dL TIBC 269 250 - 400 mcg/dL [facility] Transferrin saturation 41 20 - 50 % [facility] Blood 09/26/2024 3:23 PM CDT 09/26/2024 3:49 PM CDT Mikki Resendiz MD LAB BLOOD ORDERABL ES Final Result Performing Organization Address [facility] Co de Phone Number [facility] Department [place] [address] * CBC with auto differential (09/26/2024 3:23 PM CDT) WBC 6.24 3.80 - 9.90 K/cumm Hgb 14.3 13.0 - 17.5 g/dL [facility] Hct 42.9 38.9 - 50.3 % [facility] Plt 184 150 - 400 K/cumm [facility] MPV 9.3 9.1 - 12.3 fL [facility] RBC 5.01 4.30 - 5.80 M/cumm [facility] MCV 85.6 81.3 - 96.4 fL [facility] MCH 28.5 27.1 - 33.3 pg [facility] MCHC 33.3 32.3 - 35.7 g/dL [facility] RDW CV 13.6 11.1 - 14.9 % [facility] RDW SD 42.3 35.7 - 48.1 fL [facility] NRBC abs 0.00 0.00 - 0.01 K/cumm [facility] Blood 09/26/2024 3:2 3 PM CDT 09/26/2024 3:49 PM CDT Mikki Resendiz MD LAB BLOOD ORDERABL ES Final Result Performing Organization Address City/[facility]/ZIP Co de Phone Number [facility] [place] [address] * Folate (09/26/2024 3:23 PM CDT) Folic acid 13.5 >=5.0 ng/mL Blood 09/26/2024 3:23 PM CDT 09/26/2024 3:49 PM CDT Mikki Resendiz MD LAB BLOOD ORDERABL ES Final Result Performing Organization Address [facility] Co de Phone Number [facility] [place] [address] * (ABNORMAL) Ferritin (09/26/2024 3:23 PM CDT) [facility] Ferritin 670(H) 30 - 400 ng/mL Blood 09/26/2024 3:23 PM CDT 09/26/2024 3:49 PM CDT Mikki Resendiz MD LAB BLOOD ORDERABL ES Final Result Performing Organization Address [facility] de Phone Number [facility] Department [place] [address] * Vitamin B12 (09/26/2024 3:23 PM CDT) [facility] Vitamin B12 431 230 - 1,250 pg/mL Blood 09/26/2024 3:23 PM CDT 09/26/2024 3:49 PM CDT Mikki Resendiz MD LAB BLOOD ORDERABL ES Final Result Performing Organization Address [facility] [place] [address] * (ABNORMAL) Renal function panel (09/26/2024 3:23 PM CDT) [facility] Sodium 140 135 - 145 mmol/L Potassium, pl 4.5 3.3 - 4.9 mmol/L [facility] Chloride 103 97 - 110 mmol/L [facility] CO2 26 22 - 32 mmol/L [facility] Anion gap 11 2 - 15 mmol/L [facility] BUN 19 6 - 25 mg/dL [facility] Creatinine 1.79(H) 0.80 - 1.30 mg/dL [facility] Glucose 112 70 - 199 mg/dL [facility] Comment: Interpretive Data Fasting glucose [...] 2022. Calcium 10.3 8.5 - 10.3 mg/dL [facility] Phosphorus, pl 2.5 2.3 - 4.5 mg/dL [facility] Albumin 4.9 3.5 - 5.0 g/dL [facility] Blood 09/26/2024 3:23 PM CDT 09/26/2024 3:49 PM CDT us Mikki Resendiz MD LAB BLOOD ORDERABL ES Final Result [facility] Department [place] [address] * Hepatitis C (HCV) RNA PCR, quantitative (03/27/2022 8:30 AM CDT) [facility] HCV RNA result Not Detected [facility] Comment: The quantifiable range of this assay is 15 IU/mL to 100,000,000 IU/mL (1.18 log IU/mL to 8.00 log IU/mL). Testing was performed by the NIKI 6800 HCV Test ([employer] Testing performed at [facility] Current Interpretive Data was last revised on 2021 Blood 03/27/2022 8:30 AM CDT 03/27/2022 1:53 PM CDT us Frandy Dewey MD LAB MICROBIOLOGY - GENERAL ORDERABLES Final Result [facility] Department [place] [address] from Last 3 Months or Most Recently Relevant to Health Maintenance Insurance MEDICARE [facility] MEDICARE [employer] MEDICARE [employer] [place] ACCESS [place] MEDICARE MEDICARE Advance Directives For more information, please contact: [phone] Documents on File Type Date Recorded Patient Setter Automatic Spinning Lathe Expl anation ADVANCE DIRECTIVE 01/16/2022 6:49 AM Power of Software Asset Manager-Medical Power of Software Asset Manager 02/21/2021 8:31 AM DPOA * Full Code [...] 8:51 AM 12/26/2021 8:41 PM Care Teams Demonstrator Sales Relationship Specialty Start Date End Date JessiestevensonneptaliVanita DO [address] [facility] [address] [place] [address] PCP - General 10/02/20 Dixie Schroeder MD [address] [facility] [address] [place] [address] Referring Physician Nephrology 08/03/20 Tg Ervin, cash processing specialistAdjunct Communications Faculty Member 02/20/22
--- OUTSIDE RECORDS SUMMARY | 2024-12-21 20:34 | XMS_ITS | Encounter Summary ---
Author Organization [facility] Address [address] [place] [address] Care Team Providers Care Graduate Recruiter Name Role Phone Dixie Schroeder MD Unavailable [phone] Vanita Amaro DO Primary Care Provider [phone] Tg Ervin RN Unavailable Unava ilable Encounter Details Date Type Department Care Team (Late st Contact Info) Description 12/20/[address] [facility] Transplant Kidney [address] [address] [phone] [place] [address] Komal Almeida Social History Tobacco Use Types [...] on file Legal Sex Male 2:12 AM [employer] Gender Identity Not on file Sexual Orientation Not on file documented as of this encounter Miscellaneous Notes * Telephone Encounter - Komal Almeida - 12/20/2024 12:41 PM CDT Received call from Tierra regarding: If epicurio message from the patient was read in regards to him feeling fatigue and getting labs done on Thursday. 12/20/24, 2:54 PM, Shannan Caldreón, stair builderControl And Recovery Special Tactics: Call placed and discussed with pt, see note on previous encounter. documented in this encounter Plan of Treatment Scheduled Procedures Name Priority Associated Diagnoses Date/Ti me TRANSPLANT KIDNEY ESRD (end stage renal disease) (HCC) documented as of this encounter Visit Diagnoses Not on filedocumented in this encounter Care Teams Graduate Recruiter Relationship Specialty Start Date End Date Vanita Amaro DO [address] [facility] [address] [place] [address] PCP - General 10/02/20 Dixie Schroeder MD [address] [facility] [address] [place] [address] Referring Physician Nephrology 08/03/20 Tg Ervin, stair builderControl And Recovery Special Tactics 02/20/22 documented as of this encounter
--- OUTSIDE RECORDS SUMMARY | 2024-12-21 20:34 | XMS_ITS ---
Author Organization [facility] Address [address] [place] [address] Care Team Providers Care Clip Baker Name Role Phone Dixie Schroeder MD Unavailable [phone] Vanita Amaro DO Primary Care Provider [phone] Tg Ervin RN Unavailable Unava ilable Transplant Episode Kidney Recipient [facility] ([place], [place]) - [facility] Organ Received: Left Kidney Transplanted on 02/20/2022 Marked as Active Follow-up on 02/20/2022 Reason: Transplanted at [facility] Kidney CoordinatorTg Ervin RN Phone: N/A Fax: N/A Email: N/A [place] Organ Diagnosis Organ Primary Contributory Kidney [place] [...] RN Secondary Coordinator Secondary Post Kidney Coordinator [phone] N/A N/A Tg Ervin, manager fundHand Crown Pouncer N/A N/A N/A Dixie Schroeder MD Referring Physician [phone] N/A Ellen Sushil French Instructor [phone] N/A N/A Events Post-Transplant Pre-Transplant Admitted: 02/20/2022 Referred: 07/03/2020 Transplanted: 02/20/2022 Evaluation began: 1 Discharged: 02/24/2022 Committee: 11/05/2020 UNOS qualified: 06/27/2020 Center waitlisted: 1 Dialysis History Dialysis History Start End Type Comments Center 06/27/2020 02/20/2022 In-center Hemodialysis MWF PM [facility] 04/22/2018 01/04/2019 Peritoneal [facility] Dialysis Center Information Center Phone Fax Address [facility] [phone] [place] [address] [facility] [phone] [facility] [place] [id number]
--- OUTSIDE RECORDS SUMMARY | 2024-12-21 20:34 | XMS_ITS | Encounter Summary ---
Author Organization [facility] Address [address] [place] [address] Phone Care Team Providers Care Cmo Name Role Phone Margaux Chavez RN Unavailable [phone] Jordan Lundberg RN Unavailable [phone] Dixie Schroeder MD Unavailable [phone] Vanita Amaro DO Primary Care Provider [phone] Tg Ervin RN Unavailable Unava ilable Encounter Details Date Type Department Care Team (Late st Contact Info) Description 12/13/2020 Telephone [facility] Endocrinology Metabolism and Lipid [address] [facility] [address] [place] [address] [place] [address] Raúl Paz Social History Tobacco Use Types Packs/Day Years Used Date Smoking Tobacco: Never Smokeless Tobacco: Never Alcohol Use Standard Drinks/Week Comments Not Currently 0 (1 standard drink = 0.6 oz pur e alcohol) Sex and Gender Information Value Date Recorded Sex Assigned at Not on file Legal Sex Male 2:12 AM [employer] REPA[employer] Gender Identity Not on file Sexual Orientation [...] documented as of this encounter Care Teams Cmo Relationship Specialty Start Date End Date Vanita Amaro DO [address] [place] [address] PCP - General 10/02/20 Margaux Chavez, RN Translator/Interpreter 01/05/19 Jordan Pinto, ASHLEY [address] [email or web address] [address] [place] [address] Registered Nurse Translator/Interpreter 08/03/2002/23 Dixie Schroeder MD [address] [facility] [address] [place] [address] Referring Physician Nephrology 08/03/20 Tg Ervin, defective cigarette slitterTranslator/Interpreter 02/20/22 documented as of this encounter
[2024-12-21 20:37] LABS: Alanine Aminotransferase 31 U/L (6-50); Albumin Level 4.8 g/dL (3.5-5.1); Alkaline Phosphatase 63 U/L (38-126); Anion Gap 8 mmol/L (4-12); Aspartate Amino Transferase 29 U/L (17-59); Bilirubin,Total 0.7 mg/dL (0.2-1.3); Blood Urea Nitrogen 25 mg/dL (9-20); Calcium 9.8 mg/dL (8.4-10.2); Carbon Dioxide 28 mmol/L (22-30); Chloride 105 mmol/L (98-107); Estimated CRCL calculation 53 ml/min; Estimated Glomerular Filt Rate 40; Glucose 68 mg/dL (65-110); Magnesium 1.8 mg/dL (1.6-2.3); Potassium 4.4 mmol/L (3.4-5.0); Sodium 141 mmol/L (137-145); Total Protein 7.2 g/dL (6.3-8.2)
--- NOTE | 2024-12-21 21:25 | ED_ITS ---
HPI - General Adult General Chief complaint: Environmental Exposure Stated complaint: mold exposure, immunocompromised Time Seen by Provider: 12/21/24 20:26 Source: patient Mode of arrival: ambulatory Limitations: no limitations History of Present Illness HPI narrative: Patient is a 29-year-old male who presents the ED with report of mold exposure. Patient reports he found mold in his bathroom in his apartment 2 days ago. He states his landlord has since demolished the bathroom and removed all the mold. Patient reports he has been feeling slightly fatigued and short of breath at times over the past 2 weeks. He called his primary care doctor about this and was referred to the ED for further evaluation. Patient reports immunocompromised status related to 2 previous kidney transplants. Followed at [facility]. History of Alport syndrome. Per patient's records via phone, he has blood work drawn every month and [employer] most consistently around 1.5. Related Data Home Medications ?Medication ?Instructions ?Recorded ?Confirmed ?Last Taken ?Type aspirin 81 mg tablet,delayed 81 mg PO DAILY 07/19/20 12/21/24 12/21/24 History release famotidine 20 mg tablet 20 mg PO DAILY 07/19/20 12/21/24 12/21/24 History mycophenolate sodium 360 mg 360 mg PO BID 01/23/22 12/21/24 12/21/24 History tablet,delayed release (Myfortic) losartan 50 mg tablet 50 mg PO DAILY 12/29/22 12/21/24 12/21/24 History carvedilol 12.5 mg tablet 12.5 mg PO DAILY 10/27/23 12/21/24 12/21/24 History prednisone 5 mg tablet 5 mg PO DAILY 10/27/23 12/21/24 12/21/24 History tacrolimus 1 mg tablet,extended 1 mg PO DAILY 10/27/23 12/21/24 12/21/24 History release 24 hr (Envarsus XR) aripiprazole 10 mg tablet 10 mg PO DAILY 12/21/24 12/21/24 12/21/24 History hydroxyzine pamoate 25 mg capsule 25 mg PO TID 12/21/24 12/21/24 12/21/24 History Allergies Allergy/AdvReac Type Severity Reaction Status Date / Time clavulanic acid (From AdvReac Severe Nausea and Verified 12/21/24 19:29 Augmentin) Vomiting Sulfa (Sulfonamide AdvReac itchy-rash Verified 12/21/24 19:29 Antibiotics) Review of Systems 2 Review of Systems: All systems reviewed & are unremarkable except as noted in HPI. All systems reviewed & are unremarkable except as noted in HPI and below PMFSH Past Medical History Medical History Gastroesophageal reflux disease Anxiety Anemia of chronic disease End stage renal disease On PD prior to renal transplant. Back on hemodialysis due to failing transplant. Alport syndrome Status post peritoneal dialysis (~03/2019) Hypertension Surgical History Surgical History History of Kidney Transplant (02/2022) Status post creation of arteriovenous fistula Left wrist. Status post insertion of hemodialysis catheter (06/2020) Kidney transplant recipient (12/2018) Family History Family History Grandparent Alport syndrome Heart disease Father Type 2 diabetes mellitus Social History Social History Social History: Surrogate decision maker: Tierra and Dario Sheth, parents. Code status: Full code. Smoking status: Former smoker Tobacco type: cigarettes and e-cigarettes/vaping Additional smoking assessment comments: Still occasionally vapes. Alcohol intake: never Substance use: never Lack of Transportation: No Lack of Food: Never True Current Housing: I Have Housing Concerned About Future Housing: No Difficulty Paying Gas/Electric Bills: No Difficulty Paying for Meds: No Currently Unemployed: No Education: High School Diploma/GED Difficulty w/ Childcare or Family Care: No Additional living arrangements comments: The patient lives alone in [place]. Additional occupation/education comments: Works for [employer], currently on a leave of absence due to health problems. Spiritual care concerns: No Exam 2 Narrative: GENERAL: Well appearing, well-nourished, non-toxic, in no acute distress. HEAD: Normocephalic, atraumatic. RESPIRATORY: Airway patent, respirations nonlabored. Clear to auscultation bilaterally, no rales, rhonchi, wheezing. CARDIOVASCULAR: Regular rate and rhythm without murmurs, rubs, or gallops. Peripheral pulses intact MUSCULOSKELETAL: Moves all extremities. No gross deformities. No peripheral edema. SKIN: Warm, dry, normal color. NEURO: A&O X3. Speech clear. Steady gait. No ataxic movements. PSYCHIATRIC: Appropriate mood and affect. Normal interaction. Course Vital Signs Vital signs: Vital Signs Temperature 97.6 F 12/21/24 19:24 Pulse Rate 78 12/21/24 19:24 Respiratory Rate 14 12/21/24 19:24 Blood Pressure 156/97 H 12/21/24 19:24 Pulse Oximetry 100 12/21/24 19:24 Oxygen Delivery Room Air 12/21/24 19:24 Temperature 97.6 F 12/21/24 19:24 Pulse Rate 72 12/21/24 22:25 Respiratory Rate 16 12/21/24 22:25 Blood Pressure 133/93 H 12/21/24 22:25 Pulse Oximetry 96 12/21/24 22:25 Oxygen Delivery Room Air 12/21/24 19:24 Medical Decision Making MDM Narrative Medical decision making narrative: Patient presented to ED with history of mold exposure. Patient immunocompromised related to previous kidney transplants related to Alport Syndrome. Vital signs are stable upon arrival. Oxygen 100% on room air. Patient in no acute distress. Does not appear in any respiratory distress. Laboratory studies here without significant abnormalities. Creatinine today is 1.98. BUN 25. Per patient's recent records, creatinine has been more consistently around 1.5. Otherwise stable electrolytes. Chest x-ray is clear. Discussed with [facility] transplant team, Sarah Draper RN executive coordinator, can f/u with patient tomorrow during the day regarding kidney function. Patient otherwise safe for discharge home at this time. He is in agreement with plan. Advised to stay hydrated at home. Given return precautions. Discharged in stable condition. Medical Records Medical records reviewed: Yes I reviewed the external patient's medical records. Vital Signs Vital Signs: Vital Signs Temperature 97.6 F 12/21/24 19:24 Pulse Rate 78 12/21/24 19:24 Respiratory Rate 14 12/21/24 19:24 Blood Pressure 156/97 H 12/21/24 19:24 Pulse Oximetry 100 12/21/24 19:24 Oxygen Delivery Room Air 12/21/24 19:24 Temperature 97.6 F 12/21/24 19:24 Pulse Rate 72 12/21/24 22:25 Respiratory Rate 16 12/21/24 22:25 Blood Pressure 133/93 H 12/21/24 22:25 Pulse Oximetry 96 12/21/24 22:25 Oxygen Delivery Room Air 12/21/24 19:24 Lab Data Lab results reviewed: Yes I reviewed the patient's lab results. 12/21/24 20:21 12/21/24 20:21 Labs: Lab Results 12/21/24 Range/Units 20:21 WBC 7.1 (4.5-10.0) K/mm3 RBC 4.70 (4.6-6.20) M/mm3 Hgb 13.8 L D (14.0-18.0) g/dL Hct 41.3 L (42.0-52.0) % MCV 87.9 (80-100) fl MCH 29.4 (26-34) pg MCHC 33.4 (32-36) g/dl RDW 12.5 (11.5-14.5) % Plt Count 180 (150-375) k/mm3 MPV 8.7 (7.4-10.4) fl Immature Gran % (Auto) 0.3 (0-0.5) % Neut % (Auto) 78.5 H (45.5-73.1) % Lymph % (Auto) 10.8 L (18.3-44.2) % [place] % (Auto) 8.3 (2.6-8.5) % Eos % (Auto) 1.7 (0-4.4) % Baso % (Auto) 0.4 (0.2-1.2) % Lymph # (Auto) 0.77 L (0.9-3.2) K/mm3 [place] # (Auto) 0.6 (0.1-0.6) K/mm3 Eos # (Auto) 0.1 (0-0.3) K/mm3 Baso # (Auto) 0.0 (0.0-0.1) K/mm3 Abs Immat Gran (auto) 0.02 (0.00-0.031) K/mm3 Absolute Neuts (auto) 5.6 (1.3-6.7) K/mm3 Absolute Nucleated RBC 0.000 (0.0-0.012) K/mm3 Nucleated RBC % 0.0 (0.0-0.2) % Sodium 141 (137-145) mmol/L Potassium 4.4 (3.4-5.0) mmol/L Chloride 105 (98-107) mmol/L Carbon Dioxide 28 (22-30) mmol/L Anion Gap 8 (4-12) mmol/L BUN 25 H (9-20) mg/dL Creatinine 1.98 H (0.7-1.3) mg/dL Estim Creat Clear Calc 53 ml/min Estimated GFR 40 L (59 - ) Glucose 68 (65-110) mg/dL Calcium 9.8 (8.4-10.2) mg/dL Magnesium 1.8 (1.6-2.3) mg/dL Total Bilirubin 0.7 (0.2-1.3) mg/dL AST 29 (17-59) U/L ALT 31 (6-50) U/L Alkaline Phosphatase 63 (38-126) U/L Total Protein 7.2 (6.3-8.2) g/dL Albumin 4.8 (3.5-5.1) g/dL Imaging Data Attestation: I personally reviewed and interpreted this imaging study as follows: Radiologist's impression: ITS Impressions Chest X-Ray 12/21/24 21:57 IMPRESSION: No acute cardiopulmonary pathology. Discharge Plan Discharge Clinical Impression: Mold exposure, History of kidney transplant CKD (chronic kidney disease) Qualifiers: Chronic kidney disease stage: unspecified stage Qualified Code(s): N18.9 - Chronic kidney disease, unspecified Patient Disposition: Home Condition: Stable Instructions: Antibiotic Form, Chronic Kidney Disease (ED) Additional Instructions: The [facility] transplant team is aware of your laboratory studies today. They will follow-up with you tomorrow. Stay well hydrated at home. Return for any new or worsening concerns. Patient Language: Albanian Prescriptions: No Action mycophenolate sodium [Myfortic] 360 mg tablet,delayed release (DR/EC) 360 mg PO BID carvedilol 12.5 mg tablet 12.5 mg PO DAILY prednisone 5 mg tablet 5 mg PO DAILY Envarsus XR 1 mg tablet extended release 24 hr 1 mg PO DAILY losartan 50 mg tablet 50 mg PO DAILY aripiprazole 10 mg tablet 10 mg PO DAILY hydroxyzine pamoate 25 mg capsule 25 mg PO TID famotidine 20 mg tablet 20 mg PO DAILY aspirin 81 mg tablet,delayed release (DR/EC) 81 mg PO DAILY Follow-up/Referrals: Vanita Amaro DO [Primary Care Provider] - Time of Disposition: 22:19
[2024-12-21 22:25] VITALS: BP 133/93; PULSE 72; RESP 16; O2SAT 96
== END 2024-12-21 22:25 | disposition home or self-care (01) ==
PROVIDERS: Emergency Medicine; Emergency Provider Physician Assistant; PCP Family Medicine
DX: I12.9 Hypertensive chronic kidney disease with stage 1 through stage 4 chronic kidney disease, or unspecified chronic kidney disease (principal); N18.9 Chronic kidney disease, unspecified; Z94.0 Kidney transplant status; Z77.120 Contact with and (suspected) exposure to mold (toxic); K21.9 Gastro-esophageal reflux disease without esophagitis; F41.9 Anxiety disorder, unspecified; D64.9 Anemia, unspecified; Z99.2 Dependence on renal dialysis
CPT/HCPCS: 36415; 71046; 80053; 83735; 85025; 99283

== ENCOUNTER 2025-01-23 09:43 | Emergency (ER) | payer MEDICARE, OTHER, SELFPAY ==
--- OUTSIDE RECORDS SUMMARY | 2025-01-23 09:47 | XMS_ITS ---
Author Organization [facility] Address [address] [place] [address] Care Team Providers Care Data Technical Lead Name Role Phone Dixie Schroeder MD Unavailable [phone] Vanita Amaro DO Primary Care Provider [phone] Tg Ervin RN Unavailable Unava ilable Dialysis Access Sites Type Status Location Placement Date Removal Da te Hemodialysis AV Access 08/28/20 Forearm Active Left Forearm - Anterior 08/28/2020 Hemodialysis Cath Double Inactive Right Breast 1 11/27/2020 Peritoneal Dialysis Catheter Left lower abdomen Inactive Left Abdomen (side) - Lower 01/04/2019 01/04/2019 Procedures Procedure Name Priority Date/Time Associated Diagnosis Comments BLOOD MISC TO RUSTON Routine 12/23/2024 4: 56 PM CDT ASPERGILLUS GALACTOMANNAN ANTIGEN Routine 12/23/2024 4:56 PM CDT Kidney replaced by transplant EGFR Routine 12/23/2024 8:03 AM CDT PHOSPHORUS Routine 12/23/2024 8:03 AM CDT BILIRUBIN, DIRECT Routine 12/23/2024 8:0 3 AM CDT COMPREHENSIVE METABOLIC PANEL Routine 12/23/2024 8:03 AM CDT Transplanted kidney DIFFERENTIAL AUTO Routine 12/23/2024 8:0 3 AM CDT Transplanted kidney LACTATE DEHYDROGENASE Routine 12/23/2024 8:03 AM CDT Kidney replaced by transplant LIPID PANEL Routine 12/23/2024 8:03 AM CDT Transplanted kidney Hyperlipidemia, unspecified hyperlipidemia type TACROLIMUS LEVEL, TROUGH Routine 12/23/2024 8:03 AM CDT Transplanted kidney Encounter for long-term (current) use of high-risk medication CBC WITH AUTO DIFFERENTIAL Routine 12/23/2024 8:03 AM CDT Transplanted kidney EGFR Routine 11/18/2024 8:13 AM CDT Transplanted kidney DIFFERENTIAL AUTO Routine 11/18/2024 8:1 3 AM CDT Transplanted kidney TACROLIMUS LEVEL, TROUGH Routine 11/18/2024 8:13 AM CDT Transplanted kidney Encounter for long-term (current) use of high-risk medication CBC WITH AUTO DIFFERENTIAL Routine 11/18/2024 8:13 AM CDT Transplanted kidney RENAL FUNCTION PANEL Routine 11/18/2024 8:13 AM CDT Transplanted kidney HEPATITIS C RNA, QUANTITATIVE, PCR Routine 03/27/2022 [...] (sister), and Pj (other). Pharmacy: [facility] Specialty: [facility] Specialty Program [facility], [place] P: [phone] F: [phone] Q-MONTHLY, FK, BK; Q-3 ROUTINE B-ISOTITERS (CERNER ) Exp 03/21/2025 HH: [facility] Home Care Problem Noted Date Diagnosed Date [...] of circulatory system 09/18/2020 ESRD on hemodialysis ([facility]) 08/08/2020 Overview (08/08/2020): Added automatically from request for surgery [id number] Hypertension, essential 06/19/2020 Assessment & Plan (01/11/2022 11:03 AM CDT): Continue with labetalol and nifedipine. Holding home clonidine and hydralazine Assessment & Plan (01/10/2022 8:31 PM CDT): - Was on Labetolol and Nifedipine as home meds - Clonidine and Hydralazine held for now - can be restarted in case the BP remains uncontrolled . Assessment & Plan (06/19/2020 9:38 AM ENGINEER SECOND ASSISTANT): Pt's SBP consistently between 150s-170s since admission. Likely due to medication effect and from his ARF. -Started amlodipine 10mg daily -Will consider spot labetalol IV 10mg if SBP persistently > 180 Acute renal failure 06/18/2020 Assessment & Plan (06/25/2020 12:22 PM ENGINEER SECOND ASSISTANT): Hx of [place] syndrome with ESRD, s/p [...] 06/18/2020 Assessment & Plan (06/23/2020 9:54 AM ENGINEER SECOND ASSISTANT): Hgb 6.8 at admission, 16.5 in 11/2019. Likely due to ARF. - Iron (168), ferritin (588), folate (7.5), B12 (1,143), haptoglobin (61.0), LDH (221). - consent for blood in paper chart, transfuse hb >7 (2 units this admission) - s/p retacrit 77142 units (06/21, 06/23) Increased anion gap metabolic acidosis Assessment & Plan (06/25/2020 12:22 PM ENGINEER SECOND ASSISTANT): AG 19 at admission. Likely due to [...] pred 5 daily, tacro 3 daily Immunosuppression ([facility]) 12/23/2018 Hyperparathyroidism, secondary renal 12/23/2018 Iron deficiency anemia 12/23/2018 Assessment & Plan (01/10/2022 8:28 PM CDT): - H/H stable, continue to monitor CBC - f/u Ferritin and iron profile in am - not currently on supplementation End stage renal disease ([facility]) 11/18/2018 Overview (11/18/2018): Added automatically from request for surgery [id number] Assessment & Plan (01/11/2022 11:07 AM CDT): [...] - Pt is a known pt at [facility] center in [place], [place] - As per the pt he [...] on file Legal Sex Male 2:12 AM ENGINEER SECOND ASSISTANT Gender Identity Not on file Sexual Orientation [...] 25.09 12/20/2023 7:57 AM CDT Results * BLOOD MISC TO RUSTON (12/23/2024 4:56 PM CDT) Test name, chem SFUNG [facility] ref Lab Misc See Footnote [facility] Comment: Test Result Flag Unit RefValue (1, 3) Kmtf-J-Uiegsf (Fungitell), S Fungitell Quantitative Value <31 pg/mL <60 pg/mL Fungitell Qualitative Result Negative Negative Hemolyzed No (1, 3) Idag-M-Bppxnf detected. This assay does not detect certain fungi, including Cryptococcus species, which produce very low levels of (1, 3) Xmle-G-Mtgczc (BDG) and the Mucorales (e.g., Lichthemia, Mucor and Rhizopus), which are not known to produce BDG. Additionally, the yeast phase of Blastomyces dermatitidis produces little BDG and may not be detected by this assay. ADDITIONAL INFORMATION This assay was performed using the FDA-cleared Fungitell Assay ([facility], [facility]), a kinetic MARKOS based on modification of the Limulus Amebocyte Lysate pathway. Test Performed by: [place] [address] Account Processor: Roberto Sargent Ph.D.; CLIA# [id number] Blood 12/23/2024 4:56 PM CDT 12/26/2024 2:59 PM CDT Sherman WATSON - 12/27/2024 3:01 PM CDT beta-D glucan Earnest Crandall MD LAB BLOOD ORDERABLES Final R esult Performing Organization Address City/[facility]/ZIP Co de Phone Number [facility] [address] [place] [address] [facility] * Aspergillus galactomannan antigen Blood (12/23/2024 4:56 PM CDT) Aspergillus galactomannan Ag <0.500 <0.5 Index [facility] Comment: ADDITIONAL INFORMATION This is a qualitative test and the resulted index value is not indicative of disease severity. Serial testing is recommended for patients at high risk for invasive aspergillosis. This assay was performed using the FDA-cleared [employer] Platelia Aspergillus Galactomannan EIA. Test Performed by: [address] [address] Account Processor: Roberto Sargent Ph.D.; CLIA# [id number] Blood 12/23/2024 4:56 PM CDT 12/26/2024 9:11 AM CDT Earnest Crandall MD LAB MICROBIOLOGY - GENERAL O RDERABLES Final Result [facility] [address] [address] [facility] ref Lab * (ABNORMAL) eGFR (12/23/2024 8:03 AM CDT) eGFR 57(L) >=60 mL/min/1. 73 m2 Comment: Interpretive Data [...] interpretive data was last reviewed 2021. Blood 12/23/2024 8:03 AM CDT 12/23/2024 5:44 PM CDT us Earnest Crandall MD LAB BLOOD ORDERABLES Final R esult [facility] [address] Department [place] [address] * Differential, auto (12/23/2024 8:03 AM CDT) Pathologist [facility] Neutrophil abs 4.17 1.50 - 6.50 K/cumm Imm gran abs 0.02 0.00 - 0.10 K/cumm [facility] Lymphocyte abs 0.88 0.80 - 3.30 K/cumm [facility] Monocyte abs 0.54 0.20 - 0.80 K/cumm [facility] Eosinophil abs 0.17 0.00 - 0.50 K/cumm [facility] Basophil abs 0.04 0.00 - 0.10 K/cumm [facility] Neutrophil pct 71.7 % [facility] Comment: Interpretive Data Percent cell count reference ranges are not reported, since discordance with absolute values may lead to misinterpretation of CBC data. Current Interpretive Data was last revised on 2017. Imm gran pct 0.3 % [facility] Comment: Interpretive Data Percent cell count reference ranges are not reported, since discordance with absolute values may lead to misinterpretation of CBC data. Current Interpretive Data was last revised on 2017. Lymphocyte pct 15.1 % [facility] Comment: Interpretive Data Percent cell count reference ranges are not reported, since discordance with absolute values may lead to misinterpretation of CBC data. Current Interpretive Data was last revised on 2017. Monocyte pct 9.3 % [facility] Comment: Interpretive Data Percent cell count reference ranges are not reported, since discordance with absolute values may lead to misinterpretation of CBC data. Current Interpretive Data was last revised on 2017. Eosinophil pct 2.9 % [facility] Comment: Interpretive Data Percent cell count reference ranges are not reported, since discordance with absolute values may lead to misinterpretation of CBC data. Current Interpretive Data was last revised on 2017. Basophil pct 0.7 % [facility] Comment: Interpretive Data Percent cell count reference ranges are not reported, since discordance with absolute values may lead to misinterpretation of CBC data. Current Interpretive Data was last revised on 2017. Blood 12/23/2024 8:03 AM CDT 12/23/2024 5:06 PM CDT us Earnest Crandall MD LAB BLOOD ORDERABLES Final R esult [facility] [address] Department [place] [address] * Tacrolimus level trough (12/23/2024 8:03 AM CDT) Tacrolimus trough 5.8 ng/mL Comment: Interpretive Data Testing performed by liquid chromatography-tandem mass spectrometry. Therapeutic concentrations vary depending on type of transplanted organ and time elapsed since transplant. Typical trough concentrations range from 5-15 ng/mL. This test was developed and its performance characteristics determined by the [facility] consistent with CLIA requirements. This test has not been cleared or approved by the US Food and Drug administration. Current interpretive data last reviewed 2019. Testing performed by: [facility], [address] [place]., [address] Blood 12/23/2024 8:03 AM CDT 12/23/2024 8:15 PM CDT Narrative [facility] - 12/24/2024 2:29 AM CDT MONTHLY (EVERY 4 WEEKS) us Earnest Crandall MD LAB BLOOD ORDERABLES Final R esult [facility] [address] Department [employer] [place] [address] * (ABNORMAL) CBC with auto differential (12/23/2024 8:03 AM CDT) WBC 5.82 3.80 - 9.90 K/cumm Hgb 13.9 13.0 - 17.5 g/dL [facility] Hct 43.6 38.9 - 50.3 % [facility] Plt 168 150 - 400 K/cumm [facility] MPV 10.1 9.1 - 12.3 fL [facility] RBC 4.75 4.30 - 5.80 M/cumm [facility] MCV 91.8 81.3 - 96.4 fL [facility] MCH 29.3 27.1 - 33.3 pg [facility] MCHC 31.9(L) 32.3 - 35.7 g/dL [facility] RDW CV 12.5 11.1 - 14.9 % [facility] RDW SD 42.1 35.7 - 48.1 fL [facility] NRBC abs 0.00 0.00 - 0.01 K/cumm [facility] Blood 12/23/2024 8:03 AM CDT 12/23/2024 5:06 PM CDT Narrative [facility] - 12/23/2024 5:51 PM CDT MONTHLY (EVERY 4 WEEKS) Earnest Crandall MD LAB BLOOD ORDERABLES Final R esult Performing Organization Address City/[facility]/ZIP Co de Phone Number [facility] [address] Department [employer] [place] [address] * Phosphorus (12/23/2024 8:03 AM CDT) Phosphorus, pl 3.2 2.3 - 4.5 mg/dL Blood 12/23/2024 8:03 AM CDT 12/23/2024 5:06 PM CDT Earnest Crandall MD LAB BLOOD ORDERABLES Final R esult Performing Organization Address [facility] Co de Phone Number W[facility]TER [phone] [facility] [place] [address] * Lactate dehydrogenase (LD) (12/23/2024 8:03 AM CDT) Lactate dehydrogenase (LDH) 166 100 - 250 Units/L Comment:Hemolysis present. R esults may be affected. Blood 12/23/2024 8:03 AM CDT 12/23/2024 5:06 PM CDT us Earnest Crandall MD LAB BLOOD ORDERABLES Final R esult Performing Organization Address [facility] de Phone Number WALTER [phone] [facility] [place] [address] * Bilirubin, direct (12/23/2024 8:03 AM CDT) Bilirubin, direct 0.1 0.1 - 0.3 mg/dL Blood 12/23/2024 8:03 AM CDT 12/23/2024 5:06 PM CDT Earnest Crandall MD LAB BLOOD ORDERABLES Final R esult Performing Organization Address [facility] Co de Phone Number WALTER [phone] [facility] [place] [address] * (ABNORMAL) Lipid panel (12/23/2024 8:03 AM CDT) Cholesterol 146 30 - 199 mg/dL Comment: Interpretive Data Ages < or = 19 years Acceptable: <170 mg/dL Borderline high: 170-199 mg/dL High: >or= 200 mg/dL Ages > or = 20 years Desirable: <200 mg/dL Borderline high: 200-239 mg/dL High: >or= 240 mg/dL Literature References: 1. Expert Panel on Integrated Guidelines for Cardiovascular Health and Risk Reduction in Children and Adolescents. Pediatrics 2011;128:S213 2. NCEP Expert Panel. Circulation 2004;110:227 Current Interpretive Data was last revised on 2018. Triglycerides 154(H) <=149 mg/dL [facility] Comment: Interpretive Data Ages < or = 9 years Acceptable: <75 mg/dL Borderline high: 75-99 mg/dL High: >or= 100 mg/dL Ages 10 to 20 years Acceptable: <90 mg/dL Borderline high: 90-129 mg/dL High: >or= 130 mg/dL Ages > or = 20 years Desirable: <150 mg/dL Borderline high: 150-199 mg/dL High: 200-499 mg/dL Very high: >or= 499 mg/dL Literature References: 1. Expert Panel on Integrated Guidelines for Cardiovascular Health and Risk Reduction in Children and Adolescents. Pediatrics 2011;128:S213 2. NCEP Expert Panel. Circulation 2004;110:227 Current Interpretive Data was last revised on 2018. HDL 48 >=40 mg/dL [facility] Comment: Interpretive Data Ages < or = 19 years Acceptable: >45 mg/dL Borderline low: 40-45 mg/dL Low: <40 mg/dL Ages > or = 20 years Desirable: >or= 60 mg/dL Low: <40 mg/dL Literature References: 1. Expert Panel on Integrated Guidelines for Cardiovascular Health and Risk Reduction in Children and Adolescents. Pediatrics 2011;128:S213 2. NCEP Expert Panel. Circulation 2004;110:227 Current Interpretive Data was last revised on 2018. LDL, calculated 72 <=129 mg/dL [facility] Comment: Interpretive Data Ages < or = 19 years Acceptable: <110 mg/dL Borderline high: 110-129 mg/dL High: >or= 130 mg/dL Ages > or = 20 years Optimal: <100 mg/dL Near optimal: 100-129 mg/dL Borderline high: 130-159 mg/dL High: >160 mg/dL Calculated using the Babcock LDL-C estimating equation. This equation was implemented on 2024. Prior to this date LDL-C was estimated using the Friedewald equation. Literature References: 1. Expert Panel on Integrated Guidelines for Cardiovascular Health and Risk Reduction in Children and Adolescents. Pediatrics 2011;128:S213 2. NCEP Expert Panel. Circulation 2004;110:227 3. Sadiq Flynn et al. BLANQUITA Cardiol. 2020 October 13;5(5):540-548. doi: 10.1001/jamacardio.2020.0013 Current Interpretive Data was last revised on 2024. Non-HDL Cholesterol 98 mg/dL [facility] Comment: Interpretive Data Ages < or = 19 years Acceptable: <120 mg/dL Borderline high: 120-144 mg/dL High: >145 mg/dL Ages > or = 20 years When triglycerides are >200 mg/dL, Non-HDL cholesterol is a secondary target of therapy with treatment goals that are 30 mg/dL greater than the LDL cholesterol target. Literature References: 1. Expert Panel on Integrated Guidelines for Cardiovascular Health and Risk Reduction in Children and Adolescents. Pediatrics 2011;128:S213 2. NCEP Expert Panel. Circulation 2004;110:227 Current Interpretive Data was last revised on 2018. Chol/HDL ratio 3 [facility] Blood 12/23/2024 8:03 AM CDT 12/23/2024 5:06 PM CDT Narrative [facility] - 12/23/2024 6:29 PM CDT PLEASE OBTAIN JUN, SEP, DECEMBER, MAR (1X PER MONTH) us Earnest Crandall MD LAB BLOOD ORDERABLES Final R esult [facility] [address] Department [place] [address] * (ABNORMAL) Comprehensive metabolic panel (12/23/2024 8:03 AM CDT) Sodium 141 135 - 145 mmol/L Potassium, pl 4.8 3.3 - 4.9 mmol/L [facility] Chloride 106 97 - 110 mmol/L [facility] CO2 23 22 - 32 mmol/L [facility] Anion gap 12 2 - 15 mmol/L [facility] BUN 23 6 - 25 mg/dL [facility] Creatinine 1.66(H) 0.80 - 1.30 mg/dL [facility] Glucose 102 70 - 199 mg/dL [facility] Comment: Interpretive Data Fasting glucose >/= 126 [...] 2022. Calcium 9.9 8.5 - 10.3 mg/dL [facility] Bilirubin, total 0.4 0.1 - 1.2 mg/dL [facility] Protein, pl 6.6 6.5 - 8.5 g/dL [facility] Albumin 4.5 3.5 - 5.0 g/dL [facility] Alk phos 95 40 - 130 Units/L [facility] ALT 30 7 - 55 Units/L [facility] AST 24 10 - 50 Units/L [facility] Blood 12/23/2024 8:03 AM CDT 12/23/2024 5:06 PM CDT us Earnest Crandall MD LAB BLOOD ORDERABLES Final R esult [facility] [address] Department [place] [address] * eGFR (11/18/2024 8:13 AM CDT) eGFR [...] MD LAB BLOOD ORDERABLES Final R esult [facility] [address] Department of Laboratories [place], [place] [id number] * (ABNORMAL) Differential, auto (11/18/2024 8:13 AM CDT) Neutrophil abs 3.73 1.50 - 6.50 K/cumm Imm gran abs 0.01 0.00 - 0.10 K/cumm [facility] Lymphocyte abs 0.79(L) 0.80 - 3.30 K/cumm [facility] Monocyte abs 0.47 0.20 - 0.80 K/cumm [facility] Eosinophil abs 0.16 0.00 - 0.50 K/cumm [facility] Basophil abs 0.04 0.00 - 0.10 K/cumm [facility] Neutrophil pct 71.7 % [facility] Comment: Interpretive Data Percent cell count reference ranges are not reported, since discordance with absolute values may lead to misinterpretation of CBC data. Current Interpretive Data was last revised on 2017. Imm gran pct 0.2 % [facility] Comment: Interpretive Data Percent cell count reference ranges are not reported, since discordance with absolute values may lead to misinterpretation of CBC data. Current Interpretive Data was last revised on 2017. Lymphocyte pct 15.2 % [facility] Comment: Interpretive Data Percent cell count reference ranges are not reported, since discordance with absolute values may lead to misinterpretation of CBC data. Current Interpretive Data was last revised on 2017. Monocyte pct 9.0 % [facility] Comment: Interpretive Data Percent cell count reference ranges are not reported, since discordance with absolute values may lead to misinterpretation of CBC data. Current Interpretive Data was last revised on 2017. Eosinophil pct 3.1 % [facility] Comment: Interpretive Data Percent cell count reference ranges are not reported, since discordance with absolute values may lead to misinterpretation of CBC data. Current Interpretive Data was last revised on 2017. Basophil pct 0.8 % [facility] Comment: Interpretive Data Percent cell count reference ranges are not reported, since discordance with absolute values may lead to misinterpretation of CBC data. Current Interpretive Data was last revised on 2017. Blood 11/18/2024 8:13 AM CDT 11/18/2024 3:16 PM CDT us Earnest Crandall MD LAB BLOOD ORDERABLES Final R esult [facility] [address] Department [place] [address] * Tacrolimus level trough (11/18/2024 8:13 AM CDT) Tacrolimus trough 8.5 ng/mL Comment: Interpretive Data Testing performed by liquid chromatography-tandem mass spectrometry. Therapeutic concentrations vary depending on type of transplanted organ and time elapsed since transplant. Typical trough concentrations range from 5-15 ng/mL. This test was developed and its performance characteristics determined by the [facility] consistent with CLIA requirements. This test has not been cleared or approved by the US Food and Drug administration. Current interpretive data last reviewed 2019. Testing performed by: [facility], [address] [facility], [place]., [address] Blood 11/18/2024 8:13 AM CDT 11/18/2024 10:03 PM CDT Narrative [facility] - 11/19/2024 2:14 AM CDT MONTHLY (EVERY 4 WEEKS) Earnest Crandall MD LAB BLOOD ORDERABLES Final R esult [facility] [address] Department of [employer] [address] * (ABNORMAL) CBC with auto differential (11/18/2024 8:13 AM CDT) WBC 5.20 3.80 - 9.90 K/cumm Hgb 14.5 13.0 - 17.5 g/dL [facility] Hct 45.9 38.9 - 50.3 % [facility] Plt 205 150 - 400 K/cumm [facility] CH MPV 9.7 9.1 - 12.3 fL [facility] RBC 5.01 4.30 - 5.80 M/cumm [facility] CH MCV 91.6 81.3 - 96.4 fL [facility] MCH 28.9 27.1 - 33.3 pg [facility] MCHC 31.6(L) 32.3 - 35.7 g/dL [facility] CH RDW CV 13.3 11.1 - 14.9 % [facility] CH RDW SD 44.6 35.7 - 48.1 fL [facility] NRBC abs 0.00 0.00 - 0.01 K/cumm [facility] Blood 11/18/2024 8:13 AM CDT 11/18/2024 3:16 PM CDT Narrative [facility] - 11/18/2024 3:25 PM CDT MONTHLY (EVERY 4 WEEKS) Earnest Crandall MD LAB BLOOD ORDERABLES Final R esult [facility] [address] Department [place] [address] * (ABNORMAL) Renal function panel (11/18/2024 8:13 AM CDT) Sodium 143 135 - 145 mmol/L Potassium, pl 4.9 3.3 - 4.9 mmol/L [facility] Chloride 108 97 - 110 mmol/L [facility] CO2 23 22 - 32 mmol/L [facility] Anion gap 12 2 - 15 mmol/L [facility] BUN 22 6 - 25 mg/dL [facility] Creatinine 1.59(H) 0.80 - 1.30 mg/dL [facility] Glucose 110 70 - 199 mg/dL [facility] Comment: Interpretive Data Fasting glucose [...] 2022. Calcium 9.8 8.5 - 10.3 mg/dL [facility] Phosphorus, pl 3.0 2.3 - 4.5 mg/dL [facility] Albumin 4.5 3.5 - 5.0 g/dL [facility] Blood 11/18/2024 8:13 AM CDT 11/18/2024 3:16 PM CDT Narrative [facility] - 11/18/2024 3:42 PM CDT MONTHLY (EVERY 4 WEEKS) Earnest Crandall MD LAB BLOOD ORDERABLES Final R esult [facility] [address] Department [place] [address] * Hepatitis C (HCV) RNA PCR, quantitative (03/27/2022 8:30 AM CDT) [facility] HCV RNA result Not Detected [facility] Comment: The quantifiable range of this assay is 15 IU/mL to 100,000,000 IU/mL (1.18 log IU/mL to 8.00 log IU/mL). Testing was performed by the NIKI 6800 HCV Test ([employer] Testing performed at [facility] Current Interpretive Data was last revised on 2021 Blood 03/27/2022 8:30 AM CDT 03/27/2022 1:53 PM CDT us Frandy Dewey MD LAB MICROBIOLOGY - GENERAL ORDERABLES Final Result Performing Organization Address City/State/[facility] Co de Phone Number [facility] Department [place] [address] from Last 3 Months or Most Recently Relevant to Health Maintenance
--- OUTSIDE RECORDS SUMMARY | 2025-01-23 09:47 | XMS_ITS | Clinical Summary ---
Author Organization [facility] [employer] Address [address] [place] [address] Care Team Providers Care Spool Sorter Name Role Phone Roel Pantoja MD Primary Care Provider Source Comments [facility],non-owned Affiliates and Associated Physician Practices is amultiple site organization consisting of ambulatory clinics and hospital sitesin [place] and [place]. This disclosure is being madepursuant to the Care Everywhere program and may not contain all information available regarding this patient. 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 Gender Identity Not on file Sexual Orientation [...] 3 - Risk Dialysis 4-dose series) 2015 HPV VACCINE (1 - 3-dose SCDM series) 2022 COVID-19 VACCINE (1 - ) 02/14/2024 DEPRESSION SCREENING 06/15/2024 INFLUENZA VACCINE (#1) 2025 06/26/2020, 2018 ZOSTER VACCINE (1 of 2) 2045 HEPATITIS [...] patient's age to complete this topic Insurance [facility] [id number] [place] [address] PAYOR GENERIC * Guarantor: E-SCREEN,SOIL Account Type Relation to Patient Date of Phone Billing Address Company Employer [employer] [address] Care Teams Spool Sorter Relationship Specialty Start Date End Date Roel Pantoja MD [address] [place] [phone] PCP - General Family Medicine 12/01/15
--- OUTSIDE RECORDS SUMMARY | 2025-01-23 09:48 | XMS_ITS | Continuity of Care Document ---
Author Organization [facility] Address [address] [place] [address] Phone Care Team Providers Care Ultrasound Technologist Sonographer Name Role Phone Chavo Ortiz MD Unavailable Unavailable Allergies, Adverse Reactions, Alerts Substance Reaction Status Criticality Sulfa (Sulfonamide Antibiotics) Active No Information Medications Medication Instructions Dosage Effective Dates (start - stop) Status Comments Pepcid 20 mg tablet take 1 tablet by oral route 2 times every day 20 MG - Active mycophenolate sodium 360 mg tablet,delayed release take 1 tablet by oral route 2 times every day on an empty stomach 360 MG - Active prednisone 5 mg tablet take 1 tablet by oral route every day 5 MG - Active acyclovir 200 mg capsule take 1 capsule by oral route BID - Active aspirin 81 mg chewable tablet chew 1 tablet by oral route every day 81 MG - Active tacrolimus 1 mg capsule take (0.1MG/KG) by oral route every 12 hours 0.1 MG/KG - Active 2 pill in AM and 2 pill at night Procedures Procedure Date PREV VISIT, NEW, AGE 18-39 Advance Directives Directive Yes / No Effective Date File Name No Information Encounters Encounter Description Practice Location Reason(s) For Visit Diagnoses Date Provider Providers Copied on Encounter PREV VISIT, NEW, AGE 18-39 [facility], [address] [place], [place], [id number], [place] tel:[phone] [facility] Physical (chief complaint) Encntr for general adult medical exam w/o abnormal findings Angel Tony. [address] [place], [place], [id number], [place]. tel:[phone] Family History Family Member Type Diagnosis Age [...] on multiple medication prescribed by nephrology at [facility]. Pt is on pepcid daily for stomach [...] on multiple medication prescribed by nephrology at [facility]. Pt is on pepcid daily for stomach [...] Mental Status Date Cognitive Assessment Orientation - Letts ed to time, place, person, situation.
--- OUTSIDE RECORDS SUMMARY | 2025-01-23 09:48 | XMS_ITS | Encounter Summary ---
Author Organization [facility] Address [address] [place] [address] Phone Care Team Providers Care Training Mgr Name Role Phone Margaux Chavez RN Unavailable [phone] Jordan Lundberg RN Unavailable [phone] Dixie Schroeder MD Unavailable [phone] Vanita Amaro DO Primary Care Provider [phone] Tg Ervin RN Unavailable Unava ilable Encounter Details Date Type Department Care Team (Late st Contact Info) Description 12/13/2020 Telephone [facility] Endocrinology Metabolism and Lipid [address] [facility] Advanced Medicine 5th [place] [address] [place] [address] Raúl Paz Social History Tobacco Use Types Packs/Day Years Used Date Smoking Tobacco: Never Smokeless Tobacco: Never Alcohol Use Standard Drinks/Week Comments Not Currently 0 (1 standard drink = 0.6 oz pur e alcohol) Sex and Gender Information Value Date Recorded Sex Assigned at Not on file 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
--- OUTSIDE RECORDS SUMMARY | 2025-01-23 09:48 | XMS_ITS | Clinical Summary ---
Author Organization [facility] Address [address] [place] [address] Phone Care Team Providers Care Studio Operator Name Role Phone Roel Pantoja MD Primary Care Provider [phone] Allergies No known active allergies Medications No [...] Comments Blood Pressure 111/75 04/20/2018 12:00 PM SILVER CHASER Pulse 76 04/20/2018 7:02 AM SILVER CHASER Temperature 36.6 C (97.8 F) 04/20/2018 11:15 AM SILVER CHASER Respiratory Rate 14 04/20/2018 12:00 PM SILVER CHASER Oxygen Saturation 100% 04/20/2018 12:00 PM SILVER CHASER Inhaled Oxygen Concentration - - Weight 74.8 kg (165 lb) 04/20/2018 7:02 AM SILVER CHASER Height 182.9 cm (6') 04/20/2018 7:02 AM SILVER CHASER Body Mass Index 22.38 04/20/2018 7:02 AM SILVER CHASER Plan of Treatment Health Maintenance Due Date Last Done Comments HPV VACCINES (1 - Male 3-dose series) 2010 DTAP/TDAP/TD VACCINES (1 - Tdap) 2014 HEPATITIS B VACCINES (1 of 3 - 19+ 3-dose series) 2014 INFLUENZA VACCINE (#1) 2025 06/26/2020, 2018 Medical Devices Implanted Type Area Parer Device Identifier Shelf Expiration Date Model / Serial / Lot Cath Pd Wayne [place] 2cuff [id number] - [id number] Implanted:Qty : 1 on 04/20/2018 by Kate Aj MD at [facility] Catheter N/A: Abdomen [employer] - COVIDIEN Peritoneal Dialysis Catheter 09/24/2021 [id number] / / [id number] Insurance MEDICARE PART A AND B [employer] BLUE ACCESS/TRUE [employer] PPO Advance Directives For more information, please contact: [phone] * Full Code (Latest Code Status on File) Date Activated Date Inactivated Comments 04/20/2018 10:20 AM 04/20/2018 3:04 PM * Full Code Date Activated Date Inactivated Comments 04/20/2018 6:19 AM 04/20/2018 10:20 AM Care Teams Studio Operator Relationship Specialty Start Date End Date Roel Pantoja MD [address] [place] [phone] PCP - General Family Practice 03/18/18
--- OUTSIDE RECORDS SUMMARY | 2025-01-23 09:48 | XMS_ITS ---
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 Marked as Active Follow-up on 02/20/2022 Reason: [facility]planted at [facility] Kidney CoordinatorTg Ervin RN Phone: N/A Fax: N/A Email: N/A [place] Organ Diagnosis Organ Primary Contributory Kidney [place] [...] RN Secondary Coordinator Secondary Post Kidney Coordinator [phone] N/A N/A Tg Ervin, flight physicianCore Driller N/A N/A N/A Dixie Schroeder MD Referring Physician [phone] N/A Ellen Ling Shirt Bander [phone] N/A N/A Events Post-Transplant Pre-Transplant Admitted: 02/20/2022 Referred: 07/03/2020 Transplanted: 02/20/2022 Evaluation began: 1 Discharged: 02/24/2022 Committee: 11/05/2020 UNOS qualified: 06/27/2020 Center waitlisted: 1 Dialysis History Dialysis History Start End Type Comments Center 06/27/2020 02/20/2022 In-center Hemodialysis MWF PM [facility] 04/22/2018 01/04/2019 Peritoneal PD [facility] Information Center Phone Fax Address [facility] [phone] [place] [phone] [facility] [phone] [facility] [place] [address]
--- OUTSIDE RECORDS SUMMARY | 2025-01-23 09:48 | XMS_ITS | Clinical Summary ---
Author Organization [facility] Address [address] [place] [address] Care Team Providers Care Bushing And Broach Operator Name Role Phone Dixie Schroeder MD Unavailable [phone] Vanita Amaro DO Primary Care Provider [phone] Tg Ervin RN Unavailable Unava ilable Allergies [...] (sister), and Pj (other). Pharmacy: [facility] Specialty: [facility] Specialty Program [facility] OUTPATIENT CTR LAB-[facility] HI P: [phone] F: [phone] Q-MONTHLY, FK, BK; Q-3 ROUTINE B-ISOTITERS (WALTER ) Exp 03/21/2025 HH: [facility] Home Care Problem Noted Date Diagnosed Date [...] of circulatory system 09/18/2020 ESRD on hemodialysis ([facility]) 08/08/2020 Overview (08/08/2020): Added automatically from request for surgery [id number] Hypertension, essential 06/19/2020 Assessment & Plan (01/11/2022 11:03 AM CDT): Continue with labetalol and nifedipine. Holding home clonidine and hydralazine Assessment & Plan (01/10/2022 8:31 PM CDT): - Was on Labetolol and Nifedipine as home meds - Clonidine and Hydralazine held for now - can be restarted in case the BP remains uncontrolled . Assessment & Plan (06/19/2020 9:38 AM CAN STRIPER): Pt's SBP consistently between 150s-170s since admission. Likely due to medication effect and from his ARF. -Started amlodipine 10mg daily -Will consider spot labetalol IV 10mg if SBP persistently > 180 Acute renal failure 06/18/2020 Assessment & Plan (06/25/2020 12:22 PM CAN STRIPER): Hx of Alport syndrome with ESRD, s/p [...] 06/18/2020 Assessment & Plan (06/23/2020 9:54 AM CAN STRIPER): Hgb 6.8 at admission, 16.5 in 11/2019. Likely due to ARF. - Iron (168), ferritin (588), folate (7.5), B12 (1,143), haptoglobin (61.0), LDH (221). - consent for blood in paper chart, transfuse hb >7 (2 units this admission) - s/p retacrit 66029 units (06/21, 06/23) Increased anion gap metabolic acidosis Assessment & Plan (06/25/2020 12:22 PM CAN STRIPER): AG 19 at admission. Likely due to [...] pred 5 daily, tacro 3 daily Immunosuppression ([facility]) 12/23/2018 Hyperparathyroidism, secondary renal 12/23/2018 Iron deficiency anemia 12/23/2018 Assessment & Plan (01/10/2022 8:28 PM CDT): - H/H stable, continue to monitor CBC - f/u Ferritin and iron profile in am - not currently on supplementation End stage renal disease (CMS/HCC) 11/18/2018 Overview (11/18/2018): Added automatically from request for surgery [id number] Assessment & Plan (01/11/2022 11:07 AM CDT): [...] - Pt is a known pt at [facility] center in [place], [place] - As per the pt he [...] Encounters Date Type Department Care Team Description 01/18/2025 Telephone [facility] Transplant Kidney [address] [facility] [facility] [address] Mailstop [phone] [place] [address] Amanda Powell 2025 Telephone [facility] Transplant Kidney [address] [facility] [address] Mailstop 90-290 [place] [address] Amanda Powell 2025 Telephone [facility] Transplant Kidney [address] [facility] [address] Mailstop [id number] [place] [address] Komal Almeida 12/29/2024 Telephone [facility] Transplant Kidney [address] [facility] 340 Mailstop [phone] [place] [address] Marcelo Dickerson RN 12/23/2024 8:15 AM CDT Lab [facility] Outpatient Lab at [address] [phone] 12/23/2024 8:03 AM CDT - 12/23/2024 11:59 PM CDT Hospital Encounter [address] [address] Transplanted kidney; Encounter for long-term (current) use of high-risk medication; Hyperlipidemia, unspecified hyperlipidemia type; Kidney replaced by transplant Discharge Disposition: Discharge to home or self care 12/21/2024 Telephone [facility] Transplant Kidney [address] 90[address]0 [place] [address] Sarah Draper, ASHLEY 12/20/2024 Telephone [facility] Transplant Kidney [address] [address] Mailop [phone] [place] [address] Komal Almeida 12/20/2024 Telephone [facility] Transplant Kidney [address] [address] Mailop 90-29-0 [place] [address] Betty Rhodes 11/18/2024 8:15 AM CDT Lab [facility] Outpatient Lab at [address] [id number] 11/18/2024 8:13 AM CDT - 11/18/2024 11:59 PM CDT Hospital Encounter [facility] [address] [place] [address] Transplanted kidney; Encounter for long-term (current) use of high-risk medication Discharge Disposition: Discharge to home or self care from Last 3 Months Immunizations Immunization Administration [...] on file Legal Sex Male 2:12 AM CAN STRIPER Gender Identity Not on file Sexual Orientation [...] Additional history exists Covid-19 Vaccine (2 - Jansse n risk series) 10/03/2020 09/05/2020 HPV Vaccines (1 - Risk 3-dos e SCDM series) 2022 Influenza Vaccine (#1) 2025 06/26/2020, 2018 Hepatitis B Screening Completed 02/20/2022 , 1995, 1995, Additional history exists Hepatitis C Screening Completed 03/27/2022 , 02/20/2022, 02/20/2022, Additional history exists Medical Devices Explanted Type Area Tool Specialist Device Identifier Shelf Expiration Date Model / Serial / Lot Circon-Surgi leti [id number] Double-J 6fr 20cm 100cm 1 Step Insert Push Catheter Byers Suture - [id number] Implanted:Qt y: 1 on 01/04/2019 by Yue Howell MD PhD at [facility] Explanted:Qt y: 1 on 01/25/2019 by Inés Comer NP Stent Right: Ureter Circon-Surgitek 01/01/2023 [id number] / / [id number] Description:Transplanted ure ter [employer] Double-J 6fr 20cm 100cm 1 Step Insert Push Catheter Byers Suture [id number] - [id number] Implanted:Qt y: 1 on 02/20/2022 by Yue Howell MD PhD at [facility] Explanted:Qt y: 1 on 03/25/2022 by Philip Coleman NP Stent Left: Transplanted Ureter [employer] [id number] 02/27/2026 [id number] / / [id number] Procedures Procedure Name Priority Date/Time Associated Diagnosis Comments BLOOD MISC TO TOLEDO Routine 12/23/2024 4: 56 PM CDT ASPERGILLUS [...] Recently Relevant to Health Maintenance Results * BLOOD MISC TO TOLEDO (12/23/2024 4:56 PM CDT) Test name, chem SFUNG [place] ref Lab Misc See Footnote [facility] Comment: Test Result Flag Unit RefValue (1, 3) Yggd-L-Evwyqm (Fungitell), S Fungitell Quantitative Value <31 pg/mL <60 pg/mL Fungitell Qualitative Result Negative Negative Hemolyzed No (1, 3) Hanc-R-Prumsl detected. This assay does not detect certain fungi, including Cryptococcus species, which produce very low levels of (1, 3) Pnna-L-Uiyuxh (BDG) and the Mucorales (e.g., Lichthemia, Mucor and Rhizopus), which are not known to produce BDG. Additionally, the yeast phase of Blastomyces dermatitidis produces little BDG and may not be detected by this assay. ADDITIONAL INFORMATION This assay was performed using the FDA-cleared Fungitell Assay ([facility], [place], [place], [place]), a kinetic MARKOS based on modification of the Limulus Amebocyte Lysate pathway. Test Performed by: [place] [address] Clothing Manager: Roberto Sargent Ph.D.; CLIA# [id number] Blood 12/23/2024 4:56 PM CDT 12/26/2024 2:59 PM CDT Sherman Zamora 12/27/2024 3:01 PM CDT beta-D glucan us Earnest Crandall MD LAB BLOOD ORDERABLES Final R esult [facility] [address] Department of [employer] [place] [address] [facility] * Aspergillus galactomannan antigen Blood (12/23/2024 4:56 PM CDT) Aspergillus galactomannan Ag <0.500 <0.5 Index [facility] Comment: ADDITIONAL INFORMATION This is a qualitative test and the resulted index value is not indicative of disease severity. Serial testing is recommended for patients at high risk for invasive aspergillosis. This assay was performed using the FDA-cleared Bio-SocialCompare Platelia Aspergillus Galactomannan EIA. Test Performed by: [facility] [address] [place] [address] Clothing Manager: Roberto Sargent Ph.D.; CLIA# [id number] Blood 12/23/2024 4:56 PM CDT 12/26/2024 9:11 AM CDT us Earnest Crandall MD LAB MICROBIOLOGY - GENERAL O RDERABLES Final Result [facility] [address] Department [place] [address] [place] ref Lab * (ABNORMAL) eGFR (12/23/2024 8:03 [...] LAB BLOOD ORDERABLES Final R esult [facility] [address] Department [place] [address] * Differential, auto (12/23/2024 8:03 AM CDT) Neutrophil abs 4.17 1.50 - 6.50 K/cumm Imm gran abs 0.02 0.00 - 0.10 K/cumm [facility] Lymphocyte abs 0.88 0.80 - 3.30 K/cumm [facility] Monocyte abs 0.54 0.20 - 0.80 K/cumm [facility] Eosinophil abs 0.17 0.00 - 0.50 K/cumm [facility] Basophil abs 0.04 0.00 - 0.10 K/cumm [facility] Neutrophil pct 71.7 % [facility] Comment: Interpretive Data Percent cell count reference ranges are not reported, since discordance with absolute values may lead to misinterpretation of CBC data. Current Interpretive Data was last revised on 2017. Imm gran pct 0.3 % [facility] Comment: Interpretive Data Percent cell count reference ranges are not reported, since discordance with absolute values may lead to misinterpretation of CBC data. Current Interpretive Data was last revised on 2017. Lymphocyte pct 15.1 % [facility] Comment: Interpretive Data Percent cell count reference ranges are not reported, since discordance with absolute values may lead to misinterpretation of CBC data. Current Interpretive Data was last revised on 2017. Monocyte pct 9.3 % [facility] Comment: Interpretive Data Percent cell count reference ranges are not reported, since discordance with absolute values may lead to misinterpretation of CBC data. Current Interpretive Data was last revised on 2017. Eosinophil pct 2.9 % [facility] Comment: Interpretive Data Percent cell count reference ranges are not reported, since discordance with absolute values may lead to misinterpretation of CBC data. Current Interpretive Data was last revised on 2017. Basophil pct 0.7 % [facility] Comment: Interpretive Data Percent cell count reference ranges are not reported, since discordance with absolute values may lead to misinterpretation of CBC data. Current Interpretive Data was last revised on 2017. Blood 12/23/2024 8:03 AM CDT 12/23/2024 5:06 PM CDT Earnest Crandall MD LAB BLOOD ORDERABLES Final R esult Performing Organization Address [facility] Co de Phone Number [facility] GUTIER[facility]Z [address] [place] [address] * Tacrolimus level trough (12/23/2024 8:03 AM CDT) Tacrolimus trough 5.8 ng/mL Comment: Interpretive Data Testing performed by liquid chromatography-tandem mass spectrometry. Therapeutic concentrations vary depending on type of transplanted organ and time elapsed since transplant. Typical trough concentrations range from 5-15 ng/mL. This test was developed and its performance characteristics determined by the [facility] Laboratory consistent with CLIA requirements. This test has not been cleared or approved by the US Food and Drug administration. Current interpretive data last reviewed 2019. Testing performed by: [facility], [address], [place]., [address] Blood 12/23/2024 8:03 AM CDT 12/23/2024 8:15 PM CDT Narrative WALTER - 12/24/2024 2:29 AM CDT MONTHLY (EVERY 4 WEEKS) Earnest Crandall MD LAB BLOOD ORDERABLES Final R esult Performing Organization Address [facility] Co de Phone Number [facility] GUTIER[facility] [address] [place] [address] * (ABNORMAL) CBC with auto differential (12/23/2024 8:03 AM CDT) WBC 5.82 3.80 - 9.90 K/cumm Hgb 13.9 13.0 - 17.5 g/dL [facility] Hct 43.6 38.9 - 50.3 % [facility] Plt 168 150 - 400 K/cumm [facility] MPV 10.1 9.1 - 12.3 fL [facility] RBC 4.75 4.30 - 5.80 M/cumm [facility] MCV 91.8 81.3 - 96.4 fL [facility] MCH 29.3 27.1 - 33.3 pg [facility] MCHC 31.9(L) 32.3 - 35.7 g/dL [facility] RDW CV 12.5 11.1 - 14.9 % [facility] RDW SD 42.1 35.7 - 48.1 fL [facility] NRBC abs 0.00 0.00 - 0.01 K/cumm [facility] Blood 12/23/2024 8:03 AM CDT 12/23/2024 5:06 PM CDT Narrative [facility] - 12/23/2024 5:51 PM CDT MONTHLY (EVERY 4 WEEKS) Earnest Crandall MD LAB BLOOD ORDERABLES Final R esult Performing Organization Address City/[facility]/ZIP Co de Phone Number [facility] [address] [place] [address] * Phosphorus (12/23/2024 8:03 AM CDT) Pathologist [facility] Phosphorus, pl 3.2 2.3 - 4.5 mg/dL Blood 12/23/2024 8:03 AM CDT 12/23/2024 5:06 PM CDT Earnest Crandall MD LAB BLOOD ORDERABLES Final R esult Performing Organization Address City/[facility] Co de Phone Number [facility] [address] Department [place] [address] * Lactate dehydrogenase (LD) (12/23/2024 8:03 AM CDT) Pathologist [facility] Lactate dehydrogenase (LDH) 166 100 - 250 Units/L Comment:Hemolysis present. R esults may be affected. Blood 12/23/2024 8:03 AM CDT 12/23/2024 5:06 PM CDT Earnest Crandall MD LAB BLOOD ORDERABLES Final R esult Performing Organization Address City/[facility]/ZIP Co de Phone Number [facility]UTIERRE[facility] [address] [place] [address] * Bilirubin, direct (12/23/2024 8:03 AM CDT) Bilirubin, direct 0.1 0.1 - 0.3 mg/dL Blood 12/23/2024 8:03 AM CDT 12/23/2024 5:06 PM CDT Earnest Crandall MD LAB BLOOD ORDERABLES Final R esult Performing Organization Address [facility] de Phone Number [facility] GUTIER[facility] [address] [address] [place] [address] * (ABNORMAL) Lipid panel (12/23/2024 8:03 AM [...] mg/dL High: >160 mg/dL Calculated using the Sadiq LDL-C estimating equation. This equation was implemented on 2024. Prior to this date LDL-C was estimated using the Friedewald equation. Literature References: 1. Expert Panel on Integrated Guidelines for Cardiovascular Health and Risk Reduction in Children and Adolescents. Pediatrics 2011;128:S213 2. NCEP Expert Panel. Circulation 2004;110:227 3. Sadiq Flynn et al. BLANQUITA Cardiol. 2019October 13;5(5):540-548. doi: 10.1001/jamacardio.2020.0013 Current Interpretive Data was last revised on 2024. Non-HDL Cholesterol 98 mg/dL [facility] Comment: Interpretive Data Ages [...] MD LAB BLOOD ORDERABLES Final R esult [facility] [address] Department [place] [address] * (ABNORMAL) Comprehensive metabolic panel (12/23/2024 8:03 [...] ORDERABLES Final R esult Performing Organization Address City/[facility]/ZIP Co de Phone Number [facility] GUTIERRE[facility] [address] [place] [address] * eGFR (11/18/2024 8:13 AM CDT) eGFR [...] ORDERABLES Final R esult Performing Organization Address City/[facility]/ZIP Co de Phone Number [facility] GUTIERRE[facility] [address] Department [place] [address] * (ABNORMAL) Differential, auto (11/18/2024 8:13 AM CDT) Neutrophil abs 3.73 1.50 - 6.50 K/cumm Imm gran abs 0.01 0.00 - 0.10 K/cumm [facility] Lymphocyte abs 0.79(L) 0.80 - 3.30 K/cumm [facility] Monocyte abs 0.47 0.20 - 0.80 K/cumm [facility] Eosinophil abs 0.16 0.00 - 0.50 K/cumm [facility] Basophil abs 0.04 0.00 - 0.10 K/cumm [facility] Neutrophil pct 71.7 % [facility] Comment: Interpretive Data Percent cell count reference ranges are not reported, since discordance with absolute values may lead to misinterpretation of CBC data. Current Interpretive Data was last revised on 2017. Imm gran pct 0.2 % [facility] Comment: Interpretive Data Percent cell count reference ranges are not reported, since discordance with absolute values may lead to misinterpretation of CBC data. Current Interpretive Data was last revised on 2017. Lymphocyte pct 15.2 % [facility] Comment: Interpretive Data Percent cell count reference ranges are not reported, since discordance with absolute values may lead to misinterpretation of CBC data. Current Interpretive Data was last revised on 2017. Monocyte pct 9.0 % [facility] Comment: Interpretive Data Percent cell count reference ranges are not reported, since discordance with absolute values may lead to misinterpretation of CBC data. Current Interpretive Data was last revised on 2017. Eosinophil pct 3.1 % [facility] Comment: Interpretive Data Percent cell count reference ranges are not reported, since discordance with absolute values may lead to misinterpretation of CBC data. Current Interpretive Data was last revised on 2017. Basophil pct 0.8 % [facility] Comment: Interpretive Data Percent cell count reference ranges are not reported, since discordance with absolute values may lead to misinterpretation of CBC data. Current Interpretive Data was last revised on 2017. Blood 11/18/2024 8:13 AM CDT 11/18/2024 3:16 PM CDT Earnest Crandall MD LAB BLOOD ORDERABLES Final R esult Performing Organization Address City/State/[facility] Co de Phone Number [facility] GUTIERREZ [address] Department of Laboratories [place], [place] [address] * Tacrolimus level trough (11/18/2024 8:13 AM CDT) [facility] Tacrolimus trough 8.5 ng/mL Comment: Interpretive Data Testing performed by liquid chromatography-tandem mass spectrometry. Therapeutic concentrations vary depending on type of transplanted organ and time elapsed since transplant. Typical trough concentrations range from 5-15 ng/mL. This test was developed and its performance characteristics determined by the [facility] Laboratory consistent with CLIA requirements. This test has not been cleared or approved by the US Food and Drug administration. Current interpretive data last reviewed 2019. Testing performed by: [facility], [address] [place]., [address] Blood 11/18/2024 8:13 AM CDT 11/18/2024 10:03 PM CDT Narrative WALTER - 11/19/2024 2:14 AM CDT MONTHLY (EVERY 4 WEEKS) us Earnest Crandall MD LAB BLOOD ORDERABLES Final R darion Performing Organization Address [facility] Co de Phone Number [facility] GUTIER[facility] [address] [place] [address] * (ABNORMAL) CBC with auto differential (11/18/2024 8:13 AM CDT) [facility] WBC 5.20 3.80 - 9.90 K/cumm Hgb 14.5 13.0 - 17.5 g/dL [facility] Hct 45.9 38.9 - 50.3 % [facility] Plt 205 150 - 400 K/cumm [facility] MPV 9.7 9.1 - 12.3 fL [facility] RBC 5.01 4.30 - 5.80 M/cumm [facility] MCV 91.6 81.3 - 96.4 fL [facility] MCH 28.9 27.1 - 33.3 pg [facility] MCHC 31.6(L) 32.3 - 35.7 g/dL [facility] RDW CV 13.3 11.1 - 14.9 % [facility] RDW SD 44.6 35.7 - 48.1 fL [facility] NRBC abs 0.00 0.00 - 0.01 K/cumm [facility] Blood 11/18/2024 8:13 AM CDT 11/18/2024 3:16 PM CDT Narrative [facility] - 11/18/2024 3:25 PM CDT MONTHLY (EVERY 4 WEEKS) Earnest Crandall MD LAB BLOOD ORDERABLES Final R esult [facility] [address] Department [place] [address] * (ABNORMAL) Renal function panel (11/18/2024 8:13 AM CDT) Sodium 143 135 - 145 mmol/L Potassium, pl 4.9 3.3 - 4.9 mmol/L [facility] Chloride 108 97 - 110 mmol/L [facility] CO2 23 22 - 32 mmol/L [facility] Anion gap 12 2 - 15 mmol/L [facility] BUN 22 6 - 25 mg/dL [facility] Creatinine 1.59(H) 0.80 - 1.30 mg/dL [facility] Glucose 110 70 - 199 mg/dL [facility] Comment: Interpretive Data Fasting glucose >/= 126 [...] Calcium 9.8 8.5 - 10.3 mg/dL [facility] Phosphorus, pl 3.0 2.3 - 4.5 mg/dL [facility] Albumin 4.5 3.5 - 5.0 g/dL [facility] Blood 11/18/2024 8:13 AM CDT 11/18/2024 3:16 PM CDT Narrative [facility] - 11/18/2024 3:42 PM CDT MONTHLY (EVERY 4 WEEKS) us Earnest Crandall MD LAB BLOOD ORDERABLES Final R esult Performing Organization Address [facility] Co de Phone Number [facility] [address] Department [place] [address] * Hepatitis C (HCV) RNA PCR, quantitative (03/27/2022 8:30 AM CDT) [facility] HCV RNA result Not Detected [facility] Comment: The quantifiable range of this assay is 15 IU/mL to 100,000,000 IU/mL (1.18 log IU/mL to 8.00 log IU/mL). Testing was performed by the NIKI 6800 HCV Test ([facility] Testing performed at [facility] Current Interpretive Data was last revised on 2021 Blood 03/27/2022 8:30 AM CDT 03/27/2022 1:53 PM CDT Frandy Dewey MD LAB MICROBIOLOGY - GENERAL ORDERABLES Final Result Performing Organization Address [facility] Phone Number [facility] [place] [address] from Last 3 Months or Most Recently Relevant to Health Maintenance Insurance MEDICARE CIGNA CIGNA MEDICARE CIGNA [employer] [facility] MEDICARE MEDICARE Advance Directives For more information, please contact: [phone] Documents on File Type Date Recorded Patient Radio Officer Expl anation ADVANCE DIRECTIVE 01/16/2022 6:49 AM Power of Photogrammetry Airplane Pilot-Medical Power of Photogrammetry Airplane Pilot 02/21/2021 8:31 AM DPOA * Full Code [...] 8:51 AM 12/26/2021 8:41 PM Care Teams Bushing And Broach Operator Relationship Specialty Start Date End Date Vanita Amaro DO [address] [place] [address] PCP - General 10/02/20 Dixie Schroeder MD [address] [place] [address] Referring Physician Nephrology 08/03/20 Tg Ervin, soft work wrapper layer and examinerWelding Pantograph Operator 02/20/22
[2025-01-23 10:02] VITALS: BP 140/86; PULSE 80; RESP 16; TEMP 36.6; O2SAT 100
--- NOTE | 2025-01-23 12:19 | ED_ITS ---
HPI - Weakness General Chief complaint: Dizziness Stated complaint: wants carotid ck doesn't want to wait til thur Time Seen by Provider: 01/23/25 11:53 History of Present Illness HPI Narrative: Patient is a 30-year-old male who presents to the ER with fatigue for the past month. He reports he has had visual changes, so he went to Ophthalmology who told him he has a ?blockage somewhere in his neck. Patient's mother reports patient had a special type of a vegetable dye used to perform the scan, as patient has had a kidney transplant. His geochemical laboratory technician referred him back to his primary care provider, who ordered an outpatient carotid ultrasound. Patient reports he has missed loss of work into he could not get up because he is so fatigued. He also endorses intermittent shortness of breath, lightheadedness, and pressure behind his eyes. Patient denies any chest pain, recent fevers, or lower extremity edema. Related Data Home Medications ?Medication ?Instructions ?Recorded ?Confirmed ?Last Taken ?Type aspirin 81 mg tablet,delayed 81 mg PO DAILY 07/19/20 12/21/24 12/21/24 History release famotidine 20 mg tablet 20 mg PO DAILY 07/19/20 12/21/24 12/21/24 History mycophenolate sodium 360 mg 360 mg PO BID 01/23/22 12/21/24 12/21/24 History tablet,delayed release (Myfortic) losartan 50 mg tablet 50 mg PO DAILY 12/29/22 12/21/24 12/21/24 History carvedilol 12.5 mg tablet 12.5 mg PO DAILY 10/27/23 12/21/24 12/21/24 History prednisone 5 mg tablet 5 mg PO DAILY 10/27/23 12/21/24 12/21/24 History tacrolimus 1 mg tablet,extended 1 mg PO DAILY 10/27/23 12/21/24 12/21/24 History release 24 hr (Envarsus XR) aripiprazole 10 mg tablet 10 mg PO DAILY 12/21/24 12/21/24 12/21/24 History hydroxyzine pamoate 25 mg capsule 25 mg PO TID 12/21/24 12/21/24 12/21/24 History Allergies Allergy/AdvReac Type Severity Reaction Status Date / Time clavulanic acid (From AdvReac Severe Nausea and Verified 12/21/24 19:29 Augmentin) Vomiting Sulfa (Sulfonamide AdvReac itchy-rash Verified 12/21/24 19:29 Antibiotics) Review of Systems Review of Systems: All systems reviewed & are unremarkable except as noted in HPI and below PMFSH Past Medical History Medical History Gastroesophageal reflux disease Anxiety Anemia of chronic disease End stage renal disease On PD prior to renal transplant. Back on hemodialysis due to failing transplant. Alport syndrome Status post peritoneal dialysis (~03/2019) Hypertension Surgical History Surgical History History of Kidney Transplant (02/2022) Status post creation of arteriovenous fistula Left wrist. Status post insertion of hemodialysis catheter (06/2020) Kidney transplant recipient (12/2018) Family History Family History Grandparent Alport syndrome Heart disease Father Type 2 diabetes mellitus Social History Social History Social History: Surrogate decision maker: Tierra and Dario Sheth, parents. Code status: Full code. Smoking status: Former smoker Tobacco type: cigarettes and e-cigarettes/vaping Additional smoking assessment comments: Still occasionally vapes. Alcohol intake: never Substance use: never Lack of Transportation: No Lack of Food: Never True Current Housing: I Have Housing Concerned About Future Housing: No Difficulty Paying Gas/Electric Bills: No Difficulty Paying for Meds: No Currently Unemployed: No Education: High School Diploma/GED Difficulty w/ Childcare or Family Care: No Additional living arrangements comments: The patient lives alone in [place]. Additional occupation/education comments: Works for [employer], currently on a leave of absence due to health problems. Spiritual care concerns: No Exam Narrative: GENERAL: Well appearing, well-nourished, non-toxic, in no acute distress. HEAD: Normocephalic, atraumatic. NECK: Supple. No adenopathy, no masses. RESPIRATORY: Airway patent, respirations nonlabored. Clear to auscultation bilaterally, no rales, rhonchi, wheezing. CARDIOVASCULAR: Regular rate and rhythm without murmurs, rubs, or gallops. Peripheral pulses 2+ and equal bilaterally. ABDOMINAL: Soft, nontender, nondistended, no hepatosplenomegaly. Normoactive BS. MUSCULOSKELETAL: Moves all extremities. Strength/ROM intact without gross deformities. SKIN: Warm, dry, pallor. No rashes. NEURO: A&O X3. Speech clear. Cranial nerves II-XII intact. No ataxic movements. PSYCHIATRIC: Appropriate mood and affect. Normal interaction. Course Vital Signs Vital signs: Vital Signs Temperature 36.6 C 01/23/25 10:02 Pulse Rate 80 01/23/25 10:02 Respiratory Rate 16 01/23/25 10:02 Blood Pressure 140/86 01/23/25 10:02 Pulse Oximetry 100 01/23/25 10:02 Oxygen Delivery Room Air 01/23/25 10:02 Temperature 36.6 C 01/23/25 10:02 Pulse Rate 80 01/23/25 10:02 Respiratory Rate 16 01/23/25 10:02 Blood Pressure 140/86 01/23/25 10:02 Pulse Oximetry 100 01/23/25 10:02 Oxygen Delivery Room Air 01/23/25 10:02 MDM - Weakness MDM Narrative Medical decision making narrative: Patient is a 30-year-old male who presents to the ER with fatigue for the past month. He reports he has had visual changes, so he went to Ophthalmology who told him he has a ?blockage somewhere in his neck. Patient's mother reports patient had a special type of a vegetable dye used to perform the scan, as patient has had a kidney transplant. His geochemical laboratory technician referred him back to his primary care provider, who ordered an outpatient carotid ultrasound. Patient reports he has missed loss of work into he could not get up because he is so fatigued. He also endorses intermittent shortness of breath, lightheadedness, and pressure behind his eyes. Patient denies any chest pain, recent fevers, or lower extremity edema. Labs Ordered: CBC, CMP, D-dimer, PTT, INR Imaging Ordered: Ultrasound carotid duplex Patient Education/Shared MDM: Patient and his mother are wanting patient's ultrasound performed today. His mother states if we can not get it done today then we're just going to leave. COMPOSITE BOAT BUILDER explained to patient and his mother that this imaging is not typically performed in the ER, but COMPOSITE BOAT BUILDER was talking with the radiology department to see if this study that could be performed today. Patient has chosen to refuse further care here. Risks of an incomplete evaluation and treatment were discussed with the patient, including potential for or permanent disability. Patient seems to understand these risks, but still desires to refuse further care. Patient recommended to follow up with PCP in the next possible interval. Specifically, patient was told they can return to the ED at any time to resume care. Patient verbalized understanding and is in agreement with plan. AMA paperwork signed. Differential Diagnosis Differential diagnosis: Likely anemia, dehydration and other (Carotid artery stenosis) Discharge Plan Discharge Clinical Impression: Fatigue, Shortness of breath Patient Disposition: Left Against Medical Advice Condition: Stable Patient Language: Rwandan Prescriptions: No Action mycophenolate sodium [Myfortic] 360 mg tablet,delayed release (DR/EC) 360 mg PO BID carvedilol 12.5 mg tablet 12.5 mg PO DAILY prednisone 5 mg tablet 5 mg PO DAILY Envarsus XR 1 mg tablet extended release 24 hr 1 mg PO DAILY losartan 50 mg tablet 50 mg PO DAILY aripiprazole 10 mg tablet 10 mg PO DAILY hydroxyzine pamoate 25 mg capsule 25 mg PO TID famotidine 20 mg tablet 20 mg PO DAILY aspirin 81 mg tablet,delayed release (DR/EC) 81 mg PO DAILY Follow-up/Referrals: Vanita Amaro DO [Primary Care Provider] -
--- OUTSIDE RECORDS SUMMARY | 2025-01-23 12:19 | XMS_ITS | Encounter Summary ---
Author Organization [facility] Address [address] [place] [address] Phone Care Team Providers Care Negative Turner Name Role Phone Margaux Chavez RN Unavailable [phone] Jordan Lundberg RN Unavailable [phone] Dixie Schroeder MD Unavailable [phone] Vanita Amaro DO Primary Care Provider [phone] Tg Ervin RN Unavailable Unava ilable Encounter Details Date Type Department Care Team (Late st Contact Info) Description 12/13/2020 Telephone [facility] Endocrinology Metabolism and Lipid [address] [facility] Advanced Medicine 5th [place] [address] [place] [address] Raúl Paz Social History Tobacco Use Types Packs/Day Years Used Date Smoking Tobacco: Never Smokeless Tobacco: Never Alcohol Use Standard Drinks/Week Comments Not Currently 0 (1 standard drink = 0.6 oz pur e alcohol) Sex and Gender Information Value Date Recorded Sex Assigned at Not on file Legal Sex Male 2:12 AM CLAIMS EXAMINER Gender Identity Not on file Sexual Orientation [...] documented as of this encounter Care Teams Negative Turner Relationship Specialty Start Date End Date Vanita Amaro DO [address] [place] [address] PCP - General 10/02/20 Margaux Chavez, RN [employer] 01/05/19 2 Jordan Lundberg, ASHLEY [address] [facility] [address] [place] [address] Registered Nurse [employer] 08/03/2002/23 Dixie Schroeder MD [address] [place] [address] Referring Physician Nephrology 08/03/20 Tg Ervin, share dairy farmerDean Of Boys 02/20/22 documented as of this encounter
--- OUTSIDE RECORDS SUMMARY | 2025-01-23 12:19 | XMS_ITS | Continuity of Care Document ---
Author Organization [facility] Address [address] [facility] [place] [address] Phone Care Team Providers Care Histopathologist Name Role Phone Chavo Ortiz MD Unavailable [...] on Encounter PREV VISIT, NEW, AGE 18-39 [facility], [address] [place], [place], [id number], [place] tel:[phone] [facility] Physical (chief complaint) Encntr for general adult medical exam w/o abnormal findings Angel Tony. [address] [facility] [place], [place], [id number], [place]. tel:[phone] Family History Family Member Type Diagnosis Age At Onset Mother Problem Alive and well Father Problem Diabetes mellitus Sister Problem Alive and well Payers Payer name Insurance type Covered green party ID Butch florence(s) No Information Social [...] on multiple medication prescribed by nephrology at [facility]. Pt is on pepcid daily for stomach [...] on multiple medication prescribed by nephrology at [facility]. Pt is on pepcid daily for stomach [...] Mental Status Date Cognitive Assessment Orientation - [place] ed to time, place, person, situation.
--- OUTSIDE RECORDS SUMMARY | 2025-01-23 12:19 | XMS_ITS | Clinical Summary ---
Author Organization [facility] Address [address] [place] [address] Care Team Providers Care Cooker Pie Filling Name Role Phone Dixie Schroeder MD Unavailable [phone] Vanita Amaro DO Primary Care Provider [phone] Tg Ervin RN Unavailable Unava ilable Allergies [...] (sister), and Pj (other). Pharmacy: [facility] Specialty: [facility] Specialty Program [facility] OUTPATIENT [facility] P: [phone] F: [phone] Q-MONTHLY, FK, BK; Q-3 ROUTINE B-ISOTITERS ([facility]ALTER ) Exp 03/21/2025 HH: [facility] Home Care Problem Noted Date Diagnosed [...] of circulatory system 09/18/2020 ESRD on hemodialysis ([facility]) 08/08/2020 Overview (08/08/2020): Added automatically from request for surgery [id number] Hypertension, essential 06/19/2020 Assessment & Plan (01/11/2022 11:03 AM CDT): Continue with labetalol and nifedipine. Holding home clonidine and hydralazine Assessment & Plan (01/10/2022 8:31 PM CDT): - Was on Labetolol and Nifedipine as home meds - Clonidine and Hydralazine held for now - can be restarted in case the BP remains uncontrolled . Assessment & Plan (06/19/2020 9:38 AM ARTIST REPRESENTATIVE): Pt's SBP consistently between 150s-170s since admission. Likely due to medication effect and from his ARF. -Started amlodipine 10mg daily -Will consider spot labetalol IV 10mg if SBP persistently > 180 Acute renal failure 06/18/2020 Assessment & Plan (06/25/2020 12:22 PM ARTIST REPRESENTATIVE): Hx of Alport syndrome with ESRD, s/p [...] 06/18/2020 Assessment & Plan (06/23/2020 9:54 AM ARTIST REPRESENTATIVE): Hgb 6.8 at admission, 16.5 in 11/2019. Likely due to ARF. - Iron (168), ferritin (588), folate (7.5), B12 (1,143), haptoglobin (61.0), LDH (221). - consent for blood in paper chart, transfuse hb >7 (2 units this admission) - s/p retacrit 42296 units (06/21, 06/23) Increased anion gap metabolic acidosis Assessment & Plan (06/25/2020 12:22 PM ARTIST REPRESENTATIVE): AG 19 at admission. Likely due to [...] pred 5 daily, tacro 3 daily Immunosuppression ([facility]) 12/23/2018 Hyperparathyroidism, secondary renal 12/23/2018 Iron deficiency anemia 12/23/2018 Assessment & Plan (01/10/2022 8:28 PM CDT): - H/H stable, continue to monitor CBC - f/u Ferritin and iron profile in am - not currently on supplementation End stage renal disease (CMS/HCC) 11/18/2018 Overview (11/18/2018): Added automatically from request for surgery [id number] Assessment & Plan (01/11/2022 11:07 AM CDT): [...] - Pt is a known pt at [facility] HD center in [place], [place] - As per the pt he [...] Type Department Care Team Description 01/18/[address] [facility] Transplant Kidney [address] Mailstop [phone] [place] [address] Amanda Powell [address] [facility] Transplant Kidney [address] [facility] [address] 90[address] [place] [address] Amanda Powell [address] [facility] Transplant Kidney [address] [facility] [address] [id number] [place] [address] Komal Almeida 12/29/[address] [facility] Transplant Kidney [address] [facility] [address] Mail[address] [phone] [place] [address] Marcelo Dickerson RN 12/23/2024 8:15 AM CDT Lab [facility] Outpatient Lab at [address] [address] 12/23/2024 8:03 AM CDT - 12/23/2024 11:59 PM CDT Hospital Encounter [address] [address] Transplanted kidney; Encounter for long-term (current) use of high-risk medication; Hyperlipidemia, unspecified hyperlipidemia type; Kidney replaced by transplant Discharge Disposition: Discharge to home or self care 12/21/[address] [facility] Transplant Kidney [address] [place] [address] Sarah Draper, ASHLEY 12/20/[address] [facility] Transplant Kidney [address] [address] [address] [phone] [place] [address] Komal Almeida 12/20/[address] [facility] Transplant Kidney [address] [address] [address]op [address]29[address]0 [place] [address] Betty Rhodes 11/18/2024 8:15 AM CDT Lab [facility] Outpatient Lab at [address] [id number] 11/18/2024 8:13 AM CDT - 11/18/2024 11:59 PM CDT Hospital Encounter [facility] [address] [place] [address] Transplanted kidney; Encounter for long-term (current) use [...] on file Legal Sex Male 2:12 AM ARTIST REPRESENTATIVE Gender Identity Not on file Sexual Orientation [...] history exists Medical Devices Explanted Type Area Rating Officer Device Identifier Shelf Expiration Date Model / Serial / Lot Circon-Surgi leti [id number] Double-J 6fr 20cm 100cm 1 Step Insert Push Catheter [place] Suture - [id number] Implanted:Qt y: 1 on 01/04/2019 by Yue [place] MD PhD at [facility] Explanted:Qt y: 1 on 01/25/2019 by Inés Comer NP Stent Right: Ureter Circon-Surgitek 01/01/2023 [id number] / / [id number] Description:Transplanted ure ter [employer] Double-J 6fr 20cm 100cm 1 Step Insert Push Catheter [place] Suture [id number] - [id number] Implanted:Qt y: 1 on 02/20/2022 by Yue [place] MD PhD at [facility] Explanted:Qt y: 1 on 03/25/2022 by Philip Coleman NP Stent Left: Transplanted Ureter [employer] [id number] 02/27/2026 [id number] / / [id number] Procedures Procedure Name Priority Date/Time Associated Diagnosis Comments BLOOD MISC TO [place] Routine 12/23/2024 4: 56 PM CDT ASPERGILLUS [...] Health Maintenance Results * BLOOD MISC TO [place] (12/23/2024 4:56 PM CDT) Test name, chem SFUNG [place] ref Lab Misc See Footnote [facility] Comment: Test Result Flag Unit RefValue (1, 3) Szor-B-Nippfq (Fungitell), S Fungitell Quantitative Value <31 pg/mL <60 pg/mL Fungitell Qualitative Result Negative Negative Hemolyzed No (1, 3) Jsqw-O-Lzcktq detected. This assay does not detect certain fungi, including Cryptococcus species, which produce very low levels of (1, 3) Cnlr-M-Gbppsn (BDG) and the Mucorales (e.g., Lichthemia, Mucor and Rhizopus), which are not known to produce BDG. Additionally, the yeast phase of Blastomyces dermatitidis produces little BDG and may not be detected by this assay. ADDITIONAL INFORMATION This assay was performed using the FDA-cleared Fungitell Assay ([facility], [place], [place], [place]), a kinetic MARKOS based on modification of the Limulus Amebocyte Lysate pathway. Test Performed by: [place] [address] Maxillofacial Prosthodontist: Roberto Sargent Ph.D.; CLIA# [id number] Blood 12/23/2024 4:56 PM CDT 12/26/2024 2:59 PM CDT Sherman Zamora 12/27/2024 3:01 PM CDT beta-D glucan us Earnest Crandall MD LAB BLOOD ORDERABLES Final R esult [facility] [address] [place] [address] [facility] * Aspergillus galactomannan antigen Blood (12/23/2024 4:56 PM CDT) Aspergillus galactomannan Ag <0.500 <0.5 Index [facility] Comment: ADDITIONAL INFORMATION This is a qualitative test and the resulted index value is not indicative of disease severity. Serial testing is recommended for patients at high risk for invasive aspergillosis. This assay was performed using the FDA-cleared Bio-EaglEyeMed Platelia Aspergillus Galactomannan EIA. Test Performed by: [facility] [address] [place] [address] Maxillofacial Prosthodontist: Roberto Sargent Ph.D.; CLIA# [id number] Blood 12/23/2024 4:56 PM CDT 12/26/2024 9:11 AM CDT us Earnest Crandall MD LAB MICROBIOLOGY - GENERAL O RDERABLES Final Result [facility] [address] [place] [address] [place] ref Lab * (ABNORMAL) eGFR (12/23/2024 8:03 [...] LAB BLOOD ORDERABLES Final R esult [facility] [address] [place] [address] * Differential, auto (12/23/2024 8:03 AM CDT) Neutrophil abs 4.17 1.50 - 6.50 K/cumm Imm gran abs 0.02 0.00 - 0.10 K/cumm [facility] Lymphocyte abs 0.88 0.80 - 3.30 K/cumm [facility] Monocyte abs 0.54 0.20 - 0.80 K/cumm [facility] Eosinophil abs 0.17 0.00 - 0.50 K/cumm [facility] Basophil abs 0.04 0.00 - 0.10 K/cumm [facility] Neutrophil pct 71.7 % [facility] Comment: Interpretive Data Percent cell count reference ranges are not reported, since discordance with absolute values may lead to misinterpretation of CBC data. Current Interpretive Data was last revised on 2017. Imm gran pct 0.3 % [facility] Comment: Interpretive Data Percent cell count reference ranges are not reported, since discordance with absolute values may lead to misinterpretation of CBC data. Current Interpretive Data was last revised on 2017. Lymphocyte pct 15.1 % [facility] Comment: Interpretive Data Percent cell count reference ranges are not reported, since discordance with absolute values may lead to misinterpretation of CBC data. Current Interpretive Data was last revised on 2017. Monocyte pct 9.3 % [facility] Comment: Interpretive Data Percent cell count reference ranges are not reported, since discordance with absolute values may lead to misinterpretation of CBC data. Current Interpretive Data was last revised on 2017. Eosinophil pct 2.9 % [facility] Comment: Interpretive Data Percent cell count reference ranges are not reported, since discordance with absolute values may lead to misinterpretation of CBC data. Current Interpretive Data was last revised on 2017. Basophil pct 0.7 % [facility] Comment: Interpretive Data Percent cell count reference ranges are not reported, since discordance with absolute values may lead to misinterpretation of CBC data. Current Interpretive Data was last revised on 2017. Blood 12/23/2024 8:03 AM CDT 12/23/2024 5:06 PM CDT Earnest Crandall MD LAB BLOOD ORDERABLES Final R esult Performing Organization Address [facility] Co de Phone Number [facility] GUTIERREZ [address] [place] [address] * Tacrolimus level trough (12/23/2024 8:03 AM [...] performed by: [facility], [address] [facility], [place]., [address] Blood 12/23/2024 8:03 AM CDT 12/23/2024 8:15 PM CDT Narrative WALTER - 12/24/2024 2:29 AM CDT MONTHLY (EVERY 4 WEEKS) Earnest Crandall MD LAB BLOOD ORDERABLES Final R esult Performing Organization Address [facility] Co de Phone Number [facility] GUTIERREZ [address] [place] [address] * (ABNORMAL) CBC with auto differential (12/23/2024 8:03 AM CDT) WBC 5.82 3.80 - 9.90 K/cumm Hgb 13.9 13.0 - 17.5 g/dL [facility] Hct 43.6 38.9 - 50.3 % [facility] Plt 168 150 - 400 K/cumm [facility] MPV 10.1 9.1 - 12.3 fL [facility] RBC 4.75 4.30 - 5.80 M/cumm [facility] MCV 91.8 81.3 - 96.4 fL [facility] MCH 29.3 27.1 - 33.3 pg [facility] MCHC 31.9(L) 32.3 - 35.7 g/dL [facility] RDW CV 12.5 11.1 - 14.9 % [facility] RDW SD 42.1 35.7 - 48.1 fL [facility] NRBC abs 0.00 0.00 - 0.01 K/cumm [facility] Blood 12/23/2024 8:03 AM CDT 12/23/2024 5:06 PM CDT Narrative [facility] - 12/23/2024 5:51 PM CDT MONTHLY (EVERY 4 WEEKS) Earnest Crandall MD LAB BLOOD ORDERABLES Final R esult Performing Organization Address City/[facility]/ZIP Co de Phone Number [facility] [address] [place] [address] * Phosphorus (12/23/2024 8:03 AM CDT) Pathologist [facility] Phosphorus, pl 3.2 2.3 - 4.5 mg/dL Blood 12/23/2024 8:03 AM CDT 12/23/2024 5:06 PM CDT Earnest Crandall MD LAB BLOOD ORDERABLES Final R esult Performing Organization Address City/[facility] Co de Phone Number [facility] [address] [place] [address] * Lactate dehydrogenase (LD) (12/23/2024 8:03 AM CDT) Pathologist [facility] Lactate dehydrogenase (LDH) 166 100 - 250 Units/L Comment:Hemolysis present. R esults may be affected. Blood 12/23/2024 8:03 AM CDT 12/23/2024 5:06 PM CDT Earnest Crandall MD LAB BLOOD ORDERABLES Final R esult Performing Organization Address City/[facility]/ZIP Co de Phone Number [facility] GUTIERRE[facility] [address] [place] [address] * Bilirubin, direct (12/23/2024 8:03 AM CDT) Bilirubin, direct 0.1 0.1 - 0.3 mg/dL Blood 12/23/2024 8:03 AM CDT 12/23/2024 5:06 PM CDT Earnest Crandall MD LAB BLOOD ORDERABLES Final R esult Performing Organization Address [facility] de Phone Number [facility] GUTIERRE[facility] [address] [place] [address] * (ABNORMAL) Lipid panel (12/23/2024 8:03 AM [...] MD LAB BLOOD ORDERABLES Final R esult [facility] [address] [place] [address] * (ABNORMAL) Comprehensive metabolic panel (12/23/2024 8:03 [...] ORDERABLES Final R esult Performing Organization Address City/[facility]/ZIP Co de Phone Number [facility] GUTIERRE[facility] [address] [place] [address] * eGFR (11/18/2024 8:13 AM CDT) eGFR [...] ORDERABLES Final R esult Performing Organization Address City/[facility]/ZIP Co de Phone Number [facility] GUTIERRE[facility] [address] [place] [address] * (ABNORMAL) Differential, auto (11/18/2024 8:13 AM CDT) Neutrophil abs 3.73 1.50 - 6.50 K/cumm Imm gran abs 0.01 0.00 - 0.10 K/cumm [facility] Lymphocyte abs 0.79(L) 0.80 - 3.30 K/cumm [facility] Monocyte abs 0.47 0.20 - 0.80 K/cumm [facility] Eosinophil abs 0.16 0.00 - 0.50 K/cumm [facility] Basophil abs 0.04 0.00 - 0.10 K/cumm [facility] Neutrophil pct 71.7 % [facility] Comment: Interpretive Data Percent cell count reference ranges are not reported, since discordance with absolute values may lead to misinterpretation of CBC data. Current Interpretive Data was last revised on 2017. Imm gran pct 0.2 % [facility] Comment: Interpretive Data Percent cell count reference ranges are not reported, since discordance with absolute values may lead to misinterpretation of CBC data. Current Interpretive Data was last revised on 2017. Lymphocyte pct 15.2 % [facility] Comment: Interpretive Data Percent cell count reference ranges are not reported, since discordance with absolute values may lead to misinterpretation of CBC data. Current Interpretive Data was last revised on 2017. Monocyte pct 9.0 % [facility] Comment: Interpretive Data Percent cell count reference ranges are not reported, since discordance with absolute values may lead to misinterpretation of CBC data. Current Interpretive Data was last revised on 2017. Eosinophil pct 3.1 % [facility] Comment: Interpretive Data Percent cell count reference ranges are not reported, since discordance with absolute values may lead to misinterpretation of CBC data. Current Interpretive Data was last revised on 2017. Basophil pct 0.8 % [facility] Comment: Interpretive Data Percent cell count reference ranges are not reported, since discordance with absolute values may lead to misinterpretation of CBC data. Current Interpretive Data was last revised on 2017. Blood 11/18/2024 8:13 AM CDT 11/18/2024 3:16 PM CDT Earnest Crandall MD LAB BLOOD ORDERABLES Final R esult Performing Organization Address City/State/[facility] Co de Phone Number [facility] GUTIERRE[facility] [address] Department of Laboratories [place], [place] [address] * Tacrolimus level trough (11/18/2024 8:13 AM CDT) [facility] Tacrolimus trough 8.5 ng/mL Comment: [...] performed by: [facility], [address] [place]., [address] Blood 11/18/2024 8:13 AM CDT 11/18/2024 10:03 PM CDT Narrative [facility]ALTER - 11/19/2024 2:14 AM CDT MONTHLY (EVERY 4 WEEKS) us Earnest Crandall MD LAB BLOOD ORDERABLES Final R darion Performing Organization Address [facility] Co de Phone Number [facility] GUTIERREZ [address] [place] [address] * (ABNORMAL) CBC with auto differential (11/18/2024 8:13 AM CDT) [facility] WBC 5.20 3.80 - 9.90 K/cumm Hgb 14.5 13.0 - 17.5 g/dL [facility] Hct 45.9 38.9 - 50.3 % [facility] Plt 205 150 - 400 K/cumm [facility] MPV 9.7 9.1 - 12.3 fL [facility] RBC 5.01 4.30 - 5.80 M/cumm [facility] MCV 91.6 81.3 - 96.4 fL [facility] MCH 28.9 27.1 - 33.3 pg [facility] MCHC 31.6(L) 32.3 - 35.7 g/dL [facility] [...] MD LAB BLOOD ORDERABLES Final R esult [facility] [address] [place] [address] * (ABNORMAL) Renal function panel (11/18/2024 8:13 AM CDT) Sodium 143 135 - 145 mmol/L Potassium, pl 4.9 3.3 - 4.9 mmol/L [facility] Chloride 108 97 - 110 mmol/L [facility] CH CO2 23 22 - 32 mmol/L [facility] Anion gap 12 2 - 15 mmol/L [facility] CH BUN 22 6 - 25 mg/dL [facility] Creatinine 1.59(H) 0.80 - 1.30 mg/dL [facility] Glucose 110 70 - 199 mg/dL [facility] Comment: Interpretive Data Fasting glucose [...] CH Albumin 4.5 3.5 - 5.0 g/dL [facility] Blood 11/18/2024 8:13 AM CDT 11/18/2024 3:16 PM CDT Narrative [facility] - 11/18/2024 3:42 PM CDT MONTHLY (EVERY 4 WEEKS) us Earnest Crandall MD LAB BLOOD ORDERABLES Final R esult Performing Organization Address [facility] Co de Phone Number [facility] [address] [place] [address] * Hepatitis C (HCV) RNA PCR, quantitative (03/27/2022 8:30 AM CDT) [facility] HCV RNA result Not Detected [facility] Comment: The quantifiable range of this assay is 15 IU/mL to 100,000,000 IU/mL (1.18 log IU/mL to 8.00 log IU/mL). Testing was performed by the NIKI 6800 HCV Test ([employer] Testing performed at [facility] Current Interpretive Data was last revised on 2021 Blood 03/27/2022 8:30 AM CDT 03/27/2022 1:53 PM CDT Frandy Dewey MD LAB MICROBIOLOGY - GENERAL ORDERABLES Final Result Performing Organization Address [facility] Phone Number [facility] [place] [address] from Last 3 Months or Most Recently Relevant to Health Maintenance Insurance MEDICARE CIGNA CIGNA MEDICARE CIGNA [email or web address] [facility] MEDICARE MEDICARE Advance Directives For more information, please contact: [phone] Documents on File Type Date Recorded Patient Outpatient Case Manager Expl anation ADVANCE DIRECTIVE 01/16/2022 6:49 AM Power of Sales Representative Meats-Medical Power of Sales Representative Meats 02/21/2021 8:31 AM DPOA * Full Code [...] 8:51 AM 12/26/2021 8:41 PM Care Teams Cooker Pie Filling Relationship Specialty Start Date End Date Vanita Amaro DO [address] [place] [address] PCP - General 10/02/20 Dixie Schroeder MD [address] [place] [address] Referring Physician Nephrology 08/03/20 Tg Ervin, plumber maintenanceAssembler Molded Frames 02/20/22
--- OUTSIDE RECORDS SUMMARY | 2025-01-23 12:19 | XMS_ITS | Clinical Summary ---
Author Organization [facility] Address [address] [address] Care Team Providers Care Educational Speech Language Clinician Name Role Phone Roel Pantoja MD Primary Care Provider Source Comments [facility],non-owned Affiliates and Associated Physician Practices is amultiple site organization consisting of ambulatory clinics and hospital sitesin [place], [place], [place] and [place]. This disclosure is being madepursuant to the Care Everywhere program and may not contain all information available regarding this patient. Last updated 18.[facility] Allergies No known active allergies Medications * [...] on file Legal Sex Male 5:16 PM NETWORK OPERATIONS SPECIALIST Gender Identity Not on file Sexual [...] patient's age to complete this topic Insurance [facility] [id number] [place] [address] PAYOR GENERIC * Guarantor: E-SCREEN,SOIL Account Type Relation to Patient Date of Phone Billing Address Company Employer [employer] [address] [facility] Care Teams Educational Speech Language Clinician Relationship Specialty Start Date End Date Roel Pantoja MD [address] [place] [phone] PCP - General Family Medicine 12/01/15
--- OUTSIDE RECORDS SUMMARY | 2025-01-23 12:19 | XMS_ITS ---
Author Organization [facility] Address [address] [place] [address] Care Team Providers Care Sales Service Assistant Name Role Phone Dixie Schroeder MD Unavailable [phone] Vanita Amaro DO Primary Care Provider [phone] Tg Ervin RN Unavailable Unava ilable Dialysis Access Sites Type Status Location Placement Date Removal Da te Hemodialysis AV Access 08/28/20 Forearm Active Left Forearm - Anterior 08/28/2020 Hemodialysis Cath Double Inactive Right Breast 1 11/27/2020 Peritoneal Dialysis Catheter Left lower abdomen Inactive Left Abdomen (side) - Lower 01/04/2019 01/04/2019 Procedures Procedure Name Priority Date/Time Associated Diagnosis Comments BLOOD MISC TO [place] Routine 12/23/2024 4: 56 PM CDT ASPERGILLUS [...] (sister), and Pj (other). Pharmacy: [facility] Specialty: [facility] Specialty Program [facility] [place], [place] P: [phone] F: [phone] Q-MONTHLY, FK, BK; Q-3 ROUTINE B-ISOTITERS (CERNER ) Exp 03/21/2025 HH: [facility] Home Care Problem Noted Date [...] of circulatory system 09/18/2020 ESRD on hemodialysis ([facility]) 08/08/2020 Overview (08/08/2020): Added automatically from request for surgery [id number] Hypertension, essential 06/19/2020 Assessment & Plan (01/11/2022 11:03 AM CDT): Continue with labetalol and nifedipine. Holding home clonidine and hydralazine Assessment & Plan (01/10/2022 8:31 PM CDT): - Was on Labetolol and Nifedipine as home meds - Clonidine and Hydralazine held for now - can be restarted in case the BP remains uncontrolled . Assessment & Plan (06/19/2020 9:38 AM BILLET SAWYER): Pt's SBP consistently between 150s-170s since admission. Likely due to medication effect and from his ARF. -Started amlodipine 10mg daily -Will consider spot labetalol IV 10mg if SBP persistently > 180 Acute renal failure 06/18/2020 Assessment & Plan (06/25/2020 12:22 PM BILLET SAWYER): Hx of Alport syndrome with ESRD, s/p [...] 06/18/2020 Assessment & Plan (06/23/2020 9:54 AM BILLET SAWYER): Hgb 6.8 at admission, 16.5 in 11/2019. Likely due to ARF. - Iron (168), ferritin (588), folate (7.5), B12 (1,143), haptoglobin (61.0), LDH (221). - consent for blood in paper chart, transfuse hb >7 (2 units this admission) - s/p retacrit [id number] units (06/21, 06/23) Increased anion gap metabolic acidosis Assessment & Plan (06/25/2020 12:22 PM BILLET SAWYER): AG 19 at admission. Likely due to [...] pred 5 daily, tacro 3 daily Immunosuppression ([facility]) 12/23/2018 Hyperparathyroidism, secondary renal 12/23/2018 Iron deficiency anemia 12/23/2018 Assessment & Plan (01/10/2022 8:28 PM CDT): - H/H stable, continue to monitor CBC - f/u Ferritin and iron profile in am - not currently on supplementation End stage renal disease ([facility]) 11/18/2018 Overview (11/18/2018): Added automatically from request for surgery [id number] Assessment & Plan (01/11/2022 11:07 AM CDT): [...] - Pt is a known pt at [facility] in [place], [place] - As per the pt he [...] on file Legal Sex Male 2:12 AM BILLET SAWYER Gender Identity Not on file Sexual Orientation [...] AM CDT Results * BLOOD MISC TO [place] (12/23/2024 4:56 PM CDT) Test name, chem SFUNG [facility] ref Lab Misc See Footnote [facility] Comment: Test Result Flag Unit RefValue (1, 3) Ncai-E-Vxrdgh (Fungitell), S Fungitell Quantitative Value <31 pg/mL <60 pg/mL Fungitell Qualitative Result Negative Negative Hemolyzed No (1, 3) Emty-D-Ssdimr detected. This assay does not detect certain fungi, including Cryptococcus species, which produce very low levels of (1, 3) Kkcv-S-Jaqipu (BDG) and the Mucorales (e.g., Lichthemia, Mucor and Rhizopus), which are not known to produce BDG. Additionally, the yeast phase of Blastomyces dermatitidis produces little BDG and may not be detected by this assay. ADDITIONAL INFORMATION This assay was performed using the FDA-cleared Fungitell Assay ([facility], [facility]), a kinetic MARKOS based on modification of the Limulus Amebocyte Lysate pathway. Test Performed by: [place] [address] Visual Communications Instructor: Roberto Sargent Ph.D.; CLIA# [id number] Blood 12/23/2024 4:56 PM CDT 12/26/2024 2:59 PM CDT Sherman WATSON - 12/27/2024 3:01 PM CDT beta-D glucan Earnest Crandall MD LAB BLOOD ORDERABLES Final R esult Performing Organization Address City/[facility]/ZIP Co de Phone Number [place] [address] [place] [address] [facility] Lab * Aspergillus galactomannan antigen Blood (12/23/2024 4:56 PM CDT) Aspergillus galactomannan Ag <0.500 <0.5 Index [facility] Lab Comment: ADDITIONAL INFORMATION This is a qualitative test and the resulted index value is not indicative of disease severity. Serial testing is recommended for patients at high risk for invasive aspergillosis. This assay was performed using the FDA-cleared Bio-Rad Platelia Aspergillus Galactomannan EIA. Test Performed by: [address] [address] Visual Communications Instructor: Roberto Sargent Ph.D.; CLIA# [id number] Blood 12/23/2024 4:56 PM CDT 12/26/2024 9:11 AM CDT Earnest Crandall MD LAB MICROBIOLOGY - GENERAL O RDERABLES Final Result [facility] [address] [place] [address] Vina ref Lab * (ABNORMAL) eGFR (12/23/2024 8:03 [...] MD LAB BLOOD ORDERABLES Final R esult [facility] [address] [place] [address] * Differential, auto (12/23/2024 8:03 AM CDT) Pathologist [facility] Neutrophil abs 4.17 1.50 - 6.50 K/cumm Imm gran abs 0.02 0.00 - 0.10 K/cumm [facility] Lymphocyte abs 0.88 0.80 - 3.30 K/cumm [facility] Monocyte abs 0.54 0.20 - 0.80 K/cumm [facility] Eosinophil abs 0.17 0.00 - 0.50 K/cumm [facility] Basophil abs 0.04 0.00 - 0.10 K/cumm [facility] Neutrophil pct 71.7 % [facility] Comment: Interpretive Data Percent cell count [...] MD LAB BLOOD ORDERABLES Final R esult [facility] [address] Department [place] [address] * Tacrolimus level trough (12/23/2024 8:03 AM CDT) Tacrolimus trough 5.8 ng/mL Comment: Interpretive Data Testing performed by liquid chromatography-tandem mass spectrometry. Therapeutic concentrations vary depending on type of transplanted organ and time elapsed since transplant. Typical trough concentrations range from 5-15 ng/mL. This test was developed and its performance characteristics determined by the [facility] consistent with CLIA requirements. This test has not been cleared or approved by the US Food and Drug administration. Current interpretive data last reviewed 2019. Testing performed by: [facility], [address] [place]., [address] Blood 12/23/2024 8:03 AM CDT 12/23/2024 8:15 PM CDT Narrative [facility] - 12/24/2024 2:29 AM CDT MONTHLY (EVERY 4 WEEKS) us Earnest Crandall MD LAB BLOOD ORDERABLES Final R esult [facility] [address] [place] [address] * (ABNORMAL) CBC with auto differential (12/23/2024 8:03 AM CDT) WBC 5.82 3.80 - 9.90 K/cumm Hgb 13.9 13.0 - 17.5 g/dL [facility] Hct 43.6 38.9 - 50.3 % [facility] Plt 168 150 - 400 K/cumm [facility] MPV 10.1 9.1 - 12.3 fL [facility] RBC 4.75 4.30 - 5.80 M/cumm [facility] MCV 91.8 81.3 - 96.4 fL [facility] MCH 29.3 27.1 - 33.3 pg [facility] MCHC 31.9(L) 32.3 - 35.7 g/dL [facility] RDW CV 12.5 11.1 - 14.9 % [facility] RDW SD 42.1 35.7 - 48.1 fL [facility] NRBC abs 0.00 0.00 - 0.01 K/cumm [facility] Blood 12/23/2024 8:03 AM CDT 12/23/2024 5:06 PM CDT Narrative [facility] - 12/23/2024 5:51 PM CDT MONTHLY (EVERY 4 WEEKS) Earnest Crandall MD LAB BLOOD ORDERABLES Final R esult Performing Organization Address City/[facility]/ZIP Co de Phone Number [facility] [address] [place] [address] * Phosphorus (12/23/2024 8:03 AM CDT) Phosphorus, pl 3.2 2.3 - 4.5 mg/dL Blood 12/23/2024 8:03 AM CDT 12/23/2024 5:06 PM CDT Earnest Crandall MD LAB BLOOD ORDERABLES Final R esult Performing Organization Address [facility] Co de Phone Number W[facility]TER [phone] [facility] [place] [address] * Lactate dehydrogenase (LD) (12/23/2024 8:03 AM CDT) Lactate dehydrogenase (LDH) 166 100 - 250 Units/L Comment:Hemolysis present. R esults may be affected. Blood 12/23/2024 8:03 AM CDT 12/23/2024 5:06 PM CDT us Earnest Crandall MD LAB BLOOD ORDERABLES Final R esult Performing Organization Address [facility] de Phone Number WALTER [phone] [facility] [place] [address] * Bilirubin, direct (12/23/2024 8:03 AM CDT) Bilirubin, direct 0.1 0.1 - 0.3 mg/dL Blood 12/23/2024 8:03 AM CDT 12/23/2024 5:06 PM CDT Earnest Crandall MD LAB BLOOD ORDERABLES Final R esult Performing Organization Address [facility] Co de Phone Number WALTER [phone] [facility] [place] [address] * (ABNORMAL) Lipid panel (12/23/2024 8:03 AM [...] LAB BLOOD ORDERABLES Final R esult [facility] [address] Department [place] [address] * (ABNORMAL) Comprehensive metabolic panel (12/23/2024 [...] LAB BLOOD ORDERABLES Final R esult [facility] [address] [place] [address] * eGFR (11/18/2024 8:13 AM CDT) eGFR [...] CDT 11/18/2024 3:18 PM CDT us Earnest Cranadll MD LAB BLOOD ORDERABLES Final R esult [facility] [address] Department of Laboratories [place], [place] [id number] * (ABNORMAL) Differential, auto (11/18/2024 8:13 AM CDT) Neutrophil abs 3.73 1.50 - 6.50 K/cumm Imm gran abs 0.01 0.00 - 0.10 K/cumm [facility] Lymphocyte abs 0.79(L) 0.80 - 3.30 K/cumm [facility] Monocyte abs 0.47 0.20 - 0.80 K/cumm [facility] Eosinophil abs 0.16 0.00 - 0.50 K/cumm [facility] Basophil abs 0.04 0.00 - 0.10 K/cumm [facility] Neutrophil pct 71.7 % [facility] Comment: Interpretive Data Percent cell count reference ranges are not reported, since discordance with absolute values may lead to misinterpretation of CBC data. Current Interpretive Data was last revised on 2017. Imm gran pct 0.2 % [facility] Comment: Interpretive Data Percent cell count reference ranges are not reported, since discordance with absolute values may lead to misinterpretation of CBC data. Current Interpretive Data was last revised on 2017. Lymphocyte pct 15.2 % [facility] Comment: Interpretive Data Percent cell count [...] LAB BLOOD ORDERABLES Final R esult [facility] [address] [place] [address] * Tacrolimus level trough (11/18/2024 8:13 AM CDT) Tacrolimus trough 8.5 ng/mL Comment: Interpretive Data Testing performed by liquid chromatography-tandem mass spectrometry. Therapeutic concentrations vary depending on type of transplanted organ and time elapsed since transplant. Typical trough concentrations range from 5-15 ng/mL. This test was developed and its performance characteristics determined by the [facility] consistent with CLIA requirements. This test has not been cleared or approved by the US Food and Drug administration. Current interpretive data last reviewed 2019. Testing performed by: [facility], [address] [facility], [place]., [address] Blood 11/18/2024 8:13 AM CDT 11/18/2024 10:03 PM CDT Narrative [facility] - 11/19/2024 2:14 AM CDT MONTHLY (EVERY 4 WEEKS) Earnest Crandall MD LAB BLOOD ORDERABLES Final R esult [facility] [address] [place] [address] * (ABNORMAL) CBC with auto differential (11/18/2024 8:13 AM CDT) WBC 5.20 3.80 - 9.90 K/cumm Hgb 14.5 13.0 - 17.5 g/dL [facility] CH Hct 45.9 38.9 - 50.3 % [facility] CH Plt 205 150 - 400 K/cumm [facility] CH MPV 9.7 9.1 - 12.3 fL [facility] RBC 5.01 4.30 - 5.80 M/cumm [facility] CH MCV 91.6 81.3 - 96.4 fL [facility] MCH 28.9 27.1 - 33.3 pg [facility] MCHC 31.6(L) 32.3 - 35.7 g/dL [facility] RDW CV 13.3 11.1 - 14.9 % [facility] RDW SD 44.6 35.7 - 48.1 fL [facility] NRBC abs 0.00 0.00 - 0.01 K/cumm [facility] Blood 11/18/2024 8:13 AM CDT 11/18/2024 3:16 PM CDT Narrative [facility] - 11/18/2024 3:25 PM CDT MONTHLY (EVERY 4 WEEKS) Earnest Crandall MD LAB BLOOD ORDERABLES Final R esult [facility] [address] [place] [address] * (ABNORMAL) Renal function panel (11/18/2024 8:13 AM CDT) Sodium 143 135 - 145 mmol/L Potassium, pl 4.9 3.3 - 4.9 mmol/L [facility] Chloride 108 97 - 110 mmol/L [facility] CO2 23 22 - 32 mmol/L [facility] Anion gap 12 2 - 15 mmol/L [facility] BUN 22 6 - 25 mg/dL [facility] Creatinine 1.59(H) 0.80 - 1.30 mg/dL [facility] Glucose 110 70 - 199 mg/dL [facility] Comment: Interpretive Data Fasting glucose >/= [...] Calcium 9.8 8.5 - 10.3 mg/dL [facility] Phosphorus, pl 3.0 2.3 - 4.5 mg/dL [facility] Albumin 4.5 3.5 - 5.0 g/dL [facility] Blood 11/18/2024 8:13 AM CDT 11/18/2024 3:16 PM CDT Narrative [facility] - 11/18/2024 3:42 PM CDT MONTHLY (EVERY 4 WEEKS) Earnest Crandall MD LAB BLOOD ORDERABLES Final R esult [facility] [address] [place] [address] * Hepatitis C (HCV) RNA PCR, quantitative (03/27/2022 8:30 AM CDT) [facility] HCV RNA result Not Detected [facility] Comment: The quantifiable range of this assay is 15 IU/mL to 100,000,000 IU/mL (1.18 log IU/mL to 8.00 log IU/mL). Testing was performed by the [facility]IKI 6800 HCV Test ([employer] Testing performed at [facility] Current Interpretive Data was last revised on 2021 Blood 03/27/2022 8:30 AM CDT 03/27/2022 1:53 PM CDT us Frandy Dewey MD LAB MICROBIOLOGY - GENERAL ORDERABLES Final Result Performing Organization Address City/State/[facility] Co de Phone Number [facility] Department [place] [address] from Last 3 Months or Most Recently Relevant to Health Maintenance
--- OUTSIDE RECORDS SUMMARY | 2025-01-23 12:19 | XMS_ITS | Clinical Summary ---
Author Organization [facility] Address [address] [place] [address] Phone Care Team Providers Care Deportation Examiner Name Role Phone Roel Pantoja MD Primary Care Provider [phone] Allergies No known active allergies Medications No [...] Comments Blood Pressure 111/75 04/20/2018 12:00 PM [facility] Pulse 76 04/20/2018 7:02 AM [facility] Temperature 36.6 C (97.8 F) 04/20/2018 11:15 AM [facility] Respiratory Rate 14 04/20/2018 12:00 PM [facility] Oxygen Saturation 100% 04/20/2018 12:00 PM [facility] Inhaled Oxygen Concentration - - Weight 74.8 kg (165 lb) 04/20/2018 7:02 AM [facility] Height 182.9 cm (6') 04/20/2018 7:02 AM [facility] Body Mass Index 22.38 04/20/2018 7:02 AM [facility] Plan of Treatment Health Maintenance Due Date Last Done Comments HPV VACCINES (1 - Male 3-dose series) 2010 DTAP/TDAP/TD VACCINES (1 - Tdap) 2014 HEPATITIS B VACCINES (1 of 3 - 19+ 3-dose series) 2014 INFLUENZA VACCINE (#1) 2025 06/26/2020, 2018 Medical Devices Implanted Type Area Counter Sales Person Device Identifier Shelf Expiration Date Model / Serial / Lot Cath Pd Wayne [place] 2cuff [id number] - [id number] Implanted:Qty : 1 on 04/20/2018 by Kate Aj MD at [facility] Catheter N/A: Abdomen [employer] - COVIDIEN Peritoneal Dialysis Catheter 09/24/2021 [id number] / / [id number] Insurance MEDICARE PART A AND B [employer] BLUE ACCESS/TRUE Daily Sales Exchange PPO Advance Directives For more information, please contact: [phone] * Full Code (Latest Code Status on File) Date Activated Date Inactivated Comments 04/20/2018 10:20 AM 04/20/2018 3:04 PM * Full Code Date Activated Date Inactivated Comments 04/20/2018 6:19 AM 04/20/2018 10:20 AM Care Teams Deportation Examiner Relationship Specialty Start Date End Date Roel Pantoja MD [address] [place] [phone] PCP - General Family Practice 03/18/18
--- OUTSIDE RECORDS SUMMARY | 2025-01-23 12:19 | XMS_ITS ---
Author Organization [facility] al Address [address] [place] [address] Care Team Providers Care Mapping Technician Name Role Phone Dixie Schroeder MD Unavailable [phone] Vanita Amaro DO Primary Care Provider [phone] Tg Ervin RN Unavailable Unava ilable Transplant Episode Kidney Recipient [facility] ([place], [place]) - [facility] Organ Received: Left Kidney Transplanted on 02/20/2022 Marked as Active Follow-up on 02/20/2022 Reason: Transplanted at [facility] Kidney CoordinatorTg Ervin RN Phone: N/A Fax: N/A Email: N/A [place] Organ Diagnosis Organ Primary Contributory Kidney Alport's [...] RN Secondary Coordinator Secondary Post Kidney Coordinator [phone] N/A N/A Tg Ervin, outdoor pursuits instructorBrush Holder Inspector N/A N/A N/A Dixie Schroeder MD Referring Physician [phone] N/A Ellen Ling Floating Derrick Operator [phone] N/A N/A Events Post-Transplant Pre-Transplant Admitted: 02/20/2022 Referred: 07/03/2020 Transplanted: 02/20/2022 Evaluation began: 1 Discharged: 02/24/2022 Committee: 11/05/2020 UNOS qualified: 06/27/2020 Center waitlisted: 1 Dialysis History Dialysis History Start End Type Comments Center 06/27/2020 02/20/2022 In-center Hemodialysis MWF PM [facility] 04/22/2018 01/04/2019 Peritoneal PD [facility] Information Center Phone Fax Address [facility] [phone] [place] [id number] [facility] [phone] [facility] [place] [phone]
--- NOTE | 2025-01-23 12:27 | PC.NURSE ---
Pt visitor came out into diaz requesting to speak with provider again d/t disagreeing with plan of care. States they do not want routine blood work done because they get that all the time d/t pt medical hx. States if the US they are requesting cannot be done here then they do not want anything else. Provider made aware.
--- NOTE | 2025-01-23 12:30 | PC.NURSE ---
Pt visitor came out into diaz again stating they just want to leave and if they need to sign AMA paperwork. Provider entered room and discussed with pt. Pt continues to decide to leave AMA. Exits ED in NAD, escorted to exit.
== END 2025-01-23 12:41 | disposition left against medical advice (07) ==
LOC: ANHED 12:16
PROVIDERS: Emergency Provider Registered Nurse; PCP Family Medicine
DX: R06.02 Shortness of breath (principal); R53.83 Other fatigue; I12.0 Hypertensive chronic kidney disease with stage 5 chronic kidney disease or end stage renal disease; N18.6 End stage renal disease; D63.1 Anemia in chronic kidney disease; Z99.2 Dependence on renal dialysis; Z94.0 Kidney transplant status; K21.9 Gastro-esophageal reflux disease without esophagitis; F17.290 Nicotine dependence, other tobacco product, uncomplicated; Z79.82 Long term (current) use of aspirin; Z79.899 Other long term (current) drug therapy
CPT/HCPCS: 99283

== ENCOUNTER 2025-01-26 15:46 | Outpatient (CLI) | payer MEDICARE, OTHER, SELFPAY ==
--- NOTE | ~2025-01-26 | US_ITS ---
EXAMINATION: US carotid duplex BI DATE: 01/26/2025 18:48 CDT INDICATION: Retinal ischemia TECHNIQUE: Grayscale, color Doppler, and pulsed Doppler images of the cervical carotid arteries were obtained. The degree of vessel stenosis is placed in one of the following categories: normal, <50%, 50-69%, >=7 0% but less than near-occlusion, near-occlusion, or total occlusion. Note that percent stenosis relative to normal distal artery lumen diameter is indirectly measured fro m velocity measurements as described originally by Nino, et al. Radiology 2003; 229:340-346 and upda allan by Kerwin Navarro et al STROKE 2012;43(3);915-921. COMPARISON: None. FINDINGS: There is mild atherosclerosis of both carotid arteries. Peak systolic velocity (in cm/s) is detailed below RIGHT: Right common carotid artery (CCA): 125 cm/s. Right internal carotid artery (ICA) PSV: 90 cm/s. Right ICA end-diastolic velocity (EDV): 24 cm/s. Right ICA/CCA PSV ratio is 0.7. Right external carotid artery (ECA): 131cm/s. There is antegrade flow in the right vertebral artery LEFT: Left common carotid artery (CCA): 115 cm/s. Left internal carotid artery (ICA) PSV: 94 cm/s. Left ICA end-diastolic velocity (EDV): 33 cm/s. Left ICA/CCA PSV ratio is 0.8. Left external carotid artery (ECA): 145cm/s. There is antegrade flow in the left vertebral artery. IMPRESSION: 1. Less than 50% stenosis in the right internal carotid artery. 2. Less than 50% stenosis in the left internal carotid artery. 3. Elevated peak systolic velocity within the external carotid artery, a finding of uncertain clinica l significance. Reviewed, dictated and finalized at location A. IMPRESSION: 1. Less than 50% stenosis in the right internal carotid artery. 2. Less than 50% stenosis in the left internal carotid artery. 3. Elevated peak systolic velocity within the external carotid artery, a findin g of uncertain clinical significance.
== END 2025-01-26 15:47 | disposition home or self-care (01) ==
PROVIDERS: PCP Family Medicine; Visit Provider Family Medicine
DX: H35.82 Retinal ischemia (principal); I65.23 Occlusion and stenosis of bilateral carotid arteries
CPT/HCPCS: 93880